=== PATIENT | male | born 1970 | race Caucasian/White ===

== ENCOUNTER 2019-06-19 05:50 | Outpatient (RCR) | payer MEDICARE, MEDICAID, SELFPAY | END 2019-07-02 00:01 | LOC: ONCRAD 05:50 | PROVIDERS: Family Provider Physician Assistant; Visit Provider Radiology Radiation Oncology | DX: Z51.0 Encounter for antineoplastic radiation therapy (principal); C79.89 Secondary malignant neoplasm of other specified sites; C34.11 Malignant neoplasm of upper lobe, right bronchus or lung; L58.0 Acute radiodermatitis; W88.1XXA Exposure to radioactive isotopes, initial encounter; G47.33 Obstructive sleep apnea (adult) (pediatric); Z23 Encounter for immunization; Z45.2 Encounter for adjustment and management of vascular access device; Z79.51 Long term (current) use of inhaled steroids; Z79.891 Long term (current) use of opiate analgesic; Z79.84 Long term (current) use of oral hypoglycemic drugs; Z86.711 Personal history of pulmonary embolism; Z92.21 Personal history of antineoplastic chemotherapy; Z87.440 Personal history of urinary (tract) infections | CPT/HCPCS: 36415; 77336 ×3; 77386 ×13; 80053; 85025; 90686; 96523; 99213; G0008; J1642 ==

== ENCOUNTER 2019-07-31 05:42 | Outpatient (RCR) | payer MEDICARE, MEDICAID, SELFPAY ==
[2019-07-09 09:48] LABS: Basophils # 0.1 10^3/uL (0.0-0.1); Basophils % 0.8 %; Eosinophils # 0.3 10^3/uL (0.0-0.8); Eosinophils % 4.5 %; Hematocrit 43.7 % (42.0-52.0); Hemoglobin 13.7 g/dL (11.7-16.6); Lymphocytes # 2.4 10^3/uL (0.8-4.8); Lymphocytes % 40.2 %; Mean Corpuscular HGB Conc 31.4 g/dL (30.0-36.0); Mean Corpuscular Hemoglobin 30.2 pg (28.0-34.0); Mean Corpuscular Volume 96.3 fL (80-94); Mean Platelet Volume 11.4 fL (7.4-10.4); Monocytes # 0.5 10^3/uL (0.2-0.9); Monocytes % 7.5 %; Neutrophils # 2.8 10^3/uL (1.8-7.7); Neutrophils % 46.7 %; Nucleated Red Blood Cells % 0 %; Platelet Count 129 10^3/cmm (130-400); Red Blood Count 4.54 10^6/uL (4.1-5.3); Red Cell Distribution Width 14.4 % (12.1-15.1)
[2019-07-09 09:59] LABS: Alanine Aminotransferase 24 U/L (0-41); Albumin Level 4.1 g/dL (3.5-5.2); Alkaline Phosphatase 81 IU/L (40-130); Anion Gap 17.1 (5-19); Aspartate Amino Transferase 26 U/L (0-40); Blood Urea Nitrogen 19 mg/dL (6-20); Calcium 9.9 mg/Dl (8.6-10.0); Carbon Dioxide 20 mmol/L (22-29); Chloride 101 mmol/L (98-107); Globulin 3.5 g/dL (1.3-4.6); Glomerular Filtration Rate 90.1 mL/min (90-130); Glucose 104 mg/dL (74-109); Potassium 4.1 mmol/L (3.5-5.1); Sodium 134 mmol/L (136-145); Total Bilirubin 0.4 mg/dL (0.15-1.2); Total Protein 7.6 g/dL (6.6-8.7)
[2019-07-09 10:30] LABS: Slide Review Slide Review Perform
[2019-07-10] MEDS: acetaminophen 325 mg Tablet 650 MG PO (10:00)
[2019-07-10] MEDS: dexamethasone 20 MG in sodium chloride 0.9% 50 ML 188 MG IV (10:12)
[2019-07-10 13:27] LABS: Thyroid Stimulating Hormone 0.95 uIU/mL (0.27-4.20)
[2019-07-10 14:31] LABS: Estmated Average Glucose 103; Hemoglobin A1C 5.2 % (4.0-6.0)
--- NOTE | 2019-07-15 10:49 | ONC FU_ITS ---
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 Mckeon is a 48-year-old gentleman who developed a left neck mass. He was seen by Dr. Ben FOX and underwent needle core biopsy of left neck mass on 10/16/2017. 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 He underwent a CT of chest on 10/23/2017 which revealed a large right paratracheal mass measuring 8.3???7.7 cm. It involves the superior vena cava with near occlusion. It also causes encasement of the right main pulmonary artery with moderate narrowing with moderate stenosis. It also encases the right proximal main stem bronchus and bronchus intermedius. Mr Mckeon subsequently underwent CT PET scan on 10/28/2017 which showed hypermetabolic left neck mass 4.9 x 3.7 cm with SUV of 12.9. Right paratracheal mass with SUV of 15. At the level of pelvis a 6.1 x 4.5 cm soft tissue mass was reported in the right external iliac territory which has SUV of 14.4. There was an FDG positive muscular implant anterior to right femoral neck measuring 1.[address] scan done on 12/07/2017 showed right lower lobe and right middle lobe pulmonary embolism and was started on apixaban and for the study showed right lower extremity clot Mr Mckeon was seen by radiation oncology and started on radiation to his chest on urgent basis because of risk of impending SVC syndrome. He began his first cycle of chemotherapy with Carboplatin/etoposide on 11/06/2017. His last cycle of chemotherapy was on 02/06/2018. Mr. Mckeon did have follow-up PET CT on 02/03/2018. The left-sided cervical mass seen on the exam from 10/28/2017 is now subcentimeter in size and within minimal FDG activity. Similarly, the right hilar/paratracheal mass demonstrates activity minimally greater than that of the mediastinal background and measures 2.3 x 4.1 cm. The right external iliac mass now measures 1.5 cm without significant FDG activity. The muscle implant anterior to the right femoral neck currently has SUV of 6.6 down from 14.1 indicating a positive response to chemotherapy. His cycle 6 chemotherapy, was on 04/02/2018. Patient has seen Dr. Cotton radiation oncology, regarding persistent activity in muscle implant anterior to the right femoral neck, as per patient he was informed that there is a risk of radiation-induced damage to his femoral neck/ right hip and suggested to continue with chemotherapy and repeat CT PET scan as planned. Underwent CT-guided biopsy of right iliopsoas muscle implant anterior to right femoral neck on 06/04/2018 at [facility] radiology department in [place] and final pathology report came back fibrohistiocytic proliferation, no evidence of carcinoma Sleep apnea on CPAP machine Underwent fluoroscopy Port-A-Cath on 08/06/2018 showed patent Port-A-Cath He was supposed to get CT PET scan but insurance refused coverage so CT scan of chest abdomen pelvis and neck was done on 08/17/2018. It reported recurrent mass in the left neck centered at level of hyoid bone. Mass extends over a length of 4 x 2.2 x 3.4 cm. The mass abuts and displaces the fat planes along the sternocleidomastoid muscle. Mass also abuts the left jugular vein. Mass in a similar location on study of 09/18/2017. CT PET scan done on 04/21/2018 was negative. No additional masses noted. CT scan of chest showed continued decrease righ media l upper lobe mass; Unchanged right upper lobe linear and patchy nodular opacity; CT abdomen pelvis showed no definite metastatic disease in abdomen pelvis; Left mid kidney indeterminant wedge-shaped low-attenuation focus Mr Mckeon underwent biopsy of left neck mass at [facility] on 09/12/2018, final pathology report came back high-grade neuroendocrine carcinoma, predominantly small cell feature and positive focally week for TTF-1, it was concluded, given history of SVC syndrome and radiological studies diagnosis was revised to metastatic small cell lung cancer. And rechallenge with carboplatin/etoposide was recommended along with tecentriq (atezolizumab), Which he was started on 09/26/2018. Follow-up CT PET scan done after 4 doses of carboplatin/etoposide/ tecentriq , on 12/29/2018 showed persistent left supraclavicular mass measuring 3.7 x 2.7 with SUV of 8.2 compared to 4 prior to by 3.[address] scan of neck done on 08/17/2018 at [facility]. And also showed persistent but stable muscle implant anterior to right femur, with SUV 14.0 and it was biopsied earlier and showed no evidence of metastatic disease Patient was evaluated by Dr. Gorman in March 2019 and as per his evaluation patient still responding to the treatment and left neck mass is smaller than before and . Last chemotherapy was done on 02/03/2019. The muscle implant was also seen with SUV of 14 biopsy of specimen was consistent with recurrent high-grade tumor and he was offered a clinical trial [facility] neuroendocrine oncology clinic at [facility]. Patient did well and clinical trial but eventually developed progressive thrombocytopenia and at his followup visit on May 07, [address] Gorman, his follow-up scan showed disease progression. At that time he was taken off clinical trial as left neck mass continued to grow. CT scan of neck done at the May 2019 followup visit, showed progressive left neck mass site 6.1 x 7.6 cm compared to 4.4 x 6.4 on 02/21/2019 with central hypoattenuation in mass is intimately associated with the left internal jugular vein and now appears to encase it and right pulmonary nodularity, cavitary lesion, right hilar mass seen. With this impression it was decided a few with palliative therapy which include radiation therapy to the left neck mass and because of persistent thrombocytopenia immunotherapy with ipilimumab and nivolumab was recommended and in case thrombocytopenia resolved topotecan based regimen can be considered Tolerated radiation therapy to left neck reasonably well and will conclude radiation therapy on 06/19/2019. Dr. Plummer has recommended that he pursue ipilimumab and nivolumab. He is here today for follow-up and initiation of his first cycle. He states overall he is doing pretty good. He has had some loss of appetite. He states that things just do not taste right. His weight is down 13 pounds since his visit on June 17, 2019. Mrs. Greer states that he is being encouraged to drink Ensure and nutrition supplements. She is also trying to to do anything that he will eat . He is questioning whether or not he needs to be on the metformin he is on thousand grams twice daily. He states with his weight loss and his appetite his blood sugars at home have been good. His random glucose today was 104. He has no new pain. He states overall he is doing good. His energy is fair. He denies any diarrhea or constipation. He has had no new cough or shortness of breath. He denies any fever or chills or any signs of infection in the last 72 hours. His ECOG is 2. ] Past Medical History: Emphysema Hypertension Type II diabetes Past Surgical History: Flu vaccine in 2018 - right deltoid Hernia repair in 2012 Surgery on lower right leg in 2010 Allergies: Penicillins Medications: Advair Diskus 2 puff(s) (of 250-50 mcg/dose) Aerosol Powder, Breath Activated Inhalation b.i.d. Ativan 0.5 - 1 Tablet (of 1 mg) Oral t.i.d. PRN Cetirizine HCl 1 Tablet (of 10 mg) Tablet Oral b.i.d. Compazine 1 Tablet (of 10 mg) Oral q 4 hours PRN Diclofenac Sodium 1 Tablet (of 75 mg) Tablet, enteric coated Oral b.i.d. Gabapentin 1 Capsule (of 300 mg) Capsule Oral four times a day Hydrocodone-Acetaminophen 1 - 2 Tablet (of 5-325 mg) Oral q 6 hours Lisinopril 1 Tablet (of 20 mg) Oral daily MetFORMIN HCl 1 Tablet (of 1000 mg) Tablet Oral b.i.d. Metoprolol Tartrate 1 Tablet (of 50 mg) Tablet Oral daily Oxybutynin Chloride 1 Tablet (of 5 mg) Tablet Oral b.i.d. Pramipexole Dihydrochloride 1 (0.25 mg) Tablet Oral at bedtime Tradjenta 1 Tablet (of 5 mg) Tablet Oral daily Family History: Mr. Mckeon's mother is alive. Mr. Mckeon's father is : Mesothelioma. His maternal grandfather is : Prostate Cancer. His paternal grandfather is : Lung Cancer. Mr. Mckeon has 1 paternal uncle who is : mesothelioma. Social History: Mr. Mckeon is and he is a disabled. He is a daily smoker who has smoked 1.0 pack/day for 33 years. Review Of Symptoms: Constitutional Denies fevers, chills, night sweats, excessive fatigue or weight loss Allergic/Immunologic No reactions. Eyes Denies significant visual changes. No diplopia. No amaurosis. ENMT Denies changes in hearing, sore throat, mouth sores, difficulty or changes in swallowing ability, and/or sinus drainage. Hematologic/Lymphatic Denies easy bruising or bleeding. The patient denies any tender or palpable lymph nodes. Respiratory Denies dyspnea on exertion, chest pain, cough or hemoptysis. Denies orthopnea. Cardiovascular Denies anginal chest pain, palpitations or orthopnea. Gastrointestinal Denies nausea, vomiting, diarrhea, GI bleeding, or constipation. Denies change in bowel habits and/or stool color, no heartburn or early satiety. Genitourinary (M) Denies hematuria, dysuria, increased frequency, urgency, hesitancy or incontinence Musculoskeletal Denies joint pain, swelling or redness. No decreased range of motion. Integumentary Denies chronic rashes, inflammation, ulcerations or skin changes. Neurologic Denies headache, blurred vision, and no areas of focal weakness or numbness. Normal gait. No sensory problems. Psychiatric Denies insomnia, depression, rula or mood swings. Vital Signs: Performed on Jul 10, 2019 08:54 Height - 72.00 in Weight - 299.4 lbs (LOW) BSA - 2.53 sq.m BMI - 40.61 (HIGH) Temperature - 98.2 F (LOW) Pulse - 96 /min Respiration - 20 /min BP - 151/98 mm(hg) (HIGH) O2 Sat - 96 % Pain - 0,1 - No physically strenuous activity, but ambulatory and able to carry out light or sedentary work (e.g. office work, light house work). (ECOG) Physical Examination: Constitutional Alert, oriented, no acute distress. Skin pink, warm and dry. Head Normocephalic; atraumatic. Eyes Conjunctivae and sclerae are clear and without icterus. Pupils are reactive and equal. Respiratory Lungs are clear to auscultation without rhonchi or wheezing. Cardiovascular Regular rate and rhythm of heart without murmurs,clicks, gallops or rubs. Abdomen Non-tender, non-distended, no masses, ascites or hepatosplenomegaly. No guarding or rebound tenderness. No pulsatile masses. Back/Spine Non-tender to palpation. Extremities No visible deformities, no cyanosis, clubbing or edema. Musculoskeletal No tenderness or swelling, normal range of motion without obvious weakness. Integumentary No rashes or lesions. Neurologic No sensory or motor deficits, normal cerebellar function, normal gait. Psychiatric Alert and oriented times three. Coherent speech. Verbalizes understanding of our discussions today. Laboratory:Test performed on Jul 10, 2019 15:39 TSH 0.95 uU/mL Hemoglobin A1C 5.2 % Test performed on Jul 09, 2019 14:08 Glucose 104 mg/dL BUN 19 mg/dL Creatinine 0.9 mg/dL Cr Clearance (Est) 201.06 mL/min Sodium 134 mmol/L Potassium 4.1 mmol/L Chloride 101 mmol/L CO2 20 mmol/L Calcium 9.9 mg/dL Protein, Total 7.6 g/dL Albumin 4.1 g/dL Globulin 3.5 g/dL Bilirubin, Total 0.4 mg/dL Alkaline Phosphatase 81 IU/L AST (SGOT) 26 IU/L ALT (SGPT) 24 IU/L WBC 6.0 10^9/L RBC 4.54 10^12/L HGB 13.7 g/dL HCT 43.7 % MCV 96.3 fl MCH 30.2 pg MCHC 31.4 g/dL RDW 14.4 % Platelet Count 129 10^9/L MPV 11.4 fL Neutrophils (Gran) 2.8 10^9/L Lymphocytes 2.4 10^9/L Monocytes 0.5 10^9/L Eosinophils 0.3 10^9/L Basophils 0.1 10^9/L Manual Lymphocytes 40.2 % Manual Monocytes 7.5 % Manual Eosinophils 4.5 % Manual Basophils 0.8 % NRBCs 0.0 /100 WBC Impression: Recurrent small cell lung cancer per left neck mass biopsy on 09/12/2018, which showed high-grade neuroendocrine carcinoma, predominantly small cell feature and positive focally for TTF-1, it was concluded, given history of SVC syndrome and radiological studies diagnosis was revised to metastatic small cell lung cancer Metastatic High-grade neuroendocrine carcinoma per needle core biopsy of left neck mass done on 10/16/2017 Pathology also showed sheets and cords of large malignant cells with neuroendocrine features, numerous mitotic figures are seen as well as area of tumor necrosis. immuno histochemistry positive for CAM 5.2, CD 56 , synaptophysin, TTF-[address] scan of chest done on 10/23/2017 showed 7.7 x 2.3 cm right paratracheal mass with a near occlusion of SVC, and encasement of right proximal pulmonary artery with moderate stenosis, and encasement of right proximal main stem bronchus and bronchus intermedius CT PET scan done on 10/28/2017 showed hypermetabolic left neck mass measuring 4.9 x 3.7 cm with SUV of 12.9 and right paratracheal mass measures 6.8 x 7.8 cm with SUV of 15 and at the level of pelvis a 6.1 x 4.5 cm soft tissue mass in the right external iliac territory has SUV of 14.4 and and FDG positive muscular implant anterior to right femoral neck measuring about 1.2 cm in size On radiation therapy to right paratracheal mass and chemotherapy with carboplatin and etoposide was added on 11/06/2017. He received radiation therapy to right pelvic mass Right leg DVT diagnosed on 12/07/2017 on Eliquis. Mr. Mckeon was admitted on 01/20/2018 with an initial concerns for sepsis but was found to have UTI. He was discharged on antibiotics andhis fever, rigors and tachycardia resolved. CT PET scan done on 02/03/2018 showed left sided cervical mass seen on exam from 10/28/2017 is now subcentimeter in size and within normal limit FDG activity early. Right hilar/paratracheal mass demonstrates activity minimally greater than that of mediastinal background and molecular 2.3 x 4.1 cm. Right external iliac mass now measured 1.5 cm without significant FDG activity. The muscle implant anterior to the right femoral neck currently has SUV of 6.6, down from 14.1, indicating a positive response to therapy. Repeat CT PET scan done after 6th dose of chemo on 04/21/2018 showed previously described left sided cervical mass was not identifiable on the current study. Right hilar/paratracheal mass is improved in size to 3 cm with a minimum FDG activity. Right external iliac lymph node was unchanged in size but without significant FDG activity Muscle implant anterior to right femoral neck had an SUV of 12 compared to 6.6 previously, consistent with progression of disease at that location. On 06/04/2018, he underwent CT-guided biopsy of this lesion at [facility] radiology department in [place] and final pathology report came back fibrohistiocytic proliferation, no evidence of carcinoma CT scan of neck chest abdomen pelvis done on 08/17/2018 showed recurrent mass in the left neck centered at level of hyoid bone. Mass extends over a length of 4 x 2.2 x 3.4 cm and abuts and displaces fat planes along the sternocleidomastoid muscle. Mass also abuts left jugular vein. No additional mass seen. Mass in a similar location on the study of 09/18/2017. CT PET scan done on 04/21/[address] scan of chest showed continued decrease right medial upper lobe mass. Unchanged right upper lobe linear and patchy nodular opacity. New right lower lobe superior segment focal irregular opacity nonspecific follow-up CT scan recommended in [address] abdomen showed no definite metastatic disease in abdomen pelvis. Left mid kidney indeterminant wedge-shaped low-attenuation focus nonspecific. Mr Mckeon underwent biopsy of left neck mass at [facility] on 09/12/2018, final pathology report came back high-grade neuroendocrine carcinoma, predominantly small cell feature and positive focally week for TTF-1, it was concluded, given history of SVC syndrome and radiological studies diagnosis was revised to metastatic small cell lung cancer. Re-challenging with carboplatin and etoposide was recommended along with tecentriq (atezolizumab). So planning was to start him on carboplatin/etoposide and tecentriq 1200 mg IV day 1 q3 weeks ???[address] PET scan if complete remission, may consider maintenance therapy with Tecentriq alone.Which was started on 09/26/2018 Follow-up CT PET scan done after 4 doses of carboplatin/etoposide/ tecentriq , on 12/29/2018 showed persistent left supraclavicular mass measuring 3.7 x 2.7 with SUV of 8.2 compared to 4 prior to by 3.[address] scan of neck done on 08/17/2018 at [facility]. It also showed persistent but stable muscle implant anterior to right femur, with SUV 14.0 and it was biopsied earlier and showed no evidence of metastatic disease Patient was evaluated by Dr. Gorman in March 2019 and as per his evaluation, Mr Mckeon was still responding to the treatment and left neck mass is smaller than before. Last chemotherapy was done on 02/03/2019. The muscle implant was also seen with SUV of 14 biopsy of specimen was consistent with recurrent high-grade tumor and he was offered a clinical trial at neuroendocrine oncology clinic at [facility]. Patient did well in the clinical trial but eventually developed progressive thrombocytopenia and follow-up scan showed disease progressio at hiis followup visit on May 07, 2019 At that time he was taken off clinical trial as left neck mass continued to grow. CT scan of neck done showed progressive left neck mass site 6.1 x 7.6 cm compared to 4.4 x 6.4 on 02/21/2019 with central hypoattenuation in mass and it was intimately associated with the left internal jugular vein and now appears to encase it. Right pulmonary nodularity, cavitary lesion, right hilar mass seen. With this impression, it was decided to pursue palliative therapy which include radiation therapy to the left neck mass and because of persistent thrombocytopenia- immunotherapy with ipilimumab and nivolumab was recommended and in case thrombocytopenia resolved- topotecan based regimen can be considered. Tolerated radiation therapy to left neck reasonably well and will conclude radiation therapy on 06/19/2019. Dr. Plummer is recommended that he pursue ipilimumab and nivolumab. He is here today for follow-up and initiation of his first cycle. Plan: 1. We will pursue with ipilimumab nivolumab today as scheduled. Antiemetics at home if needed. He will have premeds as indicated. 3. Labs from July 09, 2019 were reviewed and detail and discussed with and Mrs. Mckeon and a copy was given to them. White count 6.0 hemoglobin 13.7 platelets 129,000 ANC is 2800. Creatinine is 0.9 potassium 4.1 LFTs are normal. I did request a TSH and a hemoglobin A1c be added to his labs. TSH was 0.95 and hemoglobin A1c was 5.2. 4. I did ask them to decrease his metformin to 500 mg twice daily as I am somewhat concerned about diarrhea especially if he has difficulty with diarrhea due to the immunotherapy. His hemoglobin A1c is 5.2. 5. We will plan to see him back in 1 week for day 8 follow-up with CBC CMP. He will have weekly interim counts and return in 3 weeks for consideration of cycle 2 with CBC CMP and TSH. 6. Specific side effects of immunotherapy discussed included but not limited to: ??? pneumonitis: new or worsening cough; chest pain; and shortness of breath. ??? Colitis: diarrhea or more bowel movements than usual; blood in stools or dark, tarry, sticky stools; and severe stomach area (abdomen) pain or tenderness. ??? hepatitis: jaundice; severe nausea or vomiting; pain on the right side of the abdomen; drowsiness; dark urine; bleeding or bruise more easily than normal. ??? nephritis and kidney failure: including decrease in the amount of urine; hematuria; lower extremity edema; and loss of appetite. ??? thyroid and pituitary changes that may include: headaches that will not go away or unusual headaches; extreme tiredness, weight gain or weight loss; changes in mood or behavior, such as decreased sex drive, irritability, or forgetfulness; dizziness or fainting; hair loss; feeling cold; constipation; and voice gets deeper. ???rash; changes in eyesight; severe or persistent muscle or joint pains; and severe muscle weakness. The majority of this visit was time spent face to face in review of plan of care, side effect identification and where to call for questions or concerns. 7. Mr. Mckeon was instructed to contact us in the interim should questions or problems arise. Signed By: Josette Kc-, AOCNP Nupur Plummer MD <<Signature on File>>
[2019-07-16 09:01] LABS: Basophils # 0.1 10^3/uL (0.0-0.1); Basophils % 0.9 %; Eosinophils # 0.5 10^3/uL (0.0-0.8); Hematocrit 43.2 % (42.0-52.0); Hemoglobin 13.4 g/dL (11.7-16.6); Lymphocytes # 2.4 10^3/uL (0.8-4.8); Lymphocytes % 43.2 %; Mean Corpuscular Volume 96.9 fL (80-94); Mean Platelet Volume 9.6 fL (7.4-10.4); Monocytes # 0.4 10^3/uL (0.2-0.9); Monocytes % 7.2 %; Neutrophils # 2.2 10^3/uL (1.8-7.7); Neutrophils % 39.3 %; Nucleated Red Blood Cells % 0 %; Platelet Count 131 10^3/cmm (130-400); Red Blood Count 4.46 10^6/uL (4.1-5.3); Red Cell Distribution Width 14.4 % (12.1-15.1); White Blood Count 5.6 10^3/uL (4.0-10.0)
[2019-07-16 09:24] LABS: Alanine Aminotransferase 24 U/L (0-41); Albumin Level 4.2 g/dL (3.5-5.2); Alkaline Phosphatase 80 IU/L (40-130); Anion Gap 16.2 (5-19); Aspartate Amino Transferase 22 U/L (0-40); Blood Urea Nitrogen 14 mg/dL (6-20); Calcium 9.5 mg/Dl (8.6-10.0); Carbon Dioxide 21 mmol/L (22-29); Chloride 105 mmol/L (98-107); Globulin 2.8 g/dL (1.3-4.6); Glomerular Filtration Rate 103.2 mL/min (90-130); Glucose 100 mg/dL (74-109); Potassium 4.2 mmol/L (3.5-5.1); Sodium 138 mmol/L (136-145); Total Bilirubin 0.3 mg/dL (0.15-1.2)
--- NOTE | 2019-07-22 10:57 | ONC FU_ITS ---
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 Mckeon is a 48-year-old gentleman who developed a left neck mass. He was seen by Dr. Ben FOX and underwent needle core biopsy of left neck mass on 10/16/2017. 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 He underwent a CT of chest on 10/23/2017 which revealed a large right paratracheal mass measuring 8.3???7.7 cm. It involves the superior vena cava with near occlusion. It also causes encasement of the right main pulmonary artery with moderate narrowing with moderate stenosis. It also encases the right proximal main stem bronchus and bronchus intermedius. Mr Mckeon subsequently underwent CT PET scan on 10/28/2017 which showed hypermetabolic left neck mass 4.9 x 3.7 cm with SUV of 12.9. Right paratracheal mass with SUV of 15. At the level of pelvis a 6.1 x 4.5 cm soft tissue mass was reported in the right external iliac territory which has SUV of 14.4. There was an FDG positive muscular implant anterior to right femoral neck measuring 1.[address] scan done on 12/07/2017 showed right lower lobe and right middle lobe pulmonary embolism and was started on apixaban and for the study showed right lower extremity clot Mr Mckeon was seen by radiation oncology and started on radiation to his chest on urgent basis because of risk of impending SVC syndrome. He began his first cycle of chemotherapy with Carboplatin/etoposide on 11/06/2017. His last cycle of chemotherapy was on 02/06/2018. Mr. Mckeon did have follow-up PET CT on 02/03/2018. The left-sided cervical mass seen on the exam from 10/28/2017 is now subcentimeter in size and within minimal FDG activity. Similarly, the right hilar/paratracheal mass demonstrates activity minimally greater than that of the mediastinal background and measures 2.3 x 4.1 cm. The right external iliac mass now measures 1.5 cm without significant FDG activity. The muscle implant anterior to the right femoral neck currently has SUV of 6.6 down from 14.1 indicating a positive response to chemotherapy. His cycle 6 chemotherapy, was on 04/02/2018. Patient has seen Dr. Cotton radiation oncology, regarding persistent activity in muscle implant anterior to the right femoral neck, as per patient he was informed that there is a risk of radiation-induced damage to his femoral neck/ right hip and suggested to continue with chemotherapy and repeat CT PET scan as planned. Underwent CT-guided biopsy of right iliopsoas muscle implant anterior to right femoral neck on 06/04/2018 at [facility] radiology department in [place] and final pathology report came back fibrohistiocytic proliferation, no evidence of carcinoma Sleep apnea on CPAP machine Underwent fluoroscopy Port-A-Cath on 08/06/2018 showed patent Port-A-Cath He was supposed to get CT PET scan but insurance refused coverage so CT scan of chest abdomen pelvis and neck was done on 08/17/2018. It reported recurrent mass in the left neck centered at level of hyoid bone. Mass extends over a length of 4 x 2.2 x 3.4 cm. The mass abuts and displaces the fat planes along the sternocleidomastoid muscle. Mass also abuts the left jugular vein. Mass in a similar location on study of 09/18/2017. CT PET scan done on 04/21/2018 was negative. No additional masses noted. CT scan of chest showed continued decrease righ media l upper lobe mass; Unchanged right upper lobe linear and patchy nodular opacity; CT abdomen pelvis showed no definite metastatic disease in abdomen pelvis; Left mid kidney indeterminant wedge-shaped low-attenuation focus Mr Mckeon underwent biopsy of left neck mass at [facility] on 09/12/2018, final pathology report came back high-grade neuroendocrine carcinoma, predominantly small cell feature and positive focally week for TTF-1, it was concluded, given history of SVC syndrome and radiological studies diagnosis was revised to metastatic small cell lung cancer. And rechallenge with carboplatin/etoposide was recommended along with tecentriq (atezolizumab), Which he was started on 09/26/2018. Follow-up CT PET scan done after 4 doses of carboplatin/etoposide/ tecentriq , on 12/29/2018 showed persistent left supraclavicular mass measuring 3.7 x 2.7 with SUV of 8.2 compared to 4 prior to by 3.[address] scan of neck done on 08/17/2018 at [facility]. And also showed persistent but stable muscle implant anterior to right femur, with SUV 14.0 and it was biopsied earlier and showed no evidence of metastatic disease Patient was evaluated by Dr. Gorman in March 2019 and as per his evaluation patient still responding to the treatment and left neck mass is smaller than before and . Last chemotherapy was done on 02/03/2019. The muscle implant was also seen with SUV of 14 biopsy of specimen was consistent with recurrent high-grade tumor and he was offered a clinical trial [facility] neuroendocrine oncology clinic at [facility]. Patient did well and clinical trial but eventually developed progressive thrombocytopenia and at his followup visit on May 07, [address] Gorman, his follow-up scan showed disease progression. At that time he was taken off clinical trial as left neck mass continued to grow. CT scan of neck done at the May 2019 followup visit, showed progressive left neck mass site 6.1 x 7.6 cm compared to 4.4 x 6.4 on 02/21/2019 with central hypoattenuation in mass is intimately associated with the left internal jugular vein and now appears to encase it and right pulmonary nodularity, cavitary lesion, right hilar mass seen. With this impression it was decided a few with palliative therapy which include radiation therapy to the left neck mass and because of persistent thrombocytopenia immunotherapy with ipilimumab and nivolumab was recommended and in case thrombocytopenia resolved topotecan based regimen can be considered Tolerated radiation therapy to left neck reasonably well and he concluded radiation therapy on 06/19/2019 o a total dose of 4,[address] Plummer has recommended that he pursue ipilimumab and nivolumab. He began his first cycle on 07/10/2019. He states overall he is doing pretty good. He states that he thinks last week went really well. He denies any fever or chills. He has had no nausea or vomiting. His appetite still is down for him. However he is eating. He is trying to do nutritional supplements as tolerated. He denies any diarrhea or constipation. He states his energy is about the same. He has had no mouth sores, sore throat or difficulty swallowing. His ECOG is 1. Past Medical History: Emphysema Hypertension Type II diabetes Past Surgical History: Flu vaccine in 2019 - right deltoid Hernia repair in 2012 Surgery on lower right leg in 2010 Allergies: Penicillins Medications: Advair Diskus 2 puff(s) (of 250-50 mcg/dose) Aerosol Powder, Breath Activated Inhalation b.i.d. Ativan 0.5 - 1 Tablet (of 1 mg) Oral t.i.d. PRN Cetirizine HCl 1 Tablet (of 10 mg) Tablet Oral b.i.d. Compazine 1 Tablet (of 10 mg) Oral q 4 hours PRN Diclofenac Sodium 1 Tablet (of 75 mg) Tablet, enteric coated Oral b.i.d. Gabapentin 1 Capsule (of 300 mg) Capsule Oral four times a day Hydrocodone-Acetaminophen 1 - 2 Tablet (of 5-325 mg) Oral q 6 hours Lisinopril 1 Tablet (of 20 mg) Oral daily MetFORMIN HCl 1 Tablet (of 1000 mg) Tablet Oral b.i.d. Metoprolol Tartrate 1 Tablet (of 50 mg) Tablet Oral daily Oxybutynin Chloride 1 Tablet (of 5 mg) Tablet Oral b.i.d. Pramipexole Dihydrochloride 1 (0.25 mg) Tablet Oral at bedtime Tradjenta 1 Tablet (of 5 mg) Tablet Oral daily Family History: Mr. Mckeon's mother is alive. Mr. Mckeon's father is : Mesothelioma. His maternal grandfather is : Prostate Cancer. His paternal grandfather is : Lung Cancer. Mr. Mckeon has 1 paternal uncle who is : mesothelioma. Social History: Mr. Mckeon is and he is a disabled. He is a daily smoker who has smoked 1.0 pack/day for 33 years. Review Of Symptoms: Constitutional Denies fevers, chills, night sweats, excessive fatigue or weight loss Allergic/Immunologic No reactions. Eyes Denies significant visual changes. No diplopia. No amaurosis. ENMT Denies changes in hearing, sore throat, mouth sores, difficulty or changes in swallowing ability, and/or sinus drainage. Endocrine No diabetes, thyroid disease or hormone replacement. Denies hot flashes or worsening night sweats. Hematologic/Lymphatic Denies easy bruising or bleeding. The patient denies any tender or palpable lymph nodes. Respiratory Denies dyspnea on exertion, chest pain, cough or hemoptysis. Denies orthopnea. Cardiovascular Denies anginal chest pain, palpitations or orthopnea. Gastrointestinal Denies nausea, vomiting, diarrhea, GI bleeding, or constipation. Denies change in bowel habits and/or stool color, no heartburn or early satiety. Genitourinary (M) Denies hematuria, dysuria, increased frequency, urgency, hesitancy or incontinence Musculoskeletal Denies joint pain, swelling or redness. No decreased range of motion. Integumentary Denies chronic rashes, inflammation, ulcerations or skin changes. Neurologic Denies headache, blurred vision, and no areas of focal weakness or numbness. Normal gait. No sensory problems. Psychiatric Denies insomnia, depression, rula or mood swings. Vital Signs: Performed on Jul 17, 2019 14:32 Height - 72.00 in Weight - 301.0 lbs (HIGH) BSA - 2.53 sq.m BMI - 40.82 (HIGH) Temperature - 98.5 F Pulse - 88 /min Respiration - 24 /min BP - 143/91 mm(hg) (HIGH) O2 Sat - 96 % Pain - 0,1 - No physically strenuous activity, but ambulatory and able to carry out light or sedentary work (e.g. office work, light house work). (ECOG) Physical Examination: Constitutional Alert, oriented, no acute distress. Skin pink, warm and dry. Head Normocephalic; atraumatic. Eyes Conjunctivae and sclerae are clear and without icterus. Pupils are reactive and equal. ENMT Sinuses are nontender. No oral exudates, ulcers, masses, thrush or mucositis. Oropharynx clear. Tongue normal. Respiratory Lungs are clear to auscultation without rhonchi or wheezing. Cardiovascular Regular rate and rhythm of heart without murmurs,clicks, gallops or rubs. Abdomen Non-tender, non-distended, no masses, ascites or hepatosplenomegaly. No guarding or rebound tenderness. No pulsatile masses. Back/Spine Non-tender to palpation. Extremities No visible deformities, no cyanosis, clubbing or edema. Musculoskeletal No tenderness or swelling, normal range of motion without obvious weakness. Integumentary No rashes or lesions. Neurologic No sensory or motor deficits, normal cerebellar function, normal gait. Psychiatric Alert and oriented times three. Coherent speech. Verbalizes understanding of our discussions today. Laboratory:Test performed on Jul 16, 2019 08:39 Glucose 100 mg/dL BUN 14 mg/dL Creatinine 0.8 mg/dL Cr Clearance (Est) 226.19 mL/min Sodium 138 mmol/L Potassium 4.2 mmol/L Chloride 105 mmol/L CO2 21 mmol/L Calcium 9.5 mg/dL Protein, Total 7.0 g/dL Albumin 4.2 g/dL Bilirubin, Total 0.3 mg/dL Alkaline Phosphatase 80 IU/L AST (SGOT) 22 IU/L ALT (SGPT) 24 IU/L WBC 5.6 10^9/L RBC 4.46 10^12/L HGB 13.4 g/dL HCT 43.2 % MCV 96.9 fl MCH 30.0 pg MCHC 31.0 g/dL RDW 14.4 % Platelet Count 131 10^9/L MPV 9.6 fL Neutrophils (Gran) 2.2 10^9/L Lymphocytes 2.4 10^9/L Monocytes 0.4 10^9/L Eosinophils 0.5 10^9/L Basophils 0.1 10^9/L Manual Lymphocytes 43.2 % Manual Monocytes 7.2 % Manual Eosinophils 9.0 % Manual Basophils 0.9 % NRBCs 0.0 /100 WBC Test performed on Jul 10, 2019 15:39 TSH 0.95 uU/mL Hemoglobin A1C 5.2 % Impression: Recurrent small cell lung cancer per left neck mass biopsy on 09/12/2018, which showed high-grade neuroendocrine carcinoma, predominantly small cell feature and positive focally for TTF-1, it was concluded, given history of SVC syndrome and radiological studies diagnosis was revised to metastatic small cell lung cancer Metastatic High-grade neuroendocrine carcinoma per needle core biopsy of left neck mass done on 10/16/2017 Pathology also showed sheets and cords of large malignant cells with neuroendocrine features, numerous mitotic figures are seen as well as area of tumor necrosis. immuno histochemistry positive for CAM 5.2, CD 56 , synaptophysin, TTF-[address] scan of chest done on 10/23/2017 showed 7.7 x 2.3 cm right paratracheal mass with a near occlusion of SVC, and encasement of right proximal pulmonary artery with moderate stenosis, and encasement of right proximal main stem bronchus and bronchus intermedius CT PET scan done on 10/28/2017 showed hypermetabolic left neck mass measuring 4.9 x 3.7 cm with SUV of 12.9 and right paratracheal mass measures 6.8 x 7.8 cm with SUV of 15 and at the level of pelvis a 6.1 x 4.5 cm soft tissue mass in the right external iliac territory has SUV of 14.4 and and FDG positive muscular implant anterior to right femoral neck measuring about 1.2 cm in size On radiation therapy to right paratracheal mass and chemotherapy with carboplatin and etoposide was added on 11/06/2017. He received radiation therapy to right pelvic mass Right leg DVT diagnosed on 12/07/2017 on Eliquis. Mr. Mckeon was admitted on 01/20/2018 with an initial concerns for sepsis but was found to have UTI. He was discharged on antibiotics andhis fever, rigors and tachycardia resolved. CT PET scan done on 02/03/2018 showed left sided cervical mass seen on exam from 10/28/2017 is now subcentimeter in size and within normal limit FDG activity early. Right hilar/paratracheal mass demonstrates activity minimally greater than that of mediastinal background and molecular 2.3 x 4.1 cm. Right external iliac mass now measured 1.5 cm without significant FDG activity. The muscle implant anterior to the right femoral neck currently has SUV of 6.6, down from 14.1, indicating a positive response to therapy. Repeat CT PET scan done after 6th dose of chemo on 04/21/2018 showed previously described left sided cervical mass was not identifiable on the current study. Right hilar/paratracheal mass is improved in size to 3 cm with a minimum FDG activity. Right external iliac lymph node was unchanged in size but without significant FDG activity Muscle implant anterior to right femoral neck had an SUV of 12 compared to 6.6 previously, consistent with progression of disease at that location. On 06/04/2018, he underwent CT-guided biopsy of this lesion at [facility] radiology department in [place] and final pathology report came back fibrohistiocytic proliferation, no evidence of carcinoma CT scan of neck chest abdomen pelvis done on 08/17/2018 showed recurrent mass in the left neck centered at level of hyoid bone. Mass extends over a length of 4 x 2.2 x 3.4 cm and abuts and displaces fat planes along the sternocleidomastoid muscle. Mass also abuts left jugular vein. No additional mass seen. Mass in a similar location on the study of 09/18/2017. CT PET scan done on 04/21/[address] scan of chest showed continued decrease right medial upper lobe mass. Unchanged right upper lobe linear and patchy nodular opacity. New right lower lobe superior segment focal irregular opacity nonspecific follow-up CT scan recommended in [address] abdomen showed no definite metastatic disease in abdomen pelvis. Left mid kidney indeterminant wedge-shaped low-attenuation focus nonspecific. Mr Mckeon underwent biopsy of left neck mass at [facility] on 09/12/2018, final pathology report came back high-grade neuroendocrine carcinoma, predominantly small cell feature and positive focally week for TTF-1, it was concluded, given history of SVC syndrome and radiological studies diagnosis was revised to metastatic small cell lung cancer. Re-challenging with carboplatin and etoposide was recommended along with tecentriq (atezolizumab). So planning was to start him on carboplatin/etoposide and tecentriq 1200 mg IV day 1 q3 weeks ???[address] PET scan if complete remission, may consider maintenance therapy with Tecentriq alone.Which was started on 09/26/2018 Follow-up CT PET scan done after 4 doses of carboplatin/etoposide/ tecentriq , on 12/29/2018 showed persistent left supraclavicular mass measuring 3.7 x 2.7 with SUV of 8.2 compared to 4 prior to by 3.[address] scan of neck done on 08/17/2018 at [facility]. It also showed persistent but stable muscle implant anterior to right femur, with SUV 14.0 and it was biopsied earlier and showed no evidence of metastatic disease Patient was evaluated by Dr. Gorman in March 2019 and as per his evaluation, Mr Mckeon was still responding to the treatment and left neck mass is smaller than before. Last chemotherapy was done on 02/03/2019. The muscle implant was also seen with SUV of 14 biopsy of specimen was consistent with recurrent high-grade tumor and he was offered a clinical trial at neuroendocrine oncology clinic at [facility]. Patient did well in the clinical trial but eventually developed progressive thrombocytopenia and follow-up scan showed disease progressio at hiis followup visit on May 07, 2019 At that time he was taken off clinical trial as left neck mass continued to grow. CT scan of neck done showed progressive left neck mass site 6.1 x 7.6 cm compared to 4.4 x 6.4 on 02/21/2019 with central hypoattenuation in mass and it was intimately associated with the left internal jugular vein and now appears to encase it. Right pulmonary nodularity, cavitary lesion, right hilar mass seen. With this impression, it was decided to pursue palliative therapy which include radiation therapy to the left neck mass and because of persistent thrombocytopenia- immunotherapy with ipilimumab and nivolumab was recommended and in case thrombocytopenia resolved- topotecan based regimen can be considered. Tolerated radiation therapy to left neck reasonably well and concluded radiation therapy on 06/19/2019 to a total dose of [address] Plummer recommended that he pursue ipilimumab and nivolumab. He began his first cycle on 07/10/2019. He has tolerated it well thus far. Plan: 1. Continue with current plan of care. This is day 8 of cycle 1 ipilimumab nivolumab. 2. Antiemetics at home if needed. He will have premeds as indicated. 3. Labs from July 16, 2019 were reviewed and detail and discussed with and Mrs. Mckeon and a copy was given to them. White count 5.6 hemoglobin 13.4 platelets 131,000 ANC is 2200. Creatinine is 0.8 potassium 4.2 LFTs are normal. 4. Continue metformin to 500 mg twice, may decrease to daily and attempt to wean off (at his request), but watch blood glucose and if elevates, will need to resume 5. We will plan to see him back in w weeks for day 1 of cycle 2 follow-up with CBC CMP and TSH. He will have weekly interim counts 6. Specific side effects of immunotherapy discussed included but not limited to: ??? pneumonitis: new or worsening cough; chest pain; and shortness of breath. ??? Colitis: diarrhea or more bowel movements than usual; blood in stools or dark, tarry, sticky stools; and severe stomach area (abdomen) pain or tenderness. ??? hepatitis: jaundice; severe nausea or vomiting; pain on the right side of the abdomen; drowsiness; dark urine; bleeding or bruise more easily than normal. ??? nephritis and kidney failure: including decrease in the amount of urine; hematuria; lower extremity edema; and loss of appetite. ??? thyroid and pituitary changes that may include: headaches that will not go away or unusual headaches; extreme tiredness, weight gain or weight loss; changes in mood or behavior, such as decreased sex drive, irritability, or forgetfulness; dizziness or fainting; hair loss; feeling cold; constipation; and voice gets deeper. ???rash; changes in eyesight; severe or persistent muscle or joint pains; and severe muscle weakness. 7. Mr. Mckeon was instructed to contact us in the interim should questions or problems arise. Signed By: Josette Kc-, [facility] Nupur Plummer MD <<Signature on File>>
[2019-07-23 09:37] LABS: Basophils % 0.6 %; Eosinophils # 0.4 10^3/uL (0.0-0.8); Hematocrit 42.6 % (42.0-52.0); Hemoglobin 13.7 g/dL (11.7-16.6); Lymphocytes # 2.7 10^3/uL (0.8-4.8); Lymphocytes % 38.8 %; Mean Corpuscular HGB Conc 32.2 g/dL (30.0-36.0); Mean Corpuscular Hemoglobin 30.3 pg (28.0-34.0); Mean Corpuscular Volume 94.2 fL (80-94); Monocytes # 0.5 10^3/uL (0.2-0.9); Monocytes % 6.6 %; Neutrophils # 3.3 10^3/uL (1.8-7.7); Neutrophils % 47.7 %; Nucleated Red Blood Cells % 0 %; Platelet Count 149 10^3/cmm (130-400); Red Blood Count 4.52 10^6/uL (4.1-5.3); Red Cell Distribution Width 14.6 % (12.1-15.1); White Blood Count 6.9 10^3/uL (4.0-10.0)
[2019-07-23 09:53] LABS: Alanine Aminotransferase 24 U/L (0-41); Albumin Level 3.7 g/dL (3.5-5.2); Alkaline Phosphatase 84 IU/L (40-130); Anion Gap 15.3 (5-19); Aspartate Amino Transferase 23 U/L (0-40); Blood Urea Nitrogen 17 mg/dL (6-20); Calcium 9.6 mg/Dl (8.6-10.0); Carbon Dioxide 21 mmol/L (22-29); Chloride 104 mmol/L (98-107); Globulin 4.1 g/dL (1.3-4.6); Glomerular Filtration Rate 90.1 mL/min (90-130); Glucose 110 mg/dL (74-109); Potassium 4.3 mmol/L (3.5-5.1); Sodium 136 mmol/L (136-145); Total Bilirubin 0.3 mg/dL (0.15-1.2); Total Protein 7.8 g/dL (6.6-8.7)
[2019-07-23 11:46] LABS: Thyroid Stimulating Hormone 0.54 uIU/mL (0.27-4.20)
--- NOTE | 2019-07-23 16:56 | ONC FU_ITS ---
Dr. Plummer follow up note Patient: Eric Mckeon < Unit #: [id number]: 1970 Dicatated By: Nupur Plummer M.D.Date of Visit:Jul 23, 2019 Onc Med Follow-up/Prog Note History of Present Illness: Mr. Mckeon is a 48-year-old gentleman who developed a left neck mass. He was seen by Dr. Ben FOX and underwent needle core biopsy of left neck mass on 10/16/2017. 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 He underwent a CT of chest on 10/23/2017 which revealed a large right paratracheal mass measuring 8.3???7.7 cm. It involves the superior vena cava with near occlusion. It also causes encasement of the right main pulmonary artery with moderate narrowing with moderate stenosis. It also encases the right proximal main stem bronchus and bronchus intermedius. Mr Mckeon subsequently underwent CT PET scan on 10/28/2017 which showed hypermetabolic left neck mass 4.9 x 3.7 cm with SUV of 12.9. Right paratracheal mass with SUV of 15. At the level of pelvis a 6.1 x 4.5 cm soft tissue mass was reported in the right external iliac territory which has SUV of 14.4. There was an FDG positive muscular implant anterior to right femoral neck measuring 1.[address] scan done on 12/07/2017 showed right lower lobe and right middle lobe pulmonary embolism and was started on apixaban and for the study showed right lower extremity clot Mr Mckeon was seen by radiation oncology and started on radiation to his chest on urgent basis because of risk of impending SVC syndrome. He began his first cycle of chemotherapy with Carboplatin/etoposide on 11/06/2017. His last cycle of chemotherapy was on 02/06/2018. Mr. Mckeon did have follow-up PET CT on 02/03/2018. The left-sided cervical mass seen on the exam from 10/28/2017 is now subcentimeter in size and within minimal FDG activity. Similarly, the right hilar/paratracheal mass demonstrates activity minimally greater than that of the mediastinal background and measures 2.3 x 4.1 cm. The right external iliac mass now measures 1.5 cm without significant FDG activity. The muscle implant anterior to the right femoral neck currently has SUV of 6.6 down from 14.1 indicating a positive response to chemotherapy. His cycle 6 chemotherapy, was on 04/02/2018. Patient has seen Dr. Cotton radiation oncology, regarding persistent activity in muscle implant anterior to the right femoral neck, as per patient he was informed that there is a risk of radiation-induced damage to his femoral neck/ right hip and suggested to continue with chemotherapy and repeat CT PET scan as planned. Underwent CT-guided biopsy of right iliopsoas muscle implant anterior to right femoral neck on 06/04/2018 at [facility] radiology department in [place] and final pathology report came back fibrohistiocytic proliferation, no evidence of carcinoma Sleep apnea on CPAP machine Underwent fluoroscopy Port-A-Cath on 08/06/2018 showed patent Port-A-Cath He was supposed to get CT PET scan but insurance refused coverage so CT scan of chest abdomen pelvis and neck was done on 08/17/2018. It reported recurrent mass in the left neck centered at level of hyoid bone. Mass extends over a length of 4 x 2.2 x 3.4 cm. The mass abuts and displaces the fat planes along the sternocleidomastoid muscle. Mass also abuts the left jugular vein. Mass in a similar location on study of 09/18/2017. CT PET scan done on 04/21/2018 was negative. No additional masses noted. CT scan of chest showed continued decrease righ media l upper lobe mass; Unchanged right upper lobe linear and patchy nodular opacity; CT abdomen pelvis showed no definite metastatic disease in abdomen pelvis; Left mid kidney indeterminant wedge-shaped low-attenuation focus Mr Mckeon underwent biopsy of left neck mass at [facility] on 09/12/2018, final pathology report came back high-grade neuroendocrine carcinoma, predominantly small cell feature and positive focally week for TTF-1, it was concluded, given history of SVC syndrome and radiological studies diagnosis was revised to metastatic small cell lung cancer. And rechallenge with carboplatin/etoposide was recommended along with tecentriq (atezolizumab), Which he was started on 09/26/2018. Follow-up CT PET scan done after 4 doses of carboplatin/etoposide/ tecentriq , on 12/29/2018 showed persistent left supraclavicular mass measuring 3.7 x 2.7 with SUV of 8.2 compared to 4 prior to by 3.[address] scan of neck done on 08/17/2018 at [facility]. And also showed persistent but stable muscle implant anterior to right femur, with SUV 14.0 and it was biopsied earlier and showed no evidence of metastatic disease Patient was evaluated by Dr. Gorman in March 2019 and as per his evaluation patient still responding to the treatment and left neck mass is smaller than before and . Last chemotherapy was done on 02/03/2019. The muscle implant was also seen with SUV of 14 biopsy of specimen was consistent with recurrent high-grade tumor and he was offered a clinical trial [facility] neuroendocrine oncology clinic at [facility]. Patient did well and clinical trial but eventually developed progressive thrombocytopenia and at his followup visit on May 07, [address] Gorman, his follow-up scan showed disease progression. At that time he was taken off clinical trial as left neck mass continued to grow. CT scan of neck done at the May 2019 followup visit, showed progressive left neck mass site 6.1 x 7.6 cm compared to 4.4 x 6.4 on 02/21/2019 with central hypoattenuation in mass is intimately associated with the left internal jugular vein and now appears to encase it and right pulmonary nodularity, cavitary lesion, right hilar mass seen. With this impression it was decided a few with palliative therapy which include radiation therapy to the left neck mass and because of persistent thrombocytopenia immunotherapy with ipilimumab and nivolumab was recommended and in case thrombocytopenia resolved topotecan based regimen can be considered Tolerated radiation therapy to left neck reasonably well and he concluded radiation therapy on 06/19/2019 o a total dose of 4,500 cGy. recommended that he pursue ipilimumab and nivolumab. He began his first cycle on 07/10/2019. Came for follow-up, complaining of 'crawling under skin', no skin rash, no shortness of breath, no mouth sores, no diarrhea constipation, no headaches blurred vision or double vision but generalized weakness and fatigue and off and on restless legs and arms for the last one week. Otherwise no fever or chills, no nausea or vomiting. Tolerated first cycle of immunotherapy Medications: Advair Diskus 2 puff(s) (of 250-50 mcg/dose) Aerosol Powder, Breath Activated Inhalation b.i.d., Ativan 0.5 - 1 Tablet (of 1 mg) Oral t.i.d. PRN, Cetirizine HCl 1 Tablet (of 10 mg) Tablet Oral b.i.d., Compazine 1 Tablet (of 10 mg) Oral q 4 hours PRN, Diclofenac Sodium 1 Tablet (of 75 mg) Tablet, enteric coated Oral b.i.d., Gabapentin 1 Capsule (of 300 mg) Capsule Oral four times a day, Hydrocodone-Acetaminophen 1 - 2 Tablet (of 5-325 mg) Oral q 6 hours, Lisinopril 1 Tablet (of 20 mg) Oral daily, MetFORMIN HCl 1 Tablet (of 1000 mg) Tablet Oral b.i.d., Metoprolol Tartrate 1 Tablet (of 50 mg) Tablet Oral daily, Oxybutynin Chloride 1 Tablet (of 5 mg) Tablet Oral b.i.d., Pramipexole Dihydrochloride 1 (0.25 mg) Tablet Oral at bedtime, Tradjenta 1 Tablet (of 5 mg) Tablet Oral daily Allergies: Penicillins Review of Systems: Constitutional - Appetite is fair, energy is poor, weight is stable, ENMT - Positive for sinus congestion/drainage. No mouth sores. No sore throat or difficulty swallowing, Hematologic/Lymphatic - No unusual bruising or bleeding, Respiratory - Occasional cough, Cardiovascular - No anginal chest pain, palpitations. He has no leg swelling, Gastrointestinal - No nausea, vomiting, diarrhea, GI bleeding, or constipation. No change in bowel habits, no heartburn or early satiety, Genitourinary (M) - No hematuria, dysuria, increased frequency, urgency, hesitancy or incontinence, Musculoskeletal - No joint pain, swelling or redness. No decreased range of motion, Neurologic - No headaches, no dizziness. Pt reports an increase in memory and focus problems. Pt also states that he feels as though his skin is crawling when he lays down at night, and that he is unable to sleep, Psychiatric - Patient denies anxiety or depression. Pt has difficulty falling asleep.. Vital Signs: Performed on Jul 23, 2019 11:46 Height - 72.00 in Weight - 298.0 lbs (LOW) BSA - 2.52 sq.m BMI - 40.42 (HIGH) Temperature - 99.1 F (HIGH) Pulse - 89 /min Respiration - 24 /min BP - 126/85 mm(hg) O2 Sat - 98 % Pain - 0 Performance Status: 2 - Ambulatory/capable of all self-care, unable to perform any work activities. Up and about more than 50% of waking hours. (ECOG) Physical Examination: ENMT - No oral exudates, ulcers, masses, thrush or mucositis. Oropharynx clear. Tongue normal, Respiratory - Lungs are clear to auscultation without rhonchi or wheezing, Cardiovascular - Regular rate and rhythm of heart, Abdomen - Non-tender, non-distended, Good bowel sounds. No guarding or rebound tenderness. No pulsatile masses, Extremities - no rash. Lab/Imaging: Test performed on Jul 16, 2019 08:39 Glucose 100 mg/dL BUN 14 mg/dL Creatinine 0.8 mg/dL Cr Clearance (Est) 226.19 mL/min Sodium 138 mmol/L Potassium 4.2 mmol/L Chloride 105 mmol/L CO2 21 mmol/L Calcium 9.5 mg/dL Protein, Total 7.0 g/dL Albumin 4.2 g/dL Bilirubin, Total 0.3 mg/dL Alkaline Phosphatase 80 IU/L AST (SGOT) 22 IU/L ALT (SGPT) 24 IU/L WBC 5.6 10^9/L RBC 4.46 10^12/L HGB 13.4 g/dL HCT 43.2 % MCV 96.9 fl MCH 30.0 pg MCHC 31.0 g/dL RDW 14.4 % Platelet Count 131 10^9/L MPV 9.6 fL Neutrophils (Gran) 2.2 10^9/L Lymphocytes 2.4 10^9/L Monocytes 0.4 10^9/L Eosinophils 0.5 10^9/L Basophils 0.1 10^9/L Manual Lymphocytes 43.2 % Manual Monocytes 7.2 % Manual Eosinophils 9.0 % Manual Basophils 0.9 % NRBCs 0.0 /100 WBC Test performed on Jul 10, 2019 15:39 TSH 0.95 uU/mL Hemoglobin A1C 5.2 % Test performed on Jul 09, 2019 14:08 Globulin 3.5 g/dL Test performed on May 13, 2019 11:36 Anion Gap 18.3 eGFR 90.1 mL/min Neutrophil % 38.7 % Lymphocyte % 48.1 % Monocyte % 8.4 % Eosinophil % 4.1 % Basophils % 0.5 % Impression: Recurrent small cell lung cancer per left neck mass biopsy on 09/12/2018, which showed high-grade neuroendocrine carcinoma, predominantly small cell feature and positive focally for TTF-1, it was concluded, given history of SVC syndrome and radiological studies diagnosis was revised to metastatic small cell lung cancer Metastatic High-grade neuroendocrine carcinoma per needle core biopsy of left neck mass done on 10/16/2017 Pathology also showed sheets and cords of large malignant cells with neuroendocrine features, numerous mitotic figures are seen as well as area of tumor necrosis. immuno histochemistry positive for CAM 5.2, CD 56 , synaptophysin, TTF-[address] scan of chest done on 10/23/2017 showed 7.7 x 2.3 cm right paratracheal mass with a near occlusion of SVC, and encasement of right proximal pulmonary artery with moderate stenosis, and encasement of right proximal main stem bronchus and bronchus intermedius CT PET scan done on 10/28/2017 showed hypermetabolic left neck mass measuring 4.9 x 3.7 cm with SUV of 12.9 and right paratracheal mass measures 6.8 x 7.8 cm with SUV of 15 and at the level of pelvis a 6.1 x 4.5 cm soft tissue mass in the right external iliac territory has SUV of 14.4 and and FDG positive muscular implant anterior to right femoral neck measuring about 1.2 cm in size On radiation therapy to right paratracheal mass and chemotherapy with carboplatin and etoposide was added on 11/06/2017. He received radiation therapy to right pelvic mass Right leg DVT diagnosed on 12/07/2017 on Eliquis. Mr. Mckeon was admitted on 01/20/2018 with an initial concerns for sepsis but was found to have UTI. He was discharged on antibiotics andhis fever, rigors and tachycardia resolved. CT PET scan done on 02/03/2018 showed left sided cervical mass seen on exam from 10/28/2017 is now subcentimeter in size and within normal limit FDG activity early. Right hilar/paratracheal mass demonstrates activity minimally greater than that of mediastinal background and molecular 2.3 x 4.1 cm. Right external iliac mass now measured 1.5 cm without significant FDG activity. The muscle implant anterior to the right femoral neck currently has SUV of 6.6, down from 14.1, indicating a positive response to therapy. Repeat CT PET scan done after 6th dose of chemo on 04/21/2018 showed previously described left sided cervical mass was not identifiable on the current study. Right hilar/paratracheal mass is improved in size to 3 cm with a minimum FDG activity. Right external iliac lymph node was unchanged in size but without significant FDG activity Muscle implant anterior to right femoral neck had an SUV of 12 compared to 6.6 previously, consistent with progression of disease at that location. On 06/04/2018, he underwent CT-guided biopsy of this lesion at [facility] radiology department in [place] and final pathology report came back fibrohistiocytic proliferation, no evidence of carcinoma CT scan of neck chest abdomen pelvis done on 08/17/2018 showed recurrent mass in the left neck centered at level of hyoid bone. Mass extends over a length of 4 x 2.2 x 3.4 cm and abuts and displaces fat planes along the sternocleidomastoid muscle. Mass also abuts left jugular vein. No additional mass seen. Mass in a similar location on the study of 09/18/2017. CT PET scan done on 04/21/[address] scan of chest showed continued decrease right medial upper lobe mass. Unchanged right upper lobe linear and patchy nodular opacity. New right lower lobe superior segment focal irregular opacity nonspecific follow-up CT scan recommended in [address] abdomen showed no definite metastatic disease in abdomen pelvis. Left mid kidney indeterminant wedge-shaped low-attenuation focus nonspecific. Mr Mckeon underwent biopsy of left neck mass at [facility] on 09/12/2018, final pathology report came back high-grade neuroendocrine carcinoma, predominantly small cell feature and positive focally week for TTF-1, it was concluded, given history of SVC syndrome and radiological studies diagnosis was revised to metastatic small cell lung cancer. Re-challenging with carboplatin and etoposide was recommended along with tecentriq (atezolizumab). So planning was to start him on carboplatin/etoposide and tecentriq 1200 mg IV day 1 q3 weeks ???[address] PET scan if complete remission, may consider maintenance therapy with Tecentriq alone.Which was started on 09/26/2018 Follow-up CT PET scan done after 4 doses of carboplatin/etoposide/ tecentriq , on 12/29/2018 showed persistent left supraclavicular mass measuring 3.7 x 2.7 with SUV of 8.2 compared to 4 prior to by 3.[address] scan of neck done on 08/17/2018 at [facility]. It also showed persistent but stable muscle implant anterior to right femur, with SUV 14.0 and it was biopsied earlier and showed no evidence of metastatic disease Patient was evaluated by Dr. Gorman in March 2019 and as per his evaluation, Mr Mckeon was still responding to the treatment and left neck mass is smaller than before. Last chemotherapy was done on 02/03/2019. The muscle implant was also seen with SUV of 14 biopsy of specimen was consistent with recurrent high-grade tumor and he was offered a clinical trial at neuroendocrine oncology clinic at [facility]. Patient did well in the clinical trial but eventually developed progressive thrombocytopenia and follow-up scan showed disease progressio at [facility] followup visit on May 07, 2019 At that time he was taken off clinical trial as left neck mass continued to grow. CT scan of neck done showed progressive left neck mass site 6.1 x 7.6 cm compared to 4.4 x 6.4 on 02/21/2019 with central hypoattenuation in mass and it was intimately associated with the left internal jugular vein and now appears to encase it. Right pulmonary nodularity, cavitary lesion, right hilar mass seen. With this impression, it was decided to pursue palliative therapy which include radiation therapy to the left neck mass and because of persistent thrombocytopenia- immunotherapy with ipilimumab and nivolumab was recommended and in case thrombocytopenia resolved- topotecan based regimen can be considered. Tolerated radiation therapy to left neck reasonably well and concluded radiation therapy on 06/19/2019 to a total dose of [address] Plummer recommended that he pursue ipilimumab and nivolumab. He began his first cycle on 07/10/2019. He has tolerated it well thus far. Plan: Discussed with patient regarding his labs white blood count 6.9 hemoglobin 13.7 crit 42.6 platelets 149,000 CMP within normal limits TSH 0.54 Clinically, patient is doing well, tolerated first cycle of immunotherapy with ipi/nivolumab well but with expected side effects. Progressive weakness and fatigue, now with unusual off and on restlessness movements in extremities and feeling of 'crawling under skin' , etiology unclear could be due to immunotherapy. At this point we will try short course of tapering dose of steroids with prednisone 80 mg by mouth daily ???2 followed by 60 mg by mouth daily ???2 followed by 40 mg and then 20 mg for 2 days then 5 mg by mouth twice a day for 1 week. Patient was advised if there is a worsening of symptoms need to call us otherwise we'll see him back in 1 week with CBC CMP. And also advised to monitor blood sugar closely and follow sliding scale.We'll also check his ACTH level, if there is a adrenal insufficiency, we'll consider supplement Signed By: Nupur Plummer M.D. <<Signature on File>>
[2019-07-30 08:31] LABS: Basophils % 0.5 %; Eosinophils # 0.2 10^3/uL (0.0-0.8); Eosinophils % 2.5 %; Hematocrit 41.4 % (42.0-52.0); Hemoglobin 13.6 g/dL (11.7-16.6); Lymphocytes # 2.5 10^3/uL (0.8-4.8); Lymphocytes % 42.1 %; Mean Corpuscular HGB Conc 32.9 g/dL (30.0-36.0); Mean Corpuscular Hemoglobin 30.5 pg (28.0-34.0); Mean Corpuscular Volume 92.8 fL (80-94); Mean Platelet Volume 9.1 fL (7.4-10.4); Monocytes # 0.4 10^3/uL (0.2-0.9); Monocytes % 6.8 %; Neutrophils # 2.8 10^3/uL (1.8-7.7); Neutrophils % 47.8 %; Nucleated Red Blood Cells % 0 %; Platelet Count 149 10^3/cmm (130-400); Red Blood Count 4.46 10^6/uL (4.1-5.3); White Blood Count 5.9 10^3/uL (4.0-10.0)
[2019-07-30 09:09] LABS: Alanine Aminotransferase 26 U/L (0-41); Alkaline Phosphatase 68 IU/L (40-130); Anion Gap 15.1 (5-19); Aspartate Amino Transferase 22 U/L (0-40); Blood Urea Nitrogen 21 mg/dL (6-20); Calcium 9.8 mg/dL (8.5-10.5); Carbon Dioxide 25 mmol/L (22-29); Chloride 106 mmol/L (98-107); Globulin 3.7 g/dL (1.3-4.6); Glomerular Filtration Rate 79.8 mL/min (90-130); Glucose 97 mg/dL (74-109); Potassium 4.1 mmol/L (3.5-5.1); Sodium 142 mmol/L (136-145); Thyroid Stimulating Hormone 0.65 uIU/mL (0.27-4.20); Total Bilirubin 0.3 mg/dL (0.15-1.2); Total Protein 7.7 g/dL (6.6-8.7)
[2019-07-31] MEDS: acetaminophen 325 mg Tablet 650 MG PO (09:05)
[2019-07-31] MEDS: sodium chloride 0.9% 250 ML 300 ML IV (09:05)
[2019-07-31] MEDS: dexamethasone 20 MG in sodium chloride 0.9% 50 ML 188 MG IV (10:07)
--- NOTE | 2019-07-31 16:30 | ONC FU_ITS ---
Dr. Plummer follow up note Patient: Eric Mckeon Unit #: [id number]: 1970 Dicatated By: Nupur Plummer M.D.Date of Visit:Jul 31, 2019 Onc Med Follow-up/Prog Note History of Present Illness: Mr. Mckeon is a 48-year-old gentleman who developed a left neck mass. He was seen by Dr. Ben FOX and underwent needle core biopsy of left neck mass on 10/16/2017. 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 He underwent a CT of chest on 10/23/2017 which revealed a large right paratracheal mass measuring 8.3???7.7 cm. It involves the superior vena cava with near occlusion. It also causes encasement of the right main pulmonary artery with moderate narrowing with moderate stenosis. It also encases the right proximal main stem bronchus and bronchus intermedius. Mr Mckeon subsequently underwent CT PET scan on 10/28/2017 which showed hypermetabolic left neck mass 4.9 x 3.7 cm with SUV of 12.9. Right paratracheal mass with SUV of 15. At the level of pelvis a 6.1 x 4.5 cm soft tissue mass was reported in the right external iliac territory which has SUV of 14.4. There was an FDG positive muscular implant anterior to right femoral neck measuring 1.[address] scan done on 12/07/2017 showed right lower lobe and right middle lobe pulmonary embolism and was started on apixaban and for the study showed right lower extremity clot Mr Mckeon was seen by radiation oncology and started on radiation to his chest on urgent basis because of risk of impending SVC syndrome. He began his first cycle of chemotherapy with Carboplatin/etoposide on 11/06/2017. His last cycle of chemotherapy was on 02/06/2018. Mr. Mckeon did have follow-up PET CT on 02/03/2018. The left-sided cervical mass seen on the exam from 10/28/2017 is now subcentimeter in size and within minimal FDG activity. Similarly, the right hilar/paratracheal mass demonstrates activity minimally greater than that of the mediastinal background and measures 2.3 x 4.1 cm. The right external iliac mass now measures 1.5 cm without significant FDG activity. The muscle implant anterior to the right femoral neck currently has SUV of 6.6 down from 14.1 indicating a positive response to chemotherapy. His cycle 6 chemotherapy, was on 04/02/2018. Patient has seen Dr. Cotton radiation oncology, regarding persistent activity in muscle implant anterior to the right femoral neck, as per patient he was informed that there is a risk of radiation-induced damage to his femoral neck/ right hip and suggested to continue with chemotherapy and repeat CT PET scan as planned. Underwent CT-guided biopsy of right iliopsoas muscle implant anterior to right femoral neck on 06/04/2018 at [facility] radiology department in [place] and final pathology report came back fibrohistiocytic proliferation, no evidence of carcinoma Sleep apnea on CPAP machine Underwent fluoroscopy Port-A-Cath on 08/06/2018 showed patent Port-A-Cath He was supposed to get CT PET scan but insurance refused coverage so CT scan of chest abdomen pelvis and neck was done on 08/17/2018. It reported recurrent mass in the left neck centered at level of hyoid bone. Mass extends over a length of 4 x 2.2 x 3.4 cm. The mass abuts and displaces the fat planes along the sternocleidomastoid muscle. Mass also abuts the left jugular vein. Mass in a similar location on study of 09/18/2017. CT PET scan done on 04/21/2018 was negative. No additional masses noted. CT scan of chest showed continued decrease righ media l upper lobe mass; Unchanged right upper lobe linear and patchy nodular opacity; CT abdomen pelvis showed no definite metastatic disease in abdomen pelvis; Left mid kidney indeterminant wedge-shaped low-attenuation focus Mr Mckeon underwent biopsy of left neck mass at [facility] on 09/12/2018, final pathology report came back high-grade neuroendocrine carcinoma, predominantly small cell feature and positive focally week for TTF-1, it was concluded, given history of SVC syndrome and radiological studies diagnosis was revised to metastatic small cell lung cancer. And rechallenge with carboplatin/etoposide was recommended along with tecentriq (atezolizumab), Which he was started on 09/26/2018. Follow-up CT PET scan done after 4 doses of carboplatin/etoposide/ tecentriq , on 12/29/2018 showed persistent left supraclavicular mass measuring 3.7 x 2.7 with SUV of 8.2 compared to 4 prior to by 3.[address] scan of neck done on 08/17/2018 at [facility]. And also showed persistent but stable muscle implant anterior to right femur, with SUV 14.0 and it was biopsied earlier and showed no evidence of metastatic disease Patient was evaluated by Dr. Gorman in March 2019 and as per his evaluation patient still responding to the treatment and left neck mass is smaller than before and . Last chemotherapy was done on 02/03/2019. The muscle implant was also seen with SUV of 14 biopsy of specimen was consistent with recurrent high-grade tumor and he was offered a clinical trial [facility] neuroendocrine oncology clinic at [facility]. Patient did well and clinical trial but eventually developed progressive thrombocytopenia and at his followup visit on May 07, [address] Gorman, his follow-up scan showed disease progression. At that time he was taken off clinical trial as left neck mass continued to grow. CT scan of neck done at the May 2019 followup visit, showed progressive left neck mass site 6.1 x 7.6 cm compared to 4.4 x 6.4 on 02/21/2019 with central hypoattenuation in mass is intimately associated with the left internal jugular vein and now appears to encase it and right pulmonary nodularity, cavitary lesion, right hilar mass seen. With this impression it was decided a few with palliative therapy which include radiation therapy to the left neck mass and because of persistent thrombocytopenia immunotherapy with ipilimumab and nivolumab was recommended and in case thrombocytopenia resolved topotecan based regimen can be considered Tolerated radiation therapy to left neck reasonably well and he concluded radiation therapy on 06/19/2019 o a total dose of 4,500 cGy. recommended that he pursue ipilimumab and nivolumab. He began his first cycle on 07/10/2019. Came for follow-up, denies any specific complaint today, feeling of 'crawling under skin'resolved with steroids. No skin rash no shortness of breath no wheezing no diarrhea or constipation no peripheral numbness. No visual problems. Tolerated first cycle of treatment with immunotherapy nivolumab/yervoy well Medications: Advair Diskus 2 puff(s) (of 250-50 mcg/dose) Aerosol Powder, Breath Activated Inhalation b.i.d., Ativan 0.5 - 1 Tablet (of 1 mg) Oral t.i.d. PRN, Cetirizine HCl 1 Tablet (of 10 mg) Tablet Oral b.i.d., Compazine 1 Tablet (of 10 mg) Oral q 4 hours PRN, Diclofenac Sodium 1 Tablet (of 75 mg) Tablet, enteric coated Oral b.i.d., Gabapentin 1 Capsule (of 300 mg) Capsule Oral four times a day, Hydrocodone-Acetaminophen 1 - 2 Tablet (of 5-325 mg) Oral q 6 hours, Lisinopril 1 Tablet (of 20 mg) Oral daily, MetFORMIN HCl 1 Tablet (of 1000 mg) Tablet Oral b.i.d., Metoprolol Tartrate 1 Tablet (of 50 mg) Tablet Oral daily, Oxybutynin Chloride 1 Tablet (of 5 mg) Tablet Oral b.i.d., Pramipexole Dihydrochloride 1 (0.25 mg) Tablet Oral at bedtime, predniSONE 0.5 Tablet (of 10 mg) Oral daily, Tradjenta 1 Tablet (of 5 mg) Tablet Oral daily Allergies: Penicillins Review of Systems: Constitutional - Appetite is fair, energy is poor, weight is stable, ENMT - Positive for sinus congestion/drainage. No mouth sores. No sore throat or difficulty swallowing, Hematologic/Lymphatic - No unusual bruising or bleeding, Respiratory - Occasional cough, Cardiovascular - No anginal chest pain, palpitations. He has no leg swelling, Gastrointestinal - No nausea, vomiting, diarrhea, GI bleeding, or constipation. No change in bowel habits, no heartburn or early satiety, Genitourinary (M) - No hematuria, dysuria, increased frequency, urgency, hesitancy or incontinence, Musculoskeletal - No joint pain, swelling or redness. No decreased range of motion, Neurologic - No headaches, no dizziness. Pt reports an increase in memory and focus problems, Psychiatric - Patient denies anxiety or depression. Pt has difficulty falling asleep.. Vital Signs: Performed on Jul 31, 2019 11:50 Height - 72.00 in Pulse - 71 /min Respiration - 18 /min BP - 150/97 mm(hg) (HIGH) O2 Sat - 98 % Pain - 0 Fatigue - 0 Performed on Jul 31, 2019 08:19 Height - 72.00 in Weight - 301.0 lbs (HIGH) BSA - 2.53 sq.m BMI - 40.82 (HIGH) Temperature - 99.6 F (HIGH) Pulse - 89 /min Respiration - 24 /min BP - 152/93 mm(hg) (HIGH) O2 Sat - 96 % Pain - 0 Performance Status: 1 - No physically strenuous activity, but ambulatory and able to carry out light or sedentary work (e.g. office work, light house work). (ECOG) Physical Examination: ENMT - . No oral exudates, ulcers, masses, thrush or mucositis. Oropharynx clear. Tongue normal, Respiratory - Lungs are clear to auscultation without rhonchi or wheezing, Cardiovascular - Regular rate and rhythm of heart, Abdomen - Non-tender, non-distended, Good bowel sounds. No guarding or rebound tenderness. No pulsatile masses, Extremities - 1+ edema bilaterally. Lab/Imaging: Test performed on Jul 23, 2019 09:13 TSH 0.54 uIU/mL Test performed on Jul 16, 2019 08:39 Glucose 100 mg/dL BUN 14 mg/dL Creatinine 0.8 mg/dL Cr Clearance (Est) 226.19 mL/min Sodium 138 mmol/L Potassium 4.2 mmol/L Chloride 105 mmol/L CO2 21 mmol/L Calcium 9.5 mg/dL Protein, Total 7.0 g/dL Albumin 4.2 g/dL Bilirubin, Total 0.3 mg/dL Alkaline Phosphatase 80 IU/L AST (SGOT) 22 IU/L ALT (SGPT) 24 IU/L WBC 5.6 10^9/L RBC 4.46 10^12/L HGB 13.4 g/dL HCT 43.2 % MCV 96.9 fl MCH 30.0 pg MCHC 31.0 g/dL RDW 14.4 % Platelet Count 131 10^9/L MPV 9.6 fL Neutrophils (Gran) 2.2 10^9/L Lymphocytes 2.4 10^9/L Monocytes 0.4 10^9/L Eosinophils 0.5 10^9/L Basophils 0.1 10^9/L Manual Lymphocytes 43.2 % Manual Monocytes 7.2 % Manual Eosinophils 9.0 % Manual Basophils 0.9 % NRBCs 0.0 /100 WBC Test performed on Jul 10, 2019 15:39 Hemoglobin A1C 5.2 % Test performed on Jul 09, 2019 14:08 Globulin 3.5 g/dL Test performed on May 13, 2019 11:36 Anion Gap 18.3 eGFR 90.1 mL/min Neutrophil % 38.7 % Lymphocyte % 48.1 % Monocyte % 8.4 % Eosinophil % 4.1 % Basophils % 0.5 % Impression: Recurrent small cell lung cancer per left neck mass biopsy on 09/12/2018, which showed high-grade neuroendocrine carcinoma, predominantly small cell feature and positive focally for TTF-1, it was concluded, given history of SVC syndrome and radiological studies diagnosis was revised to metastatic small cell lung cancer Metastatic High-grade neuroendocrine carcinoma per needle core biopsy of left neck mass done on 10/16/2017 Pathology also showed sheets and cords of large malignant cells with neuroendocrine features, numerous mitotic figures are seen as well as area of tumor necrosis. immuno histochemistry positive for CAM 5.2, CD 56 , synaptophysin, TTF-[address] scan of chest done on 10/23/2017 showed 7.7 x 2.3 cm right paratracheal mass with a near occlusion of SVC, and encasement of right proximal pulmonary artery with moderate stenosis, and encasement of right proximal main stem bronchus and bronchus intermedius CT PET scan done on 10/28/2017 showed hypermetabolic left neck mass measuring 4.9 x 3.7 cm with SUV of 12.9 and right paratracheal mass measures 6.8 x 7.8 cm with SUV of 15 and at the level of pelvis a 6.1 x 4.5 cm soft tissue mass in the right external iliac territory has SUV of 14.4 and and FDG positive muscular implant anterior to right femoral neck measuring about 1.2 cm in size On radiation therapy to right paratracheal mass and chemotherapy with carboplatin and etoposide was added on 11/06/2017. He received radiation therapy to right pelvic mass Right leg DVT diagnosed on 12/07/2017 on Eliquis. Mr. Mckeon was admitted on 01/20/2018 with an initial concerns for sepsis but was found to have UTI. He was discharged on antibiotics andhis fever, rigors and tachycardia resolved. CT PET scan done on 02/03/2018 showed left sided cervical mass seen on exam from 10/28/2017 is now subcentimeter in size and within normal limit FDG activity early. Right hilar/paratracheal mass demonstrates activity minimally greater than that of mediastinal background and molecular 2.3 x 4.1 cm. Right external iliac mass now measured 1.5 cm without significant FDG activity. The muscle implant anterior to the right femoral neck currently has SUV of 6.6, down from 14.1, indicating a positive response to therapy. Repeat CT PET scan done after 6th dose of chemo on 04/21/2018 showed previously described left sided cervical mass was not identifiable on the current study. Right hilar/paratracheal mass is improved in size to 3 cm with a minimum FDG activity. Right external iliac lymph node was unchanged in size but without significant FDG activity Muscle implant anterior to right femoral neck had an SUV of 12 compared to 6.6 previously, consistent with progression of disease at that location. On 06/04/2018, he underwent CT-guided biopsy of this lesion at [facility] radiology department in [place] and final pathology report came back fibrohistiocytic proliferation, no evidence of carcinoma CT scan of neck chest abdomen pelvis done on 08/17/2018 showed recurrent mass in the left neck centered at level of hyoid bone. Mass extends over a length of 4 x 2.2 x 3.4 cm and abuts and displaces fat planes along the sternocleidomastoid muscle. Mass also abuts left jugular vein. No additional mass seen. Mass in a similar location on the study of 09/18/2017. CT PET scan done on 04/21/[address] scan of chest showed continued decrease right medial upper lobe mass. Unchanged right upper lobe linear and patchy nodular opacity. New right lower lobe superior segment focal irregular opacity nonspecific follow-up CT scan recommended in [address] abdomen showed no definite metastatic disease in abdomen pelvis. Left mid kidney indeterminant wedge-shaped low-attenuation focus nonspecific. Mr Mckeon underwent biopsy of left neck mass at [facility] on 09/12/2018, final pathology report came back high-grade neuroendocrine carcinoma, predominantly small cell feature and positive focally week for TTF-1, it was concluded, given history of SVC syndrome and radiological studies diagnosis was revised to metastatic small cell lung cancer. Re-challenging with carboplatin and etoposide was recommended along with tecentriq (atezolizumab). So planning was to start him on carboplatin/etoposide and tecentriq 1200 mg IV day 1 q3 weeks ???[address] PET scan if complete remission, may consider maintenance therapy with Tecentriq alone.Which was started on 09/26/2018 Follow-up CT PET scan done after 4 doses of carboplatin/etoposide/ tecentriq , on 12/29/2018 showed persistent left supraclavicular mass measuring 3.7 x 2.7 with SUV of 8.2 compared to 4 prior to by 3.[address] scan of neck done on 08/17/2018 at [facility]. It also showed persistent but stable muscle implant anterior to right femur, with SUV 14.0 and it was biopsied earlier and showed no evidence of metastatic disease Patient was evaluated by Dr. Gorman in March 2019 and as per his evaluation, Mr Mckeon was still responding to the treatment and left neck mass is smaller than before. Last chemotherapy was done on 02/03/2019. The muscle implant was also seen with SUV of 14 biopsy of specimen was consistent with recurrent high-grade tumor and he was offered a clinical trial at neuroendocrine oncology clinic at [facility]. Patient did well in the clinical trial but eventually developed progressive thrombocytopenia and follow-up scan showed disease progressio at [facility] followup visit on May 07, 2019 At that time he was taken off clinical trial as left neck mass continued to grow. CT scan of neck done showed progressive left neck mass site 6.1 x 7.6 cm compared to 4.4 x 6.4 on 02/21/2019 with central hypoattenuation in mass and it was intimately associated with the left internal jugular vein and now appears to encase it. Right pulmonary nodularity, cavitary lesion, right hilar mass seen. With this impression, it was decided to pursue palliative therapy which include radiation therapy to the left neck mass and because of persistent thrombocytopenia- immunotherapy with ipilimumab and nivolumab was recommended and in case thrombocytopenia resolved- topotecan based regimen can be considered. Tolerated radiation therapy to left neck reasonably well and concluded radiation therapy on 06/19/2019 to a total dose of [address] Plummer recommended that he pursue ipilimumab and nivolumab. He began his first cycle on 07/10/2019. He has tolerated it well thus far. Plan: Discussed with patient regarding his labs white blood count 5.9 hemoglobin 13.6 crit 41.4 platelets 149,000, CMP within normal limits , TSH 0.65, ACTH 46, in normal range Clinically, patient is doing well, tolerating palliative immunotherapy well but with expected side effects e.g. feeling of crawling under skin but no skin rash, responded well to steroids. We'll proceed with next cycle of immunotherapy with nivolumab/yervoy today and then he will return to clinic in 3 weeks with CBC CMP, patient was advised to call if there is any skin rash or any new symptoms. Signed By: Nupur Plummer M.D. <<Signature on File>>
[2019-08-06 05:32] LABS: Adrenocorticotropic Hormone 45 pg/mL (6-50)
== END 2019-08-02 23:59 | disposition home or self-care (01) ==
LOC: ONCMED 05:42
PROVIDERS: Nurse Practitioner; Family Provider Physician Assistant; Visit Provider Internal Medicine Hematology & Oncology
DX: Z51.12 Encounter for antineoplastic immunotherapy (principal); C34.11 Malignant neoplasm of upper lobe, right bronchus or lung; C79.89 Secondary malignant neoplasm of other specified sites; E11.9 Type 2 diabetes mellitus without complications; J43.9 Emphysema, unspecified; F17.210 Nicotine dependence, cigarettes, uncomplicated; Z79.01 Long term (current) use of anticoagulants; Z79.84 Long term (current) use of oral hypoglycemic drugs; Z79.51 Long term (current) use of inhaled steroids; Z79.891 Long term (current) use of opiate analgesic; Z86.718 Personal history of other venous thrombosis and embolism; Z92.3 Personal history of irradiation; Z92.21 Personal history of antineoplastic chemotherapy; Z87.440 Personal history of urinary (tract) infections
CPT/HCPCS: 36415; 80053; 82024; 83036; 84443; 85025; 96367; 96413; 96415; 96417; 99214; A4222; J1100; J1200; J3490; J7050; J9228; J9299

== ENCOUNTER 2019-08-21 05:43 | Outpatient (RCR) | payer MEDICARE, MEDICAID, SELFPAY ==
[2019-08-20 09:37] LABS: Basophils % 0.5 %; Eosinophils # 0.5 10^3/uL (0.0-0.8); Hematocrit 44.3 % (42.0-52.0); Hemoglobin 14.3 g/dL (11.7-16.6); Lymphocytes # 2.3 10^3/uL (0.8-4.8); Lymphocytes % 36.1 %; Mean Corpuscular HGB Conc 32.3 g/dL (30.0-36.0); Mean Corpuscular Hemoglobin 29.9 pg (28.0-34.0); Mean Corpuscular Volume 92.5 fL (80-94); Monocytes # 0.3 10^3/uL (0.2-0.9); Monocytes % 4.5 %; Neutrophils # 3.3 10^3/uL (1.8-7.7); Neutrophils % 51.6 %; Nucleated Red Blood Cells % 0 %; Platelet Count 145 10^3/cmm (130-400); Red Blood Count 4.79 10^6/uL (4.1-5.3); Red Cell Distribution Width 15.4 % (12.1-15.1); White Blood Count 6.4 10^3/uL (4.0-10.0)
[2019-08-20 09:56] LABS: Alanine Aminotransferase 25 U/L (0-41); Alkaline Phosphatase 102 IU/L (40-130); Aspartate Amino Transferase 25 U/L (0-40); Blood Urea Nitrogen 14 mg/dL (6-20); Calcium 9.8 mg/dL (8.5-10.5); Carbon Dioxide 24 mmol/L (22-29); Chloride 99 mmol/L (98-107); Glomerular Filtration Rate 90.1 mL/min (90-130); Glucose 151 mg/dL (65-115); Sodium 134 mmol/L (136-145); Total Bilirubin 0.6 mg/dL (0.15-1.2)
[2019-08-21] MEDS: acetaminophen 325 mg Tablet 650 MG PO (08:50)
[2019-08-21] MEDS: sodium chloride 0.9% 250 ML 75 ML IV (08:50)
--- NOTE | 2019-08-21 08:57 | ONC FU_ITS ---
Dr. Plummer follow up note Patient: Eric Mckeon Unit #: [id number]: 1970 Dicatated By: Nupur Plummer M.D.Date of Visit:Aug 21, 2019 Onc Med Follow-up/Prog Note History of Present Illness: Mr. Mckeon is a 48-year-old gentleman who developed a left neck mass. He was seen by Dr. Ben FOX and underwent needle core biopsy of left neck mass on 10/16/2017. 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 He underwent a CT of chest on 10/23/2017 which revealed a large right paratracheal mass measuring 8.3???7.7 cm. It involves the superior vena cava with near occlusion. It also causes encasement of the right main pulmonary artery with moderate narrowing with moderate stenosis. It also encases the right proximal main stem bronchus and bronchus intermedius. Mr Mckeon subsequently underwent CT PET scan on 10/28/2017 which showed hypermetabolic left neck mass 4.9 x 3.7 cm with SUV of 12.9. Right paratracheal mass with SUV of 15. At the level of pelvis a 6.1 x 4.5 cm soft tissue mass was reported in the right external iliac territory which has SUV of 14.4. There was an FDG positive muscular implant anterior to right femoral neck measuring 1.[address] scan done on 12/07/2017 showed right lower lobe and right middle lobe pulmonary embolism and was started on apixaban and for the study showed right lower extremity clot Mr Mckeon was seen by radiation oncology and started on radiation to his chest on urgent basis because of risk of impending SVC syndrome. He began his first cycle of chemotherapy with Carboplatin/etoposide on 11/06/2017. His last cycle of chemotherapy was on 02/06/2018. Mr. Mckeon did have follow-up PET CT on 02/03/2018. The left-sided cervical mass seen on the exam from 10/28/2017 is now subcentimeter in size and within minimal FDG activity. Similarly, the right hilar/paratracheal mass demonstrates activity minimally greater than that of the mediastinal background and measures 2.3 x 4.1 cm. The right external iliac mass now measures 1.5 cm without significant FDG activity. The muscle implant anterior to the right femoral neck currently has SUV of 6.6 down from 14.1 indicating a positive response to chemotherapy. His cycle 6 chemotherapy, was on 04/02/2018. Patient has seen Dr. Cotton radiation oncology, regarding persistent activity in muscle implant anterior to the right femoral neck, as per patient he was informed that there is a risk of radiation-induced damage to his femoral neck/ right hip and suggested to continue with chemotherapy and repeat CT PET scan as planned. Underwent CT-guided biopsy of right iliopsoas muscle implant anterior to right femoral neck on 06/04/2018 at [facility] radiology department in [place] and final pathology report came back fibrohistiocytic proliferation, no evidence of carcinoma Sleep apnea on CPAP machine Underwent fluoroscopy Port-A-Cath on 08/06/2018 showed patent Port-A-Cath He was supposed to get CT PET scan but insurance refused coverage so CT scan of chest abdomen pelvis and neck was done on 08/17/2018. It reported recurrent mass in the left neck centered at level of hyoid bone. Mass extends over a length of 4 x 2.2 x 3.4 cm. The mass abuts and displaces the fat planes along the sternocleidomastoid muscle. Mass also abuts the left jugular vein. Mass in a similar location on study of 09/18/2017. CT PET scan done on 04/21/2018 was negative. No additional masses noted. CT scan of chest showed continued decrease righ media l upper lobe mass; Unchanged right upper lobe linear and patchy nodular opacity; CT abdomen pelvis showed no definite metastatic disease in abdomen pelvis; Left mid kidney indeterminant wedge-shaped low-attenuation focus Mr Mckeon underwent biopsy of left neck mass at [facility] on 09/12/2018, final pathology report came back high-grade neuroendocrine carcinoma, predominantly small cell feature and positive focally week for TTF-1, it was concluded, given history of SVC syndrome and radiological studies diagnosis was revised to metastatic small cell lung cancer. And rechallenge with carboplatin/etoposide was recommended along with tecentriq (atezolizumab), Which he was started on 09/26/2018. Follow-up CT PET scan done after 4 doses of carboplatin/etoposide/ tecentriq , on 12/29/2018 showed persistent left supraclavicular mass measuring 3.7 x 2.7 with SUV of 8.2 compared to 4 prior to by 3.[address] scan of neck done on 08/17/2018 at [facility]. And also showed persistent but stable muscle implant anterior to right femur, with SUV 14.0 and it was biopsied earlier and showed no evidence of metastatic disease Patient was evaluated by Dr. Gorman in March 2019 and as per his evaluation patient still responding to the treatment and left neck mass is smaller than before and . Last chemotherapy was done on 02/03/2019. The muscle implant was also seen with SUV of 14 biopsy of specimen was consistent with recurrent high-grade tumor and he was offered a clinical trial [facility] neuroendocrine oncology clinic at [facility]. Patient did well and clinical trial but eventually developed progressive thrombocytopenia and at his followup visit on May 07, [address] Gorman, his follow-up scan showed disease progression. At that time he was taken off clinical trial as left neck mass continued to grow. CT scan of neck done at the May 2019 followup visit, showed progressive left neck mass site 6.1 x 7.6 cm compared to 4.4 x 6.4 on 02/21/2019 with central hypoattenuation in mass is intimately associated with the left internal jugular vein and now appears to encase it and right pulmonary nodularity, cavitary lesion, right hilar mass seen. With this impression it was decided a few with palliative therapy which include radiation therapy to the left neck mass and because of persistent thrombocytopenia immunotherapy with ipilimumab and nivolumab was recommended and in case thrombocytopenia resolved topotecan based regimen can be considered Tolerated radiation therapy to left neck reasonably well and he concluded radiation therapy on 06/19/2019 o a total dose of 4,500 cGy. recommended that he pursue ipilimumab and nivolumab. He began his first cycle on 07/10/2019. Came for follow-up, denies any specific complaints, no skin rash, no diarrhea or constipation, no shortness of breath, no palpitation, left neck mass is shrinking. Tolerating immunotherapy with ipi/nivolumab well. Medications: Advair Diskus 2 puff(s) (of 250-50 mcg/dose) Aerosol Powder, Breath Activated Inhalation b.i.d., Ativan 0.5 - 1 Tablet (of 1 mg) Oral t.i.d. PRN, Cetirizine HCl 1 Tablet (of 10 mg) Tablet Oral b.i.d., Compazine 1 Tablet (of 10 mg) Oral q 4 hours PRN, Diclofenac Sodium 1 Tablet (of 75 mg) Tablet, enteric coated Oral b.i.d., Gabapentin 1 Capsule (of 300 mg) Capsule Oral four times a day, Hydrocodone-Acetaminophen 1 - 2 Tablet (of 5-325 mg) Oral q 6 hours, Lisinopril 1 Tablet (of 20 mg) Oral daily, MetFORMIN HCl 1 Tablet (of 1000 mg) Tablet Oral b.i.d., Metoprolol Tartrate 1 Tablet (of 50 mg) Tablet Oral daily, Oxybutynin Chloride 1 Tablet (of 5 mg) Tablet Oral b.i.d., Pramipexole Dihydrochloride 1 (0.25 mg) Tablet Oral at bedtime, Tradjenta 1 Tablet (of 5 mg) Tablet Oral daily Allergies: Penicillins Review of Systems: Constitutional - Appetite is fair, energy is poor, weight is stable, ENMT - Positive for sinus congestion/drainage. No mouth sores. No sore throat or difficulty swallowing, Hematologic/Lymphatic - No unusual bruising or bleeding, Respiratory - Occasional cough, Cardiovascular - No anginal chest pain, palpitations. He has no leg swelling, Gastrointestinal - No nausea, vomiting, diarrhea, GI bleeding, or constipation. No change in bowel habits, no heartburn or early satiety, Genitourinary (M) - No hematuria, dysuria, increased frequency, urgency, hesitancy or incontinence, Musculoskeletal - No joint pain, swelling or redness. No decreased range of motion, Integumentary - No skin ulcers or open wounds, Neurologic - No headaches, no dizziness, Psychiatric - Patient denies anxiety or depression. Pt has difficulty falling asleep.. Vital Signs: Performed on Aug 21, 2019 08:13 Height - 72.00 in Weight - 300.0 lbs (LOW) BSA - 2.53 sq.m BMI - 40.69 (HIGH) Temperature - 98.2 F (LOW) Pulse - 110 /min (HIGH) Respiration - 24 /min BP - 138/86 mm(hg) O2 Sat - 95 % (LOW) Pain - 2 Performance Status: 0 - Fully active, able to carry on all predisease activities without restrictions. (ECOG) Physical Examination: ENMT - . No oral exudates, ulcers, masses, thrush or mucositis. Oropharynx clear. Tongue normal, Neck - left neck mass significant smaller with overlying radiation-induced skin changes, nontender, Respiratory - poor air entry otherwise clear, Cardiovascular - Regular rate and rhythm of heart, Abdomen - Non-tender, non-distended, Good bowel sounds. No guarding or rebound tenderness. No pulsatile masses, Extremities - trace edema. Lab/Imaging: Test performed on Aug 20, 2019 09:20 Sodium 134 mmol/L Potassium 4.0 mmol/L Chloride 99 mmol/L CO2 24 mmol/L Anion Gap 15.0 BUN 14 mg/dL Creatinine 0.9 mg/dL Cr Clearance (Est) 201.0600 mL/min eGFR 90.1 mL/min Glucose 151 mg/dL Calcium 9.8 mg/dL Protein, Total 8.0 g/dL Albumin 4.0 g/dL Globulin 4.0 g/dL Bilirubin, Total 0.6 mg/dL ALT (SGPT) 25 U/L AST (SGOT) 25 U/L Alkaline Phosphatase 102 IU/L WBC 6.4 10 3/uL RBC 4.79 10 6/uL HGB 14.3 g/dL HCT 44.3 % MCV 92.5 fL MCH 29.9 pg MCHC 32.3 g/dL RDW 15.4 % Platelet Count 145 10 3/cmm MPV 10.0 fL Neutrophils 3.3 10 3/uL Lymphocytes 2.3 10 3/uL Monocytes 0.3 10 3/uL Eosinophils 0.5 10 3/uL Basophils 0.0 10 3/uL Neutrophil % 51.6 % Lymphocyte % 36.1 % Monocyte % 4.5 % Eosinophil % 7.0 % Basophils % 0.5 % Test performed on Jul 23, 2019 09:13 TSH 0.54 uIU/mL Test performed on Jul 16, 2019 08:39 Manual Lymphocytes 43.2 % Manual Monocytes 7.2 % Manual Eosinophils 9.0 % Manual Basophils 0.9 % NRBCs 0.0 /100 WBC Test performed on Jul 10, 2019 15:39 Hemoglobin A1C 5.2 % Impression: Recurrent small cell lung cancer per left neck mass biopsy on 09/12/2018, which showed high-grade neuroendocrine carcinoma, predominantly small cell feature and positive focally for TTF-1, it was concluded, given history of SVC syndrome and radiological studies diagnosis was revised to metastatic small cell lung cancer Metastatic High-grade neuroendocrine carcinoma per needle core biopsy of left neck mass done on 10/16/2017 Pathology also showed sheets and cords of large malignant cells with neuroendocrine features, numerous mitotic figures are seen as well as area of tumor necrosis. immuno histochemistry positive for CAM 5.2, CD 56 , synaptophysin, TTF-[address] scan of chest done on 10/23/2017 showed 7.7 x 2.3 cm right paratracheal mass with a near occlusion of SVC, and encasement of right proximal pulmonary artery with moderate stenosis, and encasement of right proximal main stem bronchus and bronchus intermedius CT PET scan done on 10/28/2017 showed hypermetabolic left neck mass measuring 4.9 x 3.7 cm with SUV of 12.9 and right paratracheal mass measures 6.8 x 7.8 cm with SUV of 15 and at the level of pelvis a 6.1 x 4.5 cm soft tissue mass in the right external iliac territory has SUV of 14.4 and and FDG positive muscular implant anterior to right femoral neck measuring about 1.2 cm in size On radiation therapy to right paratracheal mass and chemotherapy with carboplatin and etoposide was added on 11/06/2017. He received radiation therapy to right pelvic mass Right leg DVT diagnosed on 12/07/2017 on Eliquis. Mr. Mckeon was admitted on 01/20/2018 with an initial concerns for sepsis but was found to have UTI. He was discharged on antibiotics andhis fever, rigors and tachycardia resolved. CT PET scan done on 02/03/2018 showed left sided cervical mass seen on exam from 10/28/2017 is now subcentimeter in size and within normal limit FDG activity early. Right hilar/paratracheal mass demonstrates activity minimally greater than that of mediastinal background and molecular 2.3 x 4.1 cm. Right external iliac mass now measured 1.5 cm without significant FDG activity. The muscle implant anterior to the right femoral neck currently has SUV of 6.6, down from 14.1, indicating a positive response to therapy. Repeat CT PET scan done after 6th dose of chemo on 04/21/2018 showed previously described left sided cervical mass was not identifiable on the current study. Right hilar/paratracheal mass is improved in size to 3 cm with a minimum FDG activity. Right external iliac lymph node was unchanged in size but without significant FDG activity Muscle implant anterior to right femoral neck had an SUV of 12 compared to 6.6 previously, consistent with progression of disease at that location. On 06/04/2018, he underwent CT-guided biopsy of this lesion at [facility] radiology department in [place] and final pathology report came back fibrohistiocytic proliferation, no evidence of carcinoma CT scan of neck chest abdomen pelvis done on 08/17/2018 showed recurrent mass in the left neck centered at level of hyoid bone. Mass extends over a length of 4 x 2.2 x 3.4 cm and abuts and displaces fat planes along the sternocleidomastoid muscle. Mass also abuts left jugular vein. No additional mass seen. Mass in a similar location on the study of 09/18/2017. CT PET scan done on 04/21/[address] scan of chest showed continued decrease right medial upper lobe mass. Unchanged right upper lobe linear and patchy nodular opacity. New right lower lobe superior segment focal irregular opacity nonspecific follow-up CT scan recommended in [address] abdomen showed no definite metastatic disease in abdomen pelvis. Left mid kidney indeterminant wedge-shaped low-attenuation focus nonspecific. Mr Mckeon underwent biopsy of left neck mass at [facility] on 09/12/2018, final pathology report came back high-grade neuroendocrine carcinoma, predominantly small cell feature and positive focally week for TTF-1, it was concluded, given history of SVC syndrome and radiological studies diagnosis was revised to metastatic small cell lung cancer. Re-challenging with carboplatin and etoposide was recommended along with tecentriq (atezolizumab). So planning was to start him on carboplatin/etoposide and tecentriq 1200 mg IV day 1 q3 weeks ???[address] PET scan if complete remission, may consider maintenance therapy with Tecentriq alone.Which was started on 09/26/2018 Follow-up CT PET scan done after 4 doses of carboplatin/etoposide/ tecentriq , on 12/29/2018 showed persistent left supraclavicular mass measuring 3.7 x 2.7 with SUV of 8.2 compared to 4 prior to by 3.[address] scan of neck done on 08/17/2018 at [facility]. It also showed persistent but stable muscle implant anterior to right femur, with SUV 14.0 and it was biopsied earlier and showed no evidence of metastatic disease Patient was evaluated by Dr. Gorman in March 2019 and as per his evaluation, Mr Mckeon was still responding to the treatment and left neck mass is smaller than before. Last chemotherapy was done on 02/03/2019. The muscle implant was also seen with SUV of 14 biopsy of specimen was consistent with recurrent high-grade tumor and he was offered a clinical trial at neuroendocrine oncology clinic at [facility]. Patient did well in the clinical trial but eventually developed progressive thrombocytopenia and follow-up scan showed disease progressio at ohis followup visit on May 07, 2019 At that time he was taken off clinical trial as left neck mass continued to grow. CT scan of neck done showed progressive left neck mass site 6.1 x 7.6 cm compared to 4.4 x 6.4 on 02/21/2019 with central hypoattenuation in mass and it was intimately associated with the left internal jugular vein and now appears to encase it. Right pulmonary nodularity, cavitary lesion, right hilar mass seen. With this impression, it was decided to pursue palliative therapy which include radiation therapy to the left neck mass and because of persistent thrombocytopenia- immunotherapy with ipilimumab and nivolumab was recommended and in case thrombocytopenia resolved- topotecan based regimen can be considered. Tolerated radiation therapy to left neck reasonably well and concluded radiation therapy on 06/19/2019 to a total dose of [address] Plummer recommended that he pursue ipilimumab and nivolumab. He began his first cycle on 07/10/2019. He has tolerated it well thus far. Plan: Discussed with patient regarding his labs white blood count 6.4 hemoglobin 14.3 crit 44.3 platelets 145,000 ANC 3300 CMP within normal limit except glucose 151 Clinically, patient is doing well, tolerating palliative immunotherapy with ipi/nivolumab well but with expected side effects e.g. episode of skin rash now resolved. We'll proceed with cycle #3 with yervoy/nivolumab and patient return to clinic in 3 weeks with CBC CMP and if within desirable range for next cycle followed by follow-up CT PET scan to assess disease status. Signed By: Nupur Plummer M.D. <<Signature on File>>
[2019-08-21] MEDS: dexamethasone 20 MG in sodium chloride 0.9% 50 ML 188 MG IV (09:05)
== END 2019-08-31 23:59 | disposition home or self-care (01) ==
LOC: ONCMED 05:43
PROVIDERS: Family Provider Physician Assistant; PCP Physician Assistant; Visit Provider Internal Medicine Hematology & Oncology
DX: Z51.12 Encounter for antineoplastic immunotherapy (principal); C7A.1 Malignant poorly differentiated neuroendocrine tumors; Z79.891 Long term (current) use of opiate analgesic; Z79.899 Other long term (current) drug therapy; Z86.711 Personal history of pulmonary embolism; Z92.3 Personal history of irradiation; Z92.21 Personal history of antineoplastic chemotherapy; Z86.718 Personal history of other venous thrombosis and embolism; Z87.440 Personal history of urinary (tract) infections
CPT/HCPCS: 80053; 85025; 96367; 96413; 96417; 99214; J1100; J1200; J3490; J7050; J9228; J9299

== ENCOUNTER 2019-08-27 11:43 | Emergency (ER) | payer MEDICARE, MEDICAID, SELFPAY ==
[2019-08-27 12:25] VITALS: BP 111/87; PULSE 116; RESP 16; TEMP 37.1; O2SAT 95; BMI 37.5
--- NOTE | 2019-08-27 13:21 | ED_ITS ---
Entered by Sonal Steel, acting as scribe for HPI - Nausea/Vomiting/Diarrhea General: Chief complaint: Nausea/Vomiting/Diarrhea Stated complaint: Diarrhea Time Seen by Provider: 08/27/19 13:16 Source: patient and family Mode of arrival: ambulatory Limitations: no limitations History of Present Illness: HPI Narrative: 48 yo male presents with diarrhea. pt states this started 3 days ago. pt states he has had abdomen cramping. pt has a hx of cancer. pt denies any other symptoms at this time. pt states nothing makes this better or worse. MD elicited complaint: diarrhea and abdominal pain Onset (ago): day(s) (3 days) Associated nausea: No Associated abdominal pain: Yes (cramping) Location of pain: Diffuse Pain consistency: constant Severity: mild Quality: cramping Exacerbating factors: none Relieving factors: none Associated symtoms: Reports loss of apetite; Denies nausea Treatment prior to arrival: none Review of Systems Const: Reports: change in appetite Resp: Reports: productive cough GI: Reports: abdominal pain (cramping); Denies: nausea PFSH ED PFSH: Social History Smoking and tobacco status: current every day smoker Physical Exam Const: COMMON NORMALS: no apparent distress, average body habitus, oriented x3, no limitations, healthy appearing, alert and well nourished HENMT: COMMON NORMALS: normocephalic, head/scalp atraumatic, hearing grossly normal bilaterally, external ears normal, EAC's normal, TM's normal bilaterally, external nose normal, nasal mucous membranes and turbinates normal, moist oral mucous membranes, oropharynx normal, dentition normal and gingiva normal HEAD & SCALP: normocephalic and atraumatic NOSE: external nose normal and nasal mucous membranes and turbinates normal EXTERNAL EAR: Yes external ears normal EXTERNAL AUDITORY CANAL: EAC's normal TYMPANIC MEMBRANE: TM's normal bilaterally Eye: COMMON NORMALS: PERRL, EOMs intact bilaterally, conjunctivae normal, no scleral icterus, no papilledema, normal visual espinoza by confrontation and fundi normal bilaterally CONJUNCTIVA: Yes conjunctivae normal PUPIL: Yes PERRL DIRECT OPHTHALMOSCOPY: Yes no papilledema and Yes fundi normal bilaterally Neck/C-Spine: COMMON NORMALS: full ROM, no lymphadenopathy, supple, no meningeal signs, no JVD, thyroid normal and no carotid bruits THYROID: thyroid normal Chest: COMMONS NORMALS: inspection of chest normal and palpation of chest normal Resp: COMMON NORMALS: normal respiratory effort, no retractions, no use of accessory muscles, clear to auscultation bilaterally and percussion normal AUSCULTATION: clear to auscultation bilaterally PERCUSSION: percussion normal Cardio: COMMON NORMALS: no JVD, regular rate, regular rhythm, S1 normal heart sound, S2 normal heart sound, no gallops, no clicks, no murmurs, no rub and pe ripheral pulses 2+ throughout RATE: regular rate RHYTHM: regular rhythm HEART SOUNDS: S1 normal and S2 normal PERIPHERAL PULSES: pulses 2+ throughout GI: COMMON NORMALS: normal to inspection, nondistended, normoactive bowel sounds, soft to palpation, non-tender, no hepatosplenomegaly, no masses and no bruits PALPATION: Yes soft and Yes no hepatosplenomegaly : COMMON NORMALS: Yes no CVA tenderness BLADDER/KIDNEY EXAM: Yes no CVA tenderness Back/Pelvis: COMMON NORMALS: no CVA tenderness, thoracic and lumbar spine normal to inspection, no thoracic nor lumbar tenderness, thoraco-lumbar ROM normal and straight leg raise negative bilaterally Extremity: COMMON NORMALS: normal to inspection, full ROM, normal capillary refill, no joint enlargement, no clubbing, cyanosis or edema, no calf tenderness and no pedal edema Neuro: COMMON NORMALS: oriented x3 SENSORIUM/ORIENTATION: Yes alert MENINGEAL SIGNS: Yes no meningeal signs Skin: COMMON NORMALS: no rashes or lesions noted, no wounds, skin turgor normal, no jaundice, no petechiae and no mottling GENERAL SKIN EXAM: no rashes or lesions noted and turgor normal Course Vital Signs: Vital signs: Vital Signs Temperature 98.8 F 08/27/19 12:25 Pulse Rate 109 H 08/27/19 14:05 Respiratory Rate 16 08/27/19 12:25 Blood Pressure 103/72 08/27/19 14:05 Pulse Oximetry 93 08/27/19 14:05 MDM - Nausea/Vomiting/Diarrhea Lab Data: Labs: Lab Results 08/27/19 08/27/19 08/27/19 Range/Units 13:50 13:50 13:50 WBC 10.1 H (4.0-10.0) 10^3/ uL RBC 5.00 (4.1-5.3) 10^6/u L Hgb 14.6 (11.7-16.6) g/dL Hct 46.3 (42.0-52.0) % MCV 92.6 (80-94) fL MCH 29.2 (28.0-34.0) pg MCHC 31.5 (30.0-36.0) g/dL RDW 15.9 H (12.1-15.1) % Plt Count 191 (130-400) 10^3/c mm MPV 9.6 (7.4-10.4) fL Neut % (Auto) 45.7 % Lymph % (Auto) 38.9 % Karnes % (Auto) 9.7 % Eos % (Auto) 4.5 % Baso % (Auto) 0.5 % Neut # (Auto) 4.6 (1.8-7.7) 10^3/u L Lymph # (Auto) 3.9 (0.8-4.8) 10^3/u L Karnes # (Auto) 1.0 H (0.2-0.9) 10^3/u L Eos # (Auto) 0.5 (0.0-0.8) 10^3/u L Baso # (Auto) 0.1 (0.0-0.1) 10^3/u L Nucleated RBC % (a uto) 0 % Nucleated RBCs # 0.0 /100WBC Sodium 134 L (136-145) mmol/L Potassium 4.4 (3.5-5.1) mmol/L Chloride 101 (98-107) mmol/L Carbon Dioxide 20 L (22-29) mmol/L Anion Gap 17.4 (5-19) BUN 24 H (6-20) mg/dL Creatinine 1.5 H (0.7-1.2) mg/dL GFR Calculation 49.9 L (90-130) mL/min Glucose 106 (65-115) mg/dL Lactate 1.0 (0.5-2.2) mmol/L Calcium 9.5 (8.5-10.5) mg/dL Total Bilirubin 0.7 (0.15-1.2) mg/dL AST 14 (0-40) U/L ALT 17 (0-41) U/L Alkaline Phosphata se 91 (40-130) IU/L Total Protein 7.8 (6.6-8.7) g/dL Albumin 3.3 L (3.5-5.2) g/dL Globulin 4.5 (1.3-4.6) g/dL Lipase 16 (13-60) U/L Discharge Plan Discharge Patient Disposition: Home, Self-Care Clinical Impression: Diarrhea Qualifiers: Diarrhea type: unspecified type Qualified Code(s): R19.7 - Diarrhea, unspe cified Condition: Stable Prescriptions: New dicyclomine 20 mg tablet 20 mg PO QID Qty: 20 RF: 0 Discharge Orders: Discharge Order (Routine); Ordered 08/27/19 Ordered By: Kane Cruz Referrals: Pamela Lorenzana PA [Primary Care Provider] - Coding Level of Care Code ED Blowing [place] for Chg Fwd Exam Comprehensive The documentation recorded by the Damián bermeo Bridget Annette, accurately reflects the service I personally performed and the decisions made by Nancy hood Donald P, Aug 27, 2019 11:43
[2019-08-27] MEDS: sodium chloride 0.9% 1,000 ML 999 ML IV (13:44)
[2019-08-27 14:03] LABS: Basophils # 0.1 10^3/uL (0.0-0.1); Basophils % 0.5 %; Eosinophils # 0.5 10^3/uL (0.0-0.8); Eosinophils % 4.5 %; Hematocrit 46.3 % (42.0-52.0); Hemoglobin 14.6 g/dL (11.7-16.6); Lymphocytes # 3.9 10^3/uL (0.8-4.8); Lymphocytes % 38.9 %; Mean Corpuscular HGB Conc 31.5 g/dL (30.0-36.0); Mean Corpuscular Hemoglobin 29.2 pg (28.0-34.0); Mean Corpuscular Volume 92.6 fL (80-94); Mean Platelet Volume 9.6 fL (7.4-10.4); Monocytes % 9.7 %; Neutrophils # 4.6 10^3/uL (1.8-7.7); Neutrophils % 45.7 %; Nucleated Red Blood Cells % 0 %; Platelet Count 191 10^3/cmm (130-400); Red Cell Distribution Width 15.9 % (12.1-15.1); White Blood Count 10.1 10^3/uL (4.0-10.0)
[2019-08-27 14:05] VITALS: BP 103/72; PULSE 109; O2SAT 93
[2019-08-27 14:18] LABS: Alanine Aminotransferase 17 U/L (0-41); Albumin Level 3.3 g/dL (3.5-5.2); Alkaline Phosphatase 91 IU/L (40-130); Anion Gap 17.4 (5-19); Aspartate Amino Transferase 14 U/L (0-40); Blood Urea Nitrogen 24 mg/dL (6-20); Calcium 9.5 mg/dL (8.5-10.5); Carbon Dioxide 20 mmol/L (22-29); Chloride 101 mmol/L (98-107); Creatinine Clr Calc Pharmacy 89.5562; Globulin 4.5 g/dL (1.3-4.6); Glomerular Filtration Rate 49.9 mL/min (90-130); Glucose 106 mg/dL (65-115); Lipase 16 U/L (13-60); Potassium 4.4 mmol/L (3.5-5.1); Sodium 134 mmol/L (136-145); Total Bilirubin 0.7 mg/dL (0.15-1.2); Total Protein 7.8 g/dL (6.6-8.7)
[2019-08-27 14:55] VITALS: BP 145/85; PULSE 75; RESP 15; O2SAT 97
== END 2019-08-27 14:57 | disposition home or self-care (01) ==
PROVIDERS: Emergency Provider Family Medicine; Family Provider Physician Assistant; PCP Physician Assistant
DX: R19.7 Diarrhea, unspecified (principal); F17.200 Nicotine dependence, unspecified, uncomplicated
CPT/HCPCS: 36415; 80053; 83605; 83690; 85025; 96360; 99282; 99283; J7030

== ENCOUNTER 2019-08-28 23:01 | Observation (INO) | payer MEDICARE, MEDICAID, SELFPAY ==
[2019-08-28 23:07] VITALS: BP 112/82; PULSE 124; RESP 18; TEMP 37.5; O2SAT 93; BMI 37.5
[2019-08-29] VITALS (10 sets, daily range): BP systolic 107–121; BP diastolic 51–76; PULSE 97–128; RESP 18–26; TEMP 36.7–37.4; O2SAT 91–95
--- NOTE | 2019-08-29 00:58 | XR_ITS ---
WS: [id number] Portable AP upright chest, 08/29/2019 Clinical Data: cough Comparison: Chest, 10/30/2018. Findings: The right hilar mass has not changed. Left lung remains clear. The Port-A-Cath remains in s michael position ending before it enters the superior vena cava. There is left basilar atelectasis. The r ight lower lung is normal. The heart is unremarkable. No nodules or effusions are seen. The pulmonary vascularity is not increased. The heart is normal. The pulmonary vascularity is not increased. No pn eumonia or pneumothorax is seen. XR/XR chest 1V portable [id number] Impression: 1. Right hilar mass unchanged. 2. Normal heart and left lung.
[2019-08-29 01:49] LABS: Basophils # 0.1 10^3/uL (0.0-0.1); Basophils % 0.4 %; Eosinophils # 0.3 10^3/uL (0.0-0.8); Eosinophils % 2.6 %; Hematocrit 41.5 % (42.0-52.0); Hemoglobin 13.5 g/dL (11.7-16.6); Lymphocytes # 3.5 10^3/uL (0.8-4.8); Lymphocytes % 29.9 %; Mean Corpuscular HGB Conc 32.5 g/dL (30.0-36.0); Mean Corpuscular Hemoglobin 29.6 pg (28.0-34.0); Mean Platelet Volume 9.6 fL (7.4-10.4); Monocytes # 1.2 10^3/uL (0.2-0.9); Monocytes % 10.2 %; Neutrophils # 6.6 10^3/uL (1.8-7.7); Neutrophils % 55.8 %; Nucleated Red Blood Cells % 0 %; Platelet Count 179 10^3/cmm (130-400); Red Blood Count 4.56 10^6/uL (4.1-5.3); Red Cell Distribution Width 15.7 % (12.1-15.1); White Blood Count 11.8 10^3/uL (4.0-10.0)
[2019-08-29 02:37] LABS: Alanine Aminotransferase 12 U/L (0-41); Albumin Level 3.2 g/dL (3.5-5.2); Alkaline Phosphatase 80 IU/L (40-130); Anion Gap 18.4 (5-19); Aspartate Amino Transferase 12 U/L (0-40); Blood Urea Nitrogen 38 mg/dL (6-20); Calcium 9.1 mg/dL (8.5-10.5); Carbon Dioxide 19 mmol/L (22-29); Chloride 103 mmol/L (98-107); Globulin 4.4 g/dL (1.3-4.6); Glomerular Filtration Rate 33.9 mL/min (90-130); Glucose 112 mg/dL (65-115); Lipase 10 U/L (13-60); Potassium 4.4 mmol/L (3.5-5.1); Sodium 136 mmol/L (136-145); Total Bilirubin 0.9 mg/dL (0.15-1.2); Total Protein 7.6 g/dL (6.6-8.7)
--- NOTE | 2019-08-29 03:07 | ED_ITS ---
Entered by Milagro Dial, acting as scribe for Miley Prince Aug 28, 2019 23:01 HPI - Fever General: Chief Complaint: Fever Stated Complaint: fever/cancer pt Time Seen by Provider: 08/29/19 03:07 Source: patient and family Mode of arrival: ambulatory History of Present Illness: HPI Narrative: 48 y/o male presents to the ED with complaint of fever. Pt was seen here yesterday for diarrhea, and has since improved. Today he has had 103+ temp. He currently has small cell lung cancer. He has been exposed to family who tested positive for Flu. MD elicited complaint: fever Onset (ago): day(s) Context: sick contacts Associated symptoms: Deny abdominal pain, chest pain, confusion, diarrhea, dysuria, extremity pain, headache(s), nausea or vomiting Review of Systems General: Reports: other (negative unless marked) Eyes: Denies: change in vision or blurry vision ENMT: Denies: throat pain, painful swallowing, hoarseness, ear pain, ear discharge, Change in hearing or nasal discharge Card: Denies: chest pain, palpitations, irregular heart rhythm, syncope, pre- syncope, shortness of breath on exertion or shortness of breath when lying down Resp: Denies: shortness of breath, productive cough, non-productive cough, wheezing, coughing up blood or chest congestion GI: Denies: abdominal pain, nausea, vomiting, vomiting blood, coffee grounds in vomit, diarrhea, constipation, cramping, blood in stool or black tarry stool : Denies: difficulty urinating, painful urination, urinary frequency, urinary urgency, decreased urine ouput, urinary incontinence or blood in urine Musc: Denies: neck pain, extremity pain, extremity swelling, joint pain, joint swelling, joint warmth or joint stiffness Skin/Breast: Denies: rash, skin tenderness or yellow skin Neuro: Denies: headache, numbness in extremities, weakness in extremities, changes in sensation, lack of coordination, difficulty walking, dizziness, vertigo or confusion Endo: Denies: excessive thirst, tired all the time, cold intolerance, excessive sweating, flushing or hot flashes Romeo/Lymph: Denies: easy bruising, easy bleeding, petechiae or enlarged lymph nodes All/Imm: Denies: hives, throat swelling, tongue swelling, facial swelling or acute wheezing PFSH ED PFSH: Social History Smoking and tobacco status: current every day smoker Physical Exam Const: COMMON NORMALS: no apparent distress, oriented x3 and well nourished EXAM LIMITATIONS: no altered mental status GENERAL APPEARANCE: cooperative, well kempt and well developed ORIENTATION/CONSCIOUSNESS: Yes awake HENMT: COMMON NORMALS: normocephalic, head/scalp atraumatic, hearing grossly normal bilaterally, external ears normal, EAC's normal, external nose normal and moist oral mucous membranes HEAD & SCALP: normal to inspection, normocephalic and atraumatic FACE & SINUS: normal facial exam and face symmetric NOSE: external nose normal and nares normal EXTERNAL EAR: Yes external ears normal EXTERNAL AUDITORY CANAL: EAC's normal MOUTH: oral and palatal mucosa normal and tongue normal Eye: COMMON NORMALS: PERRL, EOMs intact bilaterally, conjunctivae normal and no scleral icterus GENERAL EYE: normal appearance of both eyes and normal light reflex CONJUNCTIVA: Yes conjunctivae normal SCLERA: sclerae normal CORNEA: Yes corneas normal PUPIL: Yes PERRL DIRECT OPHTHALMOSCOPY: Yes normal light reflex Neck/C-Spine: COMMON NORMALS: full ROM, no lymphadenopathy, supple, no meningeal signs and no JVD GENERAL: Yes normal visual inspection and Yes trachea midline CERVICAL SPINE: Yes cervical ROM normal Chest: COMMONS NORMALS: inspection of chest normal and palpation of chest normal Resp: COMMON NORMALS: normal respiratory effort, no retractions, no use of accessory muscles and clear to auscultation bilaterally EFFORT & INSPECTION: Yes able to speak in complete sentences AUSCULTATION: clear to auscultation bilaterally Cardio: COMMON NORMALS: no JVD, regular rate, regular rhythm, S1 normal heart sound, S2 normal heart sound, no gallops, no clicks, no murmurs and no rub JUGULAR VENOUS DISTENTION: no JVD RATE: regular rate RHYTHM: regular rhythm HEART SOUNDS: S1 normal and S2 normal GI: COMMON NORMALS: soft to palpation, non-tender, no hepatosplenomegaly and no masses INSPECTION: Yes normal to inspection PALPATION: Yes soft and Yes no hepatosplenomegaly Back/Pelvis: COMMON NORMALS: thoracic and lumbar spine normal to inspection Extremity: COMMON NORMALS: normal to inspection, full ROM, normal capillary refill, no joint enlargement, no clubbing, cyanosis or edema and no calf tenderness Neuro: COMMON NORMALS: oriented x3, CN's II-XII intact bilaterally, moves all extremities, no focal motor deficits and no sensory deficits noted MENINGEAL SIGNS: Yes no meningeal signs Psych: COMMON NORMALS: thought process normal, cooperative, affect normal and speech normal APPEARANCE: Yes well kempt SPEECH: Yes normal speech THOUGHT PROCESS: normal thought process Skin: COMMON NORMALS: no rashes or lesions noted, skin turgor normal, no jaundice, no petechiae and no mottling GENERAL SKIN EXAM: no rashes or lesions noted and turgor normal Course Vital Signs: Vital signs: Vital Signs Temperature 99.5 F 08/28/19 23:07 Pulse Rate 102 H 08/29/19 05:28 Respiratory Rate 18 08/28/19 23:07 Blood Pressure 107/51 08/29/19 05:28 Pulse Oximetry 91 08/29/19 05:28 MDM - Fever MDM Narrative: Medical decision making narrative: The case was reviewed with Dr. Odonnell. She agrees to admission to the floor with telemetry. The patient has a known flu exposure and is a febrile illness with mild hypoxia. He is already on Eliquis. He has been covered with Primaxin for a knee possible bacterial infection. He is on immune therapy currently. Further care be dictated by the hospitalist service. Lab Data: Labs: Lab Results 08/29/19 08/29/19 08/29/19 Range/Units 01:35 01:35 01:35 WBC 11.8 H (4.0-10.0) 10^3/ uL RBC 4.56 (4.1-5.3) 10^6/u L Hgb 13.5 (11.7-16.6) g/dL Hct 41.5 L (42.0-52.0) % MCV 91.0 (80-94) fL MCH 29.6 (28.0-34.0) pg MCHC 32.5 (30.0-36.0) g/dL RDW 15.7 H (12.1-15.1) % Plt Count 179 (130-400) 10^3/c mm MPV 9.6 (7.4-10.4) fL Neut % (Auto) 55.8 % Lymph % (Auto) 29.9 % [place] % (Auto) 10.2 % Eos % (Auto) 2.6 % Baso % (Auto) 0.4 % Neut # (Auto) 6.6 (1.8-7.7) 10^3/u L Lymph # (Auto) 3.5 (0.8-4.8) 10^3/u L [place] # (Auto) 1.2 H (0.2-0.9) 10^3/u L Eos # (Auto) 0.3 (0.0-0.8) 10^3/u L Baso # (Auto) 0.1 (0.0-0.1) 10^3/u L Nucleated RBC % (a uto) 0 % Nucleated RBCs # 0.0 /100WBC Sodium 136 (136-145) mmol/L Potassium 4.4 (3.5-5.1) mmol/L Chloride 103 (98-107) mmol/L Carbon Dioxide 19 L (22-29) mmol/L Anion Gap 18.4 (5-19) BUN 38 H (6-20) mg/dL Creatinine 2.1 H (0.7-1.2) mg/dL GFR Calculation 33.9 L (90-130) mL/min Glucose 112 (65-115) mg/dL Lactic Acid 1.0 (0.5-2.2) mmol/L Calcium 9.1 (8.5-10.5) mg/dL Total Bilirubin 0.9 (0.15-1.2) mg/dL AST 12 (0-40) U/L ALT 12 (0-41) U/L Alkaline Phosphata se 80 (40-130) IU/L Troponin T Baselin e (0-15) ng/mL Troponin T 120 Min [place] (0-15) ng/mL Delta Troponin T (0-10) ABS# Total Protein 7.6 (6.6-8.7) g/dL Albumin 3.2 L (3.5-5.2) g/dL Globulin 4.4 (1.3-4.6) g/dL Lipase 10 L (13-60) U/L Urine Color (Yellow) Urine Appearance (CLEAR) Urine pH (5-7) Ur Specific Gravit y (1.005-1.030) Urine Protein (Negative) Urine Glucose (UA) (Normal) Urine Ketones (Negative) Urine Blood (Negative) Urine Nitrate (Negative) Urine Bilirubin (NEGATIVE) Urine Urobilinogen (Negative) mg/dL Ur Leukocyte Hilaria ase (Negative) Urine RBC (0-2) /hpf Urine WBC (0-5) /hpf Ur Squamous Epith Cells (0-5) Urine Bacteria (NONE) Hyaline Casts Influenza Type A A g (Negative) POC Influenza B Ag (Negative) 08/29/19 08/29/19 08/29/19 Range/Units 03:34 03:44 03:55 WBC (4.0-10.0) 10^3/ uL RBC (4.1-5.3) 10^6/u L Hgb (11.7-16.6) g/dL Hct (42.0-52.0) % MCV (80-94) fL MCH (28.0-34.0) pg MCHC (30.0-36.0) g/dL RDW (12.1-15.1) % Plt Count (130-400) 10^3/c mm MPV (7.4-10.4) fL Neut % (Auto) % Lymph % (Auto) % [place] % (Auto) % Eos % (Auto) % Baso % (Auto) % Neut # (Auto) (1.8-7.7) 10^3/u L Lymph # (Auto) (0.8-4.8) 10^3/u L [place] # (Auto) (0.2-0.9) 10^3/u L Eos # (Auto) (0.0-0.8) 10^3/u L Baso # (Auto) (0.0-0.1) 10^3/u L Nucleated RBC % (a uto) % Nucleated RBCs # /100WBC Sodium (136-145) mmol/L Potassium (3.5-5.1) mmol/L Chloride (98-107) mmol/L Carbon Dioxide (22-29) mmol/L Anion Gap (5-19) BUN (6-20) mg/dL Creatinine (0.7-1.2) mg/dL GFR Calculation (90-130) mL/min Glucose (65-115) mg/dL Lactic Acid (0.5-2.2) mmol/L Calcium (8.5-10.5) mg/dL Total Bilirubin (0.15-1.2) mg/dL AST (0-40) U/L ALT (0-41) U/L Alkaline Phosphata se (40-130) IU/L Troponin T Baselin e 28 H (0-15) ng/mL Troponin T 120 Min [place] (0-15) ng/mL Delta Troponin T (0-10) ABS# Total Protein (6.6-8.7) g/dL Albumin (3.5-5.2) g/dL Globulin (1.3-4.6) g/dL Lipase (13-60) U/L Urine Color Yellow (Yellow) Urine Appearance Clear (CLEAR) Urine pH 5 (5-7) Ur Specific Gravit y 1.025 (1.005-1.030) Urine Protein 1+ H (Negative) Urine Glucose (UA) Norm (Normal) Urine Ketones Negative (Negative) Urine Blood Neg (Negative) Urine Nitrate Negative (Negative) Urine Bilirubin 1+ H (NEGATIVE) Urine Urobilinogen 1 H (Negative) mg/dL Ur Leukocyte Hilaria ase Negative (Negative) Urine RBC 0-4 H (0-2) /hpf Urine WBC None (0-5) /hpf Ur Squamous Epith Cells 5-10 H (0-5) Urine Bacteria 1+ H (NONE) Hyaline Casts 0-4 H Influenza Type A A g Negative (Negative) POC Influenza B Ag Negative (Negative) 08/29/19 Range/Units 05:30 WBC (4.0-10.0) 10^3/ uL RBC (4.1-5.3) 10^6/u L Hgb (11.7-16.6) g/dL Hct (42.0-52.0) % MCV (80-94) fL MCH (28.0-34.0) pg MCHC (30.0-36.0) g/dL RDW (12.1-15.1) % Plt Count (130-400) 10^3/c mm MPV (7.4-10.4) fL Neut % (Auto) % Lymph % (Auto) % [place] % (Auto) % Eos % (Auto) % Baso % (Auto) % Neut # (Auto) (1.8-7.7) 10^3/u L Lymph # (Auto) (0.8-4.8) 10^3/u L [place] # (Auto) (0.2-0.9) 10^3/u L Eos # (Auto) (0.0-0.8) 10^3/u L Baso # (Auto) (0.0-0.1) 10^3/u L Nucleated RBC % (a uto) % Nucleated RBCs # /100WBC Sodium (136-145) mmol/L Potassium (3.5-5.1) mmol/L Chloride (98-107) mmol/L Carbon Dioxide (22-29) mmol/L Anion Gap (5-19) BUN (6-20) mg/dL Creatinine (0.7-1.2) mg/dL GFR Calculation (90-130) mL/min Glucose (65-115) mg/dL Lactic Acid (0.5-2.2) mmol/L Calcium (8.5-10.5) mg/dL Total Bilirubin (0.15-1.2) mg/dL AST (0-40) U/L ALT (0-41) U/L Alkaline Phosphata se (40-130) IU/L Troponin T Baselin e (0-15) ng/mL Troponin T 120 Min [place] 27.18 H (0-15) ng/mL Delta Troponin T -0.82 L (0-10) ABS# Total Protein (6.6-8.7) g/dL Albumin (3.5-5.2) g/dL Globulin (1.3-4.6) g/dL Lipase (13-60) U/L Urine Color (Yellow) Urine Appearance (CLEAR) Urine pH (5-7) Ur Specific Gravit y (1.005-1.030) Urine Protein (Negative) Urine Glucose (UA) (Normal) Urine Ketones (Negative) Urine Blood (Negative) Urine Nitrate (Negative) Urine Bilirubin (NEGATIVE) Urine Urobilinogen (Negative) mg/dL Ur Leukocyte Hilaria ase (Negative) Urine RBC (0-2) /hpf Urine WBC (0-5) /hpf Ur Squamous Epith Cells (0-5) Urine Bacteria (NONE) Hyaline Casts Influenza Type A A g (Negative) POC Influenza B Ag (Negative) Discharge Plan Discharge Patient Disposition: Placed in Observation Admit Provider: Nancy Molina Clinical Impression: Sepsis, Influenza, Acute renal failure Condition: Stable Referrals: Lorenzana,Pamela L, PA [Primary Care Provider] - Coding Level of Care Code ED Car Head Liner Installer for Chg Fwd Exam Comprehensive The documentation recorded by the lorrieibJayro cota Ashley, accurately reflects the service I personally performed and the decisions made by , Miley Prince Aug 28, 2019 23:01
--- NOTE | 2019-08-29 03:23 | ECG_ITS ---
Measurements Intervals [place] Rate: 0 P: [place]: 0 QRS: 0 QRSD: 0 T: 0 QT: 0 QTc: 0 SINUS RHYTHM NON SPECIFIC T WAVE ABNORMALITY WARNING: DATA QUALITY MAY AFFECT INTERPRETATION Compared to ECG 10/31/2018 03:43:57 Sinus rhythm no longer present Electronically Signed On 08-29-2019 21:22:34 PRINTING EQUIPMENT MECHANIC by Inna Hobbs M.D. [id number]
[2019-08-29 04:16] LABS: Influenza A by IFA Negative (Negative)
[2019-08-29 04:17] LABS: Influenza B by IFA Negative (Negative)
[2019-08-29 04:26] LABS: Specific Gravity, Urine 1.025 (1.005-1.030); Urine Appearance Clear (CLEAR); Urine Color Yellow (Yellow); pH Urine 5 (5-7)
[2019-08-29 04:27] LABS: Bilirubin Urine 1+ (NEGATIVE); Blood Urine Neg (Negative); Glucose Urine UA Norm (Normal); Ketones Urine Negative (Negative); Leukocyte Esterase Urine Negative (Negative); Nitrate Urine Negative (Negative); Protein Urine 1+ (Negative); Urobilinogen Urine 1 mg/dL (Negative)
[2019-08-29 04:29] LABS: Add Urine Culture? No; Bacteria Urine 1+; Hyaline Casts Urine 0-4; RBC Urine 0-4 /hpf (0-2)
[2019-08-29 04:38] LABS: Troponin(5th) Baseline 28 ng/mL (0-15)
[2019-08-29 05:53] LABS: Troponin 5 2HR 27.18 ng/mL (0-15)
[2019-08-29 05:54] LABS: Troponin 5 2HR Delta -0.82 ABS# (0-10)
--- NOTE | 2019-08-29 08:40 | P.HP_ITS ---
Providers/Chief Complaint Admitting Physician: Nancy Molina MD Primary Care Provider: Pamela Lorenzana Chief Complaint: SEPSIS, ACUTE RENAL FAILURE, INFLUENZA EXPOSURE History of Present Illness Eric Mckeon is a 48 year old male that presented to the emergency department last night with history of 3 days of illness. He had fever up to 102 ?F. He was having loose stool. He had had no vomiting. He had had decreased p.o. intake and solids and liquids. He had had no blood in his stool. He reported no cough, or runny nose. He had been directly exposed to influenza by his son. Review of Systems General: Reports: 10 or more systems reviewed and unremarkable except in HPI and below Const: Reports: fever and chills Eyes: Denies: blurry vision ENMT: Denies: throat pain or nasal congestion Card: Denies: chest pain Resp: Denies: shortness of breath GI: Reports: diarrhea; Denies: abdominal pain, nausea or vomiting : Denies: difficulty urinating Musc: Reports: back pain Skin/Breast: Denies: rash Neuro: Denies: headache Psych: Denies: anxiety Endo: Denies: excessive thirst Romeo/Lymph: Denies: easy bruising All/Imm: Denies: hives Medications/Allergies Allergies Allergy/AdvReac Type Severity Reaction Status Date / Time Penicillins Allergy ALGY-Hives Verified 08/27/19 12:31 PFSH Acute PFSH: Medical History (Updated 08/29/19 @ 08:48 by Roscoe Alexander MD) COPD (chronic obstructive pulmonary disease) (Acute) History of pulmonary embolism (Acute) Hypertension (Acute) Obesity (Acute) Sleep apnea (Acute) Small cell lung cancer (Acute) Tobacco dependency (Acute) Type 2 diabetes mellitus (Acute) Surgical History (Updated 08/29/19 @ 08:45 by Roscoe Alexander MD) History of lung biopsy (Acute) Family History (Updated 08/29/19 @ 08:46 by Roscoe Alexander MD) Other Cancer Social History (Updated 08/29/19 @ 08:46 by Roscoe Alexander MD) Smoking and tobacco status: current every day smoker Alcohol intake: never Substance/Drug Use: never Vitals/I&O/Wt Last Vital Signs Temp 98.3 F 08/29/19 08:00 Pulse 99 08/29/19 08:00 Resp 18 08/29/19 08:00 BP 116/76 08/29/19 08:00 Pulse Ox 95 08/29/19 08:00 08/28/19 08/29/19 08/29/19 22:59 06:59 14:59 Intake Total 100 / 100 Balance 100 / 100 Weight last 48 hrs Weight 136.078 kg Physical Exam Narrative: EXAM NARRATIVE: General exam is a white male, in no apparent distress HEENT: Pupils equally round. Oropharynx clear. Neck is supple no lymphadenopathy or thyromegaly Cardiovascular regular rate and rhythm without murmur. Port is noted Lungs are clear no wheezing or crackles Abdomen is soft with positive bowel sounds, obese. No obvious organomegaly was deferred Extremities show no cyanosis clubbing or edema. Right lower extremity below the knee demonstrates extensive scarring. Distal cap refill intact. Skin no rash Neuro no obvious focal deficits Data : 08/29/19 01:35 08/29/19 01:35 Micro: Microbiology 08/29/19 01:35 Blood Culture - Preliminary Blood SPECIMEN COLLECTED 08/29/19 01:19 Blood Culture - Preliminary Blood SPECIMEN COLLECTED Other data: EKG demonstrates sinus rhythm, borderline tachycardia, normal axis, no acute changes Chest x-ray demonstrates right upper/mid lung mass with port. No obvious infiltrate. Troponin is 28 with no significant delta Urinalysis shows no obvious infection Lactate is normal Influenza is negative A&P Assessment and plan (1) Fever: This may be secondary to influenza. There is certainly a chance of false negative testing. Cannot rule out bacterial infection as he is currently receiving some immunotherapy with last treatment last week. He will continue on cefepime currently secondary to penicillin allergy. Will not broaden to vancomycin as I think gram-positive organisms are unlikely and this may worsen renal function Status: Acute Code(s): R50.9 - Fever, unspecified (2) Exposure to influenza: Continue Tamiflu 75 mg twice daily Status: Acute Code(s): Z20.828 - Contact with and (suspected) exposure to other viral communicable diseases (3) Diarrhea: Fluid replacement Status: Acute Qualifiers: Diarrhea type: unspecified type Qualified Code(s): R19.7 - Diarrhea, unspecified Code(s): R19.7 - Diarrhea, unspecified (4) Acute renal failure: Fluid replacement Close follow-up of renal function Bladder scan If does not improve consider renal ultrasound Status: Acute Qualifiers: Acute renal failure type: unspecified Qualified Code(s): N17.9 - Acute kidney failure, unspecified Code(s): N17.9 - Acute kidney failure, unspecified (5) Leukocytosis: Secondary to acute illness Status: Acute Code(s): D72.829 - Elevated white blood cell count, unspecified Additional A&P Information Small cell lung cancer. Currently undergoing immunotherapy. Last treatment last week Type 2 diabetes COPD, no evidence of exacerbation Tobacco dependency History of obstructive sleep apnea Obesity Hypertension DVT prophylaxis with heparin Full code currently Observation Attestations Medical Necessity Statement*: Will need less than 2 midnight stay for evaluation and treatment of fever, acute kidney injury. Greater than 35 minutes spent in evaluation. Coding Level of Care Code Acute Primary Care Provider for [facility] Fwd Diagnoses Fever R50.9 Exposure to influenza Z20.828 Diarrhea R19.7 Diarrhea type: unspecified type Acute renal failure N17.9 Acute renal failure type: unspecified Leukocytosis D72.829
--- NOTE | 2019-08-29 09:23 | ECG_ITS ---
Measurements Intervals [place] Rate: 104 P: 40 [place]: 173 QRS: -5 QRSD: 106 T: 13 QT: 323 QTc: 425 SINUS TACHYCARDIA ABNORMAL RHYTHM ECG Compared to ECG 10/31/2018 03:43:57 Sinus rhythm no longer present Electronically Signed On 08-29-2019 21:24:59 NETWORK OPERATIONS CENTER ENGINEER by Inna Hobbs M.D. [id number]
[2019-08-29] MEDS: oseltamivir phosphate 75 mg Capsule PO ×2 (09:50→17:27)
[2019-08-29] MEDS: heparin 5,000 unit/mL INJ 1 mL 5000 UNIT SUBCUT (09:50)
[2019-08-29] MEDS: nicotine 21 mg Patch 1 PATCH TRANSDERMA (10:28)
[2019-08-29] MEDS: cefepime 2,000 MG in sodium chloride 0.9% (plus) 50 ML 100 MG IV (12:40)
[2019-08-29] MEDS: sodium chloride 0.9% 1,000 ML 125 ML IV ×2 (15:36→17:27)
[2019-08-29] MEDS: HYDROcodone-acetaminophen 5-325 mg Tablet PO (17:26)
[2019-08-29] MEDS: apixaban 5 mg Tablet PO (17:26)
[2019-08-29] MEDS: gabapentin 300 mg Capsule PO ×2 (17:26→21:02)
[2019-08-29] MEDS: allopurinol 100 mg Tablet PO (17:27)
[2019-08-30] MEDS: sodium chloride 0.9% 1,000 ML 125 ML IV ×2 (00:41→10:05)
[2019-08-30] MEDS: cefepime 2,000 MG in sodium chloride 0.9% (plus) 50 ML 100 MG IV (00:42)
[2019-08-30] MEDS: HYDROcodone-acetaminophen 5-325 mg Tablet PO ×2 (02:16→08:14)
[2019-08-30 04:00] VITALS: BP 127/86; PULSE 95; RESP 18; TEMP 36.9; O2SAT 92
[2019-08-30 05:38] LABS: Basophils % 0.5 %; Eosinophils # 0.2 10^3/uL (0.0-0.8); Eosinophils % 3.7 %; Hematocrit 37.6 % (42.0-52.0); Lymphocytes # 2.7 10^3/uL (0.8-4.8); Lymphocytes % 41.4 %; Mean Corpuscular HGB Conc 31.9 g/dL (30.0-36.0); Mean Corpuscular Hemoglobin 29.5 pg (28.0-34.0); Mean Corpuscular Volume 92.4 fL (80-94); Mean Platelet Volume 9.8 fL (7.4-10.4); Monocytes # 0.7 10^3/uL (0.2-0.9); Monocytes % 11.1 %; Neutrophils # 2.8 10^3/uL (1.8-7.7); Neutrophils % 42.1 %; Nucleated Red Blood Cells % 0 %; Platelet Count 150 10^3/cmm (130-400); Red Blood Count 4.07 10^6/uL (4.1-5.3); Red Cell Distribution Width 15.4 % (12.1-15.1); White Blood Count 6.6 10^3/uL (4.0-10.0)
[2019-08-30] MEDS: nicotine 21 mg Patch 1 PATCH TRANSDERMA (05:51)
[2019-08-30 07:04] VITALS: BP 115/79; PULSE 98; RESP 16; TEMP 37.2; O2SAT 93
[2019-08-30 07:30] VITALS: PULSE 97; RESP 16; O2SAT 94
[2019-08-30] MEDS: oseltamivir phosphate 75 mg Capsule PO (08:14)
[2019-08-30] MEDS: metoprolol succinate ER (24 HR) 50 mg Tablet PO (08:14)
[2019-08-30] MEDS: allopurinol 100 mg Tablet PO (08:14)
[2019-08-30] MEDS: apixaban 5 mg Tablet PO (08:14)
[2019-08-30] MEDS: gabapentin 300 mg Capsule PO (08:14)
[2019-08-30 09:00] LABS: Blood Urea Nitrogen 17 mg/dL (6-20); Calcium 8.8 mg/dL (8.5-10.5); Carbon Dioxide 20 mmol/L (22-29); Chloride 105 mmol/L (98-107); Glomerular Filtration Rate 79.8 mL/min (90-130); Glucose 111 mg/dL (65-115); Osmolality Calculated 277 mOsm/kg (285-295); Sodium 135 mmol/L (136-145)
--- NOTE | 2019-08-30 10:55 | PM.DCS ---
Discharge Providers Date of Admission: 08/29/19 05:51 Date of Discharge: August 30, 2019 Attending Provider at Admission: Nancy Molina MD Attending Provider at Discharge: Roscoe Alexander MD Primary Care Provider: Pamela Lorenzana Diagnoses at Discharge Discharge Diagnosis (1) Fever: Status: Acute Problem details: Resolved (2) Exposure to influenza: Status: Acute Problem details: Continue Tamiflu for 4 more days (3) Diarrhea: Status: Acute Problem details: Improved Qualifiers: Diarrhea type: unspecified type Qualified Code(s): R19.7 - Diarrhea, unspecified (4) Acute renal failure: Status: Acute Problem details: Resolved. Hold lisinopril, and anti-inflammatory on discharge Qualifiers: Acute renal failure type: unspecified Qualified Code(s): N17.9 - Acute kidney failure, unspecified (5) Leukocytosis: Status: Acute Problem details: Resolved Reason for Visit Reason for Visit: Reason For Visit: SEPSIS, ACUTE RENAL FAILURE, INFLUENZA EXPOSURE Hospital Course Hospital Course: Eric is a 48-year-old white male who presents to the hospital with diarrhea, direct exposure to the flu. Fever was present. He was placed on cefepime secondary to his underlying malignancy receiving immunotherapy, as well as Tamiflu. Renal failure was present on admission as well. With hydration renal failure went away. SEDA inhibitor and anti-inflammatories were held. On discharge he was afebrile, creatinine 1.0. Diarrhea had improved dramatically. He will be discharged for follow-up with his primary care provider, BMP on follow-up, avoid all anti-inflammatories, and finish a short course of cefepime and 4 more days of Tamiflu. Physical Exam Narrative: EXAM NARRATIVE: General exam no apparent distress Cardiovascular regular in rhythm without murmur Lungs clear but diminished breath sounds bilaterally Abdomen is soft with positive bowel sounds Extremities no cyanosis clubbing or edema Discharge Data Data Completed and Pending: Completed Studies During Hospitalization Category Date Time Status XR chest 1V anat ble [id number] Stat Exams 08/29/19 00:58 Completed Pending at discharge Category Date Time Status Blood Culture Sta t Lab 08/29/19 01:35 Results Labs from last 24 hours 08/30/19 08/30/19 08:25 05:24 WBC 6.6 RBC 4.07 L Hgb 12.0 Hct 37.6 L MCV 92.4 MCH 29.5 MCHC 31.9 RDW 15.4 H Plt Count 150 MPV 9.8 Neut % (Auto) 42.1 Lymph % (Auto) 41.4 [place] % (Auto) 11.1 Eos % (Auto) 3.7 Baso % (Auto) 0.5 Neut # (Auto) 2.8 Lymph # (Auto) 2.7 [place] # (Auto) 0.7 Eos # (Auto) 0.2 Baso # (Auto) 0.0 Nucleated RBC % (a uto) 0 Nucleated RBCs # 0.0 Sodium 135 L Potassium 4.0 Chloride 105 Carbon Dioxide 20 L Anion Gap 14.0 BUN 17 Creatinine 1.0 GFR Calculation 79.8 L Glucose 111 Calculated Osmolal ity 277 L Calcium 8.8 Vitals: Last Vital Signs Temp 98.9 F 08/30/19 07:04 Pulse 97 08/30/19 07:30 Resp 16 08/30/19 07:30 BP 115/79 08/30/19 07:04 Pulse Ox 94 08/30/19 07:30 Discharge Plan Discharge Patient Disposition: Home, Self-Care Condition: Stable Prescriptions: New oseltamivir 75 mg Capsule 75 mg PO BID Qty: 8 RF: 0 cefdinir 300 mg capsule 300 mg PO BID Qty: 10 RF: 0 Continued Advair Diskus 250-50 mcg/dose Blister With Device 1 inh INHALATION BID RF: 0 metoprolol succinate 50 mg Tablet Extended Release 24 Hr 50 mg PO DAILY RF: 0 hydrocodone-acetaminophen 5-325 mg Tablet 1 - 2 tab PO Q6H PRN (Reason: Pain, Moderate) RF: 0 allopurinol 100 mg Tablet 100 mg PO BID RF: 0 dicyclomine 20 mg Tablet 20 mg PO QID RF: 0 metformin 1,000 mg Tablet 1,000 mg PO BID RF: 0 pramipexole 0.25 mg Tablet 0.25 mg PO DAILY RF: 0 gabapentin 300 mg Capsule 300 mg PO QID RF: 0 oxybutynin chloride 5 mg Tablet 5 mg PO BID RF: 0 Tradjenta 5 mg Tablet 5 mg PO DAILY RF: 0 Eliquis 5 mg Tablet 5 mg PO BID RF: 0 Discontinued lisinopril 20 mg Tablet 20 mg PO DAILY RF: 0 diclofenac sodium 75 mg Tablet,Delayed Release (Dr/Ec) 75 mg PO BID RF: 0 Discharge Orders: Discharge Order (Routine); Ordered 08/30/19 Ordered By: Roscoe Alexander Referrals: Pamela Lorenzana PA [Primary Care Provider] - 4-7 days (BMP on follow-up) Discharge Diet: Advance as tolerated Discharge Activity: Resume usual activity Activity Restrictions/Additional Instructions: Take all medicine as prescribed Follow-up with your primary care provider and oncologist. Discharge Attestations Time Spent in Discharge Care*: greater than 30 min Quality Metrics Clinical Quality Measures During this hospital stay, did patient experience: None Coding Level of Care Code Acute Family Practice Medical Doctor for Chg Fwd Diagnoses Fever R50.9 Exposure to influenza Z20.828 Diarrhea R19.7 Diarrhea type: unspecified type Acute renal failure N17.9 Acute renal failure type: unspecified Leukocytosis D72.829
--- NOTE | 2019-08-30 11:11 | DCPLANNER ---
PT BEING D/C'D TODAY.
[2019-08-30 11:24] VITALS: BP 115/79; BP 118/85; PULSE 100; PULSE 97; RESP 16; RESP 18; TEMP 36.9; TEMP 37.2; O2SAT 94; O2SAT 95
[2019-08-30 11:47] VITALS: BP 115/79; PULSE 97; RESP 16; TEMP 37.2; O2SAT 94
== END 2019-08-30 11:51 | disposition home or self-care (01) ==
LOC: ER 08-29 05:56 → MEDSURG 08-29 06:24
PROVIDERS: Admitting Provider Hospitalist; Emergency Provider Emergency Medicine; Family Provider Physician Assistant; PCP Physician Assistant; Visit Provider Internal Medicine
DX: R50.9 Fever, unspecified (principal); Z20.828 Contact with and (suspected) exposure to other viral communicable diseases; R19.7 Diarrhea, unspecified; N17.9 Acute kidney failure, unspecified; D72.829 Elevated white blood cell count, unspecified; E66.9 Obesity, unspecified; Z68.37 Body mass index [BMI] 37.0-37.9, adult; G47.33 Obstructive sleep apnea (adult) (pediatric); F17.210 Nicotine dependence, cigarettes, uncomplicated; C34.90 Malignant neoplasm of unspecified part of unspecified bronchus or lung
CPT/HCPCS: 12345; 36415; 51798; 71045; 73221; 80048; 80053; 81001; 83605; 83690; 84484; 85025; 87040; 87493; 87804; 93005; 94640; 96361; 96365; 96366; 96372; 96375; 99283; 99285; A9270; C1751; G0378; J0692; J0743; J1642; J1644; J7030; J7050

== ENCOUNTER 2019-09-01 18:28 | Inpatient (IN) | payer MEDICARE, MEDICAID, SELFPAY ==
[2019-09-01 18:37] VITALS: BP 124/89; PULSE 117; RESP 18; TEMP 37.3; O2SAT 94; BMI 37.5
--- NOTE | 2019-09-01 19:09 | ED_ITS ---
Entered by Jazmyn Fajardo, acting as scribe for Bobby Moody MD, [facility] Sep 01, 2019 18:28 HPI - General Adult General: Chief complaint: General Medical Stated complaint: BLOOD IN STOOL Time Seen by Provider: 09/01/19 19:03 Source: patient, family and RN notes reviewed Mode of arrival: ambulatory Limitations: no limitations History of Present Illness: HPI narrative: 48 yo male presents to ED with complaints of blood in his stool. The patient was placed in [facility] on 08.29.2019 and released on 08.30.2019; he was placed in the hospital for sepsis, influenza and acute renal failure. The patient was recently diagnosed with lung cancer. The spouse states the patient's fever went to 101 at home, he went to the bathroom and discovered he had bright red blood in his stool. The patient did have abdominal pain upon arrival in the ED tonight but now the abdominal pain is resolved. The spouse reports the patient has had no appetite and has not been wanting to drink. complaint: blood in stool Onset (ago): hour(s) (today) Location: abdomen Radiation: non-radiation Severity: moderate Quality: aching Pain Consistency: intermittent and now resolved Relieving factors: rest and other (bowel movement) Exacerbating factors: movement Associated symptoms: Reports chest pain, decreased appetite, fevers/chills and other (diarrhea); Deny dyspnea, headache(s), nausea, rash, palpitations or vomiting Treatments prior to arrival: none Review of Systems General: Reports: 10 or more systems reviewed and unremarkable except in HPI and below Const: Denies: chills or body aches Eyes: Denies: change in vision or blurry vision ENMT: Denies: throat pain, enlarged tonsils, painful swallowing, hoarseness, mouth pain or swelling of lips/tongue Card: Reports: chest pain; Denies: palpitations, irregular heart rhythm, edema or swelling of feet/ankles Resp: Denies: shortness of breath, productive cough or non-productive cough GI: Denies: nausea or vomiting : Denies: flank pain, painful urination, urinary frequency, urinary urgency or urinary hesitancy Musc: Denies: neck pain, back pain or extremity swelling Skin/Breast: Denies: rash, itching or redness Neuro: Denies: headache, numbness in extremities or weakness in extremities Endo: Denies: excessive urination, excessive thirst or tired all the time PFSH ED PFSH: Medical History (Updated 09/02/19 @ 00:34 by Bobby Moody MD, [facility]) COPD (chronic obstructive pulmonary disease) History of pulmonary embolism Hypertension Obesity Sleep apnea Small cell lung cancer Tobacco dependency Type 2 diabetes mellitus Surgical History (Updated 08/29/19 @ 08:45 by Roscoe Alexander MD) History of lung biopsy Family History (Updated 08/29/19 @ 08:46 by Roscoe Alexander MD) Other Cancer Social History (Updated 08/29/19 @ 08:46 by Roscoe Alexander MD) Smoking and tobacco status: current every day smoker Alcohol intake: never Physical Exam Const: COMMON NORMALS: no apparent distress, average body habitus, oriented x3, no limitations, healthy appearing, alert and well nourished HENMT: COMMON NORMALS: normocephalic, head/scalp atraumatic and moist oral mucous membranes HEAD & SCALP: normocephalic and atraumatic Eye: COMMON NORMALS: PERRL, EOMs intact bilaterally, conjunctivae normal and no scleral icterus CONJUNCTIVA: Yes conjunctivae normal PUPIL: Yes PERRL Neck/C-Spine: COMMON NORMALS: full ROM, supple, no meningeal signs, no JVD and no carotid bruits Chest: COMMONS NORMALS: inspection of chest normal and palpation of chest normal Resp: COMMON NORMALS: normal respiratory effort, no retractions, no use of accessory muscles, clear to auscultation bilaterally and percussion normal AUSCULTATION: clear to auscultation bilaterally PERCUSSION: percussion normal Cardio: COMMON NORMALS: no JVD, regular rate, regular rhythm, S1 normal heart sound, S2 normal heart sound, no gallops, no clicks, no murmurs, no rub and peripheral pulses 2+ throughout RATE: regular rate RHYTHM: regular rhythm HEART SOUNDS: S1 normal and S2 normal PERIPHERAL PULSES: pulses 2+ through out GI: COMMON NORMALS: normal to inspection, nondistended, normoactive bowel sounds, soft to palpation, non-tender, no hepatosplenomegaly, no masses and no bruits PALPATION: Yes soft and Yes no hepatosplenomegaly : COMMON NORMALS: Yes no CVA tenderness BLADDER/KIDNEY EXAM: Yes no CVA tenderness Back/Pelvis: COMMON NORMALS: no CVA tenderness Extremity: COMMON NORMALS: normal to inspection, full ROM, normal capillary refill, no calf tenderness and no pedal edema Neuro: COMMON NORMALS: oriented x3 SENSORIUM/ORIENTATION: Yes alert MENINGEAL SIGNS: Yes no meningeal signs Skin: COMMON NORMALS: no rashes or lesions noted, no wounds, skin turgor normal, no jaundice, no petechiae and no mottling GENERAL SKIN EXAM: no rashes or lesions noted and turgor normal Course Reevaluation(s): Reevaluation #1: Discussed his lab and imaging findings with him. My concerns are he is had a fever, bloody diarrhea, recent sepsis. Has lung cancer with chemo and immunotherapy. CT shows colitis and also worsening of his malignancy. Discussed inpatient admission versus discharge as the patient does not want to be admitted. The patient's and the patient also decided on hospital admission. He will therefore be admitted for further evaluation and management. Time: 00:15 Consultations: Consultation #1: Dr. Vásquez, hospitalist. He kindly accepted the patient to his service. Time: 00:30 Vital Signs: Vital signs: Vital Signs Temperature 99.2 F 09/01/19 18:37 Pulse Rate 113 H 09/01/19 21:29 Respiratory Rate 18 09/01/19 18:37 Blood Pressure 116/83 09/01/19 21:29 Pulse Oximetry 95 09/01/19 21:29 MDM - General Adult MDM Narrative: Medical decision making narrative: 48-year-old male with lung cancer and is on immune therapy who presents with bloody stools and colitis on CT scan. White cell count is normal, hemoglobin is normal. He is going to be admitted for further evaluation and management Medical Records: Attestation: I reviewed the patient's medical records. Lab Data: Attestation: I reviewed the patient's lab results. Labs: Lab Results 09/01/19 09/01/19 09/01/19 Range/Units 21:20 21:20 21:20 WBC 9.0 (4.0-10.0) 10^3/ uL RBC 4.10 (4.1-5.3) 10^6/u L Hgb 12.8 (11.7-16.6) g/dL Hct 38.5 L (42.0-52.0) % MCV 93.9 (80-94) fL MCH 31.2 (28.0-34.0) pg MCHC 33.2 (30.0-36.0) g/dL RDW 15.3 H (12.1-15.1) % Plt Count 193 (130-400) 10^3/c mm MPV 9.7 (7.4-10.4) fL Neut % (Auto) 55.1 % Lymph % (Auto) 30.8 % Erath % (Auto) 10.0 % Eos % (Auto) 2.3 % Baso % (Auto) 0.6 % Neut # (Auto) 5.0 (1.8-7.7) 10^3/u L Lymph # (Auto) 2.8 (0.8-4.8) 10^3/u L Erath # (Auto) 0.9 (0.2-0.9) 10^3/u L Eos # (Auto) 0.2 (0.0-0.8) 10^3/u L Baso # (Auto) 0.1 (0.0-0.1) 10^3/u L Nucleated RBC % (a uto) 0 % Nucleated RBCs # 0.0 /100WBC Sodium 135 L (136-145) mmol/L Potassium 4.0 (3.5-5.1) mmol/L Chloride 99 (98-107) mmol/L Carbon Dioxide 22 (22-29) mmol/L Anion Gap 18.0 (5-19) BUN 10 (6-20) mg/dL Creatinine 1.0 (0.7-1.2) mg/dL GFR Calculation 79.8 L (90-130) mL/min Glucose 104 (65-115) mg/dL Lactate 0.9 (0.5-2.2) mmol/L Calcium 9.3 (8.5-10.5) mg/dL Total Bilirubin 0.6 (0.15-1.2) mg/dL AST 15 (0-40) U/L ALT 12 (0-41) U/L Alkaline Phosphata se 83 (40-130) IU/L C-Reactive Protein 116.1 H (0.0-4.9) mg/L Total Protein 7.2 (6.6-8.7) g/dL Albumin 3.3 L (3.5-5.2) g/dL Globulin 3.9 (1.3-4.6) g/dL Urine Color (Yellow) Urine Appearance (CLEAR) Urine pH (5-7) Ur Specific Gravit y (1.005-1.030) Urine Protein (Negative) Urine Glucose (UA) (Normal) Urine Ketones (Negative) Urine Blood (Negative) Urine Nitrate (Negative) Urine Bilirubin (NEGATIVE) Urine Urobilinogen (Negative) mg/dL Ur Leukocyte Hilaria ase (Negative) Urine RBC (0-2) /hpf Urine WBC (0-5) /hpf Ur Squamous Epith Cells (0-5) Urine Bacteria (NONE) 09/01/19 Range/Units 22:56 WBC (4.0-10.0) 10^3/ uL RBC (4.1-5.3) 10^6/u L Hgb (11.7-16.6) g/dL Hct (42.0-52.0) % MCV (80-94) fL MCH (28.0-34.0) pg MCHC (30.0-36.0) g/dL RDW (12.1-15.1) % Plt Count (130-400) 10^3/c mm MPV (7.4-10.4) fL Neut % (Auto) % Lymph % (Auto) % Erath % (Auto) % Eos % (Auto) % Baso % (Auto) % Neut # (Auto) (1.8-7.7) 10^3/u L Lymph # (Auto) (0.8-4.8) 10^3/u L Erath # (Auto) (0.2-0.9) 10^3/u L Eos # (Auto) (0.0-0.8) 10^3/u L Baso # (Auto) (0.0-0.1) 10^3/u L Nucleated RBC % (a uto) % Nucleated RBCs # /100WBC Sodium (136-145) mmol/L Potassium (3.5-5.1) mmol/L Chloride (98-107) mmol/L Carbon Dioxide (22-29) mmol/L Anion Gap (5-19) BUN (6-20) mg/dL Creatinine (0.7-1.2) mg/dL GFR Calculation (90-130) mL/min Glucose (65-115) mg/dL Lactate (0.5-2.2) mmol/L Calcium (8.5-10.5) mg/dL Total Bilirubin (0.15-1.2) mg/dL AST (0-40) U/L ALT (0-41) U/L Alkaline Phosphata se (40-130) IU/L C-Reactive Protein (0.0-4.9) mg/L Total Protein (6.6-8.7) g/dL Albumin (3.5-5.2) g/dL Globulin (1.3-4.6) g/dL Urine Color Yellow (Yellow) Urine Appearance Clear (CLEAR) Urine pH 5 (5-7) Ur Specific Gravit y 1.020 (1.005-1.030) Urine Protein Trace (Negative) Urine Glucose (UA) Norm (Normal) Urine Ketones 1+ H (Negative) Urine Blood Neg (Negative) Urine Nitrate Negative (Negative) Urine Bilirubin 1+ H (NEGATIVE) Urine Urobilinogen Norm (Negative) mg/dL Ur Leukocyte Hilaria ase Negative (Negative) Urine RBC 0-4 H (0-2) /hpf Urine WBC 0-4 H (0-5) /hpf Ur Squamous Epith Cells 0-4 H (0-5) Urine Bacteria 1+ H (NONE) Discharge Plan Discharge Patient Disposition: Admitted As Inpatient Clinical Impression: Hematochezia, Colitis, Lung cancer, Adrenal mass Condition: Stable Prescriptions: No Action Advair Diskus 250-50 mcg/dose Blister With Device 1 inh INHALATION BID RF: 0 metoprolol succinate 50 mg Tablet Extended Release 24 Hr 50 mg PO DAILY RF: 0 hydrocodone-acetaminophen 5-325 mg Tablet 1 - 2 tab PO Q6H PRN (Reason: Pain, Moderate) RF: 0 allopurinol 100 mg Tablet 100 mg PO BID RF: 0 dicyclomine 20 mg Tablet 20 mg PO QID RF: 0 metformin 1,000 mg Tablet 1,000 mg PO BID RF: 0 pramipexole 0.25 mg Tablet 0.25 mg PO DAILY RF: 0 gabapentin 300 mg Capsule 300 mg PO QID RF: 0 oxybutynin chloride 5 mg Tablet 5 mg PO BID RF: 0 Tradjenta 5 mg Tablet 5 mg PO DAILY RF: 0 Eliquis 5 mg Tablet 5 mg PO BID RF: 0 oseltamivir 75 mg Capsule 75 mg PO BID Qty: 8 RF: 0 cefdinir 300 mg capsule 300 mg PO BID Qty: 10 RF: 0 Referrals: Pamela Lorenzana PA [Primary Care Provider] - Coding Level of Care Code ED Sorting Grapple Operator for Chg Fwd Exam Comprehensive The documentation recorded by the Tana bermeo Valerie R, accurately reflects the service I personally performed and the decisions made by Fransisco hood Adegoke I, MD, [facility] Sep 01, 2019 18:28
--- NOTE | 2019-09-01 21:06 | CTR_ITS ---
PROCEDURE INFORMATION: Exam: CT Chest With Contrast Exam date and time: 09/01/2019 9:27 PM Age: 48 years old Clinical indication: Prior surgery; Surgery date: 6+ months; Surgery type: Hernia, port; Patient HX: Fever, bloody stool, diarrhea - HX small cell lung and neuroendocrine CA; Additional info: Fever, chemotherapy, lung cancer TECHNIQUE: Imaging protocol: Computed tomography of the chest with intravenous contrast. Total DLP: 2954.31 mGy-cm Radiation optimization: All CT scans at this facility use at least one of these dose optimization techniques: automated exposure control; mA and/or kV adjustment per patient size (includes targeted exams where dose is matched to clinical indication); or iterative reconstruction. Contrast material: OMNI 300; Contrast volume: 95 ml; Contrast route: 20G; COMPARISON: CT Chest/Abdomen/Pelvis w IV* 08/14/2018 2:23 PM FINDINGS: Tubes, catheters and devices: Left Infusaport catheter. Thyroid: Densely calcified 8 mm left thyroid nodule.No follow-up is recommended. Lungs: Evidence of progression of disease lung cancer right upper lobe since last evaluation 08/14/2018. Increasing tumoral infiltrate involving primarily the anterior apical segment of the right upper lobe with parenchymal traction. Associated air bronchograms with the tumoral infiltrate. Interval development of a thin-walled cavitary lesion right lung apex measuring 18 mm in diameter. Interval development of a superior segment right lower lobe mixed ground-glass and partial solid nodule with suspicion for satellite metastatic disease measuring 14 mm x 7 mm. Interval increase in size of a right upper lobe apical subpleural nodular density measuring 14 mm x 10 mm subpleural metastatic involvement. Evidence of mild right upper lobe lymphangitic metastasis. Right hilar involvement appears relatively stable. Superior segment right lower lobe peripheral acinar emphysema. Minimal discoid atelectasis left lower lobe. Pleural space: No visible malignant pleural effusion. Heart: Unremarkable. No cardiomegaly. No pericardial effusion. Aorta: Unremarkable. No aortic aneurysm. Lymph nodes: Unremarkable. No enlarged lymph nodes. Spleen: Splenomegaly at 16.4 cm. Punctate splenic calcifications of antecedent granulomatous disease. Adrenals: Bilateral adrenal nodules measuring 16 mm on the left and 12 mm on the right that appears to have increased slightly in size since last examination. Bones/joints: Early no visible osteolytic or osteoblastic destructive process of the skeletal structures within the field of view. Soft tissues: Unremarkable. IMPRESSION: 1. Evidence of progression of disease lung carcinoma. 2. Bilateral adrenal nodules that have increased in size since last examination raising concern for metastasis. 3. Densely calcified 8 mm left thyroid nodule. No follow-up is recommended. 4. Fleischner follow up recommendations for incidental nodules are not indicated. Follow up per patient's medical condition. PROCEDURE INFORMATION: Exam: CT Abdomen And Pelvis With Contrast Exam date and time: 09/01/2019 9:27 PM Age: 48 years old Clinical indication: Prior surgery; Surgery date: 6+ months; Surgery type: Hernia, port; Patient HX: Fever, bloody stool, diarrhea - HX small cell lung and neuroendocrine CA; Additional info: Fever, chemotherapy, lung cancer TECHNIQUE: Imaging protocol: Computed tomography of the abdomen and pelvis with intravenous contrast. Total DLP: 2954.31 mGy-cm Radiation optimization: All CT scans at this facility use at least one of these dose optimization techniques: automated exposure control; mA and/or kV adjustment per patient size (includes targeted exams where dose is matched to clinical indication); or iterative reconstruction. Contrast material: OMNI 300; Contrast volume: 95 ml; Contrast route: 20G; COMPARISON: CT Chest/Abdomen/Pelvis w IV* 08/14/2018 2:23 PM FINDINGS: Mediastinum: Small hiatal hernia. Liver: Hepatosplenomegaly. Hepatic length 22 cm and splenic length 16.4 cm. No visible hepatic metastasis. Gallbladder and bile ducts: Gallbladder free of cholelithiasis. No intra or extrahepatic biliary ectasia. Pancreas: Pancreas unremarkable. Spleen: Punctate splenic calcifications of antecedent granulomatous disease. Adrenals: Bilateral adrenal nodules measuring 16 mm on the left and 12 mm on the right that appear to have increased slightly in size since last examination. Kidneys and ureters: Punctate nonobstructing calyceal nephrolithiasis focus inferior pole left kidney under 2 mm. Stomach and bowel: Focal proximal ascending colitis. No evidence for diverticulitis coli. Appendix: Appendix not inflamed. Intraperitoneal space: Unremarkable. No free air. No significant fluid collection. Vasculature: Unremarkable. No abdominal aortic aneurysm. Lymph nodes: Unremarkable. No enlarged lymph nodes. Bladder: Unremarkable as visualized. Reproductive: Unremarkable as visualized. Bones/joints: No visible osteolytic or osteoblastic destructive process within the field of view. Degenerative disc disease with vacuum disc phenomenon T11/T12. Soft tissues: Unremarkable. CT/CT chest abd pel w con* IMPRESSION: 1. Focal proximal ascending colitis. 2. Bilateral adrenal nodules demonstrating increase in size since last examination with concern for metastasis. 3. Hepatosplenomegaly. 4. Tiny focus of nonobstructing calyceal nephrolithiasis inter pole left kidney. Radiation Dose CTDIVOL = (mGy): DLP = 2954.31~2954.31 (mGy-cm)
[2019-09-01 21:29] VITALS: BP 116/83; PULSE 113; O2SAT 95
[2019-09-01 21:37] LABS: Basophils # 0.1 10^3/uL (0.0-0.1); Basophils % 0.6 %; Eosinophils # 0.2 10^3/uL (0.0-0.8); Eosinophils % 2.3 %; Hematocrit 38.5 % (42.0-52.0); Hemoglobin 12.8 g/dL (11.7-16.6); Lymphocytes # 2.8 10^3/uL (0.8-4.8); Lymphocytes % 30.8 %; Mean Corpuscular HGB Conc 33.2 g/dL (30.0-36.0); Mean Corpuscular Hemoglobin 31.2 pg (28.0-34.0); Mean Corpuscular Volume 93.9 fL (80-94); Mean Platelet Volume 9.7 fL (7.4-10.4); Monocytes # 0.9 10^3/uL (0.2-0.9); Neutrophils % 55.1 %; Nucleated Red Blood Cells % 0 %; Platelet Count 193 10^3/cmm (130-400); Red Cell Distribution Width 15.3 % (12.1-15.1)
[2019-09-01 21:48] LABS: Alanine Aminotransferase 12 U/L (0-41); Albumin Level 3.3 g/dL (3.5-5.2); Alkaline Phosphatase 83 IU/L (40-130); Aspartate Amino Transferase 15 U/L (0-40); Blood Urea Nitrogen 10 mg/dL (6-20); C Reactive Protein 116.1 mg/L (0.0-4.9); Calcium 9.3 mg/dL (8.5-10.5); Carbon Dioxide 22 mmol/L (22-29); Chloride 99 mmol/L (98-107); Globulin 3.9 g/dL (1.3-4.6); Glomerular Filtration Rate 79.8 mL/min (90-130); Glucose 104 mg/dL (65-115); Lactate (Lactic Acid level) 0.9 mmol/L (0.5-2.2); Sodium 135 mmol/L (136-145); Total Bilirubin 0.6 mg/dL (0.15-1.2); Total Protein 7.2 g/dL (6.6-8.7)
[2019-09-01] MEDS: iohexol 300 mg/mL 100 mL Btl IV (21:56)
[2019-09-01 23:38] LABS: Urine Appearance Clear (CLEAR); Urine Color Yellow (Yellow); pH Urine 5 (5-7)
[2019-09-01 23:39] LABS: Add Urine Microscopic? YES; Bacteria Urine 1+; Bilirubin Urine 1+ (NEGATIVE); Blood Urine Neg (Negative); Glucose Urine UA Norm (Normal); Ketones Urine 1+ (Negative); Leukocyte Esterase Urine Negative (Negative); Nitrate Urine Negative (Negative); Protein Urine Trace (Negative); RBC Urine 0-4 /hpf (0-2); Squamous Epithelial Cell Urine 0-4 (0-5); Urobilinogen Urine Norm (Negative); WBC Urine 0-4 /hpf (0-5)
[2019-09-02] VITALS (9 sets, daily range): BP systolic 99–156; BP diastolic 66–94; PULSE 90–112; RESP 16–20; TEMP 36.6–37.4; O2SAT 92–97
--- NOTE | 2019-09-02 00:29 | P.HP_ITS ---
Providers/Chief Complaint Primary Care Provider: Pamela Lorenzana Chief Complaint: BLOOD IN STOOL History of Present Illness Eric Mckeon is a 48 year old male who has metastatic small cell pulmonary cancer currently doing palliative immunotherapy with IPI/nivolumab recently received third cycle of yervoy/nivolumab presented with chief complaint of fever, blood in stool. Of note he was recently discharged on cefepime and Tamiflu after resolution of diarrhea from previous admission. Patient is stating that since his discharge he has been compliant with his medications, his usual bowel movements are mostly liquidy stool but today he noticed that his toilet bowl was full of blood. He noticed fresh bleed per rectum and decided to come to ER for further evaluation. He also noticed fever at home which was 101 associated with chills. He has not noticed any chest pain, skin ulcers, mouth ulcers, dysuria, runny nose, runny eyes, productive cough. Diagnostics in ER showed normal hemodynamics with tachycardia, he was afebrile, he was given 1 L normal saline, I requested ER physician to hold antibiotics until we rule out enteric toxin bacterial cause of bloody diarrhea, hold anticoagulation and send a C. difficile panel Review of Systems Const: Reports: fever, chills, body aches, fatigue and malaise Eyes: Denies: change in vision ENMT: Denies: throat pain Card: Denies: chest pain, palpitations or edema Resp: Denies: shortness of breath or non-productive cough GI: Reports: blood in stool; Denies: abdominal pain, nausea or vomiting : Denies: flank pain Musc: Denies: neck pain Skin/Breast: Reports: rash, itching and redness Neuro: Denies: headache Psych: Reports: anxiety Endo: Denies: excessive urination Romeo/Lymph: Denies: easy bruising All/Imm: Denies: hives Medications/Allergies Allergies Allergy/AdvReac Type Severity Reaction Status Date / Time Penicillins Allergy ALGY-Hives Verified 09/01/19 18:46 PFSH Acute PFSH: Medical History (Updated 09/02/19 @ 00:39 by Noah Vásquez MD) COPD (chronic obstructive pulmonary disease) History of pulmonary embolism Hypertension Metastatic cancer Obesity Sleep apnea Small cell lung cancer Tobacco dependency Type 2 diabetes mellitus Surgical History (Updated 09/02/19 @ 01:32 by Noah Vásquez MD) History of lung biopsy Status post chemotherapy Family History (Updated 08/29/19 @ 08:46 by Roscoe Alexander MD) Other Cancer Social History (Updated 08/29/19 @ 08:46 by Roscoe Alexander MD) Smoking and tobacco status: current every day smoker Alcohol intake: never Vitals/I&O/Wt Last Vital Signs Temp 99.2 F 09/01/19 18:37 Pulse 113 H 09/01/19 21:29 Resp 18 09/01/19 18:37 BP 116/83 09/01/19 21:29 Pulse Ox 95 09/01/19 21:29 Weight last 48 hrs Weight 136.078 kg Physical Exam Narrative: EXAM NARRATIVE: Morbidly obese male sitting upright in bed saturating well on room air EOMI, PERRLA No mouth ulcers Left-sided Mediport without any sensitivity or purulent material S1, S2, no signs of heart failure however lower extremity 1+ trace edema Bilateral breath sounds with rhonchi no active wheezing no respiratory distress Abdomen soft, distended, bloating, with obesity, bowel sounds present, nontender Neurologically nonfocal exam Post surgical scar joyce of right lower leg nonsensitive no signs of cellulitis Patient is a bit agitated and irritable after listening to the treatment plan just to hold antibiotics until we rule out enterotoxins Neurologically nonfocal exam Neck exam does not show any signs of swelling or prominent veins Data : 09/01/19 21:20 09/01/19 21:20 Micro: Microbiology 09/01/19 21:48 Blood Culture - Preliminary Blood SPECIMEN COLLECTED 09/01/19 21:20 Blood Culture - Preliminary Blood SPECIMEN COLLECTED A&P Assessment and plan (1) Hematochezia: Status: Acute Code(s): K92.1 - Melena (2) Colitis: Status: Acute Code(s): K52.9 - Noninfective gastroenteritis and colitis, unspecified (3) Lung cancer: Status: Acute Qualifiers: Laterality: unspecified laterality Lung location: unspecified part of lung Qualified Code(s): C34.90 - Malignant neoplasm of unspecified part of unspecified bronchus or lung Code(s): C34.90 - Malignant neoplasm of unspecified part of unspecified bronchus or lung (4) Adrenal mass: Status: Acute Code(s): E27.8 - Other specified disorders of adrenal gland (5) Diarrhea: Status: Acute Qualifiers: Diarrhea type: unspecified type Qualified Code(s): R19.7 - Diarrhea, unspecified Code(s): R19.7 - Diarrhea, unspecified Additional A&P Information Fever and hematochezia Hold antibiotics Rule out enterotoxin causes of hematochezia Rule out C. difficile I have ordered CMV serum panel Hold anticoagulants Regular diet status post normal saline fluid resuscitation in ER Normal hemodynamics, CT is showing ascending colitis Cause of fever could be noninfectious considering progression of underlying lung cancer however considering right lung apical cavitary lesion my suspicion for MRSA pneumonia will stay high especially after recent viral infection Monitor hemoglobin currently hemoglobin at baseline Blood cultures Kindly reevaluate in a.m. if he would benefit from EGD or colonoscopy Nonobstructing nephrolithiasis no active signs of pyonephritis or UTI Bilateral adrenal nodules increasing in size with metastases currently blood pressure is stable blood glucose normal no signs of addisonian crisis Small cell cancer with metastases currently undergoing immunotherapy Diet: Regular His last hemoglobin A1c was 5, he is not diabetic DVT prophylaxis: SCDs hold anticoagulation He was taking Eliquis for right leg DVT Patient is full code He wants a trial of CPR and intubation He is a patient of Dr. Plummer Attestations Medical Necessity Statement*: Anticipating his stay to cross more than 2 midnights needs work-up for hematochezia, fever Time Spent in Patient Care: 50 Coding Level of Care Code Acute Java Sybase Developer for [facility] Fwd Diagnoses Hematochezia K92.1 Colitis K52.9 Lung cancer C34.90 Laterality: unspecified laterality Lung location: unspecified part of lung Adrenal mass E27.8 Diarrhea R19.7 Diarrhea type: unspecified type
--- NOTE | 2019-09-02 01:22 | PC.NURSE ---
Agree with assessment as written.
[2019-09-02] MEDS: sodium chloride 0.9% 1,000 ML 999 ML IV (02:21)
[2019-09-02] MEDS: sodium chloride 0.9% 1,000 ML 125 ML IV ×4 (02:26→19:49)
[2019-09-02] MEDS: HYDROcodone-acetaminophen 5-325 mg Tablet PO ×2 (02:33→17:54)
[2019-09-02] MEDS: nicotine 21 mg Patch 1 PATCH TRANSDERMA ×2 (04:29→09:44)
[2019-09-02 05:57] LABS: Basophils % 0.4 %; Eosinophils # 0.2 10^3/uL (0.0-0.8); Eosinophils % 3.3 %; Hematocrit 35.2 % (42.0-52.0); Hemoglobin 11.3 g/dL (11.7-16.6); Lymphocytes # 2.3 10^3/uL (0.8-4.8); Lymphocytes % 33.1 %; Mean Corpuscular HGB Conc 32.1 g/dL (30.0-36.0); Mean Corpuscular Hemoglobin 30.5 pg (28.0-34.0); Mean Corpuscular Volume 94.9 fL (80-94); Mean Platelet Volume 9.6 fL (7.4-10.4); Monocytes # 0.8 10^3/uL (0.2-0.9); Monocytes % 11.7 %; Neutrophils # 3.5 10^3/uL (1.8-7.7); Neutrophils % 50.1 %; Nucleated Red Blood Cells % 0 %; Platelet Count 181 10^3/cmm (130-400); Red Blood Count 3.71 10^6/uL (4.1-5.3); Red Cell Distribution Width 15.3 % (12.1-15.1); White Blood Count 6.9 10^3/uL (4.0-10.0)
[2019-09-02 06:34] LABS: Anion Gap 14.8 (5-19); Blood Urea Nitrogen 9 mg/dL (6-20); Calcium 8.5 mg/dL (8.5-10.5); Carbon Dioxide 21 mmol/L (22-29); Chloride 105 mmol/L (98-107); Glomerular Filtration Rate 103.2 mL/min (90-130); Glucose 103 mg/dL (65-115); Osmolality Calculated 280 mOsm/kg (285-295); Potassium 3.8 mmol/L (3.5-5.1); Sodium 137 mmol/L (136-145)
--- NOTE | 2019-09-02 06:36 | PC.NURSE ---
Patient refused his blood sugar to be checked this morning. He asked me to speak with his nurse. Nurse been notified.
[2019-09-02] MEDS: allopurinol 100 mg Tablet PO ×2 (09:38→17:49)
[2019-09-02] MEDS: gabapentin 300 mg Capsule PO ×4 (09:38→21:41)
[2019-09-02] MEDS: oseltamivir phosphate 75 mg Capsule PO ×2 (09:38→17:49)
[2019-09-02] MEDS: metoprolol succinate ER (24 HR) 50 mg Tablet PO (09:38)
[2019-09-02] MEDS: oxybutynin 5 mg Tablet PO ×2 (09:39→17:49)
--- NOTE | 2019-09-02 17:11 | P.PN_ITS ---
Subjective Subjective: Interval history: Patient is sitting up into a chair this morning, is at bedside, patient states that he has been having loose stools, bloody stools for the last 24 hours, no history of bloody stools in the past, no history of colon cancer, no recent sick contacts, do drink well water, no history of food poisoning, no abdominal pain, no history of hemorrhoids, he has been on Opdivo through cancer care, no shortness of breath, has a chronic cough, no hemoptysis, currently is concerned about having bloody stools Vitals/I&O/Wt Last Vital Signs Temp 98.3 F 09/02/19 15:27 Pulse 105 H 09/02/19 15:27 Resp 16 09/02/19 15:27 BP 130/84 09/02/19 15:27 Pulse Ox 93 09/02/19 15:27 09/02/19 09/02/19 09/02/19 06:59 14:59 22:59 Intake Total 120 / 120 1997.75 / 1997.75 Output Total 100 / 100 225 / 225 Balance 1773.75 / 1773.75 Weight last 48 hrs Weight 136.078 kg Physical Exam Const: COMMON NORMALS: no apparent distress and oriented x3 HENMT: COMMON NORMALS: normocephalic HEAD & SCALP: normocephalic Neck/C-Spine: COMMON NORMALS: no JVD Resp: COMMON NORMALS: normal respiratory effort, no retractions, no use of accessory muscles and clear to auscultation bilaterally AUSCULTATION: clear to auscultation bilaterally Cardio: COMMON NORMALS: no JVD, regular rate, regular rhythm, S1 normal heart sound and S2 normal heart sound RATE: regular rate RHYTHM: regular rhythm HEART SOUNDS: S1 normal and S2 normal GI: COMMON NORMALS: normal to inspection, nondistended, normoactive bowel sounds, soft to palpation, non-tender, no hepatosplenomegaly, no masses and no bruits PALPATION: Yes soft and Yes no hepatosplenomegaly Extremity: COMMON NORMALS: normal capillary refill, no clubbing, cyanosis or edema, no calf tenderness and no pedal edema Neuro: COMMON NORMALS: oriented x3 Psych: COMMON NORMALS: mental status grossly normal Data : 09/02/19 05:40 09/02/19 05:40 Micro: Microbiology 09/02/19 00:30 Enteric Pathogens (PCR) - Final Stool C.difficile Toxin B Gene (PCR) - Final Occult Blood (FIT) - Final 09/01/19 21:48 Blood Culture - Preliminary Blood SPECIMEN COLLECTED 09/01/19 21:20 Blood Culture - Preliminary Blood SPECIMEN COLLECTED A&P Assessment and plan (1) Hematochezia: Status: Acute Code(s): K92.1 - Melena (2) Colitis: Status: Acute Code(s): K52.9 - Noninfective gastroenteritis and colitis, unspecified (3) Lung cancer: Status: Acute Qualifiers: Laterality: unspecified laterality Lung location: unspecified part of lung Qualified Code(s): C34.90 - Malignant neoplasm of unspecified part of unspecified bronchus or lung Code(s): C34.90 - Malignant neoplasm of unspecified part of unspecified bronchus or lung (4) Adrenal mass: Status: Acute Code(s): E27.8 - Other specified disorders of adrenal gland (5) Diarrhea: Status: Acute Qualifiers: Diarrhea type: unspecified type Qualified Code(s): R19.7 - Diarrhea, unspecified Code(s): R19.7 - Diarrhea, unspecified Additional A&P Information Fever and hematochezia likely secondary to Opdivo, Opdivo is well known to cause colitis, and in some cases ulcerative colitis or Crohn's disease Hold antibiotics Rule out enterotoxin causes of hematochezia Rule out C. difficile I have ordered CMV serum panel Hold anticoagulants Regular diet status post normal saline fluid resuscitation in ER Normal hemodynamics, CT is showing ascending colitis Fever likely secondary to colitis, Patient's CT scan does show a cavitary lesion in the right upper lobe, patient is currently asymptomatic, no shortness of breath, has a chronic cough, no hemoptysis, will obtain a sputum sample Monitor hemoglobin currently hemoglobin at baseline Blood cultures I spoke to Dr. 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
[2019-09-02] MEDS: pramipexole 0.25 mg Tablet PO (21:41)
--- NOTE | 2019-09-02 22:31 | PC.NURSE ---
Patient refused to have his blood sugar tested. Nurse notified.
[2019-09-03] VITALS (8 sets, daily range): BP systolic 117–151; BP diastolic 75–101; PULSE 89–98; RESP 18–22; TEMP 36.4–36.9; O2SAT 93–96
[2019-09-03] MEDS: sodium chloride 0.9% 1,000 ML 125 ML IV ×3 (03:39→21:43)
[2019-09-03] MEDS: HYDROcodone-acetaminophen 5-325 mg Tablet PO ×3 (03:43→17:58)
[2019-09-03 05:22] LABS: Basophils % 0.3 %; Eosinophils % 0.2 %; Hematocrit 33.7 % (42.0-52.0); Lymphocytes # 1.5 10^3/uL (0.8-4.8); Lymphocytes % 22.5 %; Mean Corpuscular HGB Conc 32.6 g/dL (30.0-36.0); Mean Corpuscular Hemoglobin 30.8 pg (28.0-34.0); Mean Corpuscular Volume 94.4 fL (80-94); Mean Platelet Volume 10.1 fL (7.4-10.4); Monocytes # 0.5 10^3/uL (0.2-0.9); Neutrophils # 4.6 10^3/uL (1.8-7.7); Neutrophils % 69.1 %; Nucleated Red Blood Cells % 0 %; Platelet Count 194 10^3/cmm (130-400); Red Blood Count 3.57 10^6/uL (4.1-5.3); White Blood Count 6.6 10^3/uL (4.0-10.0)
[2019-09-03 06:17] LABS: Alanine Aminotransferase 11 U/L (0-41); Albumin Level 2.9 g/dL (3.5-5.2); Alkaline Phosphatase 70 IU/L (40-130); Anion Gap 15.3 (5-19); Aspartate Amino Transferase 15 U/L (0-40); Blood Urea Nitrogen 5 mg/dL (6-20); Calcium 8.7 mg/dL (8.5-10.5); Carbon Dioxide 21 mmol/L (22-29); Chloride 104 mmol/L (98-107); Globulin 3.7 g/dL (1.3-4.6); Glomerular Filtration Rate 120.4 mL/min (90-130); Glucose 130 mg/dL (65-115); Magnesium 1.5 mg/dL (1.7-2.3); Phosphorus 3.3 mg/dL (2.5-4.5); Potassium 4.3 mmol/L (3.5-5.1); Sodium 136 mmol/L (136-145); Total Bilirubin 0.4 mg/dL (0.15-1.2); Total Protein 6.6 g/dL (6.6-8.7)
--- NOTE | 2019-09-03 06:32 | PC.NURSE ---
Patient refused his blood sugar to be checked this morning. Nurse knows it.
[2019-09-03] MEDS: oseltamivir phosphate 75 mg Capsule PO ×2 (09:31→17:58)
[2019-09-03] MEDS: allopurinol 100 mg Tablet PO ×2 (09:31→17:58)
[2019-09-03] MEDS: gabapentin 300 mg Capsule PO ×4 (09:31→20:42)
[2019-09-03] MEDS: oxybutynin 5 mg Tablet PO ×2 (09:31→17:58)
[2019-09-03] MEDS: metoprolol succinate ER (24 HR) 50 mg Tablet PO (09:31)
[2019-09-03] MEDS: nicotine 21 mg Patch 1 PATCH TRANSDERMA (09:32)
[2019-09-03 12:42] LABS: Cytomegalovirus Antibody (IGG) >10.00 U/mL; Cytomegalovirus Antibody (IGM) <30.00 AU/mL
--- NOTE | 2019-09-03 15:31 | PM.PN ---
Subjective Subjective: Interval history: This morning patient states that he is doing better, no abdominal pain, but continues to have bloody stools, no fevers, no chills, no nausea, no vomiting, no lightheadedness, no dizziness, is sitting up in chair, ambulating appropriately, is worried about going home too soon and he will become dehydrated Vitals/I&O/Wt Last Vital Signs Temp 97.6 F 09/03/19 15:15 Pulse 91 09/03/19 15:15 Resp 18 09/03/19 15:15 BP 123/83 09/03/19 15:15 Pulse Ox 94 09/03/19 15:15 09/03/19 09/03/19 09/03/19 06:59 14:59 22:59 Intake Total 1219.167 / 5230.000 1825.833 / 1825.833 Output Total 1080 / 1755 250 / 250 Balance 139.167 / 3475.000 1825.833 / 1825.833 -250 / 1575.833 Weight last 48 hrs Weight 136.078 kg Physical Exam Const: COMMON NORMALS: no apparent distress and oriented x3 HENMT: COMMON NORMALS: normocephalic HEAD & SCALP: normocephalic Neck/C-Spine: COMMON NORMALS: no JVD Resp: COMMON NORMALS: normal respiratory effort, no retractions, no use of accessory muscles and clear to auscultation bilaterally AUSCULTATION: clear to auscultation bilaterally Cardio: COMMON NORMALS: no JVD, regular rate, regular rhythm, S1 normal heart sound and S2 normal heart sound RATE: regular rate RHYTHM: regular rhythm HEART SOUNDS: S1 normal and S2 normal GI: COMMON NORMALS: normal to inspection, nondistended, normoactive bowel sounds, soft to palpation, non-tender, no hepatosplenomegaly, no masses and no bruits PALPATION: Yes soft and Yes no hepatosplenomegaly Extremity: COMMON NORMALS: normal capillary refill, no clubbing, cyanosis or edema, no calf tenderness and no pedal edema Neuro: COMMON NORMALS: oriented x3 Psych: COMMON NORMALS: mental status grossly normal Data : 09/03/19 05:02 09/03/19 05:02 Micro: Microbiology 09/01/19 21:48 Blood Culture - Preliminary Blood NEGATIVE TO DATE 09/01/19 21:20 Blood Culture - Preliminary Blood NEGATIVE TO DATE 09/02/19 00:30 Enteric Pathogens (PCR) - Final Stool C.difficile Toxin B Gene (PCR) - Final Occult Blood (FIT) - Final A&P Assessment and plan (1) Hematochezia: Status: Acute Code(s): K92.1 - Melena (2) Colitis: Status: Acute Code(s): K52.9 - Noninfective gastroenteritis and colitis, unspecified (3) Lung cancer: Status: Acute Qualifiers: Laterality: unspecified laterality Lung location: unspecified part of lung Qualified Code(s): C34.90 - Malignant neoplasm of unspecified part of unspecified bronchus or lung Code(s): C34.90 - Malignant neoplasm of unspecified part of unspecified bronchus or lung (4) Adrenal mass: Status: Acute Code(s): E27.8 - Other specified disorders of adrenal gland (5) Diarrhea: Status: Acute Qualifiers: Diarrhea type: unspecified type Qualified Code(s): R19.7 - Diarrhea, unspecified Code(s): R19.7 - Diarrhea, unspecified Additional A&P Information Fever and hematochezia likely secondary to Opdivo, Opdivo is well known to cause colitis, and in some cases ulcerative colitis or Crohn's disease Hold antibiotics Rule out enterotoxin causes of hematochezia Rule out C. difficile I have ordered CMV serum panel Hold anticoagulants Regular diet status post normal saline fluid resuscitation in ER Normal hemodynamics, CT is showing ascending colitis Fever likely secondary to colitis, Patient's CT scan does show a cavitary lesion in the right upper lobe, patient is currently asymptomatic, no shortness of breath, has a chronic cough, no hemoptysis, will obtain a sputum sample Monitor hemoglobin currently hemoglobin at baseline Blood cultures I spoke to Dr. 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
--- NOTE | 2019-09-03 15:32 | PC.CHAP ---
Pastoral Care Encounter/Spiritual Assessment Type of Contact [x] Declined move coordinator visit [] Patient/Family/Request visit [] Outpatient visit [] Follow-up visit [] Physician referral [] Code/Alert [] Routine visit [] Staff referral [] Actively dying [] Patient sleeping [] Family support [] [] Out of room [] Palliative care [] [] Receiving care in room [] Pre-surgical visit [] Trauma [] Long length of stay [] ICU visit [] Other: Relational/Emotional Strength [] Patient feels connected with others/family/visitors/staff [] Distress [] Loneliness/isolation [] Abandonment Spirituality of Patient [] Person of Meghana [] Attends Orthodox of their Meghana [] Believes in Prayer [] Reads Bible or Congregational materials [] There are Spiritual issues to be addressed Ground 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 Interventions [] Prayer [] Active listening [] Non-anxious presence [] Spiritual/emotional support [] Crisis/trauma care [] Spiritual counseling [] Bereavement support [] Provided bereavement packet [] Provided Bible/devotional materials [] Provided toy/stuffed animal, coloring book to patient or family member [] Provided Communion [] Anointing/[place] [] Salvation [] Completed spiritual assessment [] Other: Impact on Illness or Injury [] Angry [] Fearful [] Anxious [] Often cries [] Exhaustion [] Unable to work [] Unable to attend jainism [] Unable to walk/stand [] Unable to read [] Unable to drive [] Unable to eat/drink [] Unable to sleep [] Unable to be with family [] Patient intubated [] Other: Summary Pt. is not interested in spiritual matters and does not want move coordinator visit. Time spent with patient 2 min
[2019-09-03] MEDS: pramipexole 0.25 mg Tablet PO (20:42)
[2019-09-04] VITALS (11 sets, daily range): BP systolic 132–157; BP diastolic 88–103; PULSE 69–94; RESP 17–24; TEMP 36.4–36.6; O2SAT 94–98
[2019-09-04 03:57] LABS: Basophils % 0.2 %; Hematocrit 31.2 % (42.0-52.0); Hemoglobin 10.1 g/dL (11.7-16.6); Lymphocytes # 1.2 10^3/uL (0.8-4.8); Lymphocytes % 29.3 %; Mean Corpuscular HGB Conc 32.4 g/dL (30.0-36.0); Mean Corpuscular Hemoglobin 29.8 pg (28.0-34.0); Mean Platelet Volume 10.4 fL (7.4-10.4); Monocytes # 0.4 10^3/uL (0.2-0.9); Monocytes % 8.5 %; Neutrophils # 2.5 10^3/uL (1.8-7.7); Neutrophils % 60.8 %; Nucleated Red Blood Cells % 0 %; Platelet Count 160 10^3/cmm (130-400); Red Blood Count 3.39 10^6/uL (4.1-5.3); Red Cell Distribution Width 14.6 % (12.1-15.1); White Blood Count 4.1 10^3/uL (4.0-10.0)
[2019-09-04 04:05] LABS: Alanine Aminotransferase 11 U/L (0-41); Albumin Level 2.7 g/dL (3.5-5.2); Alkaline Phosphatase 69 IU/L (40-130); Anion Gap 12.6 (5-19); Aspartate Amino Transferase 13 U/L (0-40); Blood Urea Nitrogen 8 mg/dL (6-20); Calcium 8.9 mg/dL (8.5-10.5); Carbon Dioxide 24 mmol/L (22-29); Chloride 106 mmol/L (98-107); Globulin 3.6 g/dL (1.3-4.6); Glomerular Filtration Rate 103.2 mL/min (90-130); Glucose 159 mg/dL (65-115); Magnesium 1.6 mg/dL (1.7-2.3); Phosphorus 3.6 mg/dL (2.5-4.5); Potassium 4.6 mmol/L (3.5-5.1); Sodium 138 mmol/L (136-145); Total Bilirubin 0.2 mg/dL (0.15-1.2); Total Protein 6.3 g/dL (6.6-8.7)
[2019-09-04] MEDS: HYDROcodone-acetaminophen 5-325 mg Tablet PO ×2 (05:47→20:09)
[2019-09-04] MEDS: sodium chloride 0.9% 1,000 ML 125 ML IV (05:47)
[2019-09-04] MEDS: nicotine 21 mg Patch 1 PATCH TRANSDERMA (10:27)
[2019-09-04] MEDS: oxybutynin 5 mg Tablet PO ×2 (10:28→19:37)
[2019-09-04] MEDS: allopurinol 100 mg Tablet PO ×2 (10:28→19:37)
[2019-09-04] MEDS: oseltamivir phosphate 75 mg Capsule PO ×2 (10:28→19:37)
[2019-09-04] MEDS: gabapentin 300 mg Capsule PO ×4 (10:29→23:48)
[2019-09-04] MEDS: metoprolol succinate ER (24 HR) 50 mg Tablet PO (10:29)
--- NOTE | 2019-09-04 13:07 | P.PN_ITS ---
Subjective Subjective: Interval history: Patient continues to have bloody stools, is quite concerned, but is not too keen about having a colonoscopy as he is not turned 50 yet, no fevers, no chills, no lightheadedness, no dizziness I spoke to Dr. Plummer about the case, he stated that to increase the dose of steroids, and to speak to general surgery about doing an inpatient colonoscopy before he goes to evaluate for possible ulcerative colitis versus Crohn's disease versus diverticulosis Vitals/I&O/Wt Last Vital Signs Temp 97.6 F 09/04/19 11:18 Pulse 74 09/04/19 11:18 Resp 18 09/04/19 11:18 BP 134/89 09/04/19 11:18 Pulse Ox 95 09/04/19 11:18 09/03/19 09/04/19 09/04/19 22:59 06:59 14:59 Intake Total 1480 / 3305.833 1350 / 4655.833 952 / 952 Output Total 1125 / 1125 950 / 2075 350 / 350 Balance 355 / 2180.833 400 / 2580.833 602 / 602 Physical Exam Const: COMMON NORMALS: no apparent distress and oriented x3 HENMT: COMMON NORMALS: normocephalic HEAD & SCALP: normocephalic Neck/C-Spine: COMMON NORMALS: no JVD Resp: COMMON NORMALS: normal respiratory effort, no retractions, no use of accessory muscles and clear to auscultation bilaterally AUSCULTATION: clear to auscultation bilaterally Cardio: COMMON NORMALS: no JVD, regular rate, regular rhythm, S1 normal heart sound and S2 normal heart sound RATE: regular rate RHYTHM: regular rhythm HEART SOUNDS: S1 normal and S2 normal GI: COMMON NORMALS: normal to inspection, nondistended, normoactive bowel sounds, soft to palpation, non-tender, no hepatosplenomegaly, no masses and no bruits PALPATION: Yes soft and Yes no hepatosplenomegaly Extremity: COMMON NORMALS: normal capillary refill, no clubbing, cyanosis or edema, no calf tenderness and no pedal edema Neuro: COMMON NORMALS: oriented x3 Psych: COMMON NORMALS: mental status grossly normal Data : 09/04/19 03:20 09/04/19 03:20 A&P Assessment and plan (1) Hematochezia: Status: Acute Code(s): K92.1 - Melena (2) Colitis: Status: Acute Code(s): K52.9 - Noninfective gastroenteritis and colitis, unspecified (3) Lung cancer: Status: Acute Qualifiers: Laterality: unspecified laterality Lung location: unspecified part of lung Qualified Code(s): C34.90 - Malignant neoplasm of unspecified part of unspecified bronchus or lung Code(s): C34.90 - Malignant neoplasm of unspecified part of unspecified bronchus or lung (4) Adrenal mass: Status: Acute Code(s): E27.8 - Other specified disorders of adrenal gland (5) Diarrhea: Status: Inactive Qualifiers: Diarrhea type: unspecified type Qualified Code(s): R19.7 - Diarrhea, unspecified Code(s): R19.7 - Diarrhea, unspecified Additional A&P Information Fever and hematochezia likely secondary to Opdivo, Opdivo is well known to cause colitis, and in some cases ulcerative colitis or Crohn's disease Hold antibiotics All stool studies have been unremarkable I have ordered CMV serum panel IgG positive, IgM negative Hold anticoagulants Regular diet status post normal saline fluid resuscitation in ER Normal hemodynamics, CT is showing ascending colitis Afebrile for last [address] scan does show a cavitary lesion in the right upper lobe, patient is currently asymptomatic I spoke to Dr. Plummer this morning, advised to increase the dose of steroids to 1 mg/kg, to consult surgery for inpatient colonoscopy Will give 125 mg of Solu-Medrol, followed by taper tomorrow I have already called Dr. 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 Plummer Attestations Medical Necessity Statement*: She requires hospitalization due to hematochezia, acute colitis Coding Level of Care Code Acute Production Expert for [facility] Diagnoses Hematochezia K92.1 Colitis K52.9 Lung cancer C34.90 Laterality: unspecified laterality Lung location: unspecified part of lung Adrenal mass E27.8 Diarrhea R19.7 Diarrhea type: unspecified type
[2019-09-04] MEDS: magnesium citrate Btl 296 mL PO ×2 (14:46→20:05)
[2019-09-04] MEDS: bisacodyl 5 mg Tablet 40 MG PO (14:47)
[2019-09-04] MEDS: pramipexole 0.25 mg Tablet PO (23:48)
[2019-09-05] VITALS (13 sets, daily range): BP systolic 125–164; BP diastolic 69–114; PULSE 68–101; RESP 16–20; TEMP 36.1–37; O2SAT 93–99
[2019-09-05] MEDS: sodium chloride 0.9% 1,000 ML 100 ML IV ×3 (01:41→16:20)
[2019-09-05] MEDS: HYDROcodone-acetaminophen 5-325 mg Tablet PO ×3 (04:29→20:48)
[2019-09-05 05:47] LABS: Basophils % 0.2 %; Hematocrit 36.5 % (42.0-52.0); Hemoglobin 11.4 g/dL (11.7-16.6); Lymphocytes # 1.8 10^3/uL (0.8-4.8); Lymphocytes % 29.9 %; Mean Corpuscular HGB Conc 31.2 g/dL (30.0-36.0); Mean Corpuscular Hemoglobin 29.8 pg (28.0-34.0); Mean Corpuscular Volume 95.5 fL (80-94); Mean Platelet Volume 9.7 fL (7.4-10.4); Monocytes # 0.6 10^3/uL (0.2-0.9); Monocytes % 9.9 %; Neutrophils # 3.6 10^3/uL (1.8-7.7); Neutrophils % 58.8 %; Nucleated Red Blood Cells % 0 %; Platelet Count 226 10^3/cmm (130-400); Red Blood Count 3.82 10^6/uL (4.1-5.3); Red Cell Distribution Width 14.9 % (12.1-15.1); White Blood Count 6.1 10^3/uL (4.0-10.0)
[2019-09-05 06:11] LABS: Alanine Aminotransferase 16 U/L (0-41); Alkaline Phosphatase 73 IU/L (40-130); Anion Gap 15.1 (5-19); Blood Urea Nitrogen 7 mg/dL (6-20); Carbon Dioxide 22 mmol/L (22-29); Chloride 103 mmol/L (98-107); Globulin 3.5 g/dL (1.3-4.6); Glomerular Filtration Rate 120.4 mL/min (90-130); Glucose 103 mg/dL (65-115); Magnesium 2.3 mg/dL (1.7-2.3); Phosphorus 3.4 mg/dL (2.5-4.5); Potassium 4.1 mmol/L (3.5-5.1); Sodium 136 mmol/L (136-145); Total Bilirubin 0.3 mg/dL (0.15-1.2); Total Protein 6.5 g/dL (6.6-8.7)
[2019-09-05 06:23] LABS: Aspartate Amino Transferase 18 U/L (0-40)
[2019-09-05] MEDS: sodium chloride 0.9% 1,000 ML 30 ML (06:50)
--- NOTE | 2019-09-05 06:56 | P.ANESASSM_ITS ---
Pre-Anesthetic Assessment Pre-Anesthetic Assessment: Height/Weight: Height 1.91 m Weight 136.078 kg Temp Pulse Resp BP Pulse Ox 97.8 F 101 H 19 H 143/95 93 09/05/19 04:00 09/05/19 04:00 09/05/19 04:00 09/05/19 04:00 09/05/19 04:00 Preop Diagnosis: rectal bleeding Proposed Procedure: Operation Date: 09/05/19 07:30 Proposed Procedures p Colonoscopy(Not Applicable) - Kurt Calvo MD Familial anesthetic complications: NOne Was Beta Michele taken within 24 hours: Yes Last intake: Intake Last Liquid Date 09/04/19 Last Liquid Time 23:55 Last Solid Date 09/04/19 Last Solid Time 08:00 Social: Social History: Tobacco and No alcohol Packs per day: 1.5 ppd Exam: Pre-Anes Outpt Exam: alert, oriented x 3, clear to auscultation bilaterally and regular rate & rhythm Airway: Cervical ROM: WNL MP: 4 Additional comments: Missing Pulmonary: Pulmonary: COPD and Sleep apnea (CPP) Comments: Small cell lung cancer, does not wear oxygen CV/HEM: CV/HEM: DVT and HTN Comments: Cannot remember when he had the blood clots (said he had one in his hips and his lungs) : : None reported Hepatic: Hepatic: None reported GI: GI: GERD Metabolic: Metabolic: DM and Morbid obesity Comments: taken off metformin a month ago Anesthetic Plan: ASA status: 3 Anesthesia: MAC Risk of > 500 ml blood loss (7ml/kg in children): No Meds/Allergies Current Medications: Current Medications Generic Name Dose Route Start Last Admin Trade Name Freq PRN Reason Stop Dose Admin Hydrocodone Bitart /Acetaminophen 1 - 2 tab 09/02/19 01:42 09/05/19 04:29 Dragoon 5-325 Mg PO 2 tab Q6H PRN Administration Pain, Moderate Allopurinol 100 mg 09/02/19 09:00 09/04/19 19:37 Zyloprim PO 100 mg BID JACOBY Administration Gabapentin 300 mg 09/02/19 09:00 09/04/19 23:48 Neurontin PO 300 mg QID JACOBY Administration Sodium Chloride 1,000 mls @ 100 m ls/hr 09/02/19 00:30 09/05/19 01:41 Sodium Chloride 0.9% IV 100 mls/hr .Q10H JACOBY Administration Metoprolol Succina te 50 mg 09/02/19 09:00 09/04/19 10:29 Toprol Xl PO 50 mg DAILY JACOBY Administration Nicotine 1 patch 09/02/19 04:30 09/04/19 10:27 Nicoderm 21 Mg P atch TRANSDERMA 1 patch DAILY JACOBY Administration Oseltamivir Phosph ate 75 mg 09/02/19 09:00 09/04/19 19:37 Tamiflu PO 75 mg BID JACOBY Administration Oxybutynin Chlorid e 5 mg 09/02/19 09:00 09/04/19 19:37 Ditropan PO 5 mg BID JACOBY Administration Pramipexole Dihydr ochloride 0.25 mg 09/02/19 21:00 09/04/19 23:48 Mirapex PO 0.25 mg BEDTIME JACOBY Administration Fluticasone/Salmet jazmín 1 puff 09/04/19 09:20 09/04/19 21:25 Advair Diskus 25 0-50 INHALATION 1 puff BID.RESPIRATORY S CH Administration PFSH Anesthesia PFSH: Medical History (Updated 09/04/19 @ 00:00 by ) COPD (chronic obstructive pulmonary disease) History of pulmonary embolism Hypertension Metastatic cancer Obesity Port-A-Cath in place Sleep apnea Small cell lung cancer Tobacco dependency Type 2 diabetes mellitus Surgical History (Updated 09/02/19 @ 01:32 by Noah Vásquez MD) History of lung biopsy Status post chemotherapy Family History (Updated 08/29/19 @ 08:46 by Roscoe Alexander MD) Other Cancer Social History (Updated 08/29/19 @ 08:46 by Roscoe Alexander MD) Smoking and tobacco status: current every day smoker Alcohol intake: never Data Anesthesia CBC & Chem 7: 09/05/19 05:20 09/05/19 05:20 Other Labs: Laboratory Results - last 48 hr 09/02/19 09/04/19 09/04/19 05:40 03:20 03:20 WBC 4.1 RBC 3.39 L Hgb 10.1 L Hct 31.2 L MCV 92.0 MCH 29.8 MCHC 32.4 RDW 14.6 Plt Count 160 MPV 10.4 Neut % (Auto) 60.8 Lymph % (Auto) 29.3 [place] % (Auto) 8.5 Eos % (Auto) 0.0 Baso % (Auto) 0.2 Neut # (Auto) 2.5 Lymph # (Auto) 1.2 [place] # (Auto) 0.4 Eos # (Auto) 0.0 Baso # (Auto) 0.0 Nucleated RBC % (auto) 0 Nucleated RBCs # 0.0 Sodium 138 Potassium 4.6 Chloride 106 Carbon Dioxide 24 Anion Gap 12.6 BUN 8 Creatinine 0.8 GFR Calculation 103.2 Glucose 159 H Calcium 8.9 Phosphorus 3.6 Magnesium 1.6 L Total Bilirubin 0.2 AST 13 ALT 11 Alkaline Phosphatase 69 Total Protein 6.3 L Albumin 2.7 L Globulin 3.6 CMV IgG Ab >10.00 H CMV IgM Ab <30.00 09/05/19 09/05/19 05:20 05:20 WBC 6.1 RBC 3.82 L Hgb 11.4 L Hct 36.5 L MCV 95.5 H MCH 29.8 MCHC 31.2 RDW 14.9 Plt Count 226 MPV 9.7 Neut % (Auto) 58.8 Lymph % (Auto) 29.9 [place] % (Auto) 9.9 Eos % (Auto) 0.0 Baso % (Auto) 0.2 Neut # (Auto) 3.6 Lymph # (Auto) 1.8 [place] # (Auto) 0.6 Eos # (Auto) 0.0 Baso # (Auto) 0.0 Nucleated RBC % (auto) 0 Nucleated RBCs # 0.0 Sodium 136 Potassium 4.1 Chloride 103 Carbon Dioxide 22 Anion Gap 15.1 BUN 7 Creatinine 0.7 GFR Calculation 120.4 Glucose 103 Calcium 9.0 Phosphorus 3.4 Magnesium 2.3 Total Bilirubin 0.3 AST 18 ALT 16 Alkaline Phosphatase 73 Total Protein 6.5 L Albumin 3.0 L Globulin 3.5 CMV IgG Ab CMV IgM Ab Cardiac Studies: No Data to Display
--- NOTE | 2019-09-05 07:36 | ANE.PACU2 ---
 Inpatient post-anesthesia follow up: Airway intact: Yes Vital signs: Temperature 98 F Pulse Rate [Monito r] 113 Pulse Rate 90 Respiratory Rate 18 Blood Pressure [Ri ght Arm] 116/83 Blood Pressure 152/114 Pulse Oximetry 99 Oxygen Delivery Me thod Room Air Oxygen Flow Rate Fraction of Inspir ed Oxygen Hydration adequate: Yes Nausea and vomiting: No Pain level: 1 Mental status: Baseline
--- NOTE | 2019-09-05 07:59 | PM.CONSULT ---
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 Patient's current medication is known side effect of his colitis and he has not responded to medical therapy so far and therefore the plan is to obtain a colonoscopy to rule out any other pathology. Patient denies any significant abdominal pain nausea or vomiting. Review of Systems General: Reports: 10 or more systems reviewed and unremarkable except in HPI and below Meds/Allergies Home Medications and Allergies Home Medications Medication Instructions Recorded Confirmed Type Eliquis 5 mg PO BID 08/29/19 09/02/19 History Tradjenta 5 mg PO DAILY 08/29/19 09/02/19 History allopurinol 100 mg PO BID 08/29/19 09/02/19 History dicyclomine 20 mg PO QID 08/29/19 09/02/19 History fluticasone propion-salmeterol 1 inh INHALATION BID 08/29/19 09/02/19 History [Advair Diskus] gabapentin 300 mg PO QID 08/29/19 09/02/19 History hydrocodone-acetaminophen 1 - 2 tab PO Q6H PRN 08/29/19 09/02/19 History metformin 1,000 mg PO BID 08/29/19 09/02/19 History metoprolol succinate 50 mg PO DAILY 08/29/19 09/02/19 History oxybutynin chloride 5 mg PO BID 08/29/19 09/02/19 History pramipexole 0.25 mg PO DAILY 08/29/19 09/02/19 History Allergies Allergy/AdvReac Type Severity Reaction Status Date / Time Penicillins Allergy ALGY-Hives Verified 09/01/19 18:46 Current Medications Current Medications Generic Name Dose Route Start Last Admin Trade Name Freq PRN Reason Stop Dose Admin Hydrocodone Bitart/Acetaminophen 1 - 2 tab 09/02/19 01:42 09/05/19 04:29 Mclaughlin 5-325 Mg PO 2 tab Q6H PRN Administration Pain, Moderate Allopurinol 100 mg 09/02/19 09:00 09/04/19 19:37 Zyloprim PO 100 mg BID JACOBY Administration Gabapentin 300 mg 09/02/19 09:00 09/04/19 23:48 Neurontin PO 300 mg QID JACOBY Administration Sodium Chloride 1,000 mls @ 100 mls/hr 09/02/19 00:30 09/05/19 01:41 Sodium Chloride 0.9% IV 100 mls/hr .Q10H JACOBY Administration Metoprolol Succinate 50 mg 09/02/19 09:00 09/04/19 10:29 Toprol Xl PO 50 mg DAILY JACOBY Administration Nicotine 1 patch 09/02/19 04:30 09/04/19 10:27 Nicoderm 21 Mg Patch TRANSDERMA 1 patch DAILY JACOBY Administration Oseltamivir Phosphate 75 mg 09/02/19 09:00 09/04/19 19:37 Tamiflu PO 75 mg BID JACOBY Administration Oxybutynin Chloride 5 mg 09/02/19 09:00 09/04/19 19:37 Ditropan PO 5 mg BID JACOBY Administration Pramipexole Dihydrochloride 0.25 mg 09/02/19 21:00 09/04/19 23:48 Mirapex PO 0.25 mg BEDTIME JACOBY Administration Fluticasone/Salmeterol 1 puff 09/04/19 09:20 09/04/19 21:25 Advair Diskus 250-50 INHALATION 1 puff BID.RESPIRATORY JACOBY Administration PFSH Acute PFSH: Medical History COPD (chronic obstructive pulmonary disease) History of pulmonary embolism Hypertension Metastatic cancer Obesity Port-A-Cath in place Sleep apnea Small cell lung cancer Tobacco dependency Type 2 diabetes mellitus Surgical History History of lung biopsy Status post chemotherapy Family History Other Cancer Social History Smoking and tobacco status: current every day smoker Alcohol intake: never Vitals/I&O/Wt Last Vital Signs Temp 97.0 F L 09/05/19 07:38 Pulse 78 09/05/19 07:38 Resp 16 09/05/19 07:38 BP 125/69 09/05/19 07:38 Pulse Ox 96 09/05/19 07:38 09/04/19 09/05/19 09/05/19 22:59 06:59 14:59 Intake Total 240 / 3042 900 / 3042 400 / 400 Output Total 300 / 853 3 / 853 Balance -60 / 2189 897 / 2189 400 / 400 Physical Exam Narrative: EXAM NARRATIVE: HEENT: Normocephalic Eye: Sclera /conjunctiva normal Respiratory and chest: Bilateral clear breath sounds on auscultation Cardiovascular: Normal S1 and S2 heart sounds Abdomen: Soft to palpation Neurological: Oriented to place person and time Skin: Intact, no lesions appreciated on gross exam A&P Assessment and plan (1) Hematochezia: 48-year-old female on palliative immunotherapy with IPI/nivolumab who presents with hematochezia. Colitis is a known side effect of the his current therapy. Plan for colonoscopy under MAC since patient continues to bleed procedure, risks, benefits and alternatives have been discussed with the patient who wishes to proceed with surgery. 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
[2019-09-05] MEDS: oxybutynin 5 mg Tablet PO ×2 (09:34→18:05)
[2019-09-05] MEDS: gabapentin 300 mg Capsule PO ×4 (09:34→20:40)
[2019-09-05] MEDS: allopurinol 100 mg Tablet PO ×2 (09:35→18:05)
[2019-09-05] MEDS: oseltamivir phosphate 75 mg Capsule PO ×2 (09:35→18:05)
[2019-09-05] MEDS: metoprolol succinate ER (24 HR) 50 mg Tablet PO (09:35)
[2019-09-05] MEDS: nicotine 21 mg Patch 1 PATCH TRANSDERMA (09:36)
[2019-09-05 10:48] LABS: Glucose Point of Care 109 mg/dL (70-110)
[2019-09-05] MEDS: predniSONE 20 mg Tablet 40 MG PO (11:36)
[2019-09-05] MEDS: loperamide 2 mg Capsule PO (12:32)
--- NOTE | 2019-09-05 12:32 | PC.SOCIAL ---
Pg 2 IMM Explained to pt Pg 2 IMM & provided pt a copy. No questions voiced. Signed, dated, timed, & placed in pt's chart.
--- NOTE | 2019-09-05 17:08 | PM.PN ---
Subjective Subjective: Interval history: Patient was seen after colonoscopy, states that he still having some bloody stool, is worried about being dehydrated, wants to see some improvement in his diarrhea before he goes home, will like to try loperamide Vitals/I&O/Wt Last Vital Signs Temp 97.7 F 09/05/19 16:00 Pulse 80 09/05/19 16:00 Resp 18 09/05/19 16:00 BP 134/85 09/05/19 16:00 Pulse Ox 96 09/05/19 16:00 09/05/19 09/05/19 09/05/19 06:59 14:59 22:59 Intake Total 900 / 3042 2388.333 / 2388.333 676.667 / 3065.000 Output Total 3 853 Balance 897 / 2189 2388.333 / 2388.333 676.667 / 3065.000 Physical Exam Const: COMMON NORMALS: no apparent distress and oriented x3 HENMT: COMMON NORMALS: normocephalic HEAD & SCALP: normocephalic Neck/C-Spine: COMMON NORMALS: no JVD Resp: COMMON NORMALS: normal respiratory effort, no retractions, no use of accessory muscles and clear to auscultation bilaterally AUSCULTATION: clear to auscultation bilaterally Cardio: COMMON NORMALS: no JVD, regular rate, regular rhythm, S1 normal heart sound and S2 normal heart sound RATE: regular rate RHYTHM: regular rhythm HEART SOUNDS: S1 normal and S2 normal GI: COMMON NORMALS: normal to inspection, nondistended, normoactive bowel sounds, soft to palpation, non-tender, no hepatosplenomegaly, no masses and no bruits PALPATION: Yes soft and Yes no hepatosplenomegaly Extremity: COMMON NORMALS: normal capillary refill, no clubbing, cyanosis or edema, no calf tenderness and no pedal edema Neuro: COMMON NORMALS: oriented x3 Psych: COMMON NORMALS: mental status grossly normal Data : 09/05/19 05:20 09/05/19 05:20 A&P Assessment and plan (1) Hematochezia: Status: Acute Code(s): K92.1 - Melena (2) Colitis: Status: Acute Code(s): K52.9 - Noninfective gastroenteritis and colitis, unspecified (3) Lung cancer: Status: Acute Qualifiers: Laterality: unspecified laterality Lung location: unspecified part of lung Qualified Code(s): C34.90 - Malignant neoplasm of unspecified part of unspecified bronchus or lung Code(s): C34.90 - Malignant neoplasm of unspecified part of unspecified bronchus or lung (4) Adrenal mass: Status: Acute Code(s): E27.8 - Other specified disorders of adrenal gland (5) Diarrhea: Status: Inactive Qualifiers: Diarrhea type: unspecified type Qualified Code(s): R19.7 - Diarrhea, unspecified Code(s): R19.7 - Diarrhea, unspecified Additional A&P Information Fever and hematochezia likely secondary to Opdivo, Opdivo is well known to cause colitis, and in some cases ulcerative colitis or Crohn's disease Hold antibiotics All stool studies have been unremarkable Acute CMV panel unremarkable Hold anticoagulants Normal hemodynamics, CT is showing ascending colitis Afebrile for last 72 hours Colonoscopy shows colitis of the entire colon likely related to chemotherapy Currently on prednisone 40 mg once daily Continue IV hydration, loperamide antidiarrheal, likely discharge in the next 24 hours Nonobstructing nephrolithiasis no active signs of pyonephritis or UTI Bilateral adrenal nodules increasing in size with metastases currently blood pressure is stable blood glucose normal no signs of addisonian crisis Small cell cancer with metastases currently undergoing immunotherapy Diet: Regular His last hemoglobin A1c was 5, he is not diabetic DVT prophylaxis: SCDs hold anticoagulation He was taking Eliquis for right leg DVT Patient is full code He wants a trial of CPR and intubation He is a patient of Dr. 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
[2019-09-05 17:38] LABS: Glucose Point of Care 227 mg/dL (70-110)
[2019-09-05] MEDS: pramipexole 0.25 mg Tablet PO (20:40)
[2019-09-05 21:24] LABS: Glucose Point of Care 200 mg/dL (70-110)
[2019-09-06] MEDS: sodium chloride 0.9% 1,000 ML 30 ML IV (02:07)
[2019-09-06 03:50] VITALS: BP 153/90; PULSE 80; RESP 17; TEMP 36.7; O2SAT 95
[2019-09-06 06:42] LABS: Glucose Point of Care 82 mg/dL (70-110)
[2019-09-06 08:00] VITALS: BP 150/93; PULSE 88; RESP 18; TEMP 36.6; O2SAT 96
[2019-09-06] MEDS: allopurinol 100 mg Tablet PO (08:03)
[2019-09-06] MEDS: oxybutynin 5 mg Tablet PO (08:03)
[2019-09-06] MEDS: oseltamivir phosphate 75 mg Capsule PO (08:03)
[2019-09-06] MEDS: HYDROcodone-acetaminophen 5-325 mg Tablet PO (08:03)
[2019-09-06] MEDS: predniSONE 20 mg Tablet 40 MG PO (08:03)
[2019-09-06] MEDS: metoprolol succinate ER (24 HR) 50 mg Tablet PO (08:04)
[2019-09-06] MEDS: gabapentin 300 mg Capsule PO (08:04)
[2019-09-06 09:27] VITALS: PULSE 100; RESP 16; O2SAT 97
--- NOTE | 2019-09-06 09:50 | ANE.PACU2 ---
 Inpatient post-anesthesia follow up: Airway intact: Yes Vital signs: Temperature 97.9 F Pulse Rate [Monito r] 113 Pulse Rate 100 Respiratory Rate 16 Blood Pressure [Ri ght Arm] 116/83 Blood Pressure 150/93 Pulse Oximetry 97 Oxygen Delivery Me thod Room Air Oxygen Flow Rate 2 Fraction of Inspir ed Oxygen Hydration adequate: Yes Nausea and vomiting: No Pain level: 1 Mental status: Baseline
[2019-09-06] MEDS: nicotine 21 mg Patch 1 PATCH TRANSDERMA (10:46)
[2019-09-06 11:20] LABS: Glucose Point of Care 111 mg/dL (70-110)
[2019-09-06 12:00] VITALS: BP 132/89; PULSE 84; RESP 18; TEMP 36.9; O2SAT 95
[2019-09-06 14:06] VITALS: BP 132/89; PULSE 84; RESP 18; TEMP 36.9; O2SAT 95
[2019-09-06 15:14] VITALS: BP 132/89; PULSE 84; RESP 18; TEMP 36.9; O2SAT 95
--- NOTE | 2019-09-06 18:59 | PM.DCS ---
Discharge Providers Date of Admission: 09/02/19 00:29 Date of Discharge: September 06, 2019 Attending Provider at Admission: Noah Vásquez MD Attending Provider at Discharge: Jose Cutler MD Primary Care Provider: Pamela Lorenzana Diagnoses at Discharge Discharge Diagnosis (1) Hematochezia: Status: Acute (2) Colitis: Status: Acute (3) Lung cancer: Status: Acute Qualifiers: Laterality: unspecified laterality Lung location: unspecified part of lung Qualified Code(s): C34.90 - Malignant neoplasm of unspecified part of unspecified bronchus or lung (4) Adrenal mass: Status: Acute (5) Diarrhea: Status: Inactive Problem details: Improved Qualifiers: Diarrhea type: unspecified type Qualified Code(s): R19.7 - Diarrhea, unspecified Reason for Visit Reason for Visit: Reason For Visit: BLOOD IN STOOL Hospital Course Discharge Summary: This is a 40-year-old male with a past medical history of nonobstructive nephrolithiasis, small cell lung cancer with metastasis currently undergoing immunotherapy, bilateral adrenal nodules who presented to the emergency room due to fever and hematochezia. Patient was admitted for hematochezia, acute colitis likely secondary to Opdivo. Patient stool studies were unremarkable, received IV hydration, CMV was unremarkable for acute infection. Patient continued to have episodes of hematochezia, general surgery performed a colonoscopy which showed acute colitis in the entire colon, likely secondary to Opdivo. Patient received steroid therapy as inpatient, he clinically improved, he reported no more episodes of bloody stools. Patient was discharged on instructions to drink plenty of electrolyte balance fluids, steroid taper, and loperamide, with a close follow-up oncology as outpatient. Physical Exam Const: COMMON NORMALS: no apparent distress and oriented x3 HENMT: COMMON NORMALS: normocephalic HEAD & SCALP: normocephalic Neck/C-Spine: COMMON NORMALS: no JVD Resp: COMMON NORMALS: normal respiratory effort, no retractions, no use of accessory muscles and clear to auscultation bilaterally AUSCULTATION: clear to auscultation bilaterally Cardio: COMMON NORMALS: no JVD, regular rate, regular rhythm, S1 normal heart sound and S2 normal heart sound RATE: regular rate RHYTHM: regular rhythm HEART SOUNDS: S1 normal and S2 normal GI: COMMON NORMALS: normal to inspection, nondistended, normoactive bowel sounds, soft to palpation, non-tender, no hepatosplenomegaly, no masses and no bruits PALPATION: Yes soft and Yes no hepatosplenomegaly Extremity: COMMON NORMALS: normal capillary refill, no clubbing, cyanosis or edema, no calf tenderness and no pedal edema Neuro: COMMON NORMALS: oriented x3 Psych: COMMON NORMALS: mental status grossly normal Discharge Data Data Completed and Pending: Completed Studies During Hospitalization Category Date Time Status CT chest abd pel w con* Urgent Cat Scan 09/01/19 21:06 Completed OVA and Parasites , Conc and PE Rout ine Lab 09/01/19 18:28 Completed Pending at discharge Category Date Time Status Blood Culture Sta t Lab 09/01/19 21:48 Results Pathology: Surgic al [PTH] Routine Pth 09/05/19 07:35 Received Labs from last 24 hours 09/06/19 09/06/19 09/05/19 11:13 06:23 21:09 POC Glucose 111 82 200 Vitals: Last Vital Signs Temp 98.5 F 09/06/19 15:14 Pulse 84 09/06/19 15:14 Resp 18 09/06/19 15:14 BP 132/89 09/06/19 15:14 Pulse Ox 95 09/06/19 15:14 Discharge Plan Discharge Patient Disposition: Home, Self-Care Condition: Stable Prescriptions: New loperamide 2 mg Capsule 2 mg PO QID PRN (Reason: Diarrhea) 30 Days Qty: 90 RF: 0 prednisone 10 mg tablet 10 mg PO DAILY 25 Days Qty: 53 RF: 0 Continued fluticasone propion-salmeterol [Advair Diskus] 250-50 mcg/dose Blister With Device 1 inh INHALATION BID RF: 0 metoprolol succinate 50 mg Tablet Extended Release 24 Hr 50 mg PO DAILY RF: 0 hydrocodone-acetaminophen 5-325 mg Tablet 1 - 2 tab PO Q6H PRN (Reason: Pain, Moderate) RF: 0 allopurinol 100 mg Tablet 100 mg PO BID RF: 0 dicyclomine 20 mg Tablet 20 mg PO QID RF: 0 metformin 1,000 mg Tablet 1,000 mg PO BID RF: 0 pramipexole 0.25 mg Tablet 0.25 mg PO DAILY RF: 0 gabapentin 300 mg Capsule 300 mg PO QID RF: 0 oxybutynin chloride 5 mg Tablet 5 mg PO BID RF: 0 Tradjenta 5 mg Tablet 5 mg PO DAILY RF: 0 Eliquis 5 mg Tablet 5 mg PO BID RF: 0 Discontinued oseltamivir 75 mg Capsule 75 mg PO BID Qty: 8 RF: 0 cefdinir 300 mg capsule 300 mg PO BID Qty: 10 RF: 0 Discharge Orders: Discharge Order (Routine); Ordered 09/06/19 Ordered By: Jose Cutler Referrals: Pamela Lorenzana PA [Primary Care Provider] - 09/09/19 10:30 am Nupur Plummer MD [Staff Physician] - 1 week (Please call Monday to set up a follow up appointment with Dr. Plummer) Discharge Diet: Regular Discharge Activity: Resume usual activity Patient Instructions: Loperamide (By mouth), Prednisone (By mouth), Rectal Bleeding (GEN), Dehydration (DC), Lung Cancer (DC), Microscopic Colitis (DC) Activity Restrictions/Additional Instructions: -Take steroids as prescribed -Drink plenty of electrolyte balance fluids -If you feel lightheaded or dizzy or have worsening diarrhea please come to the emergency room for IV fluid bolus -Please follow-up with Dr. 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
== END 2019-09-06 15:15 | disposition home or self-care (01) | DRG 392 ==
LOC: ER 09-02 00:34 → MEDSURG 09-02 00:41
PROVIDERS: Surgery; Admitting Provider Internal Medicine; Emergency Provider Family Medicine; Family Provider Physician Assistant; PCP Physician Assistant; Visit Provider Family Medicine
PROC: 0DJD8ZZ Inspection of Lower Intestinal Tract, Via Natural or Artificial Opening Endoscopic (ICD-10-PCS; CPT 45378; principal; 2019-09-05 07:30)
DX: K52.9 Noninfective gastroenteritis and colitis, unspecified (principal); C34.90 Malignant neoplasm of unspecified part of unspecified bronchus or lung; E27.8 Other specified disorders of adrenal gland; Z88.0 Allergy status to penicillin; J44.9 Chronic obstructive pulmonary disease, unspecified; G47.30 Sleep apnea, unspecified; E66.9 Obesity, unspecified; I10 Essential (primary) hypertension; E11.9 Type 2 diabetes mellitus without complications; Z68.37 Body mass index [BMI] 37.0-37.9, adult; Z86.711 Personal history of pulmonary embolism
CPT/HCPCS: 12345; 36415; 36416; 45380; 71260; 74177; 80048; 80053; 81001; 82274; 82962; 83605; 83735; 84100; 85025; 86140; 87040; 87177; 87209; 87493; 87505; 87506; 88305; 94640; 96375; 99283; J2704; J2920; J2930; J7030; J7512; Q9967

== ENCOUNTER 2019-09-08 11:18 | Inpatient (IN) | payer MEDICARE, MEDICAID, SELFPAY ==
[2019-09-08] VITALS (22 sets, daily range): BP systolic 67–160; BP diastolic 38–110; PULSE 68–124; RESP 9–20; TEMP 36.4–36.8; O2SAT 91–96; BMI 36.0
--- NOTE | 2019-09-08 11:19 | ED_ITS ---
Entered by Miquel Wallace, acting as scribe for Sita Orlando DO Documented by User: Sita Orlando DO 09/08/19 12:08 HPI - General Adult General: Chief complaint: Weakness Stated complaint: WEAKNESS Time Seen by Provider: 09/08/19 11:19 History of Present Illness: HPI narrative: 48 yo male presents with weakness. Per EMS pt has had low blood pressure. Pts states that he was released from the hospital on Monday, hasn't done too well since. Pt was complaining of tailbone pain. pt had a GI bleed last week. Pt has back and shoulder pain. Pt hasn't taken his medications today. MD complaint: weakness Associated symptoms: Deny chest pain, dyspnea, headache(s), nausea, rash or vomiting Review of Systems Const: Denies: fever, chills or fatigue ENMT: Denies: throat pain Card: Denies: chest pain or swelling of feet/ankles Resp: Denies: shortness of breath or productive cough GI: Denies: abdominal pain, nausea, vomiting, diarrhea, constipation or blood in stool Musc: Reports: back pain and other (bilateral shoulder pain); Denies: extremity swelling Skin/Breast: Denies: rash Neuro: Denies: headache, numbness in extremities or weakness in extremities PFSH ED PFSH: Medical History COPD (chronic obstructive pulmonary disease) History of pulmonary embolism Hypertension Metastatic cancer Obesity Port-A-Cath in place Sleep apnea Small cell lung cancer Tobacco dependency Type 2 diabetes mellitus Surgical History History of lung biopsy Status post chemotherapy Family History Father Cancer Social History Smoking and tobacco status: current every day smoker cigarettes Packs smoked per day: 1 Alcohol intake: never Substance/Drug Use: never Household members: spouse Marital status: Current occupational status: disabled Physical Exam Const: COMMON NORMALS: no apparent distress and oriented x3 GENERAL APPEARANCE: cooperative; not in distress HENMT: COMMON NORMALS: oral mucous membranes not moist (dry mucous membranes) MOUTH: oral and palatal mucosa normal and lip normal THROAT: posterior oropharynx normal and tonsils normal Neck/C-Spine: COMMON NORMALS: full ROM, no lymphadenopathy, supple and no meningeal signs GENERAL: Yes normal visual inspection and Yes trachea midline Chest: COMMONS NORMALS: inspection of chest normal Resp: COMMON NORMALS: normal respiratory effort and clear to auscultation bilaterally EFFORT & INSPECTION: Yes able to speak in complete sentences and No respiratory distress AUSCULTATION: clear to auscultation bilaterally, no rales, no rhonchi and no wheezes Cardio: COMMON NORMALS: regular rhythm, S1 normal heart sound, S2 normal heart sound and no murmurs RATE: tachycardic RHYTHM: regular rhythm HEART SOUNDS: S1 normal and S2 normal PERIPHERAL PULSES: radial pulses present and dorsalis pedis pulses present OTHER: port on left side of chest GI: COMMON NORMALS: normal to inspection, nondistended, normoactive bowel sounds, soft to palpation and non-tender INSPECTION: Yes normal to inspection AUSCULTATION: Yes normoactive bowel sounds PALPATION: Yes soft, No tender, No guarding and No rigid RECTAL EXAM: Yes deferred : COMMON NORMALS: Yes no CVA tenderness BLADDER/KIDNEY EXAM: Yes no CVA tenderness Back/Pelvis: COMMON NORMALS: no CVA tenderness Extremity: COMMON NORMALS: normal to inspection, full ROM, normal capillary refill, no calf tenderness and no pedal edema Neuro: COMMON NORMALS: oriented x3, CN's II-XII intact bilaterally, moves all extremities and no focal motor deficits MENINGEAL SIGNS: Yes no meningeal signs Skin: COMMON NORMALS: no rashes or lesions noted GENERAL SKIN EXAM: no rashes or lesions noted Course Vital Signs: Vital signs: Vital Signs Temperature 98.4 F 09/09/19 15:34 Pulse Rate 86 09/09/19 15:34 Respiratory Rate 20 H 09/09/19 15:34 Blood Pressure 146/78 09/09/19 15:34 Pulse Oximetry 94 09/09/19 15:34 [facility] - General Adult Lab Data: Labs: Lab Results 09/08/19 09/08/19 09/08/19 Range/Units 09:44 11:50 12:18 WBC 16.2 H (4.0-10.0) 10^3/ uL RBC 4.57 (4.1-5.3) 10^6/u L Hgb 13.7 (11.7-16.6) g/dL Hct 42.4 (42.0-52.0) % MCV 92.8 (80-94) fL MCH 30.0 (28.0-34.0) pg MCHC 32.3 (30.0-36.0) g/dL RDW 16.1 H (12.1-15.1) % Plt Count 291 (130-400) 10^3/c mm MPV 11.0 H (7.4-10.4) fL Neut % (Auto) 73.9 % Lymph % (Auto) 13.2 % Treasure % (Auto) 10.0 % Eos % (Auto) 0.1 % Baso % (Auto) 0.3 % Neut # (Auto) 12.0 H (1.8-7.7) 10^3/u L Lymph # (Auto) 2.1 (0.8-4.8) 10^3/u L Treasure # (Auto) 1.6 H (0.2-0.9) 10^3/u L Eos # (Auto) 0.0 (0.0-0.8) 10^3/u L Baso # (Auto) 0.1 (0.0-0.1) 10^3/u L Nucleated RBC % (a uto) 0.4 % Nucleated RBCs # 0.1 /100WBC Sodium 135 L (136-145) mmol/L Potassium 3.6 (3.5-5.1) mmol/L Chloride 98 (98-107) mmol/L Carbon Dioxide 26 (22-29) mmol/L Anion Gap 14.6 (5-19) BUN 12 (6-20) mg/dL Creatinine 1.9 H (0.7-1.2) mg/dL GFR Calculation 38.0 L (90-130) mL/min Glucose 99 (65-115) mg/dL Calculated Osmolal ity 276 L (285-295) mOsm/k g Lactate 2.4 H (0.5-2.2) mmol/L Calcium 8.3 L (8.5-10.5) mg/dL Magnesium (1.7-2.3) mg/dL TSH (0.27-4.20) uIU/ mL Urine Color (Yellow) Urine Appearance (CLEAR) Urine pH (5-7) Ur Specific Gravit y (1.005-1.030) Urine Protein (Negative) Urine Glucose (UA) (Normal) Urine Ketones (Negative) Urine Blood (Negative) Urine Nitrate (Negative) Urine Bilirubin (NEGATIVE) Urine Urobilinogen (Negative) mg/dL Ur Leukocyte Hilaria ase (Negative) Urine RBC (0-2) /hpf Urine WBC (0-5) /hpf Ur Squamous Epith Cells (0-5) Urine Bacteria (NONE) Hyaline Casts Urine Mucus 09/08/19 09/08/19 Range/Units 12:18 13:02 WBC (4.0-10.0) 10^3/ uL RBC (4.1-5.3) 10^6/u L Hgb (11.7-16.6) g/dL Hct (42.0-52.0) % MCV (80-94) fL MCH (28.0-34.0) pg MCHC (30.0-36.0) g/dL RDW (12.1-15.1) % Plt Count (130-400) 10^3/c mm MPV (7.4-10.4) fL Neut % (Auto) % Lymph % (Auto) % Treasure % (Auto) % Eos % (Auto) % Baso % (Auto) % Neut # (Auto) (1.8-7.7) 10^3/u L Lymph # (Auto) (0.8-4.8) 10^3/u L Treasure # (Auto) (0.2-0.9) 10^3/u L Eos # (Auto) (0.0-0.8) 10^3/u L Baso # (Auto) (0.0-0.1) 10^3/u L Nucleated RBC % (a uto) % Nucleated RBCs # /100WBC Sodium (136-145) mmol/L Potassium (3.5-5.1) mmol/L Chloride (98-107) mmol/L Carbon Dioxide (22-29) mmol/L Anion Gap (5-19) BUN (6-20) mg/dL Creatinine (0.7-1.2) mg/dL GFR Calculation (90-130) mL/min Glucose (65-115) mg/dL Calculated Osmolal ity (285-295) mOsm/k g Lactate (0.5-2.2) mmol/L Calcium (8.5-10.5) mg/dL Magnesium 1.7 (1.7-2.3) mg/dL TSH 0.65 (0.27-4.20) uIU/ mL Urine Color Yellow (Yellow) Urine Appearance Hazy A (CLEAR) Urine pH 5 (5-7) Ur Specific Gravit y 1.020 (1.005-1.030) Urine Protein Neg (Negative) Urine Glucose (UA) Norm (Normal) Urine Ketones Negative (Negative) Urine Blood Neg (Negative) Urine Nitrate Negative (Negative) Urine Bilirubin Neg (NEGATIVE) Urine Urobilinogen Norm (Negative) mg/dL Ur Leukocyte Hilaria ase Negative (Negative) Urine RBC 0-4 H (0-2) /hpf Urine WBC None (0-5) /hpf Ur Squamous Epith Cells 10-15 H (0-5) Urine Bacteria Trace (NONE) Hyaline Casts 0-4 H Urine Mucus 2+ Imaging Data^: CXR: Radiologist's impression: Signed Patient: Kenzie Mckeon #: [id number] : 1970Acct#:[id number] Age/Sex: 48 / MADM Date: 09/08/19 Loc: [facility] [place]/Bed: Attending Dr: Ordering Provider/Ordering MD: Sita Orlando DO Date of Service: 09/08/19 Procedure(s): XR chest 1V portable [id number] Accession Number(s): [id number] Report Number: [id number] WS: [id number] XR chest 1V portable [id number] REASON FOR EXAM: pneumonia FINDINGS: There is fullness in the right upper lung off the mediastinum comparison to previous exam of 08/29/2019. The mass is not changed since the earlier exam. A Mediport is seen on the left side. The remaining lung espinoza are clear. XR/XR chest 1V portable [id number] IMPRESSION: Right hilar mass unchanged. Dictated By:Warren Lucero DO Signed By:Warren Lucero DOSigned Date/Time:09/08/19 1157 Discharge Plan Discharge Patient Disposition: Placed in Observation Admit Provider: Lewis Salomon Clinical Impression: Sepsis, Lung cancer, Acute kidney injury Condition: Stable Discharge Diet: Advance as tolerated Discharge Activity: Resume usual activity Interventions: ED Discharge Assessment Last Done: 09/08/19 16:37 Discharge Date/Time: 09/08/19 17:19 Sign Out Sign Out Data: Patient Sign Out occurred on 09/08/19 at 12:42. Patient's care was discussed, and care was transferred from Sita Moore DO to Michael Zavala DO. Sign Out Comment: pt is hypotensive and immunosuppressed, he may be septic vs dehydrated from diarrhea. He will neeed admitting Last updated by Sita Orlando DO at 09/08/19 11:58 Coding Level of Care Code ED Assigner for Chg Fwd Exam Comprehensive Documented by User: Michael Zavala DO 09/09/19 15:56 HPI - General Adult General: Chief complaint: Weakness Stated complaint: WEAKNESS Time Seen by Provider: 09/08/19 11:19 History of Present Illness: HPI narrative: Care assumed from Dr. Orlando at change of shift chart reviewed Associated symptoms: Reports nausea; Deny chest pain, dyspnea, malaise, rash or vomiting Review of Systems Const: Reports: chills; Denies: fever, body aches, change in appetite, fatigue or malaise ENMT: Reports: nasal discharge and nasal congestion; Denies: throat pain or ear pain Card: Reports: shortness of breath on exertion; Denies: chest pain, edema or shortness of breath when lying down Resp: Reports: non-productive cough; Denies: shortness of breath or productive cough GI: Reports: nausea; Denies: abdominal pain, vomiting, vomiting blood, coffee grounds in vomit, diarrhea, constipation, bloating, blood in stool or black tarry stool : Denies: flank pain, painful urination, urinary frequency or urinary urgency Skin/Breast: Denies: rash or itching PFSH ED PFSH: Medical History COPD (chronic obstructive pulmonary disease) History of pulmonary embolism Hypertension Metastatic cancer Obesity Port-A-Cath in place Sleep apnea Small cell lung cancer Tobacco dependency Type 2 diabetes mellitus Surgical History History of lung biopsy Status post chemotherapy Family History Father Cancer Social History Smoking and tobacco status: current every day smoker cigarettes Packs smoked per day: 1 Alcohol intake: never Substance/Drug Use: never Household members: spouse Marital status: Current occupational status: disabled Physical Exam Const: COMMON NORMALS: no apparent distress GENERAL APPEARANCE: cooperative and comfortable ORIENTATION/CONSCIOUSNESS: Yes awake, Yes oriented to person, Yes oriented to place and Yes oriented to time HENMT: COMMON NORMALS: normocephalic, head/scalp atraumatic, hearing grossly normal bilaterally, external ears normal, EAC's normal, TM's normal bilaterally, nasal mucous membranes and turbinates normal, moist oral mucous membranes and oropharynx normal HEAD & SCALP: normocephalic and atraumatic NOSE: nasal mucous membranes and turbinates normal EXTERNAL EAR: Yes external ears normal EXTERNAL AUDITORY CANAL: EAC's normal TYMPANIC MEMBRANE: TM's normal bilaterally Eye: COMMON NORMALS: PERRL, EOMs intact bilaterally, conjunctivae normal and no scleral icterus CONJUNCTIVA: Yes conjunctivae normal PUPIL: Yes PERRL Neck/C-Spine: COMMON NORMALS: full ROM, no lymphadenopathy, supple and no JVD Lymph: LYMPHATIC: no lymphadenopathy noted and no lymphedema noted Resp: COMMON NORMALS: normal respiratory effort, no retractions, no use of accessory muscles and clear to auscultation bilaterally AUSCULTATION: clear to auscultation bilaterally Cardio: COMMON NORMALS: no JVD, regular rate, regular rhythm and no murmurs RATE: regular rate RHYTHM: regular rhythm GI: COMMON NORMALS: soft to palpation and no hepatosplenomegaly AUSCULTATION: Yes normoactive bowel sounds PALPATION: Yes soft, No tender, No guarding and Yes no hepatosplenomegaly Extremity: COMMON NORMALS: normal to inspection, normal capillary refill, no clubbing, cyanosis or edema, no calf tenderness and no pedal edema Neuro: SENSORIUM/ORIENTATION: Yes oriented to person, Yes oriented to place and Yes oriented to time Skin: COMMON NORMALS: no rashes or lesions noted GENERAL SKIN EXAM: no rashes or lesions noted Course ED course: Patient blood pressure continues run low and did require Sudafed. As well as IV fluid bolus is been started on antibiotic will admit to ICU for sepsis. Vital Signs: Vital signs: Vital Signs Temperature 98.4 F 09/09/19 15:34 Pulse Rate 86 09/09/19 15:34 Respiratory Rate 20 H 09/09/19 15:34 Blood Pressure 146/78 09/09/19 15:34 Pulse Oximetry 94 09/09/19 15:34 MDM - General Adult Lab Data: Labs: Lab Results 09/08/19 09/08/19 09/08/19 Range/Units 09:44 11:50 12:18 WBC 16.2 H (4.0-10.0) 10^3/ uL RBC 4.57 (4.1-5.3) 10^6/u L Hgb 13.7 (11.7-16.6) g/dL Hct 42.4 (42.0-52.0) % MCV 92.8 (80-94) fL MCH 30.0 (28.0-34.0) pg MCHC 32.3 (30.0-36.0) g/dL RDW 16.1 H (12.1-15.1) % Plt Count 291 (130-400) 10^3/c mm MPV 11.0 H (7.4-10.4) fL Neut % (Auto) 73.9 % Lymph % (Auto) 13.2 % Treasure % (Auto) 10.0 % Eos % (Auto) 0.1 % Baso % (Auto) 0.3 % Neut # (Auto) 12.0 H (1.8-7.7) 10^3/u L Lymph # (Auto) 2.1 (0.8-4.8) 10^3/u L Treasure # (Auto) 1.6 H (0.2-0.9) 10^3/u L Eos # (Auto) 0.0 (0.0-0.8) 10^3/u L Baso # (Auto) 0.1 (0.0-0.1) 10^3/u L Nucleated RBC % (a uto) 0.4 % Nucleated RBCs # 0.1 /100WBC Sodium 135 L (136-145) mmol/L Potassium 3.6 (3.5-5.1) mmol/L Chloride 98 (98-107) mmol/L Carbon Dioxide 26 (22-29) mmol/L Anion Gap 14.6 (5-19) BUN 12 (6-20) mg/dL Creatinine 1.9 H (0.7-1.2) mg/dL GFR Calculation 38.0 L (90-130) mL/min Glucose 99 (65-115) mg/dL Calculated Osmolal ity 276 L (285-295) mOsm/k g Lactate 2.4 H (0.5-2.2) mmol/L Calcium 8.3 L (8.5-10.5) mg/dL Magnesium (1.7-2.3) mg/dL TSH (0.27-4.20) uIU/ mL Urine Color (Yellow) Urine Appearance (CLEAR) Urine pH (5-7) Ur Specific Gravit y (1.005-1.030) Urine Protein (Negative) Urine Glucose (UA) (Normal) Urine Ketones (Negative) Urine Blood (Negative) Urine Nitrate (Negative) Urine Bilirubin (NEGATIVE) Urine Urobilinogen (Negative) mg/dL Ur Leukocyte Hilaria ase (Negative) Urine RBC (0-2) /hpf Urine WBC (0-5) /hpf Ur Squamous Epith Cells (0-5) Urine Bacteria (NONE) Hyaline Casts Urine Mucus 09/08/19 09/08/19 Range/Units 12:18 13:02 WBC (4.0-10.0) 10^3/ uL RBC (4.1-5.3) 10^6/u L Hgb (11.7-16.6) g/dL Hct (42.0-52.0) % MCV (80-94) fL MCH (28.0-34.0) pg MCHC (30.0-36.0) g/dL RDW (12.1-15.1) % Plt Count (130-400) 10^3/c mm MPV (7.4-10.4) fL Neut % (Auto) % Lymph % (Auto) % Treasure % (Auto) % Eos % (Auto) % Baso % (Auto) % Neut # (Auto) (1.8-7.7) 10^3/u L Lymph # (Auto) (0.8-4.8) 10^3/u L Treasure # (Auto) (0.2-0.9) 10^3/u L Eos # (Auto) (0.0-0.8) 10^3/u L Baso # (Auto) (0.0-0.1) 10^3/u L Nucleated RBC % (a uto) % Nucleated RBCs # /100WBC Sodium (136-145) mmol/L Potassium (3.5-5.1) mmol/L Chloride (98-107) mmol/L Carbon Dioxide (22-29) mmol/L Anion Gap (5-19) BUN (6-20) mg/dL Creatinine (0.7-1.2) mg/dL GFR Calculation (90-130) mL/min Glucose (65-115) mg/dL Calculated Osmolal ity (285-295) mOsm/k g Lactate (0.5-2.2) mmol/L Calcium (8.5-10.5) mg/dL Magnesium 1.7 (1.7-2.3) mg/dL TSH 0.65 (0.27-4.20) uIU/ mL Urine Color Yellow (Yellow) Urine Appearance Hazy A (CLEAR) Urine pH 5 (5-7) Ur Specific Gravit y 1.020 (1.005-1.030) Urine Protein Neg (Negative) Urine Glucose (UA) Norm (Normal) Urine Ketones Negative (Negative) Urine Blood Neg (Negative) Urine Nitrate Negative (Negative) Urine Bilirubin Neg (NEGATIVE) Urine Urobilinogen Norm (Negative) mg/dL Ur Leukocyte Hilaria ase Negative (Negative) Urine RBC 0-4 H (0-2) /hpf Urine WBC None (0-5) /hpf Ur Squamous Epith Cells 10-15 H (0-5) Urine Bacteria Trace (NONE) Hyaline Casts 0-4 H Urine Mucus 2+ Discharge Plan Discharge Patient Disposition: Placed in Observation Admit Provider: Lewis Salomon Clinical Impression: Sepsis, Lung cancer, Acute kidney injury Condition: Stable Discharge Diet: Advance as tolerated Discharge Activity: Resume usual activity Interventions: ED Discharge Assessment Last Done: 09/08/19 16:37 Discharge Date/Time: 09/08/19 17:19 Sign Out Sign Out Data: Patient Sign Out occurred on 09/08/19 at 12:42. Patient's care was discussed, and care was transferred from Sita Moore DO to Michael Zavala DO. Sign Out Comment: pt is hypotensive and immunosuppressed, he may be septic vs dehydrated from diarrhea. He will neeed admitting Last updated by Sita Orlando DO at 09/08/19 11:58 Coding Level of Care Code ED Assigner for Chg Fwd Exam Comprehensive The documentation recorded by the Rodrigo bermeo Kialy, accurately reflects the service I personally performed and the decisions made by , Sita Orlando DO Sep 08, 2019 11:18
--- NOTE | 2019-09-08 11:30 | ECG_ITS ---
Measurements Intervals [place] Rate: 110 P: 17 VT: 132 QRS: 15 QRSD: 88 T: 35 QT: 304 QTc: 412 SINUS TACHYCARDIA ABNORMAL RHYTHM ECG Compared to ECG 08/29/2019 08:48:59 No significant changes Electronically Signed On 09-08-2019 19:50:51 CDT by Noah Garcia M.D. [email or web address]
--- NOTE | 2019-09-08 11:31 | XR_ITS ---
WS: [id number] XR chest 1V portable [id number] REASON FOR EXAM: pneumonia FINDINGS: There is fullness in the right upper lung off the mediastinum comparison to previous exam o f 08/29/2019. The mass is not changed since the earlier exam. A Mediport is seen on the left side. The remaining lung espinoza are clear. XR/XR chest 1V portable [id number] IMPRESSION: Right hilar mass unchanged.
--- NOTE | 2019-09-08 11:38 | CTR_ITS ---
PROCEDURE INFORMATION: Exam: CT Head Without Contrast Exam date and time: 09/08/2019 12:32 PM Age: 48 years old Clinical indication: Dizziness; Additional info: Dizziness weakness TECHNIQUE: Imaging protocol: Computed tomography of the head without contrast. Total DLP: 892.76 mGy-cm Radiation optimization: All CT scans at this facility use at least one of these dose optimization techniques: automated exposure control; mA and/or kV adjustment per patient size (includes targeted exams where dose is matched to clinical indication); or iterative reconstruction. COMPARISON: No relevant prior studies available. FINDINGS: Brain: Normal. No hemorrhage. Unremarkable white matter. No mass effect. Ventricles: Normal. No ventriculomegaly. Bones/joints: Unremarkable. No acute fracture. Sinuses: Mild left maxillary sinus disease. Mastoid air cells: Visualized mastoid air cells are well aerated. Soft tissues: Unremarkable. CT/CT head wo con* [id number] IMPRESSION: 1. Mild left maxillary sinus disease. 2. No acute intracranial findings. Radiation Dose CTDIVOL = (mGy): DLP = 892.76 (mGy-cm)
[2019-09-08] MEDS: sodium chloride 0.9% 1,000 ML 999 ML IV ×2 (11:40→12:05)
[2019-09-08] MEDS: ondansetron 2 mg/ML SDV 2 mL 4 MG IVP (11:40)
[2019-09-08] MEDS: morphine 4 mg/mL SDV 1 mL 2 MG IVP (11:40)
[2019-09-08 12:00] LABS: Basophils # 0.1 10^3/uL (0.0-0.1); Basophils % 0.3 %; Eosinophils % 0.1 %; Hematocrit 42.4 % (42.0-52.0); Hemoglobin 13.7 g/dL (11.7-16.6); Lymphocytes # 2.1 10^3/uL (0.8-4.8); Lymphocytes % 13.2 %; Mean Corpuscular HGB Conc 32.3 g/dL (30.0-36.0); Mean Corpuscular Volume 92.8 fL (80-94); Monocytes # 1.6 10^3/uL (0.2-0.9); Neutrophils % 73.9 %; Nucleated Red Blood Cells # 0.1 /100WBC; Nucleated Red Blood Cells % 0.4 %; Platelet Count 291 10^3/cmm (130-400); Red Blood Count 4.57 10^6/uL (4.1-5.3); Red Cell Distribution Width 16.1 % (12.1-15.1); White Blood Count 16.2 10^3/uL (4.0-10.0)
[2019-09-08] MEDS: levofloxacin-dextrose 5 % 750 MG/150 ML PREMIX 150 MG IV (12:06)
[2019-09-08 12:21] LABS: Lactate (Lactic Acid level) 2.4 mmol/L (0.5-2.2)
[2019-09-08 12:33] LABS: Slide Review Slide Review Perform
[2019-09-08 12:39] LABS: Anion Gap 14.6 (5-19); Blood Urea Nitrogen 12 mg/dL (6-20); Calcium 8.3 mg/dL (8.5-10.5); Carbon Dioxide 26 mmol/L (22-29); Chloride 98 mmol/L (98-107); Glucose 99 mg/dL (65-115); Osmolality Calculated 276 mOsm/kg (285-295); Potassium 3.6 mmol/L (3.5-5.1); Sodium 135 mmol/L (136-145)
[2019-09-08 13:24] LABS: Add Urine Microscopic? YES; Bilirubin Urine Neg (NEGATIVE); Blood Urine Neg (Negative); Glucose Urine UA Norm (Normal); Ketones Urine Negative (Negative); Leukocyte Esterase Urine Negative (Negative); Nitrate Urine Negative (Negative); Protein Urine Neg (Negative); Urine Appearance Hazy (CLEAR); Urine Color Yellow (Yellow); Urobilinogen Urine Norm (Negative); pH Urine 5 (5-7)
[2019-09-08 13:31] LABS: RBC Urine 0-4 /hpf (0-2)
[2019-09-08 13:32] LABS: Add Urine Culture? No; Bacteria Urine TRACE; Hyaline Casts Urine 0-4; Mucus Urine 2+
[2019-09-08] MEDS: SODIUM CHLORIDE 0.9% 3919.1 ML IV (13:59)
--- NOTE | 2019-09-08 15:15 | PM.HP ---
Providers/Chief Complaint Admitting Physician: Lewis Salomon Primary Care Provider: Pamela Lorenzana Chief Complaint: WEAKNESS History of Present Illness Eric Mckeon is a 48 year old male returns to the hospital after recent admission due to recurrence of diarrhea suspected to be secondary to nivolumab, with colonoscopy during prior admission with diffuse colitis but otherwise negative infectious work-up, with recurrence of 3-4 episodes of nonbloody diarrhea this morning, with fever of 102 Fahrenheit prior to presentation. He denies vomiting. Denies abdominal pain. During last admission he was treated with prednisone 40 mg, and was prescribed a taper for 25 days. He says that he did take his medication yesterday. Nothing yet today. In ER he is found with leukocytosis 16.2, sinus tachycardia 110, raising concern for sepsis, lactic acid 2.4. Cultures were requested and he received a dose of Levaquin. Chest x-ray without suggestion of pneumonia. Urine without suggestion of UTI. He denies any pulmonary urinary, other GI, integumentary or other symptoms. In ER he is hypotensive, initially systolic blood pressure 85, with improvement up to 104 systolic with IV fluid bolus, but subsequently down to as low as 69 systolic again, requiring additional boluses, and started on levophed infusion. He is feeling slightly better. Review of Systems Const: Denies: fever, chills, body aches or malaise Eyes: Denies: change in vision or eye redness ENMT: Denies: throat pain, oral sores/lesions or ear pain Card: Denies: chest pain, edema, pre-syncope or shortness of breath on exertion Resp: Denies: shortness of breath, productive cough, change in phlegm color or coughing up blood GI: Reports: diarrhea; Denies: abdominal pain, nausea, vomiting, constipation, blood in stool or black tarry stool : Denies: flank pain, difficulty urinating, urinary frequency or blood in urine Musc: Denies: back pain, joint swelling or redness Skin/Breast: Denies: rash, sores or new lesion Neuro: Denies: headache, numbness in extremities, weakness in extremities, dizziness, confusion or seizure-like activity Endo: Denies: excessive urination or excessive thirst Romeo/Lymph: Denies: easy bleeding or purpura All/Imm: Denies: hives, throat swelling or tongue swelling Medications/Allergies Home Medications Medication Instructions Recorded Confirmed Last Taken Type morphine 30 mg PO Q12H 09/08/19 09/08/19 09/07/19 History Allergies Allergy/AdvReac Type Severity Reaction Status Date / Time Penicillins Allergy ALGY-Hives Verified 09/01/19 18:46 PFSH Acute PFSH: Medical History COPD (chronic obstructive pulmonary disease) History of pulmonary embolism Hypertension Metastatic cancer Obesity Port-A-Cath in place Sleep apnea Small cell lung cancer Tobacco dependency Type 2 diabetes mellitus Surgical History History of lung biopsy Status post chemotherapy Family History Father Cancer Social History Smoking and tobacco status: current every day smoker cigarettes Packs smoked per day: 1 Alcohol intake: never Substance/Drug Use: never Household members: spouse Marital status: Current occupational status: disabled Vitals/I&O/Wt Last Vital Signs Temp 98.3 F 09/08/19 11:19 Pulse 110 H 09/08/19 12:08 Resp 18 09/08/19 11:40 BP 104/51 09/08/19 12:08 Pulse Ox 96 09/08/19 12:08 09/08/19 09/08/19 09/08/19 06:59 14:59 22:59 Intake Total Balance Weight last 48 hrs Weight 130.635 kg Physical Exam Const: COMMON NORMALS: no apparent distress and oriented x3 GENERAL APPEARANCE: disheveled NUTRITIONAL APPEARANCE: obese OTHER: He is awake and alert, lucid, answering questions, following commands. is at bedside. HENMT: COMMON NORMALS: oropharynx normal Neck/C-Spine: OTHER: Difficult to assess for JVD due to thick neck Resp: COMMON NORMALS: normal respiratory effort and clear to auscultation bilaterally AUSCULTATION: clear to auscultation bilaterally Cardio: COMMON NORMALS: no JVD, regular rhythm, S1 normal heart sound, S2 normal heart sound and no murmurs RHYTHM: regular rhythm HEART SOUNDS: S1 normal and S2 normal GI: COMMON NORMALS: normal to inspection, nondistended, normoactive bowel sounds, soft to palpation and non-tender PALPATION: Yes soft OTHER: Abdomen is large with large pannus Extremity: COMMON NORMALS: no joint enlargement and no pedal edema Neuro: COMMON NORMALS: oriented x3 and moves all extremities Skin: OTHER: Chronic venous stasis dermatitis bilateral lower extremities. Dry scaly. Data : 09/08/19 09:44 09/08/19 12:18 Micro: Microbiology 09/08/19 11:50 Blood Culture - Preliminary Blood SPECIMEN COLLECTED 09/08/19 11:45 Blood Culture - Preliminary Blood SPECIMEN COLLECTED A&P Assessment and plan (1) Colitis: Suspected colitis due to checkpoint inhibitor. We will restart him on high-dose IV steroid. Empirically treated with antibiotics for possible infectious colitis. Will request a repeat C. difficile study. Discussed with his oncologist. For now monitor for response to high-dose steroid, if not improving at that point may consider repeating other infectious studies. Hold loperamide for now. Consider rectal tube if persistent diarrhea is bothersome. Check magnesium, TSH. Will need a very slow taper from high-dose steroids over likely several months. Would not be candidate for further therapy with nivolumab. Status: Acute Code(s): K52.9 - Noninfective gastroenteritis and colitis, unspecified (2) Lung cancer: Recurrent small cell lung cancer. Continue follow-up with oncology after recovers. Status: Acute Qualifiers: Laterality: unspecified laterality Lung location: unspecified part of lung Qualified Code(s): C34.90 - Malignant neoplasm of unspecified part of unspecified bronchus or lung Code(s): C34.90 - Malignant neoplasm of unspecified part of unspecified bronchus or lung (3) Adrenal mass: Bilateral adrenal nodules Status: Acute Code(s): E27.8 - Other specified disorders of adrenal gland (4) Acute kidney injury: Creatinine 1.9. Suspect secondary to blood pressure fluctuations with hypotension on presentation. Hold allopurinol for now. Maintain mean arterial pressures above 65 mmHg. Status: Acute Code(s): N17.9 - Acute kidney failure, unspecified Additional A&P Information Shock: Suspect hypovolemic shock due to recurrence of diarrhea, although cannot rule out septic shock, empirically on antibiotics. Rehydrate. At this time started on low rate Levophed. Wean as tolerating. Suspect also may have degree of adrenal crisis with mild hyponatremia, normal potassium. Continue IV steroids as above. For now hold his pramipexole, metoprolol History of PE, on chronic anticoagulation ZANDRA: His is bringing his CPAP Current smoker: Discussed cessation with him for 3-1/2 minutes. He says has been cutting down. Currently down to 1 pack/day. Continue to encourage cessation. Provide nicotine patch, gum as needed. Intertrigo: Add nystatin cream Nonobstructive nephrolithiasis HTN DM 2 Obesity Attestations Medical Necessity Statement*: Admission of over 2 midnights is going to be needed for assessment management of severe colitis secondary to cancer medication, shock, acute kidney injury. In addition to noncritical issues, 50 minutes critical care time spent on assessment management of hemodynamic status, evaluation of shock, consideration of septic shock, consideration of source, antibiotics, hemodynamic support, evaluation of volume status, rehydration, steroid therapy for severe colitis. Coding Level of Care Code Acute Ship Fastener for [facility] Diagnoses Colitis K52.9 Lung cancer C34.90 Laterality: unspecified laterality Lung location: unspecified part of lung Adrenal mass E27.8 Acute kidney injury N17.9
[2019-09-08] MEDS: pantoprazole DR 40 mg Tablet PO (15:57)
[2019-09-08] MEDS: metroNIDAZOLE IV 500 MG/100 ML PREMIX 100 MG IV (16:00)
[2019-09-08 16:29] LABS: Magnesium 1.7 mg/dL (1.7-2.3); Thyroid Stimulating Hormone 0.65 uIU/mL (0.27-4.20)
[2019-09-08 18:19] LABS: Glucose Point of Care 167 mg/dL (70-110)
[2019-09-08 18:31] LABS: Influenza A by IFA Negative (Negative); Influenza B by IFA Negative (Negative)
[2019-09-08] MEDS: apixaban 5 mg Tablet PO (18:52)
[2019-09-08] MEDS: nicotine 21 mg Patch 1 PATCH TRANSDERMA (18:53)
[2019-09-08] MEDS: D5-NS 0.45% + KCL 20 mEq 20 MEQ/1,000 ML BAG 75 MEQ IV (18:54)
[2019-09-08 21:00] LABS: Glucose Point of Care 232 mg/dL (70-110)
[2019-09-08] MEDS: gabapentin 100 mg Capsule PO (21:16)
[2019-09-09] VITALS (13 sets, daily range): BP systolic 116–178; BP diastolic 74–109; PULSE 71–97; RESP 12–20; TEMP 36.9; O2SAT 91–98
[2019-09-09] MEDS: metroNIDAZOLE IV 500 MG/100 ML PREMIX 100 MG IV ×3 (00:10→15:59)
[2019-09-09 05:17] LABS: Hemoglobin 10.6 g/dL (11.7-16.6); Lymphocytes # 0.8 10^3/uL (0.8-4.8); Lymphocytes % 20.1 %; Mean Corpuscular HGB Conc 32.1 g/dL (30.0-36.0); Mean Corpuscular Hemoglobin 29.7 pg (28.0-34.0); Mean Corpuscular Volume 92.4 fL (80-94); Mean Platelet Volume 9.4 fL (7.4-10.4); Monocytes # 0.1 10^3/uL (0.2-0.9); Monocytes % 2.7 %; Neutrophils # 3.1 10^3/uL (1.8-7.7); Neutrophils % 75.7 %; Nucleated Red Blood Cells % 0 %; Platelet Count 204 10^3/cmm (130-400); Red Blood Count 3.57 10^6/uL (4.1-5.3); Red Cell Distribution Width 15.6 % (12.1-15.1); White Blood Count 4.1 10^3/uL (4.0-10.0)
[2019-09-09 05:49] LABS: Anion Gap 14.2 (5-19); Blood Urea Nitrogen 18 mg/dL (6-20); Calcium 8.3 mg/dL (8.5-10.5); Carbon Dioxide 25 mmol/L (22-29); Chloride 103 mmol/L (98-107); Glomerular Filtration Rate 71.4 mL/min (90-130); Glucose 264 mg/dL (65-115); Osmolality Calculated 292 mOsm/kg (285-295); Potassium 4.2 mmol/L (3.5-5.1); Sodium 138 mmol/L (136-145)
[2019-09-09] MEDS: pantoprazole DR 40 mg Tablet PO (08:21)
[2019-09-09] MEDS: D5-NS 0.45% + KCL 20 mEq 20 MEQ/1,000 ML BAG 75 MEQ IV (08:21)
[2019-09-09] MEDS: apixaban 5 mg Tablet PO ×2 (08:22→17:58)
[2019-09-09] MEDS: gabapentin 300 mg Capsule PO ×4 (08:23→22:09)
--- NOTE | 2019-09-09 09:32 | PC.CHAP ---
Pastoral Care Encounter/Spiritual Assessment Type of Contact [] Declined subway operator visit [] Patient/Family/Request visit [] Outpatient visit [] Follow-up visit [] Physician referral [] Code/Alert [] Routine visit [] Staff referral [] Actively dying [] Patient sleeping [] Family support [] [] Out of room [] Palliative care [] [] Receiving care in room [] Pre-surgical visit [] Trauma [] Long length of stay [x] ICU visit [x] Other: Patient in isolation Relational/Emotional Strength [] Patient feels connected with others/family/visitors/staff [] Distress [] Loneliness/isolation [] Abandonment Spirituality of Patient [] Person of Meghana [] Attends Scientology of their Meghana [] Believes in Prayer [] Reads Bible or Restoration materials [] There are Spiritual issues to be addressed Store Stock Help Interventions [] Prayer [] Active listening [] Non-anxious presence [] Spiritual/emotional support [] Crisis/trauma care [] Spiritual counseling [] Bereavement support [] Provided bereavement packet [] Provided Bible/devotional materials [] Provided toy/stuffed animal, coloring book to patient or family member [] Provided Communion [] Anointing/[place] [] Salvation [] Completed spiritual assessment [] Other: Impact on Illness or Injury [] Angry [] Fearful [] Anxious [] Often cries [] Exhaustion [] Unable to work [] Unable to attend christian [] Unable to walk/stand [] Unable to read [] Unable to drive [] Unable to eat/drink [] Unable to sleep [] Unable to be with family [] Patient intubated [] Other: Summary Patient was under precautions at the time of subway operator visit. Visit attempted by Store Stock Help Mateo Sheldon Time spent with patient 3 minutes
[2019-09-09] MEDS: morphine ER (12 HR) 30 mg tablet PO (09:59)
[2019-09-09] MEDS: HYDROcodone-acetaminophen 5-325 mg Tablet 1 TAB PO (10:00)
--- NOTE | 2019-09-09 10:05 | PM.PN ---
Subjective Subjective: Interval history: Today he is feeling about the same. No abdominal pain. No vomiting. Has had a few more liquid stools. Recorded a small. Discussed with him regarding C. difficile results. He says if flesh eating bacteria did not get me, C. difficile will not either. Vitals/I&O/Wt Last Vital Signs Temp 97.6 F 09/08/19 20:00 Pulse 88 09/09/19 09:30 Resp 19 H 09/09/19 09:59 BP 141/88 09/09/19 06:00 Pulse Ox 94 09/09/19 09:59 09/08/19 09/09/19 09/09/19 22:59 06:59 14:59 Intake Total 107 / 107 100 / 207 1720 / 1720 Output Total 800 / 800 1000 / 1800 600 / 600 Balance -693 / -693 -900 / -1593 1120 / 1120 Weight last 48 hrs Weight 130.635 kg Physical Exam Const: COMMON NORMALS: no apparent distress and oriented x3 GENERAL APPEARANCE: disheveled NUTRITIONAL APPEARANCE: obese OTHER: He is awake and alert, lucid, answering questions, following commands. is at bedside. HENMT: COMMON NORMALS: oropharynx normal Neck/C-Spine: COMMON NORMALS: no JVD OTHER: Difficult to assess for JVD due to thick neck Resp: COMMON NORMALS: normal respiratory effort and clear to auscultation bilaterally AUSCULTATION: clear to auscultation bilaterally Cardio: COMMON NORMALS: no JVD, regular rhythm, S1 normal heart sound, S2 normal heart sound and no murmurs RHYTHM: regular rhythm HEART SOUNDS: S1 normal and S2 normal GI: COMMON NORMALS: normal to inspection, nondistended, normoactive bowel sounds, soft to palpation and non-tender PALPATION: Yes soft OTHER: Abdomen is large with large pannus Extremity: COMMON NORMALS: no joint enlargement and no pedal edema Neuro: COMMON NORMALS: oriented x3 and moves all extremities Skin: OTHER: Chronic venous stasis dermatitis bilateral lower extremities. Dry scaly. 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 difficile colitis. Tested positive on current stool sample. Started on IV steroids last night with improvement in blood pressure after rehydration. Started on vancomycin by mouth. Empirically treated with antibiotics for possible infectious colitis. Discussed with his oncologist. May transfer out of ICU. Hold loperamide for now. Consider rectal tube if persistent diarrhea is bothersome. Replace hypomagnesemia. TSH low normal. Will need a very slow taper from high-dose steroids over likely several months. Would not be candidate for further therapy with nivolumab. Status: Acute Code(s): K52.9 - Noninfective gastroenteritis and colitis, unspecified (2) Lung cancer: Recurrent small cell lung cancer. Continue follow-up with oncology after recovers. Status: Acute Qualifiers: Laterality: unspecified laterality Lung location: unspecified part of lung Qualified Code(s): C34.90 - Malignant neoplasm of unspecified part of unspecified bronchus or lung Code(s): C34.90 - Malignant neoplasm of unspecified part of unspecified bronchus or lung (3) Adrenal mass: Bilateral adrenal nodules Status: Acute Code(s): E27.8 - Other specified disorders of adrenal gland (4) Acute kidney injury: Creatinine improved. Suspect secondary to blood pressure fluctuations with hypotension on presentation. Hold allopurinol for now. Maintain mean arterial pressures above 65 mmHg. Status: Acute Code(s): N17.9 - Acute kidney failure, unspecified Additional A&P Information Shock: Resolved. Suspect hypovolemic shock due to recurrence of diarrhea, although cannot rule out septic shock, empirically on antibiotics. Rehydrate. At this time started on low rate Levophed. Wean as tolerating. Suspect also may have degree of adrenal crisis with mild hyponatremia, normal potassium. Continue IV steroids as above. For now hold his pramipexole, metoprolol History of PE, on chronic anticoagulation ZANDRA: CPAP Current smoker: Discussed cessation with him for 3-1/2 minutes. He says has been cutting down. Currently down to 1 pack/day. Continue to encourage cessation. Provide nicotine patch, gum as needed. Intertrigo: Add nystatin cream Nonobstructive nephrolithiasis HTN DM 2 Obesity Attestations Medical Necessity Statement*: Continue admission for assessment management of colitis. Coding Level of Care Code Acute Substation Inspector for [facility] Fwd Diagnoses Colitis K52.9 Lung cancer C34.90 Laterality: unspecified laterality Lung location: unspecified part of lung Adrenal mass E27.8 Acute kidney injury N17.9
[2019-09-09] MEDS: magnesium sulfate premix 2 GM/50 ML PIGGYBACK IV (11:34)
[2019-09-09 11:46] LABS: Glucose Point of Care 270 mg/dL (70-110)
--- NOTE | 2019-09-09 12:56 | PC.NURSE ---
REPORT CALLED TO DEAN THURMAN. PT & BELONGINGS TO ROOM 261-1 IVF CONTINUE TO INFUSE WITHOUT DIFFICULTY THROUGH PORTACATH. WISHED WELL.
[2019-09-09] MEDS: ciprofloxacin 400 MG/200 ML PREMIX 200 MG IV (13:35)
[2019-09-09 16:57] LABS: Glucose Point of Care 200 mg/dL (70-110)
[2019-09-09] MEDS: nicotine 21 mg Patch 1 PATCH TRANSDERMA (19:45)
[2019-09-09 23:07] LABS: Glucose Point of Care 250 mg/dL (70-110)
[2019-09-10] VITALS (9 sets, daily range): BP systolic 150–161; BP diastolic 90–98; PULSE 60–80; RESP 16–20; TEMP 36.6–36.8; O2SAT 93–98
[2019-09-10] MEDS: D5-NS 0.45% + KCL 20 mEq 20 MEQ/1,000 ML BAG 75 MEQ IV ×3 (01:36→22:17)
[2019-09-10] MEDS: metroNIDAZOLE IV 500 MG/100 ML PREMIX 100 MG IV ×3 (01:43→16:39)
[2019-09-10] MEDS: ciprofloxacin 400 MG/200 ML PREMIX 200 MG IV (02:59)
[2019-09-10 05:53] LABS: Hematocrit 32.2 % (42.0-52.0); Hemoglobin 10.2 g/dL (11.7-16.6); Lymphocytes # 0.9 10^3/uL (0.8-4.8); Lymphocytes % 18.5 %; Mean Corpuscular HGB Conc 31.7 g/dL (30.0-36.0); Mean Corpuscular Hemoglobin 29.2 pg (28.0-34.0); Mean Corpuscular Volume 92.3 fL (80-94); Mean Platelet Volume 9.5 fL (7.4-10.4); Monocytes # 0.3 10^3/uL (0.2-0.9); Monocytes % 5.3 %; Neutrophils # 3.6 10^3/uL (1.8-7.7); Neutrophils % 75.1 %; Nucleated Red Blood Cells % 0 %; Platelet Count 199 10^3/cmm (130-400); Red Blood Count 3.49 10^6/uL (4.1-5.3); Red Cell Distribution Width 15.3 % (12.1-15.1); White Blood Count 4.8 10^3/uL (4.0-10.0)
[2019-09-10 06:22] LABS: Anion Gap 13.3 (5-19); Blood Urea Nitrogen 17 mg/dL (6-20); Calcium 8.7 mg/dL (8.5-10.5); Carbon Dioxide 23 mmol/L (22-29); Chloride 104 mmol/L (98-107); Glomerular Filtration Rate 90.1 mL/min (90-130); Glucose 215 mg/dL (65-115); Osmolality Calculated 285 mOsm/kg (285-295); Potassium 4.3 mmol/L (3.5-5.1); Sodium 136 mmol/L (136-145)
[2019-09-10] MEDS: HYDROcodone-acetaminophen 5-325 mg Tablet 1 TAB PO ×2 (06:40→22:20)
[2019-09-10 06:59] LABS: Glucose Point of Care 151 mg/dL (70-110)
[2019-09-10 07:38] LABS: Glucose Point of Care 192 mg/dL (70-110)
[2019-09-10] MEDS: pantoprazole DR 40 mg Tablet PO (08:06)
[2019-09-10] MEDS: apixaban 5 mg Tablet PO ×2 (08:06→22:09)
[2019-09-10] MEDS: gabapentin 300 mg Capsule PO ×4 (08:06→22:08)
[2019-09-10 11:26] LABS: Glucose Point of Care 196 mg/dL (70-110)
[2019-09-10 16:53] LABS: Glucose Point of Care 303 mg/dL (70-110)
[2019-09-10] MEDS: morphine ER (12 HR) 30 mg tablet PO (17:15)
--- NOTE | 2019-09-10 19:05 | PC.NURSE ---
Introduction of staff and report received, aidet.
--- NOTE | 2019-09-10 21:17 | PM.PN ---
Subjective Subjective: Interval history: Reports his diarrhea has been forming up. No abdominal pain. No trouble breathing. Vitals/I&O/Wt Last Vital Signs Temp 98.3 F 09/10/19 15:16 Pulse 60 09/10/19 20:06 Resp 16 09/10/19 20:06 BP 161/97 09/10/19 15:16 Pulse Ox 96 09/10/19 20:06 09/10/19 09/10/19 09/10/19 06:59 14:59 22:59 Intake Total 940 / 5260 1820 / 1820 480 / 2300 Output Total 650 / 2650 350 / 350 Balance 290 / 2610 1820 / 1820 130 / 1950 Physical Exam Const: COMMON NORMALS: no apparent distress and oriented x3 GENERAL APPEARANCE: disheveled NUTRITIONAL APPEARANCE: obese OTHER: He is awake and alert, lucid, answering questions, following commands. HENMT: COMMON NORMALS: oropharynx normal Neck/C-Spine: COMMON NORMALS: no JVD OTHER: Difficult to assess for JVD due to thick neck Resp: COMMON NORMALS: normal respiratory effort and clear to auscultation bilaterally AUSCULTATION: clear to auscultation bilaterally Cardio: COMMON NORMALS: no JVD, regular rhythm, S1 normal heart sound, S2 normal heart sound and no murmurs RHYTHM: regular rhythm HEART SOUNDS: S1 normal and S2 normal GI: COMMON NORMALS: normal to inspection, nondistended, normoactive bowel sounds, soft to palpation and non-tender PALPATION: Yes soft OTHER: Abdomen is large with large pannus Extremity: COMMON NORMALS: no joint enlargement and no pedal edema Neuro: COMMON NORMALS: oriented x3 and moves all extremities Skin: OTHER: Chronic venous stasis dermatitis bilateral lower extremities. Dry scaly. Data : 09/10/19 05:45 09/10/19 05:45 A&P Assessment and plan (1) Colitis: Improving. Fever resolved. Diarrhea forming up. He appears to have responded to steroid and C. difficile treatment. 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 difficile colitis. We will switch him to oral oral therapy. Monitor overnight. If doing well likely should be able to discharge safely tomorrow. Discussed plan with him. He is agreeable. Hold loperamide for now. Replace hypomagnesemia. TSH low normal. Will need a very slow taper from high-dose steroids over likely several months. Would not be candidate for further therapy with nivolumab. Status: Acute Code(s): K52.9 - Noninfective gastroenteritis and colitis, unspecified (2) Lung cancer: Recurrent small cell lung cancer. Continue follow-up with oncology after recovers. Status: Acute Code(s): C34.90 - Malignant neoplasm of unspecified part of unspecified bronchus or lung (3) Adrenal mass: Bilateral adrenal nodules Status: Acute Code(s): E27.8 - Other specified disorders of adrenal gland (4) Acute kidney injury: Creatinine improved. Suspect secondary to blood pressure fluctuations with hypotension on presentation. Hold allopurinol for now. Maintain mean arterial pressures above 65 mmHg. Status: Acute Code(s): N17.9 - Acute kidney failure, unspecified Additional A&P Information Shock: Resolved. Suspect hypovolemic shock due to recurrence of diarrhea, although cannot rule out septic shock, empirically on antibiotics. Rehydrate. At this time started on low rate Levophed. Wean as tolerating. Suspect also may have degree of adrenal crisis with mild hyponatremia, normal potassium. Continue IV steroids as above. For now hold his pramipexole, metoprolol History of PE, on chronic anticoagulation ZANDRA: CPAP Current smoker: Continue to encourage cessation. Provide nicotine patch, gum as needed. Intertrigo: nystatin cream Nonobstructive nephrolithiasis HTN DM 2 Obesity Attestations Medical Necessity Statement*: Continue mission for assessment management of multifactorial colitis, discharge arrangements. Coding Level of Care Code Acute Miller Head Assistant Wet Process for [facility] Fwd Diagnoses Colitis K52.9 Lung cancer C34.90 Adrenal mass E27.8 Acute kidney injury N17.9
[2019-09-10] MEDS: predniSONE 20 mg Tablet 60 MG PO (22:15)
[2019-09-10] MEDS: ciprofloxacin 500 mg Tablet PO (22:15)
[2019-09-10] MEDS: metroNIDAZOLE 500 MG Tablet PO (22:16)
[2019-09-10] MEDS: predniSONE 10 mg Tablet PO (22:16)
[2019-09-11 00:07] LABS: Glucose Point of Care 135 mg/dL (70-110)
[2019-09-11 04:00] VITALS: BP 170/70; PULSE 76; RESP 20; TEMP 36.6; O2SAT 93
[2019-09-11] MEDS: HYDROcodone-acetaminophen 5-325 mg Tablet 1 TAB PO (04:38)
[2019-09-11] MEDS: D5-NS 0.45% + KCL 20 mEq 20 MEQ/1,000 ML BAG 75 MEQ IV (04:58)
[2019-09-11 06:56] LABS: Hematocrit 34.2 % (42.0-52.0); Lymphocytes # 0.7 10^3/uL (0.8-4.8); Lymphocytes % 12.7 %; Mean Corpuscular HGB Conc 32.2 g/dL (30.0-36.0); Mean Corpuscular Hemoglobin 29.5 pg (28.0-34.0); Mean Corpuscular Volume 91.7 fL (80-94); Mean Platelet Volume 9.6 fL (7.4-10.4); Monocytes # 0.3 10^3/uL (0.2-0.9); Monocytes % 5.9 %; Neutrophils % 77.5 %; Nucleated Red Blood Cells % 0 %; Platelet Count 202 10^3/cmm (130-400); Red Blood Count 3.73 10^6/uL (4.1-5.3); White Blood Count 5.1 10^3/uL (4.0-10.0)
[2019-09-11 07:31] VITALS: BP 170/95; PULSE 63; RESP 20; TEMP 36.8; O2SAT 97
[2019-09-11 07:32] LABS: Glucose Point of Care 233 mg/dL (70-110)
[2019-09-11 07:48] LABS: Anion Gap 15.5 (5-19); Blood Urea Nitrogen 17 mg/dL (6-20); Calcium 8.4 mg/dL (8.5-10.5); Carbon Dioxide 22 mmol/L (22-29); Chloride 104 mmol/L (98-107); Glomerular Filtration Rate 103.2 mL/min (90-130); Glucose 193 mg/dL (65-115); Osmolality Calculated 286 mOsm/kg (285-295); Potassium 4.5 mmol/L (3.5-5.1); Sodium 137 mmol/L (136-145)
[2019-09-11] MEDS: apixaban 5 mg Tablet PO (10:03)
[2019-09-11] MEDS: gabapentin 300 mg Capsule PO ×2 (10:03→13:27)
[2019-09-11] MEDS: ciprofloxacin 500 mg Tablet PO (10:03)
[2019-09-11] MEDS: predniSONE 10 mg Tablet PO (10:04)
[2019-09-11] MEDS: metroNIDAZOLE 500 MG Tablet PO ×2 (10:04→14:14)
[2019-09-11] MEDS: pantoprazole DR 40 mg Tablet PO (10:04)
[2019-09-11] MEDS: predniSONE 20 mg Tablet 60 MG PO (10:06)
[2019-09-11 10:14] VITALS: RESP 18
[2019-09-11] MEDS: morphine ER (12 HR) 30 mg tablet PO (10:14)
[2019-09-11] MEDS: nicotine 21 mg Patch 1 PATCH TRANSDERMA (10:15)
[2019-09-11 10:24] VITALS: BP 158/85; PULSE 68; RESP 18; TEMP 36.9; O2SAT 96
[2019-09-11 11:19] LABS: Glucose Point of Care 227 mg/dL (70-110)
--- NOTE | 2019-09-11 12:00 | PC.SOCIAL ---
IMM Updated IMM Updated and given to patient. Initialed, dated, and timed and placed back in chart.
--- NOTE | 2019-09-11 12:21 | PM.DCS ---
Discharge Providers Date of Admission: 09/08/19 13:54 Date of Discharge: September 11, 2019 Attending Provider at Admission: Lewis Salomon Attending Provider at Discharge: Lewis Salomon Primary Care Provider: Pamela Lorenzana Diagnoses at Discharge Discharge Diagnosis (1) Colitis: Status: Acute (2) Lung cancer: Status: Acute (3) Adrenal mass: Status: Acute (4) Acute kidney injury: Status: Acute Reason for Visit Reason for Visit: Reason For Visit: WEAKNESS Hospital Course Hospital Course: Pleasant 48-year-old gentleman with history of recurrent small cell lung cancer, currently on checkpoint inhibitor therapy with his oncologist Dr. Plummer return to the hospital after recent admission for treatment of suspected colitis related to checkpoint inhibitor medications, with diffuse colitis noted on endoscopy, last admission was treated with prednisone, discharged on prednisone taper, however, several days after discharge with recurrence of fever, diarrhea, dehydration, and on presentation also hypotensive, and hypovolemic and possible septic shock, received IV fluid boluses, hydration, started on antibiotic treatment, and started on IV steroid due to concern for severe colitis due to checkpoint inhibitors. Infectious studies collected from stool during the last admission were all unremarkable. C. difficile was repeated during this admission and was positive, with likely concomitant C. difficile colitis. He was started on oral vancomycin and will complete a 10-day course. With IV steroids, oral vancomycin, also empirically on ciprofloxacin and Flagyl per discussion with his oncologist, he has significantly improved, with hypotension resolved, with resolution of his fevers. He reports he is feeling much better, and feels ready to return home. He will complete a slow steroid taper over the next 28 days. Follow-up with his oncologist regarding other possibilities for treatment after he recovers. Please continue to encourage smoking cessation. Follow-up renal function after acute kidney injury. Physical Exam Const: COMMON NORMALS: no apparent distress and oriented x3 GENERAL APPEARANCE: disheveled NUTRITIONAL APPEARANCE: obese OTHER: He is awake and alert, lucid, answering questions, following commands. HENMT: COMMON NORMALS: oropharynx normal Neck/C-Spine: COMMON NORMALS: no JVD OTHER: Difficult to assess for JVD due to thick neck Resp: COMMON NORMALS: normal respiratory effort and clear to auscultation bilaterally AUSCULTATION: clear to auscultation bilaterally Cardio: COMMON NORMALS: no JVD, regular rhythm, S1 normal heart sound, S2 normal heart sound and no murmurs RHYTHM: regular rhythm HEART SOUNDS: S1 normal and S2 normal GI: COMMON NORMALS: normal to inspection, nondistended, normoactive bowel sounds, soft to palpation and non-tender PALPATION: Yes soft OTHER: Abdomen is large with large pannus Extremity: COMMON NORMALS: no joint enlargement and no pedal edema Neuro: COMMON NORMALS: oriented x3 and moves all extremities Skin: OTHER: Chronic venous stasis dermatitis bilateral lower extremities. Dry scaly. Discharge Data Data Completed and Pending: Completed Studies During Hospitalization Category Date Time Status CT head wo con* 7 0450 Urgent Cat Scan 09/08/19 11:38 Completed XR chest 1V anat ble 62085 Stat Exams 09/08/19 11:31 Completed Pending at discharge Category Date Time Status BMP [Basic [employer] lic Panel] AM LABS Lab 09/12/19 04:00 Ordered Blood Culture Sta t Lab 09/08/19 11:50 Results Complete Blood Co unt w/Auto AM LABS Lab 09/12/19 04:00 Ordered Labs from last 24 hours 09/11/19 09/11/19 09/11/19 10:28 07:15 06:21 WBC RBC Hgb Hct MCV MCH MCHC RDW Plt Count MPV Neut % (Auto) Lymph % (Auto) [place] % (Auto) Eos % (Auto) Baso % (Auto) Neut # (Auto) Lymph # (Auto) [place] # (Auto) Eos # (Auto) Baso # (Auto) Nucleated RBC % (a uto) Nucleated RBCs # Sodium 137 Potassium 4.5 Chloride 104 Carbon Dioxide 22 Anion Gap 15.5 BUN 17 Creatinine 0.8 GFR Calculation 103.2 Glucose 193 H POC Glucose 227 233 Calculated Osmolal ity 286 Calcium 8.4 L 09/11/19 09/10/19 09/10/19 06:21 22:11 16:49 WBC 5.1 RBC 3.73 L Hgb 11.0 L Hct 34.2 L MCV 91.7 MCH 29.5 MCHC 32.2 RDW 15.0 Plt Count 202 MPV 9.6 Neut % (Auto) 77.5 Lymph % (Auto) 12.7 [place] % (Auto) 5.9 Eos % (Auto) 0.0 Baso % (Auto) 0.0 Neut # (Auto) 4.0 Lymph # (Auto) 0.7 L [place] # (Auto) 0.3 Eos # (Auto) 0.0 Baso # (Auto) 0.0 Nucleated RBC % (a uto) 0 Nucleated RBCs # 0.0 Sodium Potassium Chloride Carbon Dioxide Anion Gap BUN Creatinine GFR Calculation Glucose POC Glucose 135 303 Calculated Osmolal ity Calcium Vitals: Last Vital Signs Temp 98.4 F 09/11/19 10:24 Pulse 68 09/11/19 10:24 Resp 18 09/11/19 10:24 BP 158/85 09/11/19 10:24 Pulse Ox 96 09/11/19 10:24 Discharge Plan Discharge Patient Disposition: Home, Self-Care Condition: Stable Prescriptions: New vancomycin 1,000 mg Recon Soln 125 mg PO QID Qty: 36 RF: 0 metronidazole 500 mg Tablet 500 mg PO TID Qty: 15 RF: 0 ciprofloxacin HCl 500 mg Tablet 500 mg PO BID Qty: 10 RF: 0 prednisone 20 mg tablet See Rx Instructions .ROUTE .COMPLEX 28 Days Qty: 46 RF: 0 Continued fluticasone propion-salmeterol [Advair Diskus] 250-50 mcg/dose Blister With Device 1 inh INHALATION BID RF: 0 metoprolol succinate 50 mg Tablet Extended Release 24 Hr 50 mg PO DAILY RF: 0 hydrocodone-acetaminophen 5-325 mg Tablet 1 - 2 tab PO Q6H PRN (Reason: Pain, Moderate) RF: 0 allopurinol 100 mg Tablet 100 mg PO BID RF: 0 pramipexole 0.25 mg Tablet 0.25 mg PO DAILY RF: 0 gabapentin 300 mg Capsule 300 mg PO QID RF: 0 oxybutynin chloride 5 mg Tablet 5 mg PO BID RF: 0 Tradjenta 5 mg Tablet 5 mg PO DAILY RF: 0 Eliquis 5 mg Tablet 5 mg PO BID RF: 0 loperamide 2 mg Capsule 2 mg PO QID PRN (Reason: Diarrhea) 30 Days Qty: 90 RF: 0 morphine 30 mg Tablet,Oral Only,Extnd Release 30 mg PO Q12H RF: 0 Discontinued prednisone 10 mg tablet 10 mg PO DAILY 25 Days Qty: 53 RF: 0 Discharge Orders: Discharge Order (Routine); Ordered 09/11/19 Ordered By: Lewis Salomon Referrals: Pamela Lorenzana PA [Primary Care Provider] - 4-7 days Nupur Plummer MD [Staff Physician] - 1 week Discharge Diet: Advance as tolerated and Diabetic Discharge Activity: Resume usual activity Activity Restrictions/Additional Instructions: Bleaching surfaces that may come in contact with diarrhea. If you develop recurrent fever, recurrence of severe diarrhea, bleeding, severe abdominal pain, or other abnormal symptoms, please seek medical attention without delay. Monitor your blood sugars closely while you are on steroid. Discharge Attestations Time Spent in Discharge Care*: greater than 30 min Quality Metrics Clinical Quality Measures During this hospital stay, did patient experience: None Coding Level of Care Code Acute [employer] for [employer] Diagnoses Colitis K52.9 Lung cancer C34.90 Adrenal mass E27.8 Acute kidney injury N17.9
[2019-09-11 12:49] VITALS: BP 158/85; PULSE 68; RESP 18; TEMP 36.9; O2SAT 96
[2019-09-11 14:29] VITALS: BP 158/85; PULSE 68; RESP 18; TEMP 36.9; O2SAT 96
--- NOTE | 2019-09-11 15:34 | PC.RESP ---
Patient given Pulmonary Rehab/Smoking Cessation information.
== END 2019-09-11 14:30 | disposition home or self-care (01) | DRG 371 ==
LOC: ER 12:54 → ICU 14:13 → MEDSURG 09-09 12:50
PROVIDERS: Emergency Medicine; Admitting Provider Internal Medicine; Emergency Provider Family Medicine; Family Provider Physician Assistant; PCP Physician Assistant; Visit Provider Internal Medicine
DX: A04.72 Enterocolitis due to Clostridium difficile, not specified as recurrent (principal); R57.1 Hypovolemic shock; C34.90 Malignant neoplasm of unspecified part of unspecified bronchus or lung; N17.9 Acute kidney failure, unspecified; E27.8 Other specified disorders of adrenal gland; E11.9 Type 2 diabetes mellitus without complications; G47.33 Obstructive sleep apnea (adult) (pediatric); I10 Essential (primary) hypertension; E66.9 Obesity, unspecified; N20.0 Calculus of kidney; L30.4 Erythema intertrigo; I95.9 Hypotension, unspecified; Z68.37 Body mass index [BMI] 37.0-37.9, adult; Z87.891 Personal history of nicotine dependence; Z79.2 Long term (current) use of antibiotics; Z79.82 Long term (current) use of aspirin
CPT/HCPCS: 12345; 36415; 36416; 45380; 51798; 70450; 71045; 71260; 73221; 74177; 80048; 80053; 81001; 82274; 82962; 83605; 83690; 83735; 84100; 84443; 84484; 85025; 86140; 87040; 87177; 87209; 87493; 87506; 87804; 88305; 93005; 94640; 96361; 96365; 96366; 96372; 96375; 99283; 99285; A9270; C1751; G0378; J0692; J0743; J0744; J1642; J1644; J1815; J1956; J2270; J2405; J2704; J2920; J2930; J3370; J3475; J7030; J7512; Q9967; S0030

== ENCOUNTER 2019-09-19 05:42 | Outpatient (RCR) | payer MEDICARE, MEDICAID, SELFPAY ==
[2019-09-18 12:51] LABS: Basophils % 0.1 %; Eosinophils % 0.2 %; Hematocrit 42.7 % (42.0-52.0); Hemoglobin 13.4 g/dL (11.7-16.6); Lymphocytes # 1.7 10^3/uL (0.8-4.8); Lymphocytes % 13.1 %; Mean Corpuscular HGB Conc 31.4 g/dL (30.0-36.0); Mean Corpuscular Hemoglobin 31.2 pg (28.0-34.0); Mean Corpuscular Volume 99.3 fL (80-94); Mean Platelet Volume 10.1 fL (7.4-10.4); Monocytes # 0.5 10^3/uL (0.2-0.9); Monocytes % 4.1 %; Neutrophils # 10.3 10^3/uL (1.8-7.7); Neutrophils % 81.5 %; Nucleated Red Blood Cells % 0 %; Platelet Count 174 10^3/cmm (130-400); Red Cell Distribution Width 17.2 % (12.1-15.1); White Blood Count 12.6 10^3/uL (4.0-10.0)
[2019-09-18 13:09] LABS: Alanine Aminotransferase 23 U/L (0-41); Albumin Level 2.8 g/dL (3.5-5.2); Alkaline Phosphatase 70 IU/L (40-130); Anion Gap 13.1 (5-19); Aspartate Amino Transferase 20 U/L (0-40); Blood Urea Nitrogen 14 mg/dL (6-20); Calcium 9.1 mg/dL (8.5-10.5); Carbon Dioxide 28 mmol/L (22-29); Chloride 99 mmol/L (98-107); Glomerular Filtration Rate 90.1 mL/min (90-130); Glucose 174 mg/dL (65-115); Osmolality Calculated 282 mOsm/kg (285-295); Potassium 4.1 mmol/L (3.5-5.1); Sodium 136 mmol/L (136-145); Total Bilirubin 0.3 mg/dL (0.15-1.2); Total Protein 6.8 g/dL (6.6-8.7)
--- NOTE | 2019-09-19 11:01 | ONC FU_ITS ---
Dr. Plummer follow up note Patient: Eric Mckeon Unit #: [id number]: 1970 Dicatated By: Nupur Plummer M.D.Date of Visit:Sep 19, 2019 Onc Med Follow-up/Prog Note History of Present Illness: Mr. Mckeon is a 48-year-old gentleman who developed a left neck mass. He was seen by Dr. Ben FOX and underwent needle core biopsy of left neck mass on 10/16/2017. 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 He underwent a CT of chest on 10/23/2017 which revealed a large right paratracheal mass measuring 8.3???7.7 cm. It involves the superior vena cava with near occlusion. It also causes encasement of the right main pulmonary artery with moderate narrowing with moderate stenosis. It also encases the right proximal main stem bronchus and bronchus intermedius. Mr Mckeon subsequently underwent CT PET scan on 10/28/2017 which showed hypermetabolic left neck mass 4.9 x 3.7 cm with SUV of 12.9. Right paratracheal mass with SUV of 15. At the level of pelvis a 6.1 x 4.5 cm soft tissue mass was reported in the right external iliac territory which has SUV of 14.4. There was an FDG positive muscular implant anterior to right femoral neck measuring 1.[address] scan done on 12/07/2017 showed right lower lobe and right middle lobe pulmonary embolism and was started on apixaban and for the study showed right lower extremity clot Mr Mckeon was seen by radiation oncology and started on radiation to his chest on urgent basis because of risk of impending SVC syndrome. He began his first cycle of chemotherapy with Carboplatin/etoposide on 11/06/2017. His last cycle of chemotherapy was on 02/06/2018. Mr. Mckeon did have follow-up PET CT on 02/03/2018. The left-sided cervical mass seen on the exam from 10/28/2017 is now subcentimeter in size and within minimal FDG activity. Similarly, the right hilar/paratracheal mass demonstrates activity minimally greater than that of the mediastinal background and measures 2.3 x 4.1 cm. The right external iliac mass now measures 1.5 cm without significant FDG activity. The muscle implant anterior to the right femoral neck currently has SUV of 6.6 down from 14.1 indicating a positive response to chemotherapy. His cycle 6 chemotherapy, was on 04/02/2018. Patient has seen Dr. Cotton radiation oncology, regarding persistent activity in muscle implant anterior to the right femoral neck, as per patient he was informed that there is a risk of radiation-induced damage to his femoral neck/ right hip and suggested to continue with chemotherapy and repeat CT PET scan as planned. Underwent CT-guided biopsy of right iliopsoas muscle implant anterior to right femoral neck on 06/04/2018 at [facility] radiology department in [place] and final pathology report came back fibrohistiocytic proliferation, no evidence of carcinoma Sleep apnea on CPAP machine Underwent fluoroscopy Port-A-Cath on 08/06/2018 showed patent Port-A-Cath He was supposed to get CT PET scan but insurance refused coverage so CT scan of chest abdomen pelvis and neck was done on 08/17/2018. It reported recurrent mass in the left neck centered at level of hyoid bone. Mass extends over a length of 4 x 2.2 x 3.4 cm. The mass abuts and displaces the fat planes along the sternocleidomastoid muscle. Mass also abuts the left jugular vein. Mass in a similar location on study of 09/18/2017. CT PET scan done on 04/21/2018 was negative. No additional masses noted. CT scan of chest showed continued decrease righ media l upper lobe mass; Unchanged right upper lobe linear and patchy nodular opacity; CT abdomen pelvis showed no definite metastatic disease in abdomen pelvis; Left mid kidney indeterminant wedge-shaped low-attenuation focus Mr Mckeon underwent biopsy of left neck mass at [facility] on 09/12/2018, final pathology report came back high-grade neuroendocrine carcinoma, predominantly small cell feature and positive focally week for TTF-1, it was concluded, given history of SVC syndrome and radiological studies diagnosis was revised to metastatic small cell lung cancer. And rechallenge with carboplatin/etoposide was recommended along with tecentriq (atezolizumab), Which he was started on 09/26/2018. Follow-up CT PET scan done after 4 doses of carboplatin/etoposide/ tecentriq , on 12/29/2018 showed persistent left supraclavicular mass measuring 3.7 x 2.7 with SUV of 8.2 compared to 4 prior to by 3.[address] scan of neck done on 08/17/[address] [facility]. And also showed persistent but stable muscle implant anterior to right femur, with SUV 14.0 and it was biopsied earlier and showed no evidence of metastatic disease Patient was evaluated by Dr. Gorman in March 2019 and as per his evaluation patient still responding to the treatment and left neck mass is smaller than before and . Last chemotherapy was done on 02/03/2019. The muscle implant was also seen with SUV of 14 biopsy of specimen was consistent with recurrent high-grade tumor and he was offered a clinical trial [facility] neuroend[facility] oncology clinic at [facility]. Patient did well and clinical trial but eventually developed progressive thrombocytopenia and at his followup visit on May 07, [address] Gorman, his follow-up scan showed disease progression. At that time he was taken off clinical trial as left neck mass continued to grow. CT scan of neck done at the May 2019 followup visit, showed progressive left neck mass site 6.1 x 7.6 cm compared to 4.4 x 6.4 on 02/21/2019 with central hypoattenuation in mass is intimately associated with the left internal jugular vein and now appears to encase it and right pulmonary nodularity, cavitary lesion, right hilar mass seen. With this impression it was decided a few with palliative therapy which include radiation therapy to the left neck mass and because of persistent thrombocytopenia immunotherapy with ipilimumab and nivolumab was recommended and in case thrombocytopenia resolved topotecan based regimen can be considered Tolerated radiation therapy to left neck reasonably well and he concluded radiation therapy on 06/19/2019 o a total dose of 4,500 cGy. recommended that he pursue ipilimumab and nivolumab. 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 difficile which came back positive and he was started on antibiotics overall condition improved was discharge home in a stable condition with a tapering dose of steroids, patient return to [facility] with hypotension and severe diarrhea and again responded very well to high-dose steroids underwent colonoscopy evaluation On 09/05/2019 and it showed extensive colitis involving the entire colon with more inflammation on the left colon dendrite but no evidence of active bleeding and biopsies were obtained. Also had CT scan of chest abdomen pelvis done on 09/01/2019 which showed evidence of progression of disease in the right upper lobe since 08/14/2018 bilateral adrenal nodules have increased in size. Hepatosplenomegaly, focal proximal ascending colitis. Came for follow-up, denies any specific complaints, denies any fever chills denies any nausea vomiting diarrhea diarrhea and he is on prednisone 20 mg by mouth daily, tolerating well except with mild hyperglycemia no abdominal pain, no oral thrush. Medications: Advair Diskus 2 puff(s) (of 250-50 mcg/dose) Aerosol Powder, Breath Activated Inhalation b.i.d., Ativan 0.5 - 1 Tablet (of 1 mg) Oral t.i.d. PRN, Cetirizine HCl 1 Tablet (of 10 mg) Tablet Oral b.i.d., Compazine 1 Tablet (of 10 mg) Oral q 4 hours PRN, Diclofenac Sodium 1 Tablet (of 75 mg) Tablet, enteric coated Oral b.i.d., Gabapentin 1 Capsule (of 300 mg) Capsule Oral four times a day, Hydrocodone-Acetaminophen 1 - 2 Tablet (of 5-325 mg) Oral q 6 hours, Lisinopril 1 Tablet (of 20 mg) Oral daily, MetFORMIN HCl 1 Tablet (of 1000 mg) Tablet Oral b.i.d., Metoprolol Tartrate 1 Tablet (of 50 mg) Tablet Oral daily, Oxybutynin Chloride 1 Tablet (of 5 mg) Tablet Oral b.i.d., Pramipexole Dihydrochloride 1 (0.25 mg) Tablet Oral at bedtime, Tradjenta 1 Tablet (of 5 mg) Tablet Oral daily Allergies: Penicillins Review of Systems: Constitutional - Appetite is fair, energy is poor, weight is has decreased, ENMT - Positive for sinus congestion/drainage. No mouth sores. No sore throat or difficulty swallowing, Hematologic/Lymphatic - No unusual bruising or bleeding, Respiratory - Occasional cough, Cardiovascular - No anginal chest pain, palpitations. He has no leg swelling, Gastrointestinal - No nausea, vomiting, diarrhea, GI bleeding, or constipation. No change in bowel habits, no heartburn or early satiety, Genitourinary (M) - No hematuria, dysuria, increased frequency, urgency, hesitancy or incontinence, Musculoskeletal - No joint pain, swelling or redness. No decreased range of motion, Integumentary - No skin ulcers or open wounds, Neurologic - No headaches, no dizziness, Psychiatric - Patient denies anxiety or depression. Pt has difficulty falling asleep. Vital Signs: Performed on Sep 19, 2019 08:36 Height - 72.00 in Weight - 289.0 lbs (LOW) BSA - 2.49 sq.m BMI - 39.20 (HIGH) Temperature - 98.3 F (LOW) Pulse - 103 /min (HIGH) Respiration - 24 /min BP - 143/91 mm(hg) (HIGH) O2 Sat - 100 % Pain - 0 Performance Status: 0 - Fully active, able to carry on all predisease activities without restrictions. (ECOG) Physical Examination: ENMT - . No oral exudates, ulcers, masses, thrush or mucositis. Oropharynx clear. Tongue normal, Respiratory - Lungs are clear to auscultation without rhonchi or wheezing, Cardiovascular - Regular rate and rhythm of heart, Abdomen - Non-tender, non-distended, Good bowel sounds. No guarding or rebound tenderness. No pulsatile masses, Extremities - trace edema bilaterally. Lab/Imaging: Test performed on Aug 20, 2019 09:20 Sodium 134 mmol/L Potassium 4.0 mmol/L Chloride 99 mmol/L CO2 24 mmol/L Anion Gap 15.0 BUN 14 mg/dL Creatinine 0.9 mg/dL Cr Clearance (Est) 201.0600 mL/min eGFR 90.1 mL/min Glucose 151 mg/dL Calcium 9.8 mg/dL Protein, Total 8.0 g/dL Albumin 4.0 g/dL Globulin 4.0 g/dL Bilirubin, Total 0.6 mg/dL ALT (SGPT) 25 U/L AST (SGOT) 25 U/L Alkaline Phosphatase 102 IU/L WBC 6.4 10 3/uL RBC 4.79 10 6/uL HGB 14.3 g/dL HCT 44.3 % MCV 92.5 fL MCH 29.9 pg MCHC 32.3 g/dL RDW 15.4 % Platelet Count 145 10 3/cmm MPV 10.0 fL Neutrophils 3.3 10 3/uL Lymphocytes 2.3 10 3/uL Monocytes 0.3 10 3/uL Eosinophils 0.5 10 3/uL Basophils 0.0 10 3/uL Neutrophil % 51.6 % Lymphocyte % 36.1 % Monocyte % 4.5 % Eosinophil % 7.0 % Basophils % 0.5 % Test performed on Jul 23, 2019 09:13 TSH 0.54 uIU/mL Test performed on Jul 16, 2019 08:39 Manual Lymphocytes 43.2 % Manual Monocytes 7.2 % Manual Eosinophils 9.0 % Manual Basophils 0.9 % NRBCs 0.0 /100 WBC Test performed on Jul 10, 2019 15:39 Hemoglobin A1C 5.2 % Impression: Recurrent small cell lung cancer per left neck mass biopsy on 09/12/2018, which showed high-grade neuroendocrine carcinoma, predominantly small cell feature and positive focally for TTF-1, it was concluded, given history of SVC syndrome and radiological studies diagnosis was revised to metastatic small cell lung cancer Metastatic High-grade neuroendocrine carcinoma per needle core biopsy of left neck mass done on 10/16/2017 Pathology also showed sheets and cords of large malignant cells with neuroendocrine features, numerous mitotic figures are seen as well as area of tumor necrosis. immuno histochemistry positive for CAM 5.2, CD 56 , synaptophysin, TTF-[address] scan of chest done on 10/23/2017 showed 7.7 x 2.3 cm right paratracheal mass with a near occlusion of SVC, and encasement of right proximal pulmonary artery with moderate stenosis, and encasement of right proximal main stem bronchus and bronchus intermedius CT PET scan done on 10/28/2017 showed hypermetabolic left neck mass measuring 4.9 x 3.7 cm with SUV of 12.9 and right paratracheal mass measures 6.8 x 7.8 cm with SUV of 15 and at the level of pelvis a 6.1 x 4.5 cm soft tissue mass in the right external iliac territory has SUV of 14.4 and and FDG positive muscular implant anterior to right femoral neck measuring about 1.2 cm in size On radiation therapy to right paratracheal mass and chemotherapy with carboplatin and etoposide was added on 11/06/2017. He received radiation therapy to right pelvic mass Right leg DVT diagnosed on 12/07/2017 on Eliquis. Mr. Mckeon was admitted on 01/20/2018 with an initial concerns for sepsis but was found to have UTI. He was discharged on antibiotics andhis fever, rigors and tachycardia resolved. CT PET scan done on 02/03/2018 showed left sided cervical mass seen on exam from 10/28/2017 is now subcentimeter in size and within normal limit FDG activity early. Right hilar/paratracheal mass demonstrates activity minimally greater than that of mediastinal background and molecular 2.3 x 4.1 cm. Right external iliac mass now measured 1.5 cm without significant FDG activity. The muscle implant anterior to the right femoral neck currently has SUV of 6.6, down from 14.1, indicating a positive response to therapy. Repeat CT PET scan done after 6th dose of chemo on 04/21/2018 showed previously described left sided cervical mass was not identifiable on the current study. Right hilar/paratracheal mass is improved in size to 3 cm with a minimum FDG activity. Right external iliac lymph node was unchanged in size but without significant FDG activity Muscle implant anterior to right femoral neck had an SUV of 12 compared to 6.6 previously, consistent with progression of disease at that location. On 06/04/2018, he underwent CT-guided biopsy of this lesion at [facility] radiology department in [place] and final pathology report came back fibrohistiocytic proliferation, no evidence of carcinoma CT scan of neck chest abdomen pelvis done on 08/17/2018 showed recurrent mass in the left neck centered at level of hyoid bone. Mass extends over a length of 4 x 2.2 x 3.4 cm and abuts and displaces fat planes along the sternocleidomastoid muscle. Mass also abuts left jugular vein. No additional mass seen. Mass in a similar location on the study of 09/18/2017. CT PET scan done on 04/21/[address] scan of chest showed continued decrease right medial upper lobe mass. Unchanged right upper lobe linear and patchy nodular opacity. New right lower lobe superior segment focal irregular opacity nonspecific follow-up CT scan recommended in [address] abdomen showed no definite metastatic disease in abdomen pelvis. Left mid kidney indeterminant wedge-shaped low-attenuation focus nonspecific. Mr Mckeon underwent biopsy of left neck mass at [facility] on 09/12/2018, final pathology report came back high-grade neuroendocrine carcinoma, predominantly small cell feature and positive focally week for TTF-1, it was concluded, given history of SVC syndrome and radiological studies diagnosis was revised to metastatic small cell lung cancer. Re-challenging with carboplatin and etoposide was recommended along with tecentriq (atezolizumab). So planning was to start him on carboplatin/etoposide and tecentriq 1200 mg IV day 1 q3 weeks ???[address] PET scan if complete remission, may consider maintenance therapy with Tecentriq alone.Which was started on 09/26/2018 Follow-up CT PET scan done after 4 doses of carboplatin/etoposide/ tecentriq , on 12/29/2018 showed persistent left supraclavicular mass measuring 3.7 x 2.7 with SUV of 8.2 compared to 4 prior to by 3.[address] scan of neck done on 08/17/[address] [facility]. It also showed persistent but stable muscle implant anterior to right femur, with SUV 14.0 and it was biopsied earlier and showed no evidence of metastatic disease Patient was evaluated by Dr. Gorman in March 2019 and as per his evaluation, Mr Mckeon was still responding to the treatment and left neck mass is smaller than before. Last chemotherapy was done on 02/03/2019. The muscle implant was also seen with SUV of 14 biopsy of specimen was consistent with recurrent high-grade tumor and he was offered a clinical trial at neuroendocrine oncology clinic at [facility]. Patient did well in the clinical trial but eventually developed progressive thrombocytopenia and follow-up scan showed disease progressio at [facility] followup visit on May 07, 2019 At that time he was taken off clinical trial as left neck mass continued to grow. CT scan of neck done showed progressive left neck mass site 6.1 x 7.6 cm compared to 4.4 x 6.4 on 02/21/2019 with central hypoattenuation in mass and it was intimately associated with the left internal jugular vein and now appears to encase it. Right pulmonary nodularity, cavitary lesion, right hilar mass seen. With this impression, it was decided to pursue palliative therapy which include radiation therapy to the left neck mass and because of persistent thrombocytopenia- immunotherapy with ipilimumab and nivolumab was recommended and in case thrombocytopenia resolved- topotecan based regimen can be considered. Tolerated radiation therapy to left neck reasonably well and concluded radiation therapy on 06/19/2019 to a total dose of [address] Plummer recommended that he pursue ipilimumab and nivolumab. He began his first cycle on 07/10/2019. He has tolerated it well thus far. 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 Patient was also advised to watch his diet and monitor his blood sugar any use insulin as per sliding scale.next Patient return to clinic after CT PET scan for further discussion Signed By: Nupur Plummer M.D. <<Signature on File>>
== END 2019-10-01 23:59 | disposition home or self-care (01) ==
LOC: ONCMED 05:42
PROVIDERS: Family Provider Physician Assistant; PCP Physician Assistant; Visit Provider Internal Medicine Hematology & Oncology
DX: C34.11 Malignant neoplasm of upper lobe, right bronchus or lung (principal); C79.89 Secondary malignant neoplasm of other specified sites; G47.33 Obstructive sleep apnea (adult) (pediatric); R16.2 Hepatomegaly with splenomegaly, not elsewhere classified; Z79.01 Long term (current) use of anticoagulants; Z79.899 Other long term (current) drug therapy; Z86.711 Personal history of pulmonary embolism; Z92.3 Personal history of irradiation; Z92.21 Personal history of antineoplastic chemotherapy; Z86.718 Personal history of other venous thrombosis and embolism
CPT/HCPCS: 36415; 80053; 85025; 99214

== ENCOUNTER 2019-10-16 06:41 | Outpatient (RCR) | payer MEDICARE, MEDICAID, SELFPAY ==
[2019-10-07 09:18] LABS: Basophils % 0.3 %; Eosinophils % 0.3 %; Hematocrit 42.4 % (42.0-52.0); Hemoglobin 13.5 g/dL (11.7-16.6); Lymphocytes # 1.4 10^3/uL (0.8-4.8); Lymphocytes % 19.5 %; Mean Corpuscular HGB Conc 31.8 g/dL (30.0-36.0); Mean Corpuscular Volume 97.2 fL (80-94); Monocytes # 0.3 10^3/uL (0.2-0.9); Monocytes % 4.2 %; Neutrophils # 5.5 10^3/uL (1.8-7.7); Neutrophils % 74.2 %; Nucleated Red Blood Cells % 0 %; Platelet Count 193 10^3/cmm (130-400); Red Blood Count 4.36 10^6/uL (4.1-5.3); Red Cell Distribution Width 17.1 % (12.1-15.1); White Blood Count 7.4 10^3/uL (4.0-10.0)
[2019-10-07 09:33] LABS: Alanine Aminotransferase 22 U/L (0-41); Albumin Level 3.5 g/dL (3.5-5.2); Alkaline Phosphatase 69 IU/L (40-130); Aspartate Amino Transferase 16 U/L (0-40); Blood Urea Nitrogen 16 mg/dL (6-20); Calcium 9.3 mg/dL (8.5-10.5); Carbon Dioxide 24 mmol/L (22-29); Chloride 101 mmol/L (98-107); Globulin 3.9 g/dL (1.3-4.6); Glomerular Filtration Rate 71.4 mL/min (90-130); Glucose 167 mg/dL (65-115); Osmolality Calculated 284 mOsm/kg (285-295); Sodium 137 mmol/L (136-145); Total Bilirubin 0.3 mg/dL (0.15-1.2); Total Protein 7.4 g/dL (6.6-8.7)
--- NOTE | 2019-10-07 10:52 | ONC FU_ITS ---
Dr. Plummer follow up note Patient: Eric Mckeon Unit #: [id number]: 1970 Dicatated By: Nupur Plummer M.D.Date of Visit:Oct 07, 2019 Onc Med Follow-up/Prog Note History of Present Illness: Mr. Mckeon is a 48-year-old gentleman who developed a left neck mass. He was seen by Dr. Ben FOX and underwent needle core biopsy of left neck mass on 10/16/2017. 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 He underwent a CT of chest on 10/23/2017 which revealed a large right paratracheal mass measuring 8.3???7.7 cm. It involves the superior vena cava with near occlusion. It also causes encasement of the right main pulmonary artery with moderate narrowing with moderate stenosis. It also encases the right proximal main stem bronchus and bronchus intermedius. Mr Mckeon subsequently underwent CT PET scan on 10/28/2017 which showed hypermetabolic left neck mass 4.9 x 3.7 cm with SUV of 12.9. Right paratracheal mass with SUV of 15. At the level of pelvis a 6.1 x 4.5 cm soft tissue mass was reported in the right external iliac territory which has SUV of 14.4. There was an FDG positive muscular implant anterior to right femoral neck measuring 1.[address] scan done on 12/07/2017 showed right lower lobe and right middle lobe pulmonary embolism and was started on apixaban and for the study showed right lower extremity clot Mr Mckeon was seen by radiation oncology and started on radiation to his chest on urgent basis because of risk of impending SVC syndrome. He began his first cycle of chemotherapy with Carboplatin/etoposide on 11/06/2017. His last cycle of chemotherapy was on 02/06/2018. Mr. Mckeon did have follow-up PET CT on 02/03/2018. The left-sided cervical mass seen on the exam from 10/28/2017 is now subcentimeter in size and within minimal FDG activity. Similarly, the right hilar/paratracheal mass demonstrates activity minimally greater than that of the mediastinal background and measures 2.3 x 4.1 cm. The right external iliac mass now measures 1.5 cm without significant FDG activity. The muscle implant anterior to the right femoral neck currently has SUV of 6.6 down from 14.1 indicating a positive response to chemotherapy. His cycle 6 chemotherapy, was on 04/02/2018. Patient has seen Dr. Cotton radiation oncology, regarding persistent activity in muscle implant anterior to the right femoral neck, as per patient he was informed that there is a risk of radiation-induced damage to his femoral neck/ right hip and suggested to continue with chemotherapy and repeat CT PET scan as planned. Underwent CT-guided biopsy of right iliopsoas muscle implant anterior to right femoral neck on 06/04/2018 at [facility] radiology department in [place] and final pathology report came back fibrohistiocytic proliferation, no evidence of carcinoma Sleep apnea on CPAP machine Underwent fluoroscopy Port-A-Cath on 08/06/2018 showed patent Port-A-Cath He was supposed to get CT PET scan but insurance refused coverage so CT scan of chest abdomen pelvis and neck was done on 08/17/2018. It reported recurrent mass in the left neck centered at level of hyoid bone. Mass extends over a length of 4 x 2.2 x 3.4 cm. The mass abuts and displaces the fat planes along the sternocleidomastoid muscle. Mass also abuts the left jugular vein. Mass in a similar location on study of 09/18/2017. CT PET scan done on 04/21/2018 was negative. No additional masses noted. CT scan of chest showed continued decrease righ media l upper lobe mass; Unchanged right upper lobe linear and patchy nodular opacity; CT abdomen pelvis showed no definite metastatic disease in abdomen pelvis; Left mid kidney indeterminant wedge-shaped low-attenuation focus Mr Mckeon underwent biopsy of left neck mass at [facility] on 09/12/2018, final pathology report came back high-grade neuroendocrine carcinoma, predominantly small cell feature and positive focally week for TTF-1, it was concluded, given history of SVC syndrome and radiological studies diagnosis was revised to metastatic small cell lung cancer. And rechallenge with carboplatin/etoposide was recommended along with tecentriq (atezolizumab), Which he was started on 09/26/2018. Follow-up CT PET scan done after 4 doses of carboplatin/etoposide/ tecentriq , on 12/29/2018 showed persistent left supraclavicular mass measuring 3.7 x 2.7 with SUV of 8.2 compared to 4 prior to by 3.[address] scan of neck done on 08/17/2018 at [facility]. And also showed persistent but stable muscle implant anterior to right femur, with SUV 14.0 and it was biopsied earlier and showed no evidence of metastatic disease Patient was evaluated by Dr. Gorman in March 2019 and as per his evaluation patient still responding to the treatment and left neck mass is smaller than before and . Last chemotherapy was done on 02/03/2019. The muscle implant was also seen with SUV of 14 biopsy of specimen was consistent with recurrent high-grade tumor and he was offered a clinical trial [facility] neuroendocrine oncology clinic at [facility]. Patient did well and clinical trial but eventually developed progressive thrombocytopenia and at his followup visit on May 07, [address] Gorman, his follow-up scan showed disease progression. At that time he was taken off clinical trial as left neck mass continued to grow. CT scan of neck done at the May 2019 followup visit, showed progressive left neck mass site 6.1 x 7.6 cm compared to 4.4 x 6.4 on 02/21/2019 with central hypoattenuation in mass is intimately associated with the left internal jugular vein and now appears to encase it and right pulmonary nodularity, cavitary lesion, right hilar mass seen. With this impression it was decided a few with palliative therapy which include radiation therapy to the left neck mass and because of persistent thrombocytopenia immunotherapy with ipilimumab and nivolumab was recommended and in case thrombocytopenia resolved topotecan based regimen can be considered Tolerated radiation therapy to left neck reasonably well and he concluded radiation therapy on 06/19/2019 o a total dose of 4,500 cGy. recommended that he pursue ipilimumab and nivolumab. 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 difficile which came back positive and he was started on antibiotics overall condition improved was discharge home in a stable condition with a tapering dose of steroids, patient return to [facility] with hypotension and severe diarrhea and again responded very well to high-dose steroids underwent colonoscopy evaluation.which showed extensive inflammation. Came for follow-up, denies any specific complaints, no more diarrhea, no abdominal cramps, no fever or chills, no nausea or vomiting, no mouth sores, overall feeling well and he will finish his tapering dose of steroids tomorrow. . Medications: Advair Diskus 2 puff(s) (of 250-50 mcg/dose) Aerosol Powder, Breath Activated Inhalation b.i.d., Ativan 0.5 - 1 Tablet (of 1 mg) Oral t.i.d. PRN, Cetirizine HCl 1 Tablet (of 10 mg) Tablet Oral b.i.d., Compazine 1 Tablet (of 10 mg) Oral q 4 hours PRN, Diclofenac Sodium 1 Tablet (of 75 mg) Tablet, enteric coated Oral b.i.d., Gabapentin 1 Capsule (of 300 mg) Capsule Oral four times a day, Hydrocodone-Acetaminophen 1 - 2 Tablet (of 5-325 mg) Oral q 6 hours, Lisinopril 1 Tablet (of 20 mg) Oral daily, MetFORMIN HCl 1 Tablet (of 1000 mg) Tablet Oral b.i.d., Metoprolol Tartrate 1 Tablet (of 50 mg) Tablet Oral daily, Oxybutynin Chloride 1 Tablet (of 5 mg) Tablet Oral b.i.d., Pramipexole Dihydrochloride 1 (0.25 mg) Tablet Oral at bedtime, Tradjenta 1 Tablet (of 5 mg) Tablet Oral daily Allergies: Penicillins Review of Systems: Constitutional - Appetite is fair, energy is poor, weight is stable at present, ENMT - Positive for sinus congestion/drainage. No mouth sores. No sore throat or difficulty swallowing, Hematologic/Lymphatic - No unusual bruising or bleeding, Respiratory - Occasional cough, Cardiovascular - No anginal chest pain, palpitations. He has no leg swelling, Gastrointestinal - No nausea, vomiting, diarrhea, GI bleeding. Positive for constipation. No change in bowel habits, no heartburn or early satiety, Genitourinary (M) - No hematuria, dysuria, increased frequency, urgency, hesitancy or incontinence, Musculoskeletal - No joint pain, swelling or redness. No decreased range of motion, Integumentary - No skin ulcers or open wounds, Neurologic - No headaches, no dizziness, Psychiatric - Patient denies anxiety or depression. Pt has difficulty falling asleep. Vital Signs: Performed on Oct 07, 2019 10:13 Height - 72.00 in Weight - 289.0 lbs BSA - 2.49 sq.m BMI - 39.20 (HIGH) Temperature - 99.4 F (HIGH) Pulse - 90 /min Respiration - 26 /min BP - 138/91 mm(hg) O2 Sat - 97 % Pain - 0 Performance Status: 0 - Fully active, able to carry on all predisease activities without restrictions. (ECOG) Physical Examination: ENMT - . No oral exudates, ulcers, masses, thrush or mucositis. Oropharynx clear. Tongue normal, Respiratory - Lungs denies wheezing, Cardiovascular -denies palpitation Abdomen -denies abdominal pain or fullness Extremities - no edema. Lab/Imaging: Test performed on Sep 18, 2019 12:17 Sodium 136 mmol/L Potassium 4.1 mmol/L Chloride 99 mmol/L CO2 28 mmol/L Anion Gap 13.1 BUN 14 mg/dL Creatinine 0.9 mg/dL Cr Clearance (Est) 201.0600 mL/min eGFR 90.1 mL/min Glucose 174 mg/dL Calcium 9.1 mg/dL Protein, Total 6.8 g/dL Albumin 2.8 g/dL Globulin 4.0 g/dL Bilirubin, Total 0.3 mg/dL ALT (SGPT) 23 U/L AST (SGOT) 20 U/L Alkaline Phosphatase 70 IU/L WBC 12.6 10 3/uL RBC 4.30 10 6/uL HGB 13.4 g/dL HCT 42.7 % MCV 99.3 fL MCH 31.2 pg MCHC 31.4 g/dL RDW 17.2 % Platelet Count 174 10 3/cmm MPV 10.1 fL Neutrophils 10.3 10 3/uL Lymphocytes 1.7 10 3/uL Monocytes 0.5 10 3/uL Eosinophils 0.0 10 3/uL Basophils 0.0 10 3/uL Neutrophil % 81.5 % Lymphocyte % 13.1 % Monocyte % 4.1 % Eosinophil % 0.2 % Basophils % 0.1 % Test performed on Jul 23, 2019 09:13 TSH 0.54 uIU/mL Test performed on Jul 16, 2019 08:39 Manual Lymphocytes 43.2 % Manual Monocytes 7.2 % Manual Eosinophils 9.0 % Manual Basophils 0.9 % NRBCs 0.0 /100 WBC Test performed on Jul 10, 2019 15:39 Hemoglobin A1C 5.2 % Impression: Recurrent small cell lung cancer per left neck mass biopsy on 09/12/2018, which showed high-grade neuroendocrine carcinoma, predominantly small cell feature and positive focally for TTF-1, it was concluded, given history of SVC syndrome and radiological studies diagnosis was revised to metastatic small cell lung cancer Metastatic High-grade neuroendocrine carcinoma per needle core biopsy of left neck mass done on 10/16/2017 Pathology also showed sheets and cords of large malignant cells with neuroendocrine features, numerous mitotic figures are seen as well as area of tumor necrosis. immuno histochemistry positive for CAM 5.2, CD 56 , synaptophysin, TTF-[address] scan of chest done on 10/23/2017 showed 7.7 x 2.3 cm right paratracheal mass with a near occlusion of SVC, and encasement of right proximal pulmonary artery with moderate stenosis, and encasement of right proximal main stem bronchus and bronchus intermedius CT PET scan done on 10/28/2017 showed hypermetabolic left neck mass measuring 4.9 x 3.7 cm with SUV of 12.9 and right paratracheal mass measures 6.8 x 7.8 cm with SUV of 15 and at the level of pelvis a 6.1 x 4.5 cm soft tissue mass in the right external iliac territory has SUV of 14.4 and and FDG positive muscular implant anterior to right femoral neck measuring about 1.2 cm in size On radiation therapy to right paratracheal mass and chemotherapy with carboplatin and etoposide was added on 11/06/2017. He received radiation therapy to right pelvic mass Right leg DVT diagnosed on 12/07/2017 on Eliquis. Mr. Mckeon was admitted on 01/20/2018 with an initial concerns for sepsis but was found to have UTI. He was discharged on antibiotics andhis fever, rigors and tachycardia resolved. CT PET scan done on 02/03/2018 showed left sided cervical mass seen on exam from 10/28/2017 is now subcentimeter in size and within normal limit FDG activity early. Right hilar/paratracheal mass demonstrates activity minimally greater than that of mediastinal background and molecular 2.3 x 4.1 cm. Right external iliac mass now measured 1.5 cm without significant FDG activity. The muscle implant anterior to the right femoral neck currently has SUV of 6.6, down from 14.1, indicating a positive response to therapy. Repeat CT PET scan done after 6th dose of chemo on 04/21/2018 showed previously described left sided cervical mass was not identifiable on the current study. Right hilar/paratracheal mass is improved in size to 3 cm with a minimum FDG activity. Right external iliac lymph node was unchanged in size but without significant FDG activity Muscle implant anterior to right femoral neck had an SUV of 12 compared to 6.6 previously, consistent with progression of disease at that location. On 06/04/2018, he underwent CT-guided biopsy of this lesion at [facility] radiology department in [place] and final pathology report came back fibrohistiocytic proliferation, no evidence of carcinoma CT scan of neck chest abdomen pelvis done on 08/17/2018 showed recurrent mass in the left neck centered at level of hyoid bone. Mass extends over a length of 4 x 2.2 x 3.4 cm and abuts and displaces fat planes along the sternocleidomastoid muscle. Mass also abuts left jugular vein. No additional mass seen. Mass in a similar location on the study of 09/18/2017. CT PET scan done on 04/21/[address] scan of chest showed continued decrease right medial upper lobe mass. Unchanged right upper lobe linear and patchy nodular opacity. New right lower lobe superior segment focal irregular opacity nonspecific follow-up CT scan recommended in [address] abdomen showed no definite metastatic disease in abdomen pelvis. Left mid kidney indeterminant wedge-shaped low-attenuation focus nonspecific. Mr Mckeon underwent biopsy of left neck mass at [facility] on 09/12/2018, final pathology report came back high-grade neuroendocrine carcinoma, predominantly small cell feature and positive focally week for TTF-1, it was concluded, given history of SVC syndrome and radiological studies diagnosis was revised to metastatic small cell lung cancer. Re-challenging with carboplatin and etoposide was recommended along with tecentriq (atezolizumab). So planning was to start him on carboplatin/etoposide and tecentriq 1200 mg IV day 1 q3 weeks ???[address] PET scan if complete remission, may consider maintenance therapy with Tecentriq alone.Which was started on 09/26/2018 Follow-up CT PET scan done after 4 doses of carboplatin/etoposide/ tecentriq , on 12/29/2018 showed persistent left supraclavicular mass measuring 3.7 x 2.7 with SUV of 8.2 compared to 4 prior to by 3.[address] scan of neck done on 08/17/2018 at [facility]. It also showed persistent but stable muscle implant anterior to right femur, with SUV 14.0 and it was biopsied earlier and showed no evidence of metastatic disease Patient was evaluated by Dr. Gorman in March 2019 and as per his evaluation, Mr Mckeon was still responding to the treatment and left neck mass is smaller than before. Last chemotherapy was done on 02/03/2019. The muscle implant was also seen with SUV of 14 biopsy of specimen was consistent with recurrent high-grade tumor and he was offered a clinical trial at neuroendocrine oncology clinic at [facility]. Patient did well in the clinical trial but eventually developed progressive thrombocytopenia and follow-up scan showed disease progressio at [facility] followup visit on May 07, 2019 At that time he was taken off clinical trial as left neck mass continued to grow. CT scan of neck done showed progressive left neck mass site 6.1 x 7.6 cm compared to 4.4 x 6.4 on 02/21/2019 with central hypoattenuation in mass and it was intimately associated with the left internal jugular vein and now appears to encase it. Right pulmonary nodularity, cavitary lesion, right hilar mass seen. With this impression, it was decided to pursue palliative therapy which include radiation therapy to the left neck mass and because of persistent thrombocytopenia- immunotherapy with ipilimumab and nivolumab was recommended and in case thrombocytopenia resolved- topotecan based regimen can be considered. Tolerated radiation therapy to left neck reasonably well and concluded radiation therapy on 06/19/2019 to a total dose of 4500 cGy. recommended that he pursue ipilimumab and nivolumab. He began his first cycle on 07/10/2019. He has tolerated it well thus far. 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 Otherwise no other issues or complaints. He is scheduled for follow-up CT PET scan on 09/11/2019. And if CT PET scan shows complete remission or a minimum disease then will consider to Temodar 100 mg/m??? daily for 5 days every 28 days as maintenance therapy if it shows extensive disease, then will consider systemic therapy with FOLFOX. Patient return to clinic in [address] PET scan and for further discussion. Signed By: Nupur Plummer M.D. <<Signature on File>>
[2019-10-16 09:40] LABS: Basophils % 0.4 %; Eosinophils # 0.1 10^3/uL (0.0-0.8); Hematocrit 41.5 % (42.0-52.0); Lymphocytes # 1.9 10^3/uL (0.8-4.8); Lymphocytes % 26.9 %; Mean Corpuscular HGB Conc 31.3 g/dL (30.0-36.0); Mean Platelet Volume 9.7 fL (7.4-10.4); Monocytes # 0.6 10^3/uL (0.2-0.9); Neutrophils # 4.4 10^3/uL (1.8-7.7); Neutrophils % 62.1 %; Nucleated Red Blood Cells % 0 %; Platelet Count 186 10^3/cmm (130-400); Red Blood Count 4.19 10^6/uL (4.1-5.3); Red Cell Distribution Width 16.7 % (12.1-15.1)
[2019-10-16 10:10] LABS: Alanine Aminotransferase 17 U/L (0-41); Albumin Level 3.4 g/dL (3.5-5.2); Alkaline Phosphatase 76 IU/L (40-130); Anion Gap 14.9 (5-19); Aspartate Amino Transferase 18 U/L (0-40); Blood Urea Nitrogen 14 mg/dL (6-20); Calcium 9.2 mg/dL (8.5-10.5); Carbon Dioxide 25 mmol/L (22-29); Chloride 102 mmol/L (98-107); Globulin 3.4 g/dL (1.3-4.6); Glomerular Filtration Rate 103.2 mL/min (90-130); Glucose 135 mg/dL (65-115); Osmolality Calculated 284 mOsm/kg (285-295); Potassium 3.9 mmol/L (3.5-5.1); Sodium 138 mmol/L (136-145); Total Bilirubin 0.4 mg/dL (0.15-1.2); Total Protein 6.8 g/dL (6.6-8.7)
--- NOTE | 2019-10-16 10:51 | ONC FU_ITS ---
Dr. Plummer follow up note Patient: Eric Mckeon Unit #: [id number]: 1970 Dicatated By: Nupur Plummer M.D.Date of Visit:Oct 16, 2019 Onc Med Follow-up/Prog Note History of Present Illness: Mr. Mckeon is a 48-year-old gentleman who developed a left neck mass. He was seen by Dr. Ben FOX and underwent needle core biopsy of left neck mass on 10/16/2017. 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 He underwent a CT of chest on 10/23/2017 which revealed a large right paratracheal mass measuring 8.3???7.7 cm. It involves the superior vena cava with near occlusion. It also causes encasement of the right main pulmonary artery with moderate narrowing with moderate stenosis. It also encases the right proximal main stem bronchus and bronchus intermedius. Mr Mckeon subsequently underwent CT PET scan on 10/28/2017 which showed hypermetabolic left neck mass 4.9 x 3.7 cm with SUV of 12.9. Right paratracheal mass with SUV of 15. At the level of pelvis a 6.1 x 4.5 cm soft tissue mass was reported in the right external iliac territory which has SUV of 14.4. There was an FDG positive muscular implant anterior to right femoral neck measuring 1.[address] scan done on 12/07/2017 showed right lower lobe and right middle lobe pulmonary embolism and was started on apixaban and for the study showed right lower extremity clot Mr Mckeon was seen by radiation oncology and started on radiation to his chest on urgent basis because of risk of impending SVC syndrome. He began his first cycle of chemotherapy with Carboplatin/etoposide on 11/06/2017. His last cycle of chemotherapy was on 02/06/2018. Mr. Mckeon did have follow-up PET CT on 02/03/2018. The left-sided cervical mass seen on the exam from 10/28/2017 is now subcentimeter in size and within minimal FDG activity. Similarly, the right hilar/paratracheal mass demonstrates activity minimally greater than that of the mediastinal background and measures 2.3 x 4.1 cm. The right external iliac mass now measures 1.5 cm without significant FDG activity. The muscle implant anterior to the right femoral neck currently has SUV of 6.6 down from 14.1 indicating a positive response to chemotherapy. His cycle 6 chemotherapy, was on 04/02/2018. Patient has seen Dr. Cotton radiation oncology, regarding persistent activity in muscle implant anterior to the right femoral neck, as per patient he was informed that there is a risk of radiation-induced damage to his femoral neck/ right hip and suggested to continue with chemotherapy and repeat CT PET scan as planned. Underwent CT-guided biopsy of right iliopsoas muscle implant anterior to right femoral neck on 06/04/2018 at [facility] radiology department in [place] and final pathology report came back fibrohistiocytic proliferation, no evidence of carcinoma Sleep apnea on CPAP machine Underwent fluoroscopy Port-A-Cath on 08/06/2018 showed patent Port-A-Cath He was supposed to get CT PET scan but insurance refused coverage so CT scan of chest abdomen pelvis and neck was done on 08/17/2018. It reported recurrent mass in the left neck centered at level of hyoid bone. Mass extends over a length of 4 x 2.2 x 3.4 cm. The mass abuts and displaces the fat planes along the sternocleidomastoid muscle. Mass also abuts the left jugular vein. Mass in a similar location on study of 09/18/2017. CT PET scan done on 04/21/2018 was negative. No additional masses noted. CT scan of chest showed continued decrease righ media l upper lobe mass; Unchanged right upper lobe linear and patchy nodular opacity; CT abdomen pelvis showed no definite metastatic disease in abdomen pelvis; Left mid kidney indeterminant wedge-shaped low-attenuation focus Mr Mckeon underwent biopsy of left neck mass at [facility] on 09/12/2018, final pathology report came back high-grade neuroendocrine carcinoma, predominantly small cell feature and positive focally week for TTF-1, it was concluded, given history of SVC syndrome and radiological studies diagnosis was revised to metastatic small cell lung cancer. And rechallenge with carboplatin/etoposide was recommended along with tecentriq (atezolizumab), Which he was started on 09/26/2018. Follow-up CT PET scan done after 4 doses of carboplatin/etoposide/ tecentriq , on 12/29/2018 showed persistent left supraclavicular mass measuring 3.7 x 2.7 with SUV of 8.2 compared to 4 prior to by 3.[address] scan of neck done on 08/17/[address] [facility]. And also showed persistent but stable muscle implant anterior to right femur, with SUV 14.0 and it was biopsied earlier and showed no evidence of metastatic disease Patient was evaluated by Dr. Gorman in March 2019 and as per his evaluation patient still responding to the treatment and left neck mass is smaller than before and . Last chemotherapy was done on 02/03/2019. The muscle implant was also seen with SUV of 14 biopsy of specimen was consistent with recurrent high-grade tumor and he was offered a clinical trial [facility] neuroendocrine oncology clinic at [facility]. Patient did well and clinical trial but eventually developed progressive thrombocytopenia and at his followup visit on May 07, [address] Gorman, his follow-up scan showed disease progression. At that time he was taken off clinical trial as left neck mass continued to grow. CT scan of neck done at the May 2019 followup visit, showed progressive left neck mass site 6.1 x 7.6 cm compared to 4.4 x 6.4 on 02/21/2019 with central hypoattenuation in mass is intimately associated with the left internal jugular vein and now appears to encase it and right pulmonary nodularity, cavitary lesion, right hilar mass seen. With this impression it was decided a few with palliative therapy which include radiation therapy to the left neck mass and because of persistent thrombocytopenia immunotherapy with ipilimumab and nivolumab was recommended and in case thrombocytopenia resolved topotecan based regimen can be considered Tolerated radiation therapy to left neck reasonably well and he concluded radiation therapy on 06/19/2019 o a total dose of 4,500 cGy. recommended that he pursue ipilimumab and nivolumab. 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 difficile which came back positive and he was started on antibiotics overall condition improved was discharge home in a stable condition with a tapering dose of steroids, patient return to [facility] with hypotension and severe diarrhea and again responded very well to high-dose steroids underwent colonoscopy evaluation.which showed extensive inflammation. Follow-up CT PET scan done on 10/12/2019 showed the left cervical mass now measured 3.0 x 1.8 cm with SUV of 4.2, significant improvement from prior study. The implant anterior to right femur has improved, now with SUV of 6 down from [address] PET scan done on 12/29/2018. Started on maintenance therapy with Temodar 100 mg/m??? daily for 5 days every 28 days prescription was given on 10/16/2019 Came for follow-up, denies any specific complaints, no nausea vomiting no fever no chills, no diarrhea constipation, no abdominal pain, appetite is good . Medications: Advair Diskus 2 puff(s) (of 250-50 mcg/dose) Aerosol Powder, Breath Activated Inhalation b.i.d., Ativan 0.5 - 1 Tablet (of 1 mg) Oral t.i.d. PRN, Cetirizine HCl 1 Tablet (of 10 mg) Tablet Oral b.i.d., Compazine 1 Tablet (of 10 mg) Oral q 4 hours PRN, Diclofenac Sodium 1 Tablet (of 75 mg) Tablet, enteric coated Oral b.i.d., Gabapentin 1 Capsule (of 300 mg) Capsule Oral four times a day, Hydrocodone-Acetaminophen 1 - 2 Tablet (of 5-325 mg) Oral q 6 hours, Lisinopril 1 Tablet (of 20 mg) Oral daily, MetFORMIN HCl 1 Tablet (of 1000 mg) Tablet Oral b.i.d., Metoprolol Tartrate 1 Tablet (of 50 mg) Tablet Oral daily, Oxybutynin Chloride 1 Tablet (of 5 mg) Tablet Oral b.i.d., Pramipexole Dihydrochloride 1 (0.25 mg) Tablet Oral at bedtime, Tradjenta 1 Tablet (of 5 mg) Tablet Oral daily Allergies: Penicillins Review of Systems: Review of Systems is not available for this patient. Vital Signs: Vitals are not available for this patient. Performance Status: 0 - Fully active, able to carry on all predisease activities without restrictions. (ECOG) Physical Examination: ENMT - S. No oral exudates, ulcers, masses, thrush or mucositis. Oropharynx clear. Tongue normal, Respiratory - Lungs are clear ,no wheezing, Cardiovascular - Regular rate and rhythm of heart, Abdomen - Non-tender, Good bowel sound, Extremities - No visible edema. Lab/Imaging: Test performed on Oct 07, 2019 08:55 Sodium 137 mmol/L Potassium 4.0 mmol/L Chloride 101 mmol/L CO2 24 mmol/L Anion Gap 16.0 BUN 16 mg/dL Creatinine 1.1 mg/dL Cr Clearance (Est) 164.5000 mL/min eGFR 71.4 mL/min Glucose 167 mg/dL Calcium 9.3 mg/dL Protein, Total 7.4 g/dL Albumin 3.5 g/dL Globulin 3.9 g/dL Bilirubin, Total 0.3 mg/dL ALT (SGPT) 22 U/L AST (SGOT) 16 U/L Alkaline Phosphatase 69 IU/L WBC 7.4 10 3/uL RBC 4.36 10 6/uL HGB 13.5 g/dL HCT 42.4 % MCV 97.2 fL MCH 31.0 pg MCHC 31.8 g/dL RDW 17.1 % Platelet Count 193 10 3/cmm MPV 9.0 fL Neutrophils 5.5 10 3/uL Lymphocytes 1.4 10 3/uL Monocytes 0.3 10 3/uL Eosinophils 0.0 10 3/uL Basophils 0.0 10 3/uL Neutrophil % 74.2 % Lymphocyte % 19.5 % Monocyte % 4.2 % Eosinophil % 0.3 % Basophils % 0.3 % Test performed on Jul 23, 2019 09:13 TSH 0.54 uIU/mL Test performed on Jul 16, 2019 08:39 Manual Lymphocytes 43.2 % Manual Monocytes 7.2 % Manual Eosinophils 9.0 % Manual Basophils 0.9 % NRBCs 0.0 /100 WBC Test performed on Jul 10, 2019 15:39 Hemoglobin A1C 5.2 % Impression: Recurrent small cell lung cancer per left neck mass biopsy on 09/12/2018, which showed high-grade neuroendocrine carcinoma, predominantly small cell feature and positive focally for TTF-1, it was concluded, given history of SVC syndrome and radiological studies diagnosis was revised to metastatic small cell lung cancer Metastatic High-grade neuroendocrine carcinoma per needle core biopsy of left neck mass done on 10/16/2017 Pathology also showed sheets and cords of large malignant cells with neuroendocrine features, numerous mitotic figures are seen as well as area of tumor necrosis. immuno histochemistry positive for CAM 5.2, CD 56 , synaptophysin, TTF-[address] scan of chest done on 10/23/2017 showed 7.7 x 2.3 cm right paratracheal mass with a near occlusion of SVC, and encasement of right proximal pulmonary artery with moderate stenosis, and encasement of right proximal main stem bronchus and bronchus intermedius CT PET scan done on 10/28/2017 showed hypermetabolic left neck mass measuring 4.9 x 3.7 cm with SUV of 12.9 and right paratracheal mass measures 6.8 x 7.8 cm with SUV of 15 and at the level of pelvis a 6.1 x 4.5 cm soft tissue mass in the right external iliac territory has SUV of 14.4 and and FDG positive muscular implant anterior to right femoral neck measuring about 1.2 cm in size On radiation therapy to right paratracheal mass and chemotherapy with carboplatin and etoposide was added on 11/06/2017. He received radiation therapy to right pelvic mass Right leg DVT diagnosed on 12/07/2017 on Eliquis. Mr. Mckeon was admitted on 01/20/2018 with an initial concerns for sepsis but was found to have UTI. He was discharged on antibiotics andhis fever, rigors and tachycardia resolved. CT PET scan done on 02/03/2018 showed left sided cervical mass seen on exam from 10/28/2017 is now subcentimeter in size and within normal limit FDG activity early. Right hilar/paratracheal mass demonstrates activity minimally greater than that of mediastinal background and molecular 2.3 x 4.1 cm. Right external iliac mass now measured 1.5 cm without significant FDG activity. The muscle implant anterior to the right femoral neck currently has SUV of 6.6, down from 14.1, indicating a positive response to therapy. Repeat CT PET scan done after 6th dose of chemo on 04/21/2018 showed previously described left sided cervical mass was not identifiable on the current study. Right hilar/paratracheal mass is improved in size to 3 cm with a minimum FDG activity. Right external iliac lymph node was unchanged in size but without significant FDG activity Muscle implant anterior to right femoral neck had an SUV of 12 compared to 6.6 previously, consistent with progression of disease at that location. On 06/04/2018, he underwent CT-guided biopsy of this lesion at [facility] radiology department in [place] and final pathology report came back fibrohistiocytic proliferation, no evidence of carcinoma CT scan of neck chest abdomen pelvis done on 08/17/2018 showed recurrent mass in the left neck centered at level of hyoid bone. Mass extends over a length of 4 x 2.2 x 3.4 cm and abuts and displaces fat planes along the sternocleidomastoid muscle. Mass also abuts left jugular vein. No additional mass seen. Mass in a similar location on the study of 09/18/2017. CT PET scan done on 04/21/[address] scan of chest showed continued decrease right medial upper lobe mass. Unchanged right upper lobe linear and patchy nodular opacity. New right lower lobe superior segment focal irregular opacity nonspecific follow-up CT scan recommended in [address] abdomen showed no definite metastatic disease in abdomen pelvis. Left mid kidney indeterminant wedge-shaped low-attenuation focus nonspecific. Mr Mckeon underwent biopsy of left neck mass at [facility] on 09/12/2018, final pathology report came back high-grade neuroendocrine carcinoma, predominantly small cell feature and positive focally week for TTF-1, it was concluded, given history of SVC syndrome and radiological studies diagnosis was revised to metastatic small cell lung cancer. Re-challenging with carboplatin and etoposide was recommended along with tecentriq (atezolizumab). So planning was to start him on carboplatin/etoposide and tecentriq 1200 mg IV day 1 q3 weeks ???[address] PET scan if complete remission, may consider maintenance therapy with Tecentriq alone.Which was started on 09/26/2018 Follow-up CT PET scan done after 4 doses of carboplatin/etoposide/ tecentriq , on 12/29/2018 showed persistent left supraclavicular mass measuring 3.7 x 2.7 with SUV of 8.2 compared to 4 prior to by 3.[address] scan of neck done on 08/17/[address] [facility]. It also showed persistent but stable muscle implant anterior to right femur, with SUV 14.0 and it was biopsied earlier and showed no evidence of metastatic disease Patient was evaluated by Dr. Gorman in March 2019 and as per his evaluation, Mr Mckeon was still responding to the treatment and left neck mass is smaller than before. Last chemotherapy was done on 02/03/2019. The muscle implant was also seen with SUV of 14 biopsy of specimen was consistent with recurrent high-grade tumor and he was offered a clinical trial at neuroendocrine oncology clinic at [facility]. Patient did well in the clinical trial but eventually developed progressive thrombocytopenia and follow-up scan showed disease progressio at [facility] followup visit on May 07, 2019 At that time he was taken off clinical trial as left neck mass continued to grow. CT scan of neck done showed progressive left neck mass site 6.1 x 7.6 cm compared to 4.4 x 6.4 on 02/21/2019 with central hypoattenuation in mass and it was intimately associated with the left internal jugular vein and now appears to encase it. Right pulmonary nodularity, cavitary lesion, right hilar mass seen. With this impression, it was decided to pursue palliative therapy which include radiation therapy to the left neck mass and because of persistent thrombocytopenia- immunotherapy with ipilimumab and nivolumab was recommended and in case thrombocytopenia resolved- topotecan based regimen can be considered. Tolerated radiation therapy to left neck reasonably well and concluded radiation therapy on 06/19/2019 to a total dose of [address] Plummer recommended that he pursue ipilimumab and nivolumab. He began his first cycle on 07/10/2019. He has tolerated it well thus far. Plan: Discussed with patient regarding his labs white blood count 7 hemoglobin 13 crit 41.[address] PET scan done on 10/12/2019 showed no new lesion and significant improvement in the left cervical mass as well as implant anterior to right femoral. Clinically, patient is doing well, no new signs symptoms suggestive of disease progression and his follow-up CT PET scan done recently showed significant improvement in left cervical mass and in implant anterior to right femoral and no new lesions. Treatment options including observation versus maintenance therapy with single agent Temodar was discussed, patient opted for maintenance therapy. All the side effects possible benefits associated with Temodar including but not limited to bone marrow suppression, nausea vomiting, generalized weakness and fatigue were mentioned further teaching will be done by chemotherapy nurse. We'll obtain approval from his insurance prior to treatment, he was given prescription for Temodar 100 mg/m??? daily for 5 days and repeat every 28 days. And plan to repeat his follow-up CT PET scan after 3 cycles unless patient has new symptoms suggestive of disease progression. Next Patient return to clinic 2 weeks after initiation of therapy with Temodar, with CBC CMP Signed By: Nupur Plummer M.D. <<Signature on File>>
== END 2019-10-31 23:59 | disposition home or self-care (01) ==
LOC: ONCMED 06:41
PROVIDERS: Family Provider Physician Assistant; PCP Physician Assistant; Visit Provider Internal Medicine Hematology & Oncology
DX: C34.11 Malignant neoplasm of upper lobe, right bronchus or lung (principal); C79.89 Secondary malignant neoplasm of other specified sites; K52.1 Toxic gastroenteritis and colitis; T45.1X5A Adverse effect of antineoplastic and immunosuppressive drugs, initial encounter; Z92.3 Personal history of irradiation; Z86.718 Personal history of other venous thrombosis and embolism; Z79.01 Long term (current) use of anticoagulants; Z79.899 Other long term (current) drug therapy
CPT/HCPCS: 36415; 80053; 85025; 96523; 99214

== ENCOUNTER 2019-10-31 15:45 | Inpatient (IN) | payer MEDICARE, MEDICAID, SELFPAY ==
[2019-10-31] VITALS (10 sets, daily range): BP systolic 87–149; BP diastolic 55–87; PULSE 100–117; RESP 16–20; TEMP 36.6–37; O2SAT 93–100; BMI 36.1
--- NOTE | 2019-10-31 16:38 | CTR_ITS ---
PROCEDURE INFORMATION: Exam: CT Abdomen And Pelvis With Contrast Exam date and time: 10/31/2019 4:49 PM Age: 48 years old Clinical indication: Other: Bloody stool; Abdominal pain; Localized; Lower; Prior surgery; Surgery type: Hernia; Additional info: Abd pain TECHNIQUE: Imaging protocol: Computed tomography of the abdomen and pelvis with intravenous contrast. Radiation optimization: All CT scans at this facility use at least one of these dose optimization techniques: automated exposure control; mA and/or kV adjustment per patient size (includes targeted exams where dose is matched to clinical indication); or iterative reconstruction. Contrast material: OMNI 300; Contrast volume: 95 ml; Contrast route: IV; COMPARISON: CT chest abd pel w con* 09/01/2019 10:10 PM RADIATION DOSE METRICS: Total DLP: 1974.99 mGy-cm FINDINGS: Liver: Liver unremarkable. Gallbladder and bile ducts: Gallbladder free of cholelithiasis. No intra or extrahepatic biliary ectasia. Pancreas: Pancreas unremarkable. No pancreatic ductal ectasia. Spleen: Calcified splenic granulomas. Adrenals: Again note of bilateral small adrenal nodules that measure 9 mm on the left and 7 mm on the right both believed to represent adenomas due to CT attenuation values. No significant will change. Kidneys and ureters: Again note of an old cortical scar equator left kidney. Tiny focus of nonobstructing calyceal nephrolithiasis inferior pole left kidney under 2 mm. No hydronephrosis or perinephric fluid. Stable tiny cortical cyst equator right kidney and inferior pole left kidney. Stomach and bowel: Similar findings as from the last of evaluation of 09/01/2019. Evidence of mild low-grade infectious or inflammatory cecitis and ascending colitis to the level of the patent flexure. Remainder of the colon unremarkable. Nonobstructive bowel pattern. No visible adynamic or reactive ileus. Appendix: Appendix noninflamed. Intraperitoneal space: Unremarkable. No free air. No significant fluid collection. Vasculature: The abdominal aorta is nonaneurysmal. Lymph nodes: No visible panniculitis/mesenteritis or evidence of mesenteric lymphadenitis/lymphadenopathy. Bladder: Urinary bladder unremarkable. Reproductive: Prostate hypertrophy. Bones/joints: No visible active osseous pathology. No visible osteolytic or osteoblastic destructive process within the field of view. Soft tissues: Small periumbilical ventral hernia measuring 5.4 cm x 2.5 cm by 4.2 cm unchanged. No incarcerated bowel. Other findings: Obesity. CT/CT abdomen pelvis w con* [id number] IMPRESSION: 1. Mild low-grade infectious or inflammatory cecitis and ascending colitis to level of hepatic flexure. 2. Stable bilateral small adrenal adenomas. 3. Other nonurgent, nonemergent, chronic, and age related findings as discussed in detail in text above. Radiation Dose CTDIVOL = (mGy): DLP = 1974.99 (mGy-cm)
--- NOTE | 2019-10-31 16:40 | W.ED.GIBLEED ---
Documented by User: Erin Jackson MD 10/31/19 16:48 HPI - GI Bleed General: Chief complaint: GI Bleed Stated complaint: blood in stool Time Seen by Provider: 10/31/19 16:24 Source: patient Limitations: no limitations History of Present Illness: HPI Narrative: 48-year-old male who has a history of lung cancer he started new chemotherapy pill yesterday. Patient states that he has had lower abdominal pain since then along with bright red blood in stool. Patient states that it is a moderate amount of blood but not a large amount. He has had some generalized weakness. He states his pain is sharp in nature and rates it a 7 out of 10. Denies any worsening or improving factors. He is on Eliquis. Associated symptoms: Reports abdominal pain; Denies chills, easy bruising, fever(s), headache(s), nausea, rash or vomiting Review of Systems Const: Denies: fever, chills, body aches or change in appetite Eyes: Denies: blurry vision or eye discomfort ENMT: Denies: throat pain or dental pain Card: Denies: chest pain Resp: Denies: shortness of breath GI: Reports: abdominal pain and blood in stool; Denies: nausea, vomiting or diarrhea : Denies: painful urination Musc: Denies: neck pain or back pain Skin/Breast: Denies: rash Neuro: Denies: headache Psych: Denies: depression Romeo/Lymph: Denies: easy bruising All/Imm: Denies: hives PFSH ED PFSH: Medical History COPD (chronic obstructive pulmonary disease) History of pulmonary embolism Hypertension Metastatic cancer Obesity Port-A-Cath in place Sleep apnea Small cell lung cancer Tobacco dependency Type 2 diabetes mellitus Surgical History History of lung biopsy Status post chemotherapy Family History Father Cancer Social History Smoking and tobacco status: current every day smoker cigarettes Packs smoked per day: 1 Alcohol intake: never Household members: spouse Marital status: Current occupational status: disabled Physical Exam Const: COMMON NORMALS: no apparent distress, oriented x3 and healthy appearing HENMT: COMMON NORMALS: normocephalic and head/scalp atraumatic HEAD & SCALP: normocephalic and atraumatic Eye: COMMON NORMALS: PERRL and EOMs intact bilaterally PUPIL: Yes PERRL Neck/C-Spine: COMMON NORMALS: full ROM and supple Chest: COMMONS NORMALS: inspection of chest normal and palpation of chest normal Resp: COMMON NORMALS: normal respiratory effort, no retractions, no use of accessory muscles and clear to auscultation bilaterally AUSCULTATION: clear to auscultation bilaterally Cardio: COMMON NORMALS: regular rate, regular rhythm and no murmurs RATE: regular rate RHYTHM: regular rhythm GI: COMMON NORMALS: normal to inspection, nondistended, normoactive bowel sounds, soft to palpation and no masses PALPATION: Yes soft and Yes tender Details: LLQ OTHER: No gross blood on rectal exam Hemoccult was positive Extremity: COMMON NORMALS: normal to inspection and full ROM Neuro: COMMON NORMALS: oriented x3, moves all extremities and no focal motor deficits Psych: COMMON NORMALS: mental status grossly normal, thought process normal and cooperative THOUGHT PROCESS: normal thought process Skin: COMMON NORMALS: no rashes or lesions noted and no wounds GENERAL SKIN EXAM: no rashes or lesions noted Course Vital Signs: Vital signs: Vital Signs Temperature 97.8 F 10/31/19 19:37 Pulse Rate 100 10/31/19 22:00 Respiratory Rate 16 10/31/19 22:00 Blood Pressure 87/55 10/31/19 22:00 Pulse Oximetry 94 10/31/19 22:00 MDM - GI Bleed MDM Narrative: Medical decision making narrative: Patient presents with abdominal pain along with rectal bleeding. Rectal exam here showed no gross amount of blood but was Hemoccult positive. Patient labs are pending and care turned over to Dr. Orlando at this time. Lab Data: Labs: Lab Results 10/31/19 10/31/19 10/31/19 Range/Units 17:11 17:11 17:11 WBC (4.0-10.0) 10^3/ uL RBC (4.1-5.3) 10^6/u L Hgb (11.7-16.6) g/dL Hct (42.0-52.0) % MCV (80-94) fL MCH (28.0-34.0) pg MCHC (30.0-36.0) g/dL RDW (12.1-15.1) % Plt Count (130-400) 10^3/c mm MPV (7.4-10.4) fL Neut % (Auto) % Lymph % (Auto) % [place] % (Auto) % Eos % (Auto) % Baso % (Auto) % Neut # (Auto) (1.8-7.7) 10^3/u L Lymph # (Auto) (0.8-4.8) 10^3/u L [place] # (Auto) (0.2-0.9) 10^3/u L Eos # (Auto) (0.0-0.8) 10^3/u L Baso # (Auto) (0.0-0.1) 10^3/u L Nucleated RBC % (a uto) % Nucleated RBCs # /100WBC PT 14.50 H (10.5-13.3) SECO NDS INR 1.10 (0.8-1.2) Sodium 137 (136-145) mmol/L Potassium 4.5 (3.5-5.1) mmol/L Chloride 101 (98-107) mmol/L Carbon Dioxide 24 (22-29) mmol/L Anion Gap 16.5 (5-19) BUN 13 (6-20) mg/dL Creatinine 1.0 (0.7-1.2) mg/dL GFR Calculation 79.8 L (90-130) mL/min Glucose 100 (65-115) mg/dL Calculated Osmolal ity 280 L (285-295) mOsm/k g Calcium 9.3 (8.5-10.5) mg/dL Total Bilirubin 0.4 (0.15-1.2) mg/dL AST 17 (0-40) U/L ALT 8 (0-41) U/L Alkaline Phosphata se 86 (40-130) IU/L Total Protein 7.8 (6.6-8.7) g/dL Albumin 3.5 (3.5-5.2) g/dL Globulin 4.3 (1.3-4.6) g/dL Procalcitonin 0.10 (0-0.5) ng/mL Blood Type Rho(D) Type Antibody Screen 10/31/19 10/31/19 Range/Units 17:57 17:57 WBC 10.5 H (4.0-10.0) 10^3/ uL RBC 3.98 L (4.1-5.3) 10^6/u L Hgb 12.1 (11.7-16.6) g/dL Hct 38.2 L (42.0-52.0) % MCV 96.0 H (80-94) fL MCH 30.4 (28.0-34.0) pg MCHC 31.7 (30.0-36.0) g/dL RDW 15.5 H (12.1-15.1) % Plt Count 273 (130-400) 10^3/c mm MPV 9.3 (7.4-10.4) fL Neut % (Auto) 75.8 % Lymph % (Auto) 16.4 % [place] % (Auto) 6.7 % Eos % (Auto) 0.2 % Baso % (Auto) 0.4 % Neut # (Auto) 7.9 H (1.8-7.7) 10^3/u L Lymph # (Auto) 1.7 (0.8-4.8) 10^3/u L [place] # (Auto) 0.7 (0.2-0.9) 10^3/u L Eos # (Auto) 0.0 (0.0-0.8) 10^3/u L Baso # (Auto) 0.0 (0.0-0.1) 10^3/u L Nucleated RBC % (a uto) 0 % Nucleated RBCs # 0.0 /100WBC PT (10.5-13.3) SECO NDS INR (0.8-1.2) Sodium (136-145) mmol/L Potassium (3.5-5.1) mmol/L Chloride (98-107) mmol/L Carbon Dioxide (22-29) mmol/L Anion Gap (5-19) BUN (6-20) mg/dL Creatinine (0.7-1.2) mg/dL GFR Calculation (90-130) mL/min Glucose (65-115) mg/dL Calculated Osmolal ity (285-295) mOsm/k g Calcium (8.5-10.5) mg/dL Total Bilirubin (0.15-1.2) mg/dL AST (0-40) U/L ALT (0-41) U/L Alkaline Phosphata se (40-130) IU/L Total Protein (6.6-8.7) g/dL Albumin (3.5-5.2) g/dL Globulin (1.3-4.6) g/dL Procalcitonin (0-0.5) ng/mL Blood Type A Positive Rho(D) Type Positive Antibody Screen Negative Discharge Plan Discharge Patient Disposition: Admitted As Inpatient Admit Provider: Rashaun Jones Clinical Impression: Colitis, Cecitis, Coagulopathy GI bleeding Qualifiers: GI bleed type/associated pathology: unspecified gastrointestinal hemorrhage type Qualified Code(s): K92.2 - Gastrointestinal hemorrhage, unspecified Anemia Qualifiers: Anemia type: other cause Other causes of anemia: other cause, not classified Qualified Code(s): D64.89 - Other specified anemias Primary lung cancer Qualifiers: Laterality: right Qualified Code(s): C34.91 - Malignant neoplasm of unspecified part of right bronchus or lung Condition: Stable Referrals: Pamela Lorenzana PA [Primary Care Provider] - Discharge Date/Time: 10/31/19 19:42 Sign Out Sign Out Data: Patient Sign Out occurred on 10/31/19 at 17:16. Patient's care was discussed, and care was transferred from to Sita Moore DO. Coding Level of Care Code ED Video Specialist for Chg Fwd Exam Comprehensive Documented by User: Sita Orlando DO 10/31/19 22:31 HPI - GI Bleed General: Chief complaint: GI Bleed Stated complaint: blood in stool Time Seen by Provider: 10/31/19 16:24 PFSH ED PFSH: Medical History COPD (chronic obstructive pulmonary disease) History of pulmonary embolism Hypertension Metastatic cancer Obesity Port-A-Cath in place Sleep apnea Small cell lung cancer Tobacco dependency Type 2 diabetes mellitus Surgical History History of lung biopsy Status post chemotherapy Family History Father Cancer Social History Smoking and tobacco status: current every day smoker cigarettes Packs smoked per day: 1 Alcohol intake: never Household members: spouse Marital status: Current occupational status: disabled Course Vital Signs: Vital signs: Vital Signs Temperature 97.8 F 10/31/19 19:37 Pulse Rate 100 10/31/19 22:00 Respiratory Rate 16 10/31/19 22:00 Blood Pressure 87/55 10/31/19 22:00 Pulse Oximetry 94 10/31/19 22:00 MDM - GI Bleed Lab Data: Labs: Lab Results 10/31/19 10/31/19 10/31/19 Range/Units 17:11 17:11 17:11 WBC (4.0-10.0) 10^3/ uL RBC (4.1-5.3) 10^6/u L Hgb (11.7-16.6) g/dL Hct (42.0-52.0) % MCV (80-94) fL MCH (28.0-34.0) pg MCHC (30.0-36.0) g/dL RDW (12.1-15.1) % Plt Count (130-400) 10^3/c mm MPV (7.4-10.4) fL Neut % (Auto) % Lymph % (Auto) % [place] % (Auto) % Eos % (Auto) % Baso % (Auto) % Neut # (Auto) (1.8-7.7) 10^3/u L Lymph # (Auto) (0.8-4.8) 10^3/u L [place] # (Auto) (0.2-0.9) 10^3/u L Eos # (Auto) (0.0-0.8) 10^3/u L Baso # (Auto) (0.0-0.1) 10^3/u L Nucleated RBC % (a uto) % Nucleated RBCs # /100WBC PT 14.50 H (10.5-13.3) SECO NDS INR 1.10 (0.8-1.2) Sodium 137 (136-145) mmol/L Potassium 4.5 (3.5-5.1) mmol/L Chloride 101 (98-107) mmol/L Carbon Dioxide 24 (22-29) mmol/L Anion Gap 16.5 (5-19) BUN 13 (6-20) mg/dL Creatinine 1.0 (0.7-1.2) mg/dL GFR Calculation 79.8 L (90-130) mL/min Glucose 100 (65-115) mg/dL Calculated Osmolal ity 280 L (285-295) mOsm/k g Calcium 9.3 (8.5-10.5) mg/dL Total Bilirubin 0.4 (0.15-1.2) mg/dL AST 17 (0-40) U/L ALT 8 (0-41) U/L Alkaline Phosphata se 86 (40-130) IU/L Total Protein 7.8 (6.6-8.7) g/dL Albumin 3.5 (3.5-5.2) g/dL Globulin 4.3 (1.3-4.6) g/dL Procalcitonin 0.10 (0-0.5) ng/mL Blood Type Rho(D) Type Antibody Screen 10/31/19 10/31/19 Range/Units 17:57 17:57 WBC 10.5 H (4.0-10.0) 10^3/ uL RBC 3.98 L (4.1-5.3) 10^6/u L Hgb 12.1 (11.7-16.6) g/dL Hct 38.2 L (42.0-52.0) % MCV 96.0 H (80-94) fL MCH 30.4 (28.0-34.0) pg MCHC 31.7 (30.0-36.0) g/dL RDW 15.5 H (12.1-15.1) % Plt Count 273 (130-400) 10^3/c mm MPV 9.3 (7.4-10.4) fL Neut % (Auto) 75.8 % Lymph % (Auto) 16.4 % [place] % (Auto) 6.7 % Eos % (Auto) 0.2 % Baso % (Auto) 0.4 % Neut # (Auto) 7.9 H (1.8-7.7) 10^3/u L Lymph # (Auto) 1.7 (0.8-4.8) 10^3/u L [place] # (Auto) 0.7 (0.2-0.9) 10^3/u L Eos # (Auto) 0.0 (0.0-0.8) 10^3/u L Baso # (Auto) 0.0 (0.0-0.1) 10^3/u L Nucleated RBC % (a uto) 0 % Nucleated RBCs # 0.0 /100WBC PT (10.5-13.3) SECO NDS INR (0.8-1.2) Sodium (136-145) mmol/L Potassium (3.5-5.1) mmol/L Chloride (98-107) mmol/L Carbon Dioxide (22-29) mmol/L Anion Gap (5-19) BUN (6-20) mg/dL Creatinine (0.7-1.2) mg/dL GFR Calculation (90-130) mL/min Glucose (65-115) mg/dL Calculated Osmolal ity (285-295) mOsm/k g Calcium (8.5-10.5) mg/dL Total Bilirubin (0.15-1.2) mg/dL AST (0-40) U/L ALT (0-41) U/L Alkaline Phosphata se (40-130) IU/L Total Protein (6.6-8.7) g/dL Albumin (3.5-5.2) g/dL Globulin (1.3-4.6) g/dL Procalcitonin (0-0.5) ng/mL Blood Type A Positive Rho(D) Type Positive Antibody Screen Negative Discharge Plan Discharge Patient Disposition: Admitted As Inpatient Admit Provider: Rashaun Jones Clinical Impression: Colitis, Cecitis, Coagulopathy GI bleeding Qualifiers: GI bleed type/associated pathology: unspecified gastrointestinal hemorrhage type Qualified Code(s): K92.2 - Gastrointestinal hemorrhage, unspecified Anemia Qualifiers: Anemia type: other cause Other causes of anemia: other cause, not classified Qualified Code(s): D64.89 - Other specified anemias Primary lung cancer Qualifiers: Laterality: right Qualified Code(s): C34.91 - Malignant neoplasm of unspecified part of right bronchus or lung Condition: Stable Referrals: Pamela Lorenzana PA [Primary Care Provider] - Discharge Date/Time: 10/31/19 19:42 Sign Out Sign Out Data: Patient Sign Out occurred on 10/31/19 at 17:16. Patient's care was discussed, and care was transferred from to Sita Moore DO. Coding Level of Care Code ED Video Specialist for Chg Fwd Exam Comprehensive
[2019-10-31] MEDS: sodium chloride 0.9% 1,000 ML 999 ML IV (17:30)
[2019-10-31] MEDS: iohexol 300 mg/mL 100 mL Btl IV (17:30)
--- NOTE | 2019-10-31 17:47 | ED_ITS ---
Documented by User: Sita Orlando DO 10/31/19 22:34 HPI - GI Bleed General: Chief complaint: GI Bleed Stated complaint: blood in stool Time Seen by Provider: 10/31/19 16:24 Source: patient Limitations: no limitations History of Present Illness: HPI Narrative: Pt has had 3 large bloody stools today, lower abd pain PFSH ED PFSH: Medical History COPD (chronic obstructive pulmonary disease) History of pulmonary embolism Hypertension Metastatic cancer Obesity Port-A-Cath in place Sleep apnea Small cell lung cancer Tobacco dependency Type 2 diabetes mellitus Surgical History History of lung biopsy Status post chemotherapy Family History Father Cancer Social History Smoking and tobacco status: current every day smoker cigarettes Packs smoked per day: 1 Alcohol intake: never Household members: spouse Marital status: Current occupational status: disabled Course Vital Signs: Vital signs: Vital Signs Temperature 97.8 F 11/01/19 04:00 Pulse Rate 90 11/01/19 06:00 Respiratory Rate 16 11/01/19 06:00 Blood Pressure 129/88 11/01/19 06:00 Pulse Oximetry 91 11/01/19 06:00 MDM - GI Bleed MDM Narrative: Medical decision making narrative: Pt has large amount of breaight red per rectum, started this am. He has had 3 large bm's, he is tachy at 111, normotensive. He is on eliquis. I will start him on iv fluids, ordering a armor officer and cross and will give him ffp 1800: Dr Calvo states he would give levaquin and flagyl for his cecitis which may be from his chemo, we are holding off on rbc's as his hg is 12 and he is not hypotensive. He has a peripheral iv and his port accessed, Dr Calvo states he will consult and rec he be admitted to hospitalist and go to icu. Calling Karen. Karen states ffp probably wont help, but as pt is stable we will not give reversal for eliquis, he will go to icu, agreed with hoolding off on rbc's for now . Lab Data: Attestation: I reviewed the patient's lab results. Labs: Lab Results 10/31/19 10/31/19 10/31/19 Range/Units 17:11 17:11 17:11 WBC (4.0-10.0) 10^3/ uL RBC (4.1-5.3) 10^6/u L Hgb (11.7-16.6) g/dL Hct (42.0-52.0) % MCV (80-94) fL MCH (28.0-34.0) pg MCHC (30.0-36.0) g/dL RDW (12.1-15.1) % Plt Count (130-400) 10^3/c mm MPV (7.4-10.4) fL Neut % (Auto) % Lymph % (Auto) % [place] % (Auto) % Eos % (Auto) % Baso % (Auto) % Neut # (Auto) (1.8-7.7) 10^3/u L Lymph # (Auto) (0.8-4.8) 10^3/u L [place] # (Auto) (0.2-0.9) 10^3/u L Eos # (Auto) (0.0-0.8) 10^3/u L Baso # (Auto) (0.0-0.1) 10^3/u L Nucleated RBC % (a uto) % Nucleated RBCs # /100WBC PT 14.50 H (10.5-13.3) SECO NDS INR 1.10 (0.8-1.2) Sodium 137 (136-145) mmol/L Potassium 4.5 (3.5-5.1) mmol/L Chloride 101 (98-107) mmol/L Carbon Dioxide 24 (22-29) mmol/L Anion Gap 16.5 (5-19) BUN 13 (6-20) mg/dL Creatinine 1.0 (0.7-1.2) mg/dL GFR Calculation 79.8 L (90-130) mL/min Glucose 100 (65-115) mg/dL Calculated Osmolal ity 280 L (285-295) mOsm/k g Calcium 9.3 (8.5-10.5) mg/dL Total Bilirubin 0.4 (0.15-1.2) mg/dL AST 17 (0-40) U/L ALT 8 (0-41) U/L Alkaline Phosphata se 86 (40-130) IU/L Total Protein 7.8 (6.6-8.7) g/dL Albumin 3.5 (3.5-5.2) g/dL Globulin 4.3 (1.3-4.6) g/dL Procalcitonin 0.10 (0-0.5) ng/mL Blood Type Rho(D) Type Antibody Screen 10/31/19 10/31/19 Range/Units 17:57 17:57 WBC 10.5 H (4.0-10.0) 10^3/ uL RBC 3.98 L (4.1-5.3) 10^6/u L Hgb 12.1 (11.7-16.6) g/dL Hct 38.2 L (42.0-52.0) % MCV 96.0 H (80-94) fL MCH 30.4 (28.0-34.0) pg MCHC 31.7 (30.0-36.0) g/dL RDW 15.5 H (12.1-15.1) % Plt Count 273 (130-400) 10^3/c mm MPV 9.3 (7.4-10.4) fL Neut % (Auto) 75.8 % Lymph % (Auto) 16.4 % [place] % (Auto) 6.7 % Eos % (Auto) 0.2 % Baso % (Auto) 0.4 % Neut # (Auto) 7.9 H (1.8-7.7) 10^3/u L Lymph # (Auto) 1.7 (0.8-4.8) 10^3/u L [place] # (Auto) 0.7 (0.2-0.9) 10^3/u L Eos # (Auto) 0.0 (0.0-0.8) 10^3/u L Baso # (Auto) 0.0 (0.0-0.1) 10^3/u L Nucleated RBC % (a uto) 0 % Nucleated RBCs # 0.0 /100WBC PT (10.5-13.3) SECO NDS INR (0.8-1.2) Sodium (136-145) mmol/L Potassium (3.5-5.1) mmol/L Chloride (98-107) mmol/L Carbon Dioxide (22-29) mmol/L Anion Gap (5-19) BUN (6-20) mg/dL Creatinine (0.7-1.2) mg/dL GFR Calculation (90-130) mL/min Glucose (65-115) mg/dL Calculated Osmolal ity (285-295) mOsm/k g Calcium (8.5-10.5) mg/dL Total Bilirubin (0.15-1.2) mg/dL AST (0-40) U/L ALT (0-41) U/L Alkaline Phosphata se (40-130) IU/L Total Protein (6.6-8.7) g/dL Albumin (3.5-5.2) g/dL Globulin (1.3-4.6) g/dL Procalcitonin (0-0.5) ng/mL Blood Type A Positive Rho(D) Type Positive Antibody Screen Negative Imaging Data^: CT Abd/Pel: Radiologist's impression: [place] [address] CT Scan Report Signed Patient: Kenzie Mckeon #: [id number] : 1970Acct#:[id number] Age/Sex: 48 / MADM Date: 10/31/19 [facility]Bed: Attending Dr: Ordering Provider/Ordering MD: Erin Jackson MD Date of Service: 10/31/19 Procedure(s): CT abdomen pelvis w con* [id number] Accession Number(s): [id number] Report Number: [id number] PROCEDURE INFORMATION: Exam: CT Abdomen And Pelvis With Contrast Exam date and time: 10/31/2019 4:49 PM Age: 48 years old Clinical indication: Other: Bloody stool; Abdominal pain; Localized; Lower; Prior surgery; Surgery type: Hernia; Additional info: Abd pain TECHNIQUE: Imaging protocol: Computed tomography of the abdomen and pelvis with intravenous contrast. Radiation optimization: All CT scans at this facility use at least one of these dose optimization techniques: automated exposure control; mA and/or kV adjustment per patient size (includes targeted exams where dose is matched to clinical indication); or iterative reconstruction. Contrast material: OMNI 300; Contrast volume: 95 ml; Contrast route: IV; COMPARISON: CT chest abd pel w con* 09/01/2019 10:10 PM RADIATION DOSE METRICS: Total DLP: 1974.99 mGy-cm FINDINGS: Liver: Liver unremarkable. Gallbladder and bile ducts: Gallbladder free of cholelithiasis. No intra or extrahepatic biliary ectasia. Pancreas: Pancreas unremarkable. No pancreatic ductal ectasia. Spleen: Calcified splenic granulomas. Adrenals: Again note of bilateral small adrenal nodules that measure 9 mm on the left and 7 mm on the right both believed to represent adenomas due to CT attenuation values. No significant will change. Kidneys and ureters: Again note of an old cortical scar equator left kidney. Tiny focus of nonobstructing calyceal nephrolithiasis inferior pole left kidney under 2 mm. No hydronephrosis or perinephric fluid. Stable tiny cortical cyst equator right kidney and inferior pole left kidney. Stomach and bowel: Similar findings as from the last of evaluation of 09/01/2019. Evidence of mild low-grade infectious or inflammatory cecitis and ascending colitis to the level of the patent flexure. Remainder of the colon unremarkable. Nonobstructive bowel pattern. No visible adynamic or reactive ileus. Appendix: Appendix noninflamed. Intraperitoneal space: Unremarkable. No free air. No significant fluid collection. Vasculature: The abdominal aorta is nonaneurysmal. Lymph nodes: No visible panniculitis/mesenteritis or evidence of mesenteric lymphadenitis/lymphadenopathy. Bladder: Urinary bladder unremarkable. Reproductive: Prostate hypertrophy. Bones/joints: No visible active osseous pathology. No visible osteolytic or osteoblastic destructive process within the field of view. Soft tissues: Small periumbilical ventral hernia measuring 5.4 cm x 2.5 cm by 4.2 cm unchanged. No incarcerated bowel. Other findings: Obesity. CT/CT abdomen pelvis w con* [id number] IMPRESSION: 1. Mild low-grade infectious or inflammatory cecitis and ascending colitis to level of hepatic flexure. 2. Stable bilateral small adrenal adenomas. 3. Other nonurgent, nonemergent, chronic, and age related findings as discussed in detail in text above. Radiation Dose CTDIVOL = (mGy): DLP = 1974.99 (mGy-cm) Dictated By:Edgardo Jacob Signed By:Edgardo JacobSignaurelia Date/Time:10/31/191752 DD/ 51 Discharge Plan Discharge Patient Disposition: Admitted As Inpatient Admit Provider: Rashaun Jones Clinical Impression: Colitis, Cecitis, Coagulopathy GI bleeding Qualifiers: GI bleed type/associated pathology: unspecified gastrointestinal hemorrhage type Qualified Code(s): K92.2 - Gastrointestinal hemorrhage, unspecified Anemia Qualifiers: Anemia type: other cause Other causes of anemia: other cause, not classified Qualified Code(s): D64.89 - Other specified anemias Primary lung cancer Qualifiers: Laterality: right Qualified Code(s): C34.91 - Malignant neoplasm of unspecified part of right bronchus or lung Condition: Stable Referrals: Pamela Lorenzana PA [Primary Care Provider] - Discharge Date/Time: 10/31/19 19:42 Sign Out Sign Out Data: Patient Sign Out occurred on 10/31/19 at 17:16. Patient's care was discussed, and care was transferred from to Sita Moore DO. Coding Level of Care Code ED Munitions Worker for Chg Fwd Documented by User: Erin Jackson MD 11/01/19 06:35 HPI - GI Bleed General: Chief complaint: GI Bleed Stated complaint: blood in stool Time Seen by Provider: 10/31/19 16:24 PFSH ED PFSH: Medical History COPD (chronic obstructive pulmonary disease) History of pulmonary embolism Hypertension Metastatic cancer Obesity Port-A-Cath in place Sleep apnea Small cell lung cancer Tobacco dependency Type 2 diabetes mellitus Surgical History History of lung biopsy Status post chemotherapy Family History Father Cancer Social History Smoking and tobacco status: current every day smoker cigarettes Packs smoked per day: 1 Alcohol intake: never Household members: spouse Marital status: Current occupational status: disabled Course Vital Signs: Vital signs: Vital Signs Temperature 97.8 F 11/01/19 04:00 Pulse Rate 90 11/01/19 06:00 Respiratory Rate 16 11/01/19 06:00 Blood Pressure 129/88 11/01/19 06:00 Pulse Oximetry 91 11/01/19 06:00 MDM - GI Bleed Lab Data: Labs: Lab Results 10/31/19 10/31/19 10/31/19 Range/Units 17:11 17:11 17:11 WBC (4.0-10.0) 10^3/ uL RBC (4.1-5.3) 10^6/u L Hgb (11.7-16.6) g/dL Hct (42.0-52.0) % MCV (80-94) fL MCH (28.0-34.0) pg MCHC (30.0-36.0) g/dL RDW (12.1-15.1) % Plt Count (130-400) 10^3/c mm MPV (7.4-10.4) fL Neut % (Auto) % Lymph % (Auto) % [place] % (Auto) % Eos % (Auto) % Baso % (Auto) % Neut # (Auto) (1.8-7.7) 10^3/u L Lymph # (Auto) (0.8-4.8) 10^3/u L [place] # (Auto) (0.2-0.9) 10^3/u L Eos # (Auto) (0.0-0.8) 10^3/u L Baso # (Auto) (0.0-0.1) 10^3/u L Nucleated RBC % (a uto) % Nucleated RBCs # /100WBC PT 14.50 H (10.5-13.3) SECO NDS INR 1.10 (0.8-1.2) Sodium 137 (136-145) mmol/L Potassium 4.5 (3.5-5.1) mmol/L Chloride 101 (98-107) mmol/L Carbon Dioxide 24 (22-29) mmol/L Anion Gap 16.5 (5-19) BUN 13 (6-20) mg/dL Creatinine 1.0 (0.7-1.2) mg/dL GFR Calculation 79.8 L (90-130) mL/min Glucose 100 (65-115) mg/dL Calculated Osmolal ity 280 L (285-295) mOsm/k g Calcium 9.3 (8.5-10.5) mg/dL Total Bilirubin 0.4 (0.15-1.2) mg/dL AST 17 (0-40) U/L ALT 8 (0-41) U/L Alkaline Phosphata se 86 (40-130) IU/L Total Protein 7.8 (6.6-8.7) g/dL Albumin 3.5 (3.5-5.2) g/dL Globulin 4.3 (1.3-4.6) g/dL Procalcitonin 0.10 (0-0.5) ng/mL Blood Type Rho(D) Type Antibody Screen 10/31/19 10/31/19 Range/Units 17:57 17:57 WBC 10.5 H (4.0-10.0) 10^3/ uL RBC 3.98 L (4.1-5.3) 10^6/u L Hgb 12.1 (11.7-16.6) g/dL Hct 38.2 L (42.0-52.0) % MCV 96.0 H (80-94) fL MCH 30.4 (28.0-34.0) pg MCHC 31.7 (30.0-36.0) g/dL RDW 15.5 H (12.1-15.1) % Plt Count 273 (130-400) 10^3/c mm MPV 9.3 (7.4-10.4) fL Neut % (Auto) 75.8 % Lymph % (Auto) 16.4 % [place] % (Auto) 6.7 % Eos % (Auto) 0.2 % Baso % (Auto) 0.4 % Neut # (Auto) 7.9 H (1.8-7.7) 10^3/u L Lymph # (Auto) 1.7 (0.8-4.8) 10^3/u L [place] # (Auto) 0.7 (0.2-0.9) 10^3/u L Eos # (Auto) 0.0 (0.0-0.8) 10^3/u L Baso # (Auto) 0.0 (0.0-0.1) 10^3/u L Nucleated RBC % (a uto) 0 % Nucleated RBCs # 0.0 /100WBC PT (10.5-13.3) SECO NDS INR (0.8-1.2) Sodium (136-145) mmol/L Potassium (3.5-5.1) mmol/L Chloride (98-107) mmol/L Carbon Dioxide (22-29) mmol/L Anion Gap (5-19) BUN (6-20) mg/dL Creatinine (0.7-1.2) mg/dL GFR Calculation (90-130) mL/min Glucose (65-115) mg/dL Calculated Osmolal ity (285-295) mOsm/k g Calcium (8.5-10.5) mg/dL Total Bilirubin (0.15-1.2) mg/dL AST (0-40) U/L ALT (0-41) U/L Alkaline Phosphata se (40-130) IU/L Total Protein (6.6-8.7) g/dL Albumin (3.5-5.2) g/dL Globulin (1.3-4.6) g/dL Procalcitonin (0-0.5) ng/mL Blood Type A Positive Rho(D) Type Positive Antibody Screen Negative Discharge Plan Discharge Patient Disposition: Admitted As Inpatient Admit Provider: Rashaun Jones Clinical Impression: Colitis, Cecitis, Coagulopathy GI bleeding Qualifiers: GI bleed type/associated pathology: unspecified gastrointestinal hemorrhage type Qualified Code(s): K92.2 - Gastrointestinal hemorrhage, unspecified Anemia Qualifiers: Anemia type: other cause Other causes of anemia: other cause, not classified Qualified Code(s): D64.89 - Other specified anemias Primary lung cancer Qualifiers: Laterality: right Qualified Code(s): C34.91 - Malignant neoplasm of unspecified part of right bronchus or lung Condition: Stable Referrals: Pamela Lorenzana PA [Primary Care Provider] - Discharge Date/Time: 10/31/19 19:42 Sign Out Sign Out Data: Patient Sign Out occurred on 10/31/19 at 17:16. Patient's care was discussed, and care was transferred from to Sita Moore DO. Coding Level of Care Code ED Munitions Worker for Sharron Landry
[2019-10-31 17:54] LABS: Alanine Aminotransferase 8 U/L (0-41); Albumin Level 3.5 g/dL (3.5-5.2); Alkaline Phosphatase 86 IU/L (40-130); Anion Gap 16.5 (5-19); Blood Urea Nitrogen 13 mg/dL (6-20); Calcium 9.3 mg/dL (8.5-10.5); Carbon Dioxide 24 mmol/L (22-29); Chloride 101 mmol/L (98-107); Globulin 4.3 g/dL (1.3-4.6); Glomerular Filtration Rate 79.8 mL/min (90-130); Glucose 100 mg/dL (65-115); Osmolality Calculated 280 mOsm/kg (285-295); Potassium 4.5 mmol/L (3.5-5.1); Sodium 137 mmol/L (136-145); Total Bilirubin 0.4 mg/dL (0.15-1.2); Total Protein 7.8 g/dL (6.6-8.7)
[2019-10-31 18:03] LABS: Basophils % 0.4 %; Eosinophils % 0.2 %; Hematocrit 38.2 % (42.0-52.0); Hemoglobin 12.1 g/dL (11.7-16.6); Lymphocytes # 1.7 10^3/uL (0.8-4.8); Lymphocytes % 16.4 %; Mean Corpuscular HGB Conc 31.7 g/dL (30.0-36.0); Mean Corpuscular Hemoglobin 30.4 pg (28.0-34.0); Mean Platelet Volume 9.3 fL (7.4-10.4); Monocytes # 0.7 10^3/uL (0.2-0.9); Monocytes % 6.7 %; Neutrophils # 7.9 10^3/uL (1.8-7.7); Neutrophils % 75.8 %; Nucleated Red Blood Cells % 0 %; Platelet Count 273 10^3/cmm (130-400); Red Blood Count 3.98 10^6/uL (4.1-5.3); Red Cell Distribution Width 15.5 % (12.1-15.1); White Blood Count 10.5 10^3/uL (4.0-10.0)
[2019-10-31] MEDS: HYDROmorphone 1 mg/mL INJ 1 mL 0.5 MG IVP (18:18)
[2019-10-31] MEDS: ondansetron 2 mg/ML SDV 2 mL 4 MG IVP (18:19)
[2019-10-31] MEDS: levofloxacin-dextrose 5 % 750 MG/150 ML PREMIX 100 MG IV (18:32)
[2019-10-31 19:04] LABS: Aspartate Amino Transferase 17 U/L (0-40)
--- NOTE | 2019-10-31 19:14 | PM.HP ---
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 difficile as well coming in today with chief complaint of bright bleed per rectum. Patient has been seeing Dr. Plummer who has started him on Temodar for 5 days every 28 days prescription started on 10/15. He has completed his radiotherapy for left neck mass last session 06/19/2019. Patient is stating that he was in his usual state of health until today when he started experiencing abdominal cramps, after bowel movement he noticed his toilet bowl is full of fresh bright bleed, he did not notice any chest pain, shortness of breath, lightheadedness, diaphoresis. He had 2 bowel movements at home which are bloody. He had one bloody bowel movement in the ER. He is compliant with his medications including anticoagulation. He is denying chest pain, shortness of breath, fever, nausea or vomiting. Diagnosis in the ER revealed normal hemodynamics, systolic blood pressure 150, tachycardic heart rate 102, afebrile, hemoglobin stable at 12 Dr. Calvo has been consulted When I examined the patient IV Levaquin was running at the bedside which was ordered by the ER physician, patient was hemodynamically stable alert oriented x3 GCS 15 and he was asking for food and was not willing to stay n.p.o. Review of Systems Const: Reports: body aches and fatigue; Denies: fever or chills Eyes: Denies: change in vision ENMT: Denies: throat pain Card: Denies: chest pain or palpitations Resp: Denies: shortness of breath GI: Reports: abdominal pain, heartburn/indigestion, diarrhea and blood in stool; Denies: change in stool character : Denies: flank pain Musc: Denies: neck pain Skin/Breast: Denies: rash Neuro: Reports: headache Psych: Reports: anxiety and depression Endo: Denies: excessive urination Romeo/Lymph: Denies: easy bruising All/Imm: Denies: hives Medications/Allergies Home Medications Medication Instructions Recorded Confirmed Last Taken Type Eliquis 5 mg PO BID 08/29/19 10/31/19 10/30/19 History Tradjenta 5 mg PO DAILY 08/29/19 10/31/19 10/30/19 History allopurinol 100 mg PO BID 08/29/19 10/31/19 10/30/19 History fluticasone propion-salmeterol 1 inh INHALATION BID 08/29/19 10/31/19 10/30/19 History [Advair Diskus] gabapentin 300 mg PO QID 08/29/19 10/31/19 10/30/19 History hydrocodone-acetaminophen 1 - 2 tab PO Q6H PRN 08/29/19 10/31/19 10/30/19 History metoprolol succinate 50 mg PO DAILY 08/29/19 10/31/19 10/30/19 History oxybutynin chloride 5 mg PO BID 08/29/19 10/31/19 10/30/19 History pramipexole 0.25 mg PO DAILY 08/29/19 10/31/19 10/30/19 History morphine 30 mg PO Q12H 09/08/19 10/31/19 10/30/19 History cetirizine [Zyrtec] 10 mg PO DAILY 10/31/19 10/31/19 10/30/19 History diclofenac sodium 75 mg PO BID 10/31/19 10/31/19 10/30/19 History lisinopril 20 mg PO DAILY 10/31/19 10/31/19 10/30/19 History ondansetron 8 mg PO TID PRN 10/31/19 10/31/19 10/30/19 History temozolomide 250 mg PO DAILY 10/31/19 10/31/19 10/30/19 History Allergies Allergy/AdvReac Type Severity Reaction Status Date / Time Penicillins Allergy ALGY-Hives Verified 09/01/19 18:46 PFSH Acute PFSH: Medical History COPD (chronic obstructive pulmonary disease) History of pulmonary embolism Hypertension Metastatic cancer Obesity Port-A-Cath in place Sleep apnea Small cell lung cancer Tobacco dependency Type 2 diabetes mellitus Surgical History History of lung biopsy Status post chemotherapy Family History Father Cancer Social History Smoking and tobacco status: current every day smoker cigarettes Packs smoked per day: 1 Alcohol intake: never Household members: spouse Marital status: Current occupational status: disabled Vitals/I&O/Wt Last Vital Signs Temp 98.6 F 10/31/19 16:17 Pulse 117 H 10/31/19 16:17 Resp 18 10/31/19 18:18 BP 100/65 10/31/19 16:17 Pulse Ox 96 10/31/19 16:17 Weight last 48 hrs Weight 131.088 kg Physical Exam Narrative: EXAM NARRATIVE: Obese male sitting comfortably in his bed with normal hemodynamics Patient is a bit agitated because we have made him n.p.o., he wants to have 1 sandwich S1, S2 sinus tachycardia, normal hemodynamics No signs of fluid overload Abdomen soft, nontender, nondistended bowel sound present Alert oriented x3 GCS 15 Mood is irritable EOMI, PERRLA Venous stasis dermatitis bilateral lower extremities No active signs of ischemia gangrene or ulcer of lower extremity, chronic skin changes of right lower leg Data : 10/31/19 17:57 10/31/19 17:11 A&P Assessment and plan (1) GI bleeding: Status: Acute Qualifiers: GI bleed type/associated pathology: unspecified gastrointestinal hemorrhage type Qualified Code(s): K92.2 - Gastrointestinal hemorrhage, unspecified (2) Cecitis: Status: Acute (3) Primary lung cancer: Status: Acute Qualifiers: Laterality: right Qualified Code(s): C34.91 - Malignant neoplasm of unspecified part of right bronchus or lung (4) Colitis: Status: Acute (5) Lung cancer: Status: Acute (6) Adrenal mass: Status: Acute Additional A&P Information Hematochezia CT abdomen consistent with cystitis and ascending colitis Currently hemodynamic stable Stable H&H Check C. difficile I would continue ciprofloxacin and Flagyl at this point for anaerobic and gram-negative coverage IV fluid resuscitation Protonix 40 IV twice daily H&H at 11 PM C. difficile isolation because previous positive history Dr. Calvo has been consulted On previous admission he was diagnosed with drug-induced colitis, he only has received 1 dose of new medication, I will be reluctant to use steroids at this point, would like to rule out C. difficile first Sepsis due to colitis Criteria met with leukocytosis, tachycardia Will check lactic acid, continue ciprofloxacin and Flagyl, Patient is immunocompromised but there is no neutropenia or lymphopenia, he is not on PCP prophylaxis as well Currently hemodynamically stable, continue IV fluids Blood culture, enteric pathogens ordered, MRSA nasal swab History of DVT/PE, chronic anticoagulation with Eliquis Hold Eliquis because of fresh bright bleed per rectum Hemoglobin stable No need to reverse coagulopathy Patient is not supratherapeutic Would manage conservatively at this point Obstructive sleep apnea: CPAP with auto titration Full code N.p.o. DVT prophylaxis: SCDs Attestations Medical Necessity Statement*: Anticipating stay in the hospital to cross more than 2 midnights currently needs management for colitis, cystitis and sepsis, patient is immunocompromised, length of stay depends on his clinical course Time Spent in Patient Care: 40 Coding Level of Care Code Acute Solar Installer Technician for g Fwd Diagnoses GI bleeding K92.2 GI bleed type/associated pathology: unspecified gastrointestinal hemorrhage type Cecitis K52.9 Primary lung cancer C34.91 Laterality: right Colitis K52.9 Lung cancer C34.90 Adrenal mass E27.8
--- NOTE | 2019-10-31 19:30 | PC.NURSE ---
Pt arrived to unit from ER at this time via gurney. Transferred self to bed. Alert and oriented X 3. Breathing even and non-labored on room air. Reports bright red bloody loose stools X 3 today with complaints of LLQ pain earlier today, denies at this time. Denies nausea/emesis/heartburn. Abdomen is soft, non-tender, non-distended with hyperactive bowel sounds. Levaquin and fluids hanging on arrival to unit into portacat.
--- NOTE | 2019-10-31 19:36 | XR_ITS ---
WS: [id number] PORTABLE CHEST HISTORY: SOB AND IMMUNOCOMPROMISED COMPARISON: 09/08/2019 LEFT subclavian Port-A-Cath. Tip of the catheter is in the thorax and has not entered the SVC. Simila r appearance to the prior study. Soft tissue mass is ill-defined centered over the RIGHT hilum and central RIGHT lung with no improvem ent. No pleural effusion or pneumothorax. Cardiac size: Normal. Mediastinum/Aorta: Normal mediastinum. No osseous abnormality seen. Foreign body object over the RIGHT neck soft tissues of uncertain etiology. May be related to the oxy gen supplementation. XR/XR chest 1V portable [id number] IMPRESSION: 1. No interval change in appearance of the chest since 09/08/2019. RIGHT hilar a nd central lung mass is again evident without significant decrease in size. 2. No pneumonia.
--- NOTE | 2019-10-31 20:00 | PC.NURSE ---
Pt upset about NPO status. Dr. Vásquez at bedside gave verbal orders for patient to have light meal this pm only.
[2019-10-31 20:29] LABS: Lactic Acid level (Lactate) 0.8 mmol/L (0.5-2.2); Lactic Sepsis W/Reflex 0.8 mmol/L (0.5-2.2)
--- NOTE | 2019-10-31 21:00 | PC.NURSE ---
Home meds Pt concerned about receiving home medications for his chronic back pain. Dr. Vásquez notified and reviewed/ordered home pain medications at this time.
[2019-10-31] MEDS: gabapentin 300 mg Capsule PO (21:15)
[2019-10-31] MEDS: morphine ER (12 HR) 30 mg tablet PO (21:15)
[2019-10-31] MEDS: pantoprazole 40 mg SDV IVP (21:15)
[2019-10-31 22:50] LABS: Hematocrit 34.8 % (42.0-52.0); Hemoglobin 10.9 g/dL (11.7-16.6)
[2019-11-01] VITALS (19 sets, daily range): BP systolic 114–139; BP diastolic 71–96; PULSE 72–103; RESP 14–20; TEMP 36.5–37.1; O2SAT 91–98
[2019-11-01] MEDS: metroNIDAZOLE IV 500 MG/100 ML PREMIX 100 MG IV ×2 (01:40→18:49)
[2019-11-01] MEDS: sodium chloride 0.9% 1,000 ML 100 ML IV ×2 (01:40→14:30)
[2019-11-01 05:02] LABS: Basophils % 0.6 %; Eosinophils # 0.1 10^3/uL (0.0-0.8); Hematocrit 33.8 % (42.0-52.0); Hemoglobin 10.3 g/dL (11.7-16.6); Lymphocytes # 2.4 10^3/uL (0.8-4.8); Mean Corpuscular HGB Conc 30.5 g/dL (30.0-36.0); Mean Corpuscular Hemoglobin 29.9 pg (28.0-34.0); Mean Platelet Volume 9.4 fL (7.4-10.4); Monocytes # 0.6 10^3/uL (0.2-0.9); Monocytes % 9.1 %; Neutrophils # 3.3 10^3/uL (1.8-7.7); Neutrophils % 50.4 %; Nucleated Red Blood Cells % 0 %; Platelet Count 235 10^3/cmm (130-400); Red Blood Count 3.45 10^6/uL (4.1-5.3); Red Cell Distribution Width 15.9 % (12.1-15.1); White Blood Count 6.5 10^3/uL (4.0-10.0)
[2019-11-01 05:16] LABS: Anion Gap 13.8 (5-19); Blood Urea Nitrogen 11 mg/dL (6-20); Calcium 8.5 mg/dL (8.5-10.5); Carbon Dioxide 25 mmol/L (22-29); Chloride 104 mmol/L (98-107); Glomerular Filtration Rate 79.8 mL/min (90-130); Glucose 76 mg/dL (65-115); Osmolality Calculated 283 mOsm/kg (285-295); Potassium 3.8 mmol/L (3.5-5.1); Sodium 139 mmol/L (136-145)
[2019-11-01] MEDS: ciprofloxacin 400 MG/200 ML PREMIX 200 MG IV ×2 (05:47→18:49)
--- NOTE | 2019-11-01 06:19 | PC.NURSE ---
pt co pain at anat cath site. cipro started at 0600. unable to aspirate from port. pt continues to state that it is ok to use port that he has had a dye test to verify patency . when questioned about the date of test he became agitated c staff. pt finally reports portagram was > [address] c [address] hoover will deaccess port and apply cool compress for comfort measures. discussed c afshin adkins primary nurse who will deaccess port at this time. jessica adkins.
--- NOTE | 2019-11-01 06:33 | PC.NURSE ---
Left chest portacath deaccessed at this time. light blanching redness above port site. Pt reports pain had ceased after stopping ciprofloxacin. Right AC IV patent and flushed. Nurse at bedside monitoring start of ciprofloxacin infusion through peripheral IV.Pt educated on reportable s/s.
[2019-11-01] MEDS: pantoprazole 40 mg SDV IVP ×2 (08:14→21:06)
[2019-11-01] MEDS: morphine ER (12 HR) 30 mg tablet PO ×2 (08:15→18:46)
--- NOTE | 2019-11-01 09:00 | XR_ITS ---
WS: [id number] ABDOMEN 2 VIEW(S) HISTORY: colitis r/o megacolon COMPARISON: 10/31/2019 Abnormal bowel gas pattern. Increasing amount of air throughout the small bowel and colon since the p rior study. Small bowel loops now measure 3.5 cm diameter. Air in the transverse colon with a diamete r 9.0 cm. Thickening of the mucosal folds and marked nodularity (pseudopolyps) most significant in th e RIGHT lower quadrant involving the cecum and distal small bowel. There is a small amount of air in the distal colon. No free air. No pneumatosis appreciated. High density contrast in urinary bladder prior CT. XR/XR abdomen min 2V [id number] IMPRESSION: 1. Progression of small bowel and colon dilatation with thickening/thumbprinti ng of the mucosa. All these findings can be seen with toxic megacolon. 2. No free air. No pneumatosis identified radiographically.
--- NOTE | 2019-11-01 09:42 | PM.PN ---
Subjective Subjective: Interval history: No acute events overnight. Overnight patient has not had any more bowel movements. He has remained hemodynamically stable. On examination patient was mildly agitated, anxious. He was worried about his gabapentin and pramipexole. He denies of having abdominal pain, nausea, vomiting, headache, dizziness, palpitations. Vitals/I&O/Wt Last Vital Signs Temp 97.7 F 11/01/19 08:00 Pulse 93 11/01/19 09:04 Resp 18 11/01/19 09:04 BP 127/83 11/01/19 08:00 Pulse Ox 94 11/01/19 09:04 10/31/19 11/01/19 11/01/19 22:59 06:59 14:59 Intake Total 240 / 240 103.333 / 343.333 Output Total 0 / 0 450 / 450 Balance 240 / 240 103.333 / 343.333 -450 / -450 Weight last 48 hrs Weight 131.088 kg Physical Exam Narrative: EXAM NARRATIVE: General: No acute distress, AO x3 HEENT: PERRLA, pupils bilaterally equal and reactive Chest: Normal vesicular breath sounds, no added sounds, equal good air entry bilaterally CVS: S1-S2 regular, no murmurs, no tachycardia, no gallops, no rubs Abdomen: Soft, mild tenderness periumbilical region, bowel sounds sluggish Neuro: No focal deficits, no facial deformity, AO x3, power 5/5 in all limbs Data : 11/01/19 04:27 11/01/19 04:27 Micro: Microbiology 10/31/19 17:25 Stool Lactoferrin - Final Stool C.difficile Toxin B Gene (PCR) - Final 10/31/19 20:05 Blood Culture - Preliminary Blood SPECIMEN COLLECTED 10/31/19 20:00 Blood Culture - Preliminary Blood SPECIMEN COLLECTED A&P Assessment and plan (1) Hypovolemic shock: Status: Acute (2) GI bleeding: Status: Acute Qualifiers: GI bleed type/associated pathology: unspecified gastrointestinal hemorrhage type Qualified Code(s): K92.2 - Gastrointestinal hemorrhage, unspecified (3) Cecitis: Status: Acute (4) Colitis: Status: Acute (5) Primary lung cancer: Status: Acute Qualifiers: Laterality: right Qualified Code(s): C34.91 - Malignant neoplasm of unspecified part of right bronchus or lung (6) Lung cancer: Status: Acute (7) Adrenal mass: Status: Acute Additional A&P Information GI bleed/hematochezia: CT abdomen done on admission consistent with ascending Colitis and Cecitis. Since admission. Hemoglobin has remained stable. Stool studies negative for C. difficile, ova parasite awaited. Continue with ciprofloxacin, Flagyl, Protonix 40 mg twice daily for now. Case discussed with Dr. Plummer from oncology. Chances of inflammatory colitis because of temozolomide is rare but sometimes it can cause reactivation of old colitis. If patient has any more bloody bowel movements we will start him on IV steroids. If patient has more bloody bowel movements he would possibly need a repeat of colonoscopy. On review of results from last colonoscopy 2-1/2 months ago biopsy could not rule out inflammatory bowel disease. Case discussed with Dr. Calvo. If patient remains stable plan would be to discharge him of anticoagulation for 2 weeks with him to follow-up with Dr. Calvo as an outpatient for colonoscopy. Continue normal saline at 100 cc/h. As patient has not had any more bloody bowel movements can start him on a bland diet. Shock: Most likely hypovolemic. Septic shock less likely. Lactate negative. Blood pressures better. Patient not having any more symptoms of hypovolemic shock. Keep mean arterial pressures over 65 mmHg. Continue IV antibiotics as above. Follow-up blood cultures and MRSA swab. History of DVT/PE, chronic anticoagulation with Eliquis: Hold Eliquis because of fresh bright bleed per rectum. Hypertension: Blood pressures better now. We will hold off on antihypertensives in view of hypovolemic shock on admission. Obstructive sleep apnea: CPAP with auto titration Full code [place] diet DVT prophylaxis: SCDs Can transfer to floors with intermediate care. 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
[2019-11-01] MEDS: metroNIDAZOLE IV 500 MG/100 ML PREMIX 200 MG IV (10:57)
[2019-11-01] MEDS: nicotine 21 mg Patch 1 PATCH TRANSDERMA (10:57)
[2019-11-01 11:57] LABS: Iron 53 ug/dL (59-158); Percent Saturation 32.7 % (20-50); Total Iron Binding Capacity 162 mcg/dl; Unsaturated Iron Binding 109 ug/dL (112-347)
[2019-11-01 12:13] LABS: Folate Level 10.4 ng/mL (4.5-32.2)
[2019-11-01 12:14] LABS: Vitamin B12 1292 pg/mL (232-1245)
[2019-11-01] MEDS: HYDROmorphone 1 mg/mL INJ 1 mL IVP (13:56)
[2019-11-01] MEDS: gabapentin 300 mg Capsule 600 MG PO (14:30)
--- NOTE | 2019-11-01 16:20 | P.CONIM_ITS ---
Providers/Reason For Consult Consulting Physican/Specialty*: Dr. Salazar Reason for Consult*: Hematochezia Attending Physician: Rashaun Jones MD Primary Care Provider: Pamela Lorenzana History of Present Illness History of Present Illness Eric Mckeon is a 48 year old male gentleman with recurrent small cell cancer who presents with hematochezia. Patient had a similar episode last month and a colonoscopy was performed which showed extensive colitis involving the entire co lolis and was treated with IV steroids, Cipro and Flagyl and his symptoms had resolved. Patient states that he had a large bloody bowel movement yesterday and therefore he presented to the ER for further evaluation. A CT scan showed colitis. Since admission he has not had any further bleeding per rectum Review of Systems General: Reports: 10 or more systems reviewed and unremarkable except in HPI and below Meds/Allergies Home Medications and Allergies Home Medications Medication Instructions Recorded Confirmed Last Taken Type Eliquis 5 mg PO BID 08/29/19 10/31/19 10/30/19 History Tradjenta 5 mg PO DAILY 08/29/19 10/31/19 10/30/19 History allopurinol 100 mg PO BID 08/29/19 10/31/19 10/30/19 History fluticasone propion-salmeterol 1 inh INHALATION BID 08/29/19 10/31/19 10/30/19 History [Advair Diskus] gabapentin 300 mg PO QID 08/29/19 10/31/19 10/30/19 History hydrocodone-acetaminophen 1 - 2 tab PO Q6H PRN 08/29/19 10/31/19 10/30/19 History metoprolol succinate 50 mg PO DAILY 08/29/19 10/31/19 10/30/19 History oxybutynin chloride 5 mg PO BID 08/29/19 10/31/19 10/30/19 History pramipexole 0.25 mg PO DAILY 08/29/19 10/31/19 10/30/19 History morphine 30 mg PO Q12H 09/08/19 10/31/19 10/30/19 History cetirizine [Zyrtec] 10 mg PO DAILY 10/31/19 10/31/19 10/30/19 History diclofenac sodium 75 mg PO BID 10/31/19 10/31/19 10/30/19 History lisinopril 20 mg PO DAILY 10/31/19 10/31/19 10/30/19 History ondansetron 8 mg PO TID PRN 10/31/19 10/31/19 10/30/19 History temozolomide 250 mg PO DAILY 10/31/19 10/31/19 10/30/19 History Allergies Allergy/AdvReac Type Severity Reaction Status Date / Time Penicillins Allergy ALGY-Hives Verified 09/01/19 18:46 Current Medications Current Medications Generic Name Dose Route Start Last Admin Trade Name Freq PRN Reason Stop Dose Admin Albuterol/Ipratropium 3 ml 10/31/19 21:00 11/01/19 09:07 Duoneb INHALATION Not Given Q6H.RESPIRATORY JACOBY Ciprofloxacin/Dextrose 400 mg in 200 mls @ 200 mls/hr 11/01/19 06:00 11/01/19 06:37 Cipro IV Infused Q12H JACOBY Infusion Protocol Metronidazole 500 mg in 100 mls @ 100 mls/hr 11/01/19 02:00 11/01/19 11:36 Flagyl Iv IV Infused Q8H JACOBY Infusion Protocol Sodium Chloride 1,000 mls @ 100 mls/hr 10/31/19 19:27 11/01/19 14:30 Sodium Chloride 0.9% IV 100 mls/hr .Q10H JACOBY Administration Nicotine 1 patch 11/01/19 11:00 11/01/19 10:57 Nicoderm 21 Mg Patch TRANSDERMA 1 patch DAILY JACOBY Administration Pantoprazole Sodium 40 mg 10/31/19 19:00 11/01/19 08:14 Protonix IVP 40 mg Q12H JACOBY Administration Fluticasone/Salmeterol 1 puff 10/31/19 20:00 11/01/19 09:02 Advair Diskus 250-50 INHALATION 1 puff BID.RESPIRATORY JACOBY Administration PFSH Acute PFSH: Medical History COPD (chronic obstructive pulmonary disease) History of pulmonary embolism Hypertension Metastatic cancer Sleep apnea Small cell lung cancer Type 2 diabetes mellitus Surgical History History of lung biopsy Port-A-Cath in place Status post chemotherapy Status post colonoscopy (~09/2019) Family History Father Cancer Social History Smoking and tobacco status: current every day smoker cigarettes Packs smoked per day: 1 Alcohol intake: never Household members: spouse Marital status: Current occupational status: disabled Vitals/I&O/Wt Last Vital Signs Temp 97.7 F 11/01/19 12:00 Pulse 93 11/01/19 14:00 Resp 16 11/01/19 14:00 BP 128/88 11/01/19 14:00 Pulse Ox 95 11/01/19 14:00 11/01/19 11/01/19 11/01/19 06:59 14:59 22:59 Intake Total 303.333 / 479.381 9462.667 / 1096.667 Output Total 0 / 0 450 / 450 Balance 303.333 / 543.333 646.667 / 646.667 Weight last 48 hrs Weight 289 lb Physical Exam Narrative: EXAM NARRATIVE: HEENT: Normocephalic Eye: Sclera /conjunctiva normal Respiratory and chest: Bilateral clear breath sounds on auscultation Cardiovascular: Normal S1 and S2 heart sounds Abdomen: Soft to palpation Neurological: Oriented to place person and time Skin: Intact, no lesions appreciated on gross exam Data Micro: Micro: Microbiology 10/31/19 17:25 Stool Lactoferrin - Final Stool C.difficile Toxin B Gene (PCR) - Jaime antoine 10/31/19 20:05 Blood Culture - Pr eliminary Blood SPECIMEN [facility] 10/31/19 20:00 Blood Culture - Pr eliminary Blood SPECIMEN [facility] A&P Assessment and plan (1) Cecitis: 48-year-old gentleman with metastatic lung cancer currently on chemotherapy who presents with hematochezia. He had presented with similar episodes last month and a colonoscopy showed colitis, which is secondary to his chemotherapy. His chemotherapy regimen was changed and Dr. Plummer would like a repeat colonoscopy to rule out inflammatory bowel disease. Patient is currently off Eliquis and will plan for outpatient colonoscopy next week Status: Acute Coding Level of Care Code Acute [place] Teacher for [facility] Diagnoses Cecitis K52.9
--- NOTE | 2019-11-01 18:32 | PC.NURSE ---
11/01/2019 1800 - PT TRANSFERRED ROOM 250; ALL PT BELONGING'S ACCOUNTED FOR; PT TOLERATED BLAND DIET; NO BOWEL MOVEMENTS DURING THE DAY; PT PASSING FLATUS; PT'S PAIN CONTROLLED/MINIMAL;
[2019-11-01] MEDS: gabapentin 300 mg Capsule PO (18:46)
[2019-11-01] MEDS: allopurinol 100 mg Tablet PO (18:47)
[2019-11-01 20:33] LABS: Glucose Point of Care 124 mg/dL (70-110)
[2019-11-01 20:42] LABS: Hematocrit 34.2 % (42.0-52.0); Hemoglobin 10.3 g/dL (11.7-16.6)
--- NOTE | 2019-11-01 20:44 | PC.NURSE ---
FLAGYL FLAGYL ADMINISTERED AT 2044 BY THIS NURSE PER ORDERS.
[2019-11-01] MEDS: HYDROcodone-acetaminophen 5-325 mg Tablet 1 TAB PO (21:29)
[2019-11-01] MEDS: pramipexole 0.25 mg Tablet PO (21:29)
[2019-11-02] VITALS (7 sets, daily range): BP systolic 113–136; BP diastolic 66–84; PULSE 74–103; RESP 18–22; TEMP 36.6–37; O2SAT 94–96
[2019-11-02] MEDS: HYDROcodone-acetaminophen 5-325 mg Tablet 1 TAB PO (03:44)
[2019-11-02] MEDS: sodium chloride 0.9% 1,000 ML 100 ML IV (03:46)
[2019-11-02] MEDS: metroNIDAZOLE IV 500 MG/100 ML PREMIX 100 MG IV (04:50)
[2019-11-02 05:52] LABS: Basophils % 0.6 %; Eosinophils # 0.1 10^3/uL (0.0-0.8); Eosinophils % 2.1 %; Hematocrit 36.1 % (42.0-52.0); Hemoglobin 10.2 g/dL (11.7-16.6); Lymphocytes # 1.2 10^3/uL (0.8-4.8); Lymphocytes % 25.5 %; Mean Corpuscular HGB Conc 28.3 g/dL (30.0-36.0); Mean Corpuscular Hemoglobin 31.1 pg (28.0-34.0); Mean Corpuscular Volume 110.1 fL (80-94); Mean Platelet Volume 9.3 fL (7.4-10.4); Monocytes # 0.4 10^3/uL (0.2-0.9); Monocytes % 7.5 %; Neutrophils # 3.1 10^3/uL (1.8-7.7); Neutrophils % 63.3 %; Nucleated Red Blood Cells % 0 %; Platelet Count 209 10^3/cmm (130-400); Red Blood Count 3.28 10^6/uL (4.1-5.3); Red Cell Distribution Width 15.7 % (12.1-15.1); White Blood Count 4.8 10^3/uL (4.0-10.0)
[2019-11-02] MEDS: ciprofloxacin 400 MG/200 ML PREMIX 200 MG IV (06:02)
[2019-11-02 06:13] LABS: Alanine Aminotransferase 7 U/L (0-41); Albumin Level 3.1 g/dL (3.5-5.2); Alkaline Phosphatase 67 IU/L (40-130); Anion Gap 14.8 (5-19); Aspartate Amino Transferase 13 U/L (0-40); Blood Urea Nitrogen 8 mg/dL (6-20); Calcium 8.3 mg/dL (8.5-10.5); Carbon Dioxide 22 mmol/L (22-29); Chloride 104 mmol/L (98-107); Globulin 2.8 g/dL (1.3-4.6); Glomerular Filtration Rate 79.8 mL/min (90-130); Glucose 84 mg/dL (65-115); Osmolality Calculated 279 mOsm/kg (285-295); Potassium 3.8 mmol/L (3.5-5.1); Sodium 137 mmol/L (136-145); Total Bilirubin 0.4 mg/dL (0.15-1.2); Total Protein 5.9 g/dL (6.6-8.7)
[2019-11-02] MEDS: pantoprazole 40 mg SDV IVP (07:50)
[2019-11-02] MEDS: morphine ER (12 HR) 30 mg tablet PO (08:07)
[2019-11-02] MEDS: gabapentin 300 mg Capsule PO (08:07)
[2019-11-02] MEDS: allopurinol 100 mg Tablet PO (08:08)
[2019-11-02] MEDS: nicotine 21 mg Patch 1 PATCH TRANSDERMA (08:08)
--- NOTE | 2019-11-02 11:12 | P.DS_ITS ---
Discharge Providers Date of Admission: 10/31/19 18:24 Date of Discharge: November 02, 2019 Attending Provider at Admission: Rashaun Jones MD Attending Provider at Discharge: Rashaun Jones MD Primary Care Provider: Pamela Lorenzana Diagnoses at Discharge Discharge Diagnosis (1) Cecitis: Status: Acute (2) Hypovolemic shock: Status: Acute (3) GI bleeding: Status: Acute Qualifiers: GI bleed type/associated pathology: unspecified gastrointestinal hemorrhage type Qualified Code(s): K92.2 - Gastrointestinal hemorrhage, unspecified (4) Anemia: Status: Acute Qualifiers: Anemia type: other cause Other causes of anemia: other cause, not classified Qualified Code(s): D64.89 - Other specified anemias (5) Primary lung cancer: Status: Acute Qualifiers: Laterality: right Qualified Code(s): C34.91 - Malignant neoplasm of unspecified part of right bronchus or lung (6) Coagulopathy: Status: Acute (7) Colitis: Status: Acute Reason for Visit 2 Reason for Visit: Reason For Visit: blood in stool Hospital Course Discharge Summary: Eric Mckeon is a 48 year old male who has history of recurrent small cell cancer currently on temozolomide, suffered from hematochezia in the past, got diagnosed with nivolumab ipilimumuab induced colitis after colonoscopy and negative infectious work-up, required IV steroids, ciprofloxacin, Flagyl and oral vancomycin for C. difficile as well coming in today with chief complaint of bright bleed per rectum. Patient has been seeing Dr. Plummer who has started him on Temodar for 5 days every 28 days prescription started on 10/15. He has completed his radiotherapy for left neck mass last session 06/19/2019. Patient is stating that he was in his usual state of health until today when he started experiencing abdominal cramps, after bowel movement he noticed his toilet bowl is full of fresh bright bleed, he did not notice any chest pain, shortness of breath, lightheadedness, diaphoresis. He had 2 bowel movements at home which are bloody. He had one bloody bowel movement in the ER. He is compliant with his medications including anticoagulation. He is denying chest pain, shortness of breath, fever, nausea or vomiting. Patient was admitted to the ICU for hematochezia. Patient had no more bloody bowel movements since admission. His hemoglobin remained stable and did not require any PRBC transfusion. His case was discussed with Dr. Plummer and his current chemotherapy which is temozolomide usually does not cause colitis but can activate old colitis. Patient did not have any melena nor bloody bowel movements he was not started back on the steroids. He was eventually started b ack on bland diet which he tolerated well. Patient was advised to not start back his anticoagulation for at least the next 14 days. He is also advised to follow-up with Dr. Calvo as an outpatient for possible colonoscopy/EGD for further biopsies to rule out inflammatory bowel disease. Patient is been discharged in hemodynamically stable condition with advised to hold off on his Eliquis, while being on ciprofloxacin and Flagyl for 5 more days and advised to follow-up with Dr. Calvo, Dr. Plummer and his primary care provider within next 2 weeks. Physical Exam Narrative: EXAM NARRATIVE: General: No acute distress, AO x3 HEENT: PERRLA, pupils bilaterally equal and reactive Chest: Normal vesicular breath sounds, no added sounds, equal good air entry bilaterally CVS: S1-S2 regular, no murmurs, no tachycardia, no gallops, no rubs Abdomen: Soft, mild tenderness periumbilical region, bowel sounds sluggish Neuro: No focal deficits, no facial deformity, AO x3, power 5/5 in all limbs Discharge Data Data Completed and Pending: Completed Studies During Hospitalization Category Date Time Status CT abdomen pelvis w con* [id number] Urge nt Cat Scan 10/31/19 16:38 Completed XR abdomen min 2V [id number] Routine Exams 11/01/19 09:00 Completed XR chest 1V anat ble [id number] Routine Exams 10/31/19 19:36 Completed Pending at discharge Category Date Time Status Blood Culture Sta t Lab 10/31/19 20:05 Results CMV IGG&IGM Panel Stat Lab 11/01/19 10:37 Received Clostridium Diffi cile BY PCR Stat Lab 10/31/19 17:24 Ordered [facility] SIOBHAN Profile R outine Lab 11/01/19 10:37 Received Labs from last 24 hours 11/02/19 11/02/19 11/01/19 04:38 04:38 20:30 WBC 4.8 RBC 3.28 L Hgb 10.2 L Hct 36.1 L MCV 110.1 H MCH 31.1 MCHC 28.3 L RDW 15.7 H Plt Count 209 MPV 9.3 Neut % (Auto) 63.3 Lymph % (Auto) 25.5 [place] % (Auto) 7.5 Eos % (Auto) 2.1 Baso % (Auto) 0.6 Neut # (Auto) 3.1 Lymph # (Auto) 1.2 [place] # (Auto) 0.4 Eos # (Auto) 0.1 Baso # (Auto) 0.0 Nucleated RBC % (a uto) 0 Nucleated RBCs # 0.0 Sodium 137 Potassium 3.8 Chloride 104 Carbon Dioxide 22 Anion Gap 14.8 BUN 8 Creatinine 1.0 GFR Calculation 79.8 L Glucose 84 POC Glucose 124 Calculated Osmolal ity 279 L Calcium 8.3 L Iron TIBC % Saturation Unsat Iron Binding Total Bilirubin 0.4 AST 13 ALT 7 Alkaline Phosphata se 67 Total Protein 5.9 L Albumin 3.1 L Globulin 2.8 Vitamin B12 Folate 11/01/19 11/01/19 11/01/19 19:50 04:27 04:27 WBC RBC Hgb 10.3 L Hct 34.2 L MCV MCH MCHC RDW Plt Count MPV Neut % (Auto) Lymph % (Auto) [place] % (Auto) Eos % (Auto) Baso % (Auto) Neut # (Auto) Lymph # (Auto) [place] # (Auto) Eos # (Auto) Baso # (Auto) Nucleated RBC % (a uto) Nucleated RBCs # Sodium Potassium Chloride Carbon Dioxide Anion Gap BUN Creatinine GFR Calculation Glucose POC Glucose Calculated Osmolal ity Calcium Iron 53 L TIBC 162 % Saturation 32.7 Unsat Iron Binding 109 L Total Bilirubin AST ALT Alkaline Phosphata se Total Protein Albumin Globulin Vitamin B12 1292 H Folate 10.4 Vitals: Last Vital Signs Temp 98.1 F 11/02/19 11:06 Pulse 88 11/02/19 11:06 Resp 22 H 11/02/19 11:06 BP 122/66 11/02/19 11:06 Pulse Ox 95 11/02/19 11:06 Discharge Plan Discharge Patient Disposition: Home, Self-Care Condition: Stable Prescriptions: New Protonix [address] for susp in packet 40 mg PO DAILY Qty: 30 RF: 0 ciprofloxacin HCl 500 mg tablet 500 mg PO BID Qty: 10 RF: 0 Flagyl 500 mg tablet 500 mg PO Q12H 5 Days Qty: 10 RF: 0 Continued fluticasone propion-salmeterol [Advair Diskus] 250-50 mcg/dose Blister With Device 1 inh INHALATION BID RF: 0 metoprolol succinate 50 mg Tablet Extended Release 24 Hr 50 mg PO DAILY RF: 0 hydrocodone-acetaminophen 5-325 mg Tablet 1 - 2 tab PO Q6H PRN (Reason: Pain, Moderate) RF: 0 allopurinol 100 mg Tablet 100 mg PO BID RF: 0 pramipexole 0.25 mg Tablet 0.25 mg PO DAILY RF: 0 gabapentin 300 mg Capsule 300 mg PO QID RF: 0 oxybutynin chloride 5 mg Tablet 5 mg PO BID RF: 0 Tradjenta 5 mg Tablet 5 mg PO DAILY RF: 0 lisinopril 20 mg tablet 20 mg PO DAILY RF: 0 temozolomide 250 mg Capsule 250 mg PO DAILY RF: 0 ondansetron 8 mg tablet,disintegrating 8 mg PO TID PRN (Reason: NAUSEA/VOMITING) RF: 0 Zyrtec 10 mg Tablet 10 mg PO DAILY RF: 0 morphine 30 mg Tablet,Oral Only,Extnd Release 30 mg PO Q12H RF: 0 Held Eliquis 5 mg Tablet 5 mg PO BID RF: 0 Hold Instructions: Resume on 11/16/19. Doctor's Order Discontinued diclofenac sodium 75 mg tablet,delayed release (DR/EC) 75 mg PO BID RF: 0 Discharge Orders: Discharge Order (Routine); Ordered 11/02/19 Ordered By: Rashaun Jones Referrals: Kurt Calvo MD [Physician] - 1-3 days (Please call monday to make an appointment) Pamela Lorenzana PA [Primary Care Provider] - 2 weeks (please call monday to make an appointment ) Nupur Plummer MD [Staff Physician] - 1 month (please call monday to make an appointment ) Discharge Diet: Advance as tolerated Discharge Activity: Resume usual activity Patient Instructions: Pantoprazole (By mouth), GI Bleeding Activity Restrictions/Additional Instructions: Please do not take Eliquis for the next 14 days. Please follow-up with Dr. Calvo for possible colonoscopy/endoscopy as an outpatient within next 1 week. Please check CBC in 1 week and follow-up with the primary care physician. Please take bland/brat diet for next 1 week and advance gradually. Discharge Attestations Time Spent in Discharge Care*: greater than 30 min Specific Discharge Activities: Specific discharge activities: educating patient, discussing with pcp/other providers, discussing with watch case polisher/social workers/dc planners, documenting/other paperwork and evaluating patient/reviewing data Status at Discharge: Cognitive status at discharge: cognitively intact , Behavioral status at discharge: cooperative , Functional status at discharge: independent ambulation Overall status at discharge: patient is back to baseline Quality Metrics Clinical Quality Measures During this hospital stay, did patient experience: None Coding Level of Care Code 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
[2019-11-04 14:46] LABS: Cytomegalovirus Antibody (IGG) >10.00 U/mL; Cytomegalovirus Antibody (IGM) <30.00 AU/mL
[2019-11-04 15:46] LABS: Anti-Double Strand DNA AB 1 IU/mL; Jo-1 Antibody <1.0 NEG AI (<1.0 NEG); SM/RNP Antibodies <1.0 NEG AI (<1.0 NEG); SS-B/LA IGG <1.0 NEG AI (<1.0 NEG); Scleroderma Ab(Scl-70) Ab <1.0 NEG AI (<1.0 NEG); Ss-A/Ro Igg <1.0 NEG AI (<1.0 NEG)
== END 2019-11-02 12:00 | disposition home or self-care (01) | DRG 872 ==
LOC: ER 18:18 → ICU 18:41 → MEDSURG 11-01 18:21
PROVIDERS: Emergency Medicine; Internal Medicine; Admitting Provider Student in an Organized Health Care Education/Training Program; Emergency Provider Emergency Medicine; Family Provider Physician Assistant; PCP Physician Assistant; Visit Provider Student in an Organized Health Care Education/Training Program
DX: A41.9 Sepsis, unspecified organism (principal); K92.2 Gastrointestinal hemorrhage, unspecified; C34.91 Malignant neoplasm of unspecified part of right bronchus or lung; K52.1 Toxic gastroenteritis and colitis; Z79.899 Other long term (current) drug therapy; Z92.3 Personal history of irradiation; J43.9 Emphysema, unspecified; Z86.711 Personal history of pulmonary embolism; I10 Essential (primary) hypertension; E66.9 Obesity, unspecified; Z68.36 Body mass index [BMI] 36.0-36.9, adult; G47.33 Obstructive sleep apnea (adult) (pediatric); E11.9 Type 2 diabetes mellitus without complications; F17.210 Nicotine dependence, cigarettes, uncomplicated; T45.1X5A Adverse effect of antineoplastic and immunosuppressive drugs, initial encounter; E27.8 Other specified disorders of adrenal gland; N30.90 Cystitis, unspecified without hematuria; Z79.01 Long term (current) use of anticoagulants; D89.9 Disorder involving the immune mechanism, unspecified; K52.9 Noninfective gastroenteritis and colitis, unspecified; Z79.891 Long term (current) use of opiate analgesic
CPT/HCPCS: 12345; 36415; 36416; 71045; 74019; 74177; 80048; 80053; 82607; 82746; 82962; 83540; 83550; 83605; 83630; 84145; 85014; 85018; 85025; 85610; 86225; 86235; 86850; 86900; 87040; 87493; 87506; 87641; 94640; 96375; 99282; C9113; J0744; J1170; J1956; J2405; J7030; Q9967; S0030

== ENCOUNTER 2019-11-07 08:08 | Day surgery (SDC) | payer MEDICARE, MEDICAID, SELFPAY ==
[2019-11-06 11:53] VITALS: BMI 34.7
--- NOTE | 2019-11-07 07:56 | W.PM.OPSUD ---
Surgery/Procedure H&P Update DATE OF PROCEDURE: November 07, 2019 DATE H&P PERFORMED: 11/04/19 H&P UPDATE INFORMATION: I have reviewed H&P completed within last 30 days, I have examined patient prior to procedure and No changes to prior documentation PREOP DIAGNOSIS: rectal bleeding PLANNED PROCEDURE: Operation Date: 11/07/19 09:40 Proposed Procedures p Colonoscopy 06273 K92.2(Not Applicable) - Kurt Calvo MD
[2019-11-07] MEDS: sodium chloride 0.9% 1,000 ML 30 ML IV (08:45)
[2019-11-07 08:48] VITALS: BP 144/85; PULSE 91; RESP 20; TEMP 36.9; O2SAT 96
[2019-11-07 08:56] LABS: Glucose Point of Care 89 mg/dL (70-110)
--- NOTE | 2019-11-07 09:18 | ANES.PREANE2 ---
Pre-Anesthetic Assessment Pre-Anesthetic Assessment: Height/Weight: Height 1.91 m Weight 126.099 kg Temp Pulse Resp BP Pulse Ox 98.4 F 91 20 H 144/85 96 11/07/19 08:48 11/07/19 08:48 11/07/19 08:48 11/07/19 08:48 11/07/19 08:48 Preop Diagnosis: hematochezia Proposed Procedure: Operation Date: 11/07/19 09:40 Proposed Procedures p Colonoscopy 13278 K92.2(Not Applicable) - Kurt Calvo MD Last intake: Intake Last Liquid Date 11/06/19 Last Liquid Time 22:30 Last Solid Date 11/06/19 Last Solid Time 08:00 Social: Social History: Tobacco Exam: Pre-Anes Outpt Exam: alert, oriented x 3, clear to auscultation bilaterally and regular rate & rhythm Airway: Submandibular: WNL Cervical ROM: WNL MP: 4 Dentition: Chipped History/ROS: No significant history except as noted CV/HEM: CV/HEM: DVT GI: GI: GERD Metabolic: Metabolic: DM and Hyperlipidemia Anesthetic Plan: ASA status: 3 Anesthesia: Anesthesia Evaluation and MAC Risk of > 500 ml blood loss (7ml/kg in children): No PFSH Anesthesia PFSH: Medical History COPD (chronic obstructive pulmonary disease) History of pulmonary embolism Hypertension Metastatic cancer Sleep apnea Small cell lung cancer Type 2 diabetes mellitus Surgical History (Updated 11/04/19 @ 16:13 by Kutr Calvo MD) History of lung biopsy History of umbilical hernia repair Port-A-Cath in place Status post chemotherapy Status post colonoscopy (~09/2019) Social History Smoking and tobacco status: current every day smoker cigarettes Packs smoked per day: 1 Alcohol intake: never Household members: spouse Marital status: Current occupational status: disabled Data Anesthesia Other Labs: Laboratory Results - last 48 hr 11/07/19 08:51 POC Glucose 89 Cardiac Studies: No Data to Display
[2019-11-07 11:12] VITALS: BP 116/76; PULSE 86; RESP 16; TEMP 36.4; O2SAT 95
[2019-11-07 11:28] VITALS: BP 118/80; PULSE 88; RESP 18
== END 2019-11-07 12:04 | disposition home or self-care (01) ==
PROVIDERS: Family Provider Physician Assistant; PCP Physician Assistant; Visit Provider Surgery
PROC: 0DJD8ZZ Inspection of Lower Intestinal Tract, Via Natural or Artificial Opening Endoscopic (ICD-10-PCS; CPT 45378; principal; 2019-11-07 09:35)
DX: K62.5 Hemorrhage of anus and rectum (principal); Z86.718 Personal history of other venous thrombosis and embolism; K21.9 Gastro-esophageal reflux disease without esophagitis; E11.9 Type 2 diabetes mellitus without complications; E78.5 Hyperlipidemia, unspecified; J44.9 Chronic obstructive pulmonary disease, unspecified; G47.30 Sleep apnea, unspecified; I10 Essential (primary) hypertension; F17.210 Nicotine dependence, cigarettes, uncomplicated
CPT/HCPCS: 45378; 12345; 36416; 82962; J2704; J7030

== ENCOUNTER 2019-11-19 09:21 | Outpatient (RCR) | payer MEDICARE, MEDICAID, SELFPAY ==
[2019-11-19 08:55] LABS: Basophils # 0.1 10^3/uL (0.0-0.1); Basophils % 0.9 %; Eosinophils # 0.4 10^3/uL (0.0-0.8); Eosinophils % 6.6 %; Hematocrit 38.9 % (42.0-52.0); Hemoglobin 12.3 g/dL (11.7-16.6); Lymphocytes # 2.4 10^3/uL (0.8-4.8); Lymphocytes % 43.6 %; Mean Corpuscular HGB Conc 31.6 g/dL (30.0-36.0); Mean Corpuscular Hemoglobin 30.8 pg (28.0-34.0); Mean Corpuscular Volume 97.5 fL (80-94); Mean Platelet Volume 9.4 fL (7.4-10.4); Monocytes # 0.4 10^3/uL (0.2-0.9); Monocytes % 7.2 %; Neutrophils # 2.3 10^3/uL (1.8-7.7); Neutrophils % 41.5 %; Nucleated Red Blood Cells % 0 %; Platelet Count 274 10^3/cmm (130-400); Red Blood Count 3.99 10^6/uL (4.1-5.3); Red Cell Distribution Width 16.1 % (12.1-15.1); White Blood Count 5.6 10^3/uL (4.0-10.0)
[2019-11-19 09:06] LABS: Alanine Aminotransferase 11 U/L (0-41); Albumin Level 3.6 g/dL (3.5-5.2); Alkaline Phosphatase 67 IU/L (40-130); Anion Gap 14.9 (5-19); Aspartate Amino Transferase 19 U/L (0-40); Blood Urea Nitrogen 13 mg/dL (6-20); Calcium 9.8 mg/dL (8.5-10.5); Carbon Dioxide 24 mmol/L (22-29); Chloride 105 mmol/L (98-107); Globulin 3.9 g/dL (1.3-4.6); Glomerular Filtration Rate 89.7 mL/min (90-130); Glucose 117 mg/dL (65-115); Osmolality Calculated 287 mOsm/kg (285-295); Potassium 3.9 mmol/L (3.5-5.1); Sodium 140 mmol/L (136-145); Total Bilirubin 0.3 mg/dL (0.15-1.2); Total Protein 7.5 g/dL (6.6-8.7)
--- NOTE | 2019-11-19 11:07 | ONC FU_ITS ---
Dr. Plummer follow up note Patient: Eric Mckeon Unit #: [id number]: 1970 Dicatated By: Nupur Plummer M.D.Date of Visit:November 19, 2019 Onc Med Follow-up/Prog Note History of Present Illness: Mr. Mckeon is a 49-years -old gentleman who developed a left neck mass. He was seen by Dr. Ben FOX and underwent needle core biopsy of left neck mass on 10/16/2017. 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 He underwent a CT of chest on 10/23/2017 which revealed a large right paratracheal mass measuring 8.3???7.7 cm. It involves the superior vena cava with near occlusion. It also causes encasement of the right main pulmonary artery with moderate narrowing with moderate stenosis. It also encases the right proximal main stem bronchus and bronchus intermedius. Mr Mckeon subsequently underwent CT PET scan on 10/28/2017 which showed hypermetabolic left neck mass 4.9 x 3.7 cm with SUV of 12.9. Right paratracheal mass with SUV of 15. At the level of pelvis a 6.1 x 4.5 cm soft tissue mass was reported in the right external iliac territory which has SUV of 14.4. There was an FDG positive muscular implant anterior to right femoral neck measuring 1.[address] scan done on 12/07/2017 showed right lower lobe and right middle lobe pulmonary embolism and was started on apixaban and for the study showed right lower extremity clot Mr Mckeon was seen by radiation oncology and started on radiation to his chest on urgent basis because of risk of impending SVC syndrome. He began his first cycle of chemotherapy with Carboplatin/etoposide on 11/06/2017. His last cycle of chemotherapy was on 02/06/2018. Mr. Mckeon did have follow-up PET CT on 02/03/2018. The left-sided cervical mass seen on the exam from 10/28/2017 is now subcentimeter in size and within minimal FDG activity. Similarly, the right hilar/paratracheal mass demonstrates activity minimally greater than that of the mediastinal background and measures 2.3 x 4.1 cm. The right external iliac mass now measures 1.5 cm without significant FDG activity. The muscle implant anterior to the right femoral neck currently has SUV of 6.6 down from 14.1 indicating a positive response to chemotherapy. His cycle 6 chemotherapy, was on 04/02/2018. Patient has seen Dr. Cotton radiation oncology, regarding persistent activity in muscle implant anterior to the right femoral neck, as per patient he was informed that there is a risk of radiation-induced damage to his femoral neck/ right hip and suggested to continue with chemotherapy and repeat CT PET scan as planned. Underwent CT-guided biopsy of right iliopsoas muscle implant anterior to right femoral neck on 06/04/2018 at [facility] radiology department in [place] and final pathology report came back fibrohistiocytic proliferation, no evidence of carcinoma Sleep apnea on CPAP machine Underwent fluoroscopy Port-A-Cath on 08/06/2018 showed patent Port-A-Cath He was supposed to get CT PET scan but insurance refused coverage so CT scan of chest abdomen pelvis and neck was done on 08/17/2018. It reported recurrent mass in the left neck centered at level of hyoid bone. Mass extends over a length of 4 x 2.2 x 3.4 cm. The mass abuts and displaces the fat planes along the sternocleidomastoid muscle. Mass also abuts the left jugular vein. Mass in a similar location on study of 09/18/2017. CT PET scan done on 04/21/2018 was negative. No additional masses noted. CT scan of chest showed continued decrease righ media l upper lobe mass; Unchanged right upper lobe linear and patchy nodular opacity; CT abdomen pelvis showed no definite metastatic disease in abdomen pelvis; Left mid kidney indeterminant wedge-shaped low-attenuation focus Mr Mckeon underwent biopsy of left neck mass at [facility] on 09/12/2018, final pathology report came back high-grade neuroendocrine carcinoma, predominantly small cell feature and positive focally week for TTF-1, it was concluded, given history of SVC syndrome and radiological studies diagnosis was revised to metastatic small cell lung cancer. And rechallenge with carboplatin/etoposide was recommended along with tecentriq (atezolizumab), Which he was started on 09/26/2018. Follow-up CT PET scan done after 4 doses of carboplatin/etoposide/ tecentriq , on 12/29/2018 showed persistent left supraclavicular mass measuring 3.7 x 2.7 with SUV of 8.2 compared to 4 prior to by 3.[address] scan of neck done on 08/17/[address] [facility]. And also showed persistent but stable muscle implant anterior to right femur, with SUV 14.0 and it was biopsied earlier and showed no evidence of metastatic disease Patient was evaluated by Dr. Gorman in March 2019 and as per his evaluation patient still responding to the treatment and left neck mass is smaller than before and . Last chemotherapy was done on 02/03/2019. The muscle implant was also seen with SUV of 14, biopsy of specimen was consistent with recurrent high-grade tumor and he was offered a clinical trial [facility] neuroendocrine oncology clinic at [facility]. Patient did well and clinical trial but eventually developed progressive thrombocytopenia and at his followup visit on May 07, [address] Gorman, his follow-up scan showed disease progression. At that time he was taken off clinical trial as left neck mass continued to grow. CT scan of neck done at the May 2019 followup visit, showed progressive left neck mass site 6.1 x 7.6 cm compared to 4.4 x 6.4 on 02/21/2019 with central hypoattenuation in mass is intimately associated with the left internal jugular vein and now appears to encase it and right pulmonary nodularity, cavitary lesion, right hilar mass seen. With this impression it was decided a few with palliative therapy which include radiation therapy to the left neck mass and because of persistent thrombocytopenia immunotherapy with ipilimumab and nivolumab was recommended and in case thrombocytopenia resolved topotecan based regimen can be considered Tolerated radiation therapy to left neck reasonably well and he concluded radiation therapy on 06/19/2019 o a total dose of 4,500 cGy. recommended that he pursue ipilimumab and nivolumab. 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 difficile which came back positive and he was started on antibiotics overall condition improved was discharge home in a stable condition with a tapering dose of steroids, patient return to [facility] with hypotension and severe diarrhea and again responded very well to high-dose steroids underwent colonoscopy evaluation.which showed extensive inflammation. Follow-up CT PET scan done on 10/12/2019 showed the left cervical mass now measured 3.0 x 1.8 cm with SUV of 4.2, significant improvement from prior study. The implant anterior to right femur has improved, now with SUV of 6 down from [address] PET scan done on 12/29/2018. Started on maintenance therapy with Temodar 100 mg/m??? daily for 5 days every 28 days prescription was given on 10/16/2019 As per patient, he took first dose of Temodar on 11/01/2019 and he did develop bright blood per rectum and went to [facility] and was admitted to hospital treated conservatively, GI was consulted patient underwent colonoscopy evaluation on 11/07/2019 which showed no abnormality and previously seen colitis has completely resolved.patient did not complete his 5 days/28 days course of Temodare.g. took only 1 dose.because of GI bleeding, his Eliquis was also put on hold. Him for follow-up, denies any specific complaint today no nausea vomiting no fever no chills no melena or hematochezia, no jaundice, no abdominal pain, no shortness of breath no hemoptysis or hematemesis. . Medications: Advair Diskus 2 puff(s) (of 250-50 mcg/dose) Aerosol Powder, Breath Activated Inhalation b.i.d., Ativan 0.5 - 1 Tablet (of 1 mg) Oral t.i.d. PRN, Cetirizine HCl 1 Tablet (of 10 mg) Tablet Oral b.i.d., Diclofenac Sodium 1 Tablet (of 75 mg) Tablet, enteric coated Oral b.i.d., Eliquis 1 Tablet Oral b.i.d., Gabapentin 1 Capsule (of 300 mg) Capsule Oral four times a day, Hydrocodone-Acetaminophen 1 - 2 Tablet (of 5-325 mg) Oral q 6 hours, Lisinopril 1 Tablet (of 20 mg) Oral daily, Metoprolol Tartrate 1 Tablet (of 50 mg) Tablet Oral daily, Oxybutynin Chloride 1 Tablet (of 5 mg) Tablet Oral b.i.d., Pramipexole Dihydrochloride 1 (0.25 mg) Tablet Oral at bedtime Allergies: Penicillins Review of Systems: Constitutional - Appetite is fair, energy is poor, weight is stable at present, ENMT - Positive for sinus congestion/drainage. No mouth sores. No sore throat or difficulty swallowing, Hematologic/Lymphatic - No unusual bruising or bleeding, Respiratory - Occasional cough, Cardiovascular - No anginal chest pain, palpitations. He has no leg swelling, Gastrointestinal - No nausea, vomiting, diarrhea, GI bleeding. Positive for constipation. No change in bowel habits, no heartburn or early satiety, Genitourinary (M) - No hematuria, dysuria, increased frequency, urgency, hesitancy or incontinence, Musculoskeletal - No joint pain, swelling or redness. No decreased range of motion, Integumentary - No skin ulcers or open wounds, Neurologic - No headaches, no dizziness, Psychiatric - Patient denies anxiety or depression. Pt has difficulty falling asleep. Vital Signs: Performed on November 19, 2019 08:57 Height - 72.00 in Weight - 285.4 lbs (LOW) BSA - 2.48 sq.m BMI - 38.71 (HIGH) Temperature - 98.4 F Pulse - 106 /min (HIGH) Respiration - 18 /min BP - 138/87 mm(hg) O2 Sat - 96 % Pain - 0 Performance Status: 1 - No physically strenuous activity, but ambulatory and able to carry out light or sedentary work (e.g. office work, light house work). (ECOG) Physical Examination: ENMT - no mouth sores, no jaundice, Respiratory - Lungs are clear, Cardiovascular - Regular rate and rhythm of heart, Abdomen - soft, bowel sounds present, Extremities - 1+ edema bilaterally. Lab/Imaging: Test performed on Oct 16, 2019 09:26 Sodium 138 mmol/L Potassium 3.9 mmol/L Chloride 102 mmol/L CO2 25 mmol/L Anion Gap 14.9 BUN 14 mg/dL Creatinine 0.8 mg/dL Cr Clearance (Est) 226.1900 mL/min eGFR 103.2 mL/min Glucose 135 mg/dL Calcium 9.2 mg/dL Protein, Total 6.8 g/dL Albumin 3.4 g/dL Globulin 3.4 g/dL Bilirubin, Total 0.4 mg/dL ALT (SGPT) 17 U/L AST (SGOT) 18 U/L Alkaline Phosphatase 76 IU/L WBC 7.0 10 3/uL RBC 4.19 10 6/uL HGB 13.0 g/dL HCT 41.5 % MCV 99.0 fL MCH 31.0 pg MCHC 31.3 g/dL RDW 16.7 % Platelet Count 186 10 3/cmm MPV 9.7 fL Neutrophils 4.4 10 3/uL Lymphocytes 1.9 10 3/uL Monocytes 0.6 10 3/uL Eosinophils 0.1 10 3/uL Basophils 0.0 10 3/uL Neutrophil % 62.1 % Lymphocyte % 26.9 % Monocyte % 9.0 % Eosinophil % 1.0 % Basophils % 0.4 % Test performed on Jul 23, 2019 09:13 TSH 0.54 uIU/mL Test performed on Jul 16, 2019 08:39 Manual Lymphocytes 43.2 % Manual Monocytes 7.2 % Manual Eosinophils 9.0 % Manual Basophils 0.9 % NRBCs 0.0 /100 WBC Test performed on Jul 10, 2019 15:39 Hemoglobin A1C 5.2 % Impression: Recurrent small cell lung cancer per left neck mass biopsy on 09/12/2018, which showed high-grade neuroendocrine carcinoma, predominantly small cell feature and positive focally for TTF-1, it was concluded, given history of SVC syndrome and radiological studies diagnosis was revised to metastatic small cell lung cancer Metastatic High-grade neuroendocrine carcinoma per needle core biopsy of left neck mass done on 10/16/2017 Pathology also showed sheets and cords of large malignant cells with neuroendocrine features, numerous mitotic figures are seen as well as area of tumor necrosis. immuno histochemistry positive for CAM 5.2, CD 56 , synaptophysin, TTF-[address] scan of chest done on 10/23/2017 showed 7.7 x 2.3 cm right paratracheal mass with a near occlusion of SVC, and encasement of right proximal pulmonary artery with moderate stenosis, and encasement of right proximal main stem bronchus and bronchus intermedius CT PET scan done on 10/28/2017 showed hypermetabolic left neck mass measuring 4.9 x 3.7 cm with SUV of 12.9 and right paratracheal mass measures 6.8 x 7.8 cm with SUV of 15 and at the level of pelvis a 6.1 x 4.5 cm soft tissue mass in the right external iliac territory has SUV of 14.4 and and FDG positive muscular implant anterior to right femoral neck measuring about 1.2 cm in size On radiation therapy to right paratracheal mass and chemotherapy with carboplatin and etoposide was added on 11/06/2017. He received radiation therapy to right pelvic mass Right leg DVT diagnosed on 12/07/2017 on Eliquis. Mr. Mckeon was admitted on 01/20/2018 with an initial concerns for sepsis but was found to have UTI. He was discharged on antibiotics andhis fever, rigors and tachycardia resolved. CT PET scan done on 02/03/2018 showed left sided cervical mass seen on exam from 10/28/2017 is now subcentimeter in size and within normal limit FDG activity early. Right hilar/paratracheal mass demonstrates activity minimally greater than that of mediastinal background and molecular 2.3 x 4.1 cm. Right external iliac mass now measured 1.5 cm without significant FDG activity. The muscle implant anterior to the right femoral neck currently has SUV of 6.6, down from 14.1, indicating a positive response to therapy. Repeat CT PET scan done after 6th dose of chemo on 04/21/2018 showed previously described left sided cervical mass was not identifiable on the current study. Right hilar/paratracheal mass is improved in size to 3 cm with a minimum FDG activity. Right external iliac lymph node was unchanged in size but without significant FDG activity Muscle implant anterior to right femoral neck had an SUV of 12 compared to 6.6 previously, consistent with progression of disease at that location. On 06/04/2018, he underwent CT-guided biopsy of this lesion at [facility] radiology department in [place] and final pathology report came back fibrohistiocytic proliferation, no evidence of carcinoma CT scan of neck chest abdomen pelvis done on 08/17/2018 showed recurrent mass in the left neck centered at level of hyoid bone. Mass extends over a length of 4 x 2.2 x 3.4 cm and abuts and displaces fat planes along the sternocleidomastoid muscle. Mass also abuts left jugular vein. No additional mass seen. Mass in a similar location on the study of 09/18/2017. CT PET scan done on 04/21/[address] scan of chest showed continued decrease right medial upper lobe mass. Unchanged right upper lobe linear and patchy nodular opacity. New right lower lobe superior segment focal irregular opacity nonspecific follow-up CT scan recommended in [address] abdomen showed no definite metastatic disease in abdomen pelvis. Left mid kidney indeterminant wedge-shaped low-attenuation focus nonspecific. Mr Mckeon underwent biopsy of left neck mass at [facility] on 09/12/2018, final pathology report came back high-grade neuroendocrine carcinoma, predominantly small cell feature and positive focally week for TTF-1, it was concluded, given history of SVC syndrome and radiological studies diagnosis was revised to metastatic small cell lung cancer. Re-challenging with carboplatin and etoposide was recommended along with tecentriq (atezolizumab). So planning was to start him on carboplatin/etoposide and tecentriq 1200 mg IV day 1 q3 weeks ???[address] PET scan if complete remission, may consider maintenance therapy with Tecentriq alone.Which was started on 09/26/2018 Follow-up CT PET scan done after 4 doses of carboplatin/etoposide/ tecentriq , on 12/29/2018 showed persistent left supraclavicular mass measuring 3.7 x 2.7 with SUV of 8.2 compared to 4 prior to by 3.[address] scan of neck done on 08/17/[address] [facility]. It also showed persistent but stable muscle implant anterior to right femur, with SUV 14.0 and it was biopsied earlier and showed no evidence of metastatic disease Patient was evaluated by Dr. Gorman in March 2019 and as per his evaluation, Mr Mckeon was still responding to the treatment and left neck mass is smaller than before. Last chemotherapy was done on 02/03/2019. The muscle implant was also seen with SUV of 14 biopsy of specimen was consistent with recurrent high-grade tumor and he was offered a clinical trial at neuroendocrine oncology clinic at [facility]. Patient did well in the clinical trial but eventually developed progressive thrombocytopenia and follow-up scan showed disease progressio at [facility] followup visit on May 07, 2019 At that time he was taken off clinical trial as left neck mass continued to grow. CT scan of neck done showed progressive left neck mass site 6.1 x 7.6 cm compared to 4.4 x 6.4 on 02/21/2019 with central hypoattenuation in mass and it was intimately associated with the left internal jugular vein and now appears to encase it. Right pulmonary nodularity, cavitary lesion, right hilar mass seen. With this impression, it was decided to pursue palliative therapy which include radiation therapy to the left neck mass and because of persistent thrombocytopenia- immunotherapy with ipilimumab and nivolumab was recommended and in case thrombocytopenia resolved- topotecan based regimen can be considered. Tolerated radiation therapy to left neck reasonably well and concluded radiation therapy on 06/19/2019 to a total dose of [address] Plummer recommended that he pursue ipilimumab and nivolumab. He began his first cycle on 07/10/2019. He has tolerated it well thus far. Plan: Discussed with patient regarding his labs white blood count 5.6 hemoglobin 12.3 crit 38.9 platelets 274,000 CMP within normal limits Clinically, patient is doing well, no new signs symptom suggestive of disease progression. No more episode of GI bleeding, recently done colonoscopy showed no evidence of colitis. Again discussed with patient regarding treatment options including restarting Temodar or observation, patient is a high risk for recurrence. Patient agreed to restart Temodar so he will complete remaining 4 days/28 days, of Temodar and if tolerated then we will reorder next cycle which will be 5 days every 28 days. Patient was also advised to start Eliquis per history of pulmonary embolism/DVT next Patient was advised to discontinue allopurinol. Return to clinic in 3 weeks with CBC CMP. Signed By: Nupur Plummer M.D. <<Signature on File>>
== END 2019-12-01 23:59 | disposition home or self-care (01) ==
LOC: ONCMED 09:21
PROVIDERS: PCP Physician Assistant; Visit Provider Internal Medicine Hematology & Oncology
DX: C7A.1 Malignant poorly differentiated neuroendocrine tumors (principal); C34.11 Malignant neoplasm of upper lobe, right bronchus or lung; C79.89 Secondary malignant neoplasm of other specified sites; D70.1 Agranulocytosis secondary to cancer chemotherapy; J43.8 Other emphysema; I10 Essential (primary) hypertension; E11.9 Type 2 diabetes mellitus without complications; Z92.3 Personal history of irradiation; Z79.899 Other long term (current) drug therapy
CPT/HCPCS: 36415; 80053; 85025; 96523; 99214

== ENCOUNTER 2019-12-31 06:51 | Outpatient (RCR) | payer MEDICARE, MEDICAID, SELFPAY ==
[2019-12-06 10:26] LABS: Basophils % 0.9 %; Eosinophils # 0.5 10^3/uL (0.0-0.8); Eosinophils % 10.7 %; Hematocrit 41.9 % (42.0-52.0); Lymphocytes % 47.2 %; Mean Corpuscular Volume 96.5 fL (80-94); Mean Platelet Volume 9.7 fL (7.4-10.4); Monocytes # 0.3 10^3/uL (0.2-0.9); Monocytes % 6.9 %; Neutrophils # 1.4 10^3/uL (1.8-7.7); Neutrophils % 34.1 %; Nucleated Red Blood Cells % 0 %; Platelet Count 202 10^3/cmm (130-400); Red Blood Count 4.34 10^6/uL (4.1-5.3); Red Cell Distribution Width 14.6 % (12.1-15.1); White Blood Count 4.2 10^3/uL (4.0-10.0)
[2019-12-06 10:52] LABS: Alanine Aminotransferase 12 U/L (0-41); Albumin Level 3.6 g/dL (3.5-5.2); Alkaline Phosphatase 63 IU/L (40-130); Aspartate Amino Transferase 18 U/L (0-40); Blood Urea Nitrogen 14 mg/dL (6-20); Calcium 9.2 mg/dL (8.5-10.5); Carbon Dioxide 25 mmol/L (22-29); Chloride 105 mmol/L (98-107); Globulin 3.1 g/dL (1.3-4.6); Glomerular Filtration Rate 89.7 mL/min (90-130); Glucose 132 mg/dL (65-115); Osmolality Calculated 290 mOsm/kg (285-295); Sodium 141 mmol/L (136-145); Total Bilirubin 0.3 mg/dL (0.15-1.2); Total Protein 6.7 g/dL (6.6-8.7)
--- NOTE | 2019-12-09 15:03 | ONC FU_ITS ---
Dr. Plummer follow up note Patient: Eric Mckeon Unit #: [id number]: 1970 Dicatated By: Nupur Plummer M.D.Date of Visit:Dec 09, 2019 Onc Med Follow-up/Prog Note History of Present Illness: Mr. Mckeon is a 49-years -old gentleman who developed a left neck mass. He was seen by Dr. Ben FOX and underwent needle core biopsy of left neck mass on 10/16/2017. 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 He underwent a CT of chest on 10/23/2017 which revealed a large right paratracheal mass measuring 8.3???7.7 cm. It involves the superior vena cava with near occlusion. It also causes encasement of the right main pulmonary artery with moderate narrowing with moderate stenosis. It also encases the right proximal main stem bronchus and bronchus intermedius. Mr Mckeon subsequently underwent CT PET scan on 10/28/2017 which showed hypermetabolic left neck mass 4.9 x 3.7 cm with SUV of 12.9. Right paratracheal mass with SUV of 15. At the level of pelvis a 6.1 x 4.5 cm soft tissue mass was reported in the right external iliac territory which has SUV of 14.4. There was an FDG positive muscular implant anterior to right femoral neck measuring 1.[address] scan done on 12/07/2017 showed right lower lobe and right middle lobe pulmonary embolism and was started on apixaban and for the study showed right lower extremity clot Mr Mckeon was seen by radiation oncology and started on radiation to his chest on urgent basis because of risk of impending SVC syndrome. He began his first cycle of chemotherapy with Carboplatin/etoposide on 11/06/2017. His last cycle of chemotherapy was on 02/06/2018. Mr. Mckeon did have follow-up PET CT on 02/03/2018. The left-sided cervical mass seen on the exam from 10/28/2017 is now subcentimeter in size and within minimal FDG activity. Similarly, the right hilar/paratracheal mass demonstrates activity minimally greater than that of the mediastinal background and measures 2.3 x 4.1 cm. The right external iliac mass now measures 1.5 cm without significant FDG activity. The muscle implant anterior to the right femoral neck currently has SUV of 6.6 down from 14.1 indicating a positive response to chemotherapy. His cycle 6 chemotherapy, was on 04/02/2018. Patient has seen Dr. Cotton radiation oncology, regarding persistent activity in muscle implant anterior to the right femoral neck, as per patient he was informed that there is a risk of radiation-induced damage to his femoral neck/ right hip and suggested to continue with chemotherapy and repeat CT PET scan as planned. Underwent CT-guided biopsy of right iliopsoas muscle implant anterior to right femoral neck on 06/04/2018 at [facility] radiology department in [place] and final pathology report came back fibrohistiocytic proliferation, no evidence of carcinoma Sleep apnea on CPAP machine Underwent fluoroscopy Port-A-Cath on 08/06/2018 showed patent Port-A-Cath He was supposed to get CT PET scan but insurance refused coverage so CT scan of chest abdomen pelvis and neck was done on 08/17/2018. It reported recurrent mass in the left neck centered at level of hyoid bone. Mass extends over a length of 4 x 2.2 x 3.4 cm. The mass abuts and displaces the fat planes along the sternocleidomastoid muscle. Mass also abuts the left jugular vein. Mass in a similar location on study of 09/18/2017. CT PET scan done on 04/21/2018 was negative. No additional masses noted. CT scan of chest showed continued decrease righ media l upper lobe mass; Unchanged right upper lobe linear and patchy nodular opacity; CT abdomen pelvis showed no definite metastatic disease in abdomen pelvis; Left mid kidney indeterminant wedge-shaped low-attenuation focus Mr Mckeon underwent biopsy of left neck mass at [facility] on 09/12/2018, final pathology report came back high-grade neuroendocrine carcinoma, predominantly small cell feature and positive focally week for TTF-1, it was concluded, given history of SVC syndrome and radiological studies diagnosis was revised to metastatic small cell lung cancer. And rechallenge with carboplatin/etoposide was recommended along with tecentriq (atezolizumab), Which he was started on 09/26/2018. Follow-up CT PET scan done after 4 doses of carboplatin/etoposide/ tecentriq , on 12/29/2018 showed persistent left supraclavicular mass measuring 3.7 x 2.7 with SUV of 8.2 compared to 4 prior to by 3.[address] scan of neck done on 08/17/2018 at [facility]. And also showed persistent but stable muscle implant anterior to right femur, with SUV 14.0 and it was biopsied earlier and showed no evidence of metastatic disease Patient was evaluated by Dr. Gorman in March 2019 and as per his evaluation patient still responding to the treatment and left neck mass is smaller than before and . Last chemotherapy was done on 02/03/2019. The muscle implant was also seen with SUV of 14, biopsy of specimen was consistent with recurrent high-grade tumor and he was offered a clinical trial [facility] neuroendocrine oncology clinic at [facility]. Patient did well and clinical trial but eventually developed progressive thrombocytopenia and at his followup visit on May 07, [address] Gorman, his follow-up scan showed disease progression. At that time he was taken off clinical trial as left neck mass continued to grow. CT scan of neck done at the May 2019 followup visit, showed progressive left neck mass site 6.1 x 7.6 cm compared to 4.4 x 6.4 on 02/21/2019 with central hypoattenuation in mass is intimately associated with the left internal jugular vein and now appears to encase it and right pulmonary nodularity, cavitary lesion, right hilar mass seen. With this impression it was decided a few with palliative therapy which include radiation therapy to the left neck mass and because of persistent thrombocytopenia immunotherapy with ipilimumab and nivolumab was recommended and in case thrombocytopenia resolved topotecan based regimen can be considered Tolerated radiation therapy to left neck reasonably well and he concluded radiation therapy on 06/19/2019 o a total dose of 4,500 cGy. recommended that he pursue ipilimumab and nivolumab. 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 difficile which came back positive and he was started on antibiotics overall condition improved was discharge home in a stable condition with a tapering dose of steroids, patient return to [facility] with hypotension and severe diarrhea and again responded very well to high-dose steroids underwent colonoscopy evaluation.which showed extensive inflammation. Follow-up CT PET scan done on 10/12/2019 showed the left cervical mass now measured 3.0 x 1.8 cm with SUV of 4.2, significant improvement from prior study. The implant anterior to right femur has improved, now with SUV of 6 down from [address] PET scan done on 12/29/2018. Started on maintenance therapy with Temodar 100 mg/m??? daily for 5 days every 28 days prescription was given on 10/16/2019 As per patient, he took first dose of Temodar on 11/01/2019 and he did develop bright blood per rectum and went to [facility] ER and was admitted to hospital treated conservatively, GI was consulted patient underwent colonoscopy evaluation on 11/07/2019 which showed no abnormality and previously seen colitis has completely resolved.patient did not complete his 5 days/28 days course of Temodar e.g. took only 1 dose.because of GI bleeding, his Eliquis was also put on hold Then patient restarted his remaining temodar on November 19, 2019 and completed first cycle on November 22, 2019 Came for follow-up, denies any specific complaint today, patient completed his first cycle of Temodar on November 22, 2019 without any problem, no diarrhea or melena or hematochezia, what he experienced after first dose of Temodar. No fever or chills, no nausea or vomiting, no diarrhea constipation, no peripheral lymphadenopathy. . Medications: Advair Diskus 2 puff(s) (of 250-50 mcg/dose) Aerosol Powder, Breath Activated Inhalation b.i.d., Ativan 0.5 - 1 Tablet (of 1 mg) Oral t.i.d. PRN, Cetirizine HCl 1 Tablet (of 10 mg) Tablet Oral b.i.d., Diclofenac Sodium 1 Tablet (of 75 mg) Tablet, enteric coated Oral b.i.d., Eliquis 1 Tablet (of 5 mg) Oral b.i.d., Gabapentin 1 Capsule (of 300 mg) Capsule Oral four times a day, Hydrocodone-Acetaminophen 1 - 2 Tablet (of 5-325 mg) Oral q 6 hours, Lisinopril 1 Tablet (of 20 mg) Oral daily, Oxybutynin Chloride 1 Tablet (of 5 mg) Tablet Oral b.i.d., Pramipexole Dihydrochloride 1 (0.25 mg) Tablet Oral at bedtime Allergies: Penicillins Review of Systems: Constitutional - Appetite is fair, energy is poor, weight is stable at present, ENMT - Positive for sinus congestion/drainage. No mouth sores. No sore throat or difficulty swallowing, Hematologic/Lymphatic - No unusual bruising or bleeding, Respiratory - Occasional cough, Cardiovascular - No anginal chest pain, palpitations. He has no leg swelling, Gastrointestinal - No nausea, vomiting, diarrhea, GI bleeding. Positive for constipation. No change in bowel habits, no heartburn or early satiety, Genitourinary (M) - No hematuria, dysuria, increased frequency, urgency, hesitancy or incontinence, Musculoskeletal - No joint pain, swelling or redness. No decreased range of motion, Integumentary - No skin ulcers or open wounds, Neurologic - No headaches, no dizziness, Psychiatric - Patient denies anxiety or depression. Pt has difficulty falling asleep. Vital Signs: Performed on Dec 09, 2019 10:34 Height - 72.00 in Weight - 228.8 lbs (LOW) BSA - 2.26 sq.m BMI - 31.03 (HIGH) Temperature - 99.3 F (HIGH) Pulse - 96 /min Respiration - 20 /min BP - 138/94 mm(hg) O2 Sat - 97 % Pain - 0 Performance Status: 0 - Fully active, able to carry on all predisease activities without restrictions. (ECOG) Physical Examination: ENMT - No mouth sores, no thrush, no jaundice, Respiratory - Lungs are clear, Cardiovascular - Regular rate and rhythm of heart, Abdomen - Soft, bowel sounds present, Extremities - No visible edema or rash. Lab/Imaging: Test performed on November 19, 2019 08:44 Sodium 140 mmol/L Potassium 3.9 mmol/L Chloride 105 mmol/L CO2 24 mmol/L Anion Gap 14.9 BUN 13 mg/dL Creatinine 0.9 mg/dL Cr Clearance (Est) 198.8700 mL/min eGFR 89.7 mL/min Glucose 117 mg/dL Calcium 9.8 mg/dL Protein, Total 7.5 g/dL Albumin 3.6 g/dL Globulin 3.9 g/dL Bilirubin, Total 0.3 mg/dL ALT (SGPT) 11 U/L AST (SGOT) 19 U/L Alkaline Phosphatase 67 IU/L WBC 5.6 10 3/uL RBC 3.99 10 6/uL HGB 12.3 g/dL HCT 38.9 % MCV 97.5 fL MCH 30.8 pg MCHC 31.6 g/dL RDW 16.1 % Platelet Count 274 10 3/cmm MPV 9.4 fL Neutrophils 2.3 10 3/uL Lymphocytes 2.4 10 3/uL Monocytes 0.4 10 3/uL Eosinophils 0.4 10 3/uL Basophils 0.1 10 3/uL Neutrophil % 41.5 % Lymphocyte % 43.6 % Monocyte % 7.2 % Eosinophil % 6.6 % Basophils % 0.9 % Test performed on Jul 23, 2019 09:13 TSH 0.54 uIU/mL Test performed on Jul 16, 2019 08:39 Manual Lymphocytes 43.2 % Manual Monocytes 7.2 % Manual Eosinophils 9.0 % Manual Basophils 0.9 % NRBCs 0.0 /100 WBC Test performed on Jul 10, 2019 15:39 Hemoglobin A1C 5.2 % Impression: Recurrent small cell lung cancer per left neck mass biopsy on 09/12/2018, which showed high-grade neuroendocrine carcinoma, predominantly small cell feature and positive focally for TTF-1, it was concluded, given history of SVC syndrome and radiological studies diagnosis was revised to metastatic small cell lung cancer Metastatic High-grade neuroendocrine carcinoma per needle core biopsy of left neck mass done on 10/16/2017 Pathology also showed sheets and cords of large malignant cells with neuroendocrine features, numerous mitotic figures are seen as well as area of tumor necrosis. immuno histochemistry positive for CAM 5.2, CD 56 , synaptophysin, TTF-[address] scan of chest done on 10/23/2017 showed 7.7 x 2.3 cm right paratracheal mass with a near occlusion of SVC, and encasement of right proximal pulmonary artery with moderate stenosis, and encasement of right proximal main stem bronchus and bronchus intermedius CT PET scan done on 10/28/2017 showed hypermetabolic left neck mass measuring 4.9 x 3.7 cm with SUV of 12.9 and right paratracheal mass measures 6.8 x 7.8 cm with SUV of 15 and at the level of pelvis a 6.1 x 4.5 cm soft tissue mass in the right external iliac territory has SUV of 14.4 and and FDG positive muscular implant anterior to right femoral neck measuring about 1.2 cm in size On radiation therapy to right paratracheal mass and chemotherapy with carboplatin and etoposide was added on 11/06/2017. He received radiation therapy to right pelvic mass Right leg DVT diagnosed on 12/07/2017 on Eliquis. Mr. Mckeon was admitted on 01/20/2018 with an initial concerns for sepsis but was found to have UTI. He was discharged on antibiotics andhis fever, rigors and tachycardia resolved. CT PET scan done on 02/03/2018 showed left sided cervical mass seen on exam from 10/28/2017 is now subcentimeter in size and within normal limit FDG activity early. Right hilar/paratracheal mass demonstrates activity minimally greater than that of mediastinal background and molecular 2.3 x 4.1 cm. Right external iliac mass now measured 1.5 cm without significant FDG activity. The muscle implant anterior to the right femoral neck currently has SUV of 6.6, down from 14.1, indicating a positive response to therapy. Repeat CT PET scan done after 6th dose of chemo on 04/21/2018 showed previously described left sided cervical mass was not identifiable on the current study. Right hilar/paratracheal mass is improved in size to 3 cm with a minimum FDG activity. Right external iliac lymph node was unchanged in size but without significant FDG activity Muscle implant anterior to right femoral neck had an SUV of 12 compared to 6.6 previously, consistent with progression of disease at that location. On 06/04/2018, he underwent CT-guided biopsy of this lesion at [facility] radiology department in [place] and final pathology report came back fibrohistiocytic proliferation, no evidence of carcinoma CT scan of neck chest abdomen pelvis done on 08/17/2018 showed recurrent mass in the left neck centered at level of hyoid bone. Mass extends over a length of 4 x 2.2 x 3.4 cm and abuts and displaces fat planes along the sternocleidomastoid muscle. Mass also abuts left jugular vein. No additional mass seen. Mass in a similar location on the study of 09/18/2017. CT PET scan done on 04/21/[address] scan of chest showed continued decrease right medial upper lobe mass. Unchanged right upper lobe linear and patchy nodular opacity. New right lower lobe superior segment focal irregular opacity nonspecific follow-up CT scan recommended in [address] abdomen showed no definite metastatic disease in abdomen pelvis. Left mid kidney indeterminant wedge-shaped low-attenuation focus nonspecific. Mr Mckeon underwent biopsy of left neck mass at [facility] on 09/12/2018, final pathology report came back high-grade neuroendocrine carcinoma, predominantly small cell feature and positive focally week for TTF-1, it was concluded, given history of SVC syndrome and radiological studies diagnosis was revised to metastatic small cell lung cancer. Re-challenging with carboplatin and etoposide was recommended along with tecentriq (atezolizumab). So planning was to start him on carboplatin/etoposide and tecentriq 1200 mg IV day 1 q3 weeks ???[address] PET scan if complete remission, may consider maintenance therapy with Tecentriq alone.Which was started on 09/26/2018 Follow-up CT PET scan done after 4 doses of carboplatin/etoposide/ tecentriq , on 12/29/2018 showed persistent left supraclavicular mass measuring 3.7 x 2.7 with SUV of 8.2 compared to 4 prior to by 3.[address] scan of neck done on 08/17/2018 at [facility]. It also showed persistent but stable muscle implant anterior to right femur, with SUV 14.0 and it was biopsied earlier and showed no evidence of metastatic disease Patient was evaluated by Dr. Gorman in March 2019 and as per his evaluation, Mr Mckeon was still responding to the treatment and left neck mass is smaller than before. Last chemotherapy was done on 02/03/2019. The muscle implant was also seen with SUV of 14 biopsy of specimen was consistent with recurrent high-grade tumor and he was offered a clinical trial at neuroendocrine oncology clinic at [facility]. Patient did well in the clinical trial but eventually developed progressive thrombocytopenia and follow-up scan showed disease progressio at hiis followup visit on May 07, 2019 At that time he was taken off clinical trial as left neck mass continued to grow. CT scan of neck done showed progressive left neck mass site 6.1 x 7.6 cm compared to 4.4 x 6.4 on 02/21/2019 with central hypoattenuation in mass and it was intimately associated with the left internal jugular vein and now appears to encase it. Right pulmonary nodularity, cavitary lesion, right hilar mass seen. With this impression, it was decided to pursue palliative therapy which include radiation therapy to the left neck mass and because of persistent thrombocytopenia- immunotherapy with ipilimumab and nivolumab was recommended and in case thrombocytopenia resolved- topotecan based regimen can be considered. Tolerated radiation therapy to left neck reasonably well and concluded radiation therapy on 06/19/2019 to a total dose of [address] Plummer recommended that he pursue ipilimumab and nivolumab. He began his first cycle on 07/10/2019. He has tolerated it well thus far. Plan: Discussed with patient regarding his labs white blood count 4.2 hemoglobin 13 crit 41.9 platelets 202,000 CMP within normal limits TSH 3.1 Clinically, patient is doing well with no signs symptom suggestive recurrence/progression of disease. Not being treated with maintenance therapy with Temodar 5 days every month. Patient has completed fourth cycle on November 22, 2019. He is due for next treatment on December 17, 2019. Patient will return to clinic on January 08, 2020 with CBC CMP and will consider follow-up CT PET scan after third cycle to assess disease response. Signed By: Nupur Plummer M.D. <<Signature on File>>
--- NOTE | 2019-12-25 13:10 | CTR_ITS ---
PROCEDURE INFORMATION: Exam: CT Head Without And With Contrast Exam date and time: 12/25/2019 1:23 PM Age: 49 years old Clinical indication: Injury or trauma; Initial encounter; Blunt trauma (contusions or hematomas); Patient HX: Two falls last night. History of metastatic lung cell cancer with metastasis to brain; Additional info: Neuroendocrine tumor involving left neck TECHNIQUE: Imaging protocol: Computed tomography of the head without and with intravenous contrast. Radiation optimization: All CT scans at this facility use at least one of these dose optimization techniques: automated exposure control; mA and/or kV adjustment per patient size (includes targeted exams where dose is matched to clinical indication); or iterative reconstruction. Contrast material: OMNI 300; Contrast volume: 95 ml; Contrast route: INTRAVENOUS (IV); COMPARISON: No relevant prior studies available. RADIATION DOSE METRICS: Total DLP (mGy-cm): 1462.96 FINDINGS: Brain: There is mixed cystic and solid 1 cm metastasis in the right temporal lobe with mural nodule. There is 4.4 cm rim enhancing centrally cystic metastasis in the right frontal lobe. This shows thicker enhancing mural soft tissue inferiorly. There is density layering posteriorly consistent with intraluminal layering hemorrhage. There is approximately 0.7 cm enhancing nodule in the right frontal lobe which shows mild pre contrast hyperdensity consistent with small amount of hemorrhage. There is approximately 4 mm of [id number] midline shift. Ventricles: Normal. No ventriculomegaly. Bones/joints: Unremarkable. No acute fracture. Sinuses: There is small amount of mucosal thickening in bilateral maxillary, bilateral ethmoid, and right frontal sinuses. No air-fluid levels. Mastoid air cells: Visualized mastoid air cells are well aerated. Soft tissues: Unremarkable. CT/CT head wo/w con [id number] IMPRESSION: Three visible brain metastases as described with largest in right frontal lobe. Mild [id number] midline shift. Radiation Dose CTDIVOL = (mGy): DLP = 1462.96 (mGy-cm)
[2019-12-25] MEDS: iohexol 300 mg/mL 100 mL Btl IV (14:19)
[2019-12-25 15:00] LABS: Basophils # 0.1 10^3/uL (0.0-0.1); Basophils % 0.9 %; Eosinophils # 0.2 10^3/uL (0.0-0.8); Eosinophils % 4.2 %; Hematocrit 43.5 % (42.0-52.0); Hemoglobin 13.8 g/dL (11.7-16.6); Lymphocytes # 2.3 10^3/uL (0.8-4.8); Lymphocytes % 41.2 %; Mean Corpuscular HGB Conc 31.7 g/dL (30.0-36.0); Mean Corpuscular Hemoglobin 30.6 pg (28.0-34.0); Mean Corpuscular Volume 96.5 fL (80-94); Mean Platelet Volume 9.6 fL (7.4-10.4); Monocytes # 0.3 10^3/uL (0.2-0.9); Neutrophils # 2.6 10^3/uL (1.8-7.7); Neutrophils % 47.5 %; Nucleated Red Blood Cells % 0 %; Platelet Count 186 10^3/cmm (130-400); Red Blood Count 4.51 10^6/uL (4.1-5.3); Red Cell Distribution Width 14.2 % (12.1-15.1); White Blood Count 5.5 10^3/uL (4.0-10.0)
[2019-12-25 15:28] LABS: Alanine Aminotransferase 20 U/L (0-41); Albumin Level 4.1 g/dL (3.5-5.2); Alkaline Phosphatase 65 IU/L (40-130); Anion Gap 14.8 (5-19); Aspartate Amino Transferase 24 U/L (0-40); Blood Urea Nitrogen 15 mg/dL (6-20); Calcium 9.4 mg/dL (8.5-10.5); Carbon Dioxide 24 mmol/L (22-29); Chloride 106 mmol/L (98-107); Globulin 3.4 g/dL (1.3-4.6); Glomerular Filtration Rate 102.7 mL/min (90-130); Glucose 116 mg/dL (65-115); Osmolality Calculated 289 mOsm/kg (285-295); Potassium 3.8 mmol/L (3.5-5.1); Sodium 141 mmol/L (136-145); Total Bilirubin 0.4 mg/dL (0.15-1.2); Total Protein 7.5 g/dL (6.6-8.7)
--- NOTE | 2019-12-26 | CT_ITS ---
Radiation Therapy Planning CT images; total exam DLP: 535.09 mGy-cm MTDD
--- NOTE | 2019-12-26 11:38 | ONC FU_ITS ---
Dr. Plummer follow up note Patient: Eric Mckeon Unit #: [id number]: 1970 Dicatated By: Nupur Plummer M.D.Date of Visit:Dec 26, 2019 Onc Med Follow-up/Prog Note History of Present Illness: Mr. Mckeon is a 49-years -old gentleman who developed a left neck mass. He was seen by Dr. Ben FOX and underwent needle core biopsy of left neck mass on 10/16/2017. 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 He underwent a CT of chest on 10/23/2017 which revealed a large right paratracheal mass measuring 8.3???7.7 cm. It involves the superior vena cava with near occlusion. It also causes encasement of the right main pulmonary artery with moderate narrowing with moderate stenosis. It also encases the right proximal main stem bronchus and bronchus intermedius. Mr Mckeon subsequently underwent CT PET scan on 10/28/2017 which showed hypermetabolic left neck mass 4.9 x 3.7 cm with SUV of 12.9. Right paratracheal mass with SUV of 15. At the level of pelvis a 6.1 x 4.5 cm soft tissue mass was reported in the right external iliac territory which has SUV of 14.4. There was an FDG positive muscular implant anterior to right femoral neck measuring 1.[address] scan done on 12/07/2017 showed right lower lobe and right middle lobe pulmonary embolism and was started on apixaban and for the study showed right lower extremity clot Mr Mckeon was seen by radiation oncology and started on radiation to his chest on urgent basis because of risk of impending SVC syndrome. He began his first cycle of chemotherapy with Carboplatin/etoposide on 11/06/2017. His last cycle of chemotherapy was on 02/06/2018. Mr. Mckeon did have follow-up PET CT on 02/03/2018. The left-sided cervical mass seen on the exam from 10/28/2017 is now subcentimeter in size and within minimal FDG activity. Similarly, the right hilar/paratracheal mass demonstrates activity minimally greater than that of the mediastinal background and measures 2.3 x 4.1 cm. The right external iliac mass now measures 1.5 cm without significant FDG activity. The muscle implant anterior to the right femoral neck currently has SUV of 6.6 down from 14.1 indicating a positive response to chemotherapy. His cycle 6 chemotherapy, was on 04/02/2018. Patient has seen Dr. Cotton radiation oncology, regarding persistent activity in muscle implant anterior to the right femoral neck, as per patient he was informed that there is a risk of radiation-induced damage to his femoral neck/ right hip and suggested to continue with chemotherapy and repeat CT PET scan as planned. Underwent CT-guided biopsy of right iliopsoas muscle implant anterior to right femoral neck on 06/04/2018 at [facility] radiology department in [place] and final pathology report came back fibrohistiocytic proliferation, no evidence of carcinoma Sleep apnea on CPAP machine Underwent fluoroscopy Port-A-Cath on 08/06/2018 showed patent Port-A-Cath He was supposed to get CT PET scan but insurance refused coverage so CT scan of chest abdomen pelvis and neck was done on 08/17/2018. It reported recurrent mass in the left neck centered at level of hyoid bone. Mass extends over a length of 4 x 2.2 x 3.4 cm. The mass abuts and displaces the fat planes along the sternocleidomastoid muscle. Mass also abuts the left jugular vein. Mass in a similar location on study of 09/18/2017. CT PET scan done on 04/21/2018 was negative. No additional masses noted. CT scan of chest showed continued decrease righ media l upper lobe mass; Unchanged right upper lobe linear and patchy nodular opacity; CT abdomen pelvis showed no definite metastatic disease in abdomen pelvis; Left mid kidney indeterminant wedge-shaped low-attenuation focus Mr Mckeon underwent biopsy of left neck mass at [facility] on 09/12/2018, final pathology report came back high-grade neuroendocrine carcinoma, predominantly small cell feature and positive focally week for TTF-1, it was concluded, given history of SVC syndrome and radiological studies diagnosis was revised to metastatic small cell lung cancer. And rechallenge with carboplatin/etoposide was recommended along with tecentriq (atezolizumab), Which he was started on 09/26/2018. Follow-up CT PET scan done after 4 doses of carboplatin/etoposide/ tecentriq , on 12/29/2018 showed persistent left supraclavicular mass measuring 3.7 x 2.7 with SUV of 8.2 compared to 4 prior to by 3.[address] scan of neck done on 08/17/2018 at [facility]. And also showed persistent but stable muscle implant anterior to right femur, with SUV 14.0 and it was biopsied earlier and showed no evidence of metastatic disease Patient was evaluated by Dr. Gorman in March 2019 and as per his evaluation patient still responding to the treatment and left neck mass is smaller than before and . Last chemotherapy was done on 02/03/2019. The muscle implant was also seen with SUV of 14, biopsy of specimen was consistent with recurrent high-grade tumor and he was offered a clinical trial [facility] neuroendocrine oncology clinic at [facility]. Patient did well and clinical trial but eventually developed progressive thrombocytopenia and at his followup visit on May 07, [address] Gorman, his follow-up scan showed disease progression. At that time he was taken off clinical trial as left neck mass continued to grow. CT scan of neck done at the May 2019 followup visit, showed progressive left neck mass site 6.1 x 7.6 cm compared to 4.4 x 6.4 on 02/21/2019 with central hypoattenuation in mass is intimately associated with the left internal jugular vein and now appears to encase it and right pulmonary nodularity, cavitary lesion, right hilar mass seen. With this impression it was decided a few with palliative therapy which include radiation therapy to the left neck mass and because of persistent thrombocytopenia immunotherapy with ipilimumab and nivolumab was recommended and in case thrombocytopenia resolved topotecan based regimen can be considered Tolerated radiation therapy to left neck reasonably well and he concluded radiation therapy on 06/19/2019 o a total dose of 4,500 cGy. recommended that he pursue ipilimumab and nivolumab. 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 difficile which came back positive and he was started on antibiotics overall condition improved was discharge home in a stable condition with a tapering dose of steroids, patient return to [facility] with hypotension and severe diarrhea and again responded very well to high-dose steroids underwent colonoscopy evaluation.which showed extensive inflammation. Follow-up CT PET scan done on 10/12/2019 showed the left cervical mass now measured 3.0 x 1.8 cm with SUV of 4.2, significant improvement from prior study. The implant anterior to right femur has improved, now with SUV of 6 down from [address] PET scan done on 12/29/2018. Started on maintenance therapy with Temodar 100 mg/m??? daily for 5 days every 28 days prescription was given on 10/16/2019 As per patient, he took first dose of Temodar on 11/01/2019 and he did develop bright blood per rectum and went to [facility] and was admitted to hospital treated conservatively, GI was consulted patient underwent colonoscopy evaluation on 11/07/2019 which showed no abnormality and previously seen colitis has completely resolved.patient did not complete his 5 days/28 days course of Temodar e.g. took only 1 dose.because of GI bleeding, his Eliquis was also put on hold Then patient restarted his remaining temodar on November 19, 2019 and completed first cycle on November 22, 2019 Completed second cycle on December 21, 2019 Came for follow-up, now complaining of forgetfulness, episode of passing out twice on day before yesterday night. No focal weakness, no seizure-like activity patient has episode of off and on hiccups. No blurred vision or double vision, no fever or chills, no nuchal rigidity. CT scan of the head was done on December 25, 2019 showed mixed cystic and solid 1 cm metastasis in the right temporal lobe with a mural nodule. There is a 4.4 cm rim-enhancing centrally cystic metastasis in the right frontal lobe. Approximately 0.7 cm enhancing nodule in the right frontal lobe which shows mild pre-contrast hypodensity consistent with small amount of hemorrhage. Approximately 4 mm [id number] midline shift., Case was discussed with Dr. Flores, radiologist this morning as there was a concern whether is a metastatic disease or infectious, and his impression was findings most consistent with metastatic disease as his previous scan done in August showed very small 1.3 cm cystic lesion which was not that obvious but now progressed. . Medications: Advair Diskus 2 puff(s) (of 250-50 mcg/dose) Aerosol Powder, Breath Activated Inhalation b.i.d., Ativan 0.5 - 1 Tablet (of 1 mg) Oral t.i.d. PRN, Cetirizine HCl 1 Tablet (of 10 mg) Tablet Oral b.i.d., Diclofenac Sodium 1 Tablet (of 75 mg) Tablet, enteric coated Oral b.i.d., Eliquis 1 Tablet (of 5 mg) Oral b.i.d., Gabapentin 1 Capsule (of 300 mg) Capsule Oral four times a day, Hydrocodone-Acetaminophen 1 - 2 Tablet (of 5-325 mg) Oral q 6 hours, Lisinopril 1 Tablet (of 20 mg) Oral daily, Oxybutynin Chloride 1 Tablet (of 5 mg) Tablet Oral b.i.d., Pramipexole Dihydrochloride 1 (0.25 mg) Tablet Oral at bedtime Allergies: Penicillins Review of Systems: Constitutional - Appetite is fair, energy is poor, weight is stable at present, ENMT - Positive for sinus congestion/drainage. No mouth sores. No sore throat or difficulty swallowing, Hematologic/Lymphatic - No unusual bruising or bleeding, Respiratory - Occasional cough, Cardiovascular - No anginal chest pain, palpitations. He has no leg swelling, Gastrointestinal - No nausea, vomiting, diarrhea, GI bleeding. Flucuates between constipation and diarrhea. No heartburn or early satiety, Genitourinary (M) - No hematuria, dysuria, increased frequency, urgency, hesitancy or incontinence, Musculoskeletal - No joint pain, swelling or redness. No decreased range of motion, Integumentary - No skin ulcers or open wounds, Neurologic - Positive for dizziness, falls, passing out , forgetfulness and an increase in tremors, Psychiatric - Patient denies anxiety or depression. Pt has difficulty falling asleep. Pt also reports noticable mood changes. Vital Signs: Performed on Dec 26, 2019 10:48 Height - 72.00 in Weight - 282.4 lbs (HIGH) BSA - 2.47 sq.m BMI - 38.30 (HIGH) Temperature - 98.8 F Pulse - 72 /min Respiration - 24 /min BP - 144/90 mm(hg) (HIGH) O2 Sat - 99 % Pain - 0 Performance Status: 0 - Fully active, able to carry on all predisease activities without restrictions. (ECOG) Physical Examination: ENMT - No mouth sores, no thrush no jaundice, Respiratory - Lungs are clear, Cardiovascular - Regular rate and rhythm of heart, Abdomen - Soft, bowel sounds present, Extremities - Trace edema bilaterally, Neuro exam, nonfocal. Lab/Imaging: Test performed on November 19, 2019 08:44 Sodium 140 mmol/L Potassium 3.9 mmol/L Chloride 105 mmol/L CO2 24 mmol/L Anion Gap 14.9 BUN 13 mg/dL Creatinine 0.9 mg/dL Cr Clearance (Est) 198.8700 mL/min eGFR 89.7 mL/min Glucose 117 mg/dL Calcium 9.8 mg/dL Protein, Total 7.5 g/dL Albumin 3.6 g/dL Globulin 3.9 g/dL Bilirubin, Total 0.3 mg/dL ALT (SGPT) 11 U/L AST (SGOT) 19 U/L Alkaline Phosphatase 67 IU/L WBC 5.6 10 3/uL RBC 3.99 10 6/uL HGB 12.3 g/dL HCT 38.9 % MCV 97.5 fL MCH 30.8 pg MCHC 31.6 g/dL RDW 16.1 % Platelet Count 274 10 3/cmm MPV 9.4 fL Neutrophils 2.3 10 3/uL Lymphocytes 2.4 10 3/uL Monocytes 0.4 10 3/uL Eosinophils 0.4 10 3/uL Basophils 0.1 10 3/uL Neutrophil % 41.5 % Lymphocyte % 43.6 % Monocyte % 7.2 % Eosinophil % 6.6 % Basophils % 0.9 % Test performed on Jul 23, 2019 09:13 TSH 0.54 uIU/mL Test performed on Jul 16, 2019 08:39 Manual Lymphocytes 43.2 % Manual Monocytes 7.2 % Manual Eosinophils 9.0 % Manual Basophils 0.9 % NRBCs 0.0 /100 WBC Test performed on Jul 10, 2019 15:39 Hemoglobin A1C 5.2 % Impression: Recurrent small cell lung cancer per left neck mass biopsy on 09/12/2018, which showed high-grade neuroendocrine carcinoma, predominantly small cell feature and positive focally for TTF-1, it was concluded, given history of SVC syndrome and radiological studies diagnosis was revised to metastatic small cell lung cancer Metastatic High-grade neuroendocrine carcinoma per needle core biopsy of left neck mass done on 10/16/2017 Pathology also showed sheets and cords of large malignant cells with neuroendocrine features, numerous mitotic figures are seen as well as area of tumor necrosis. immuno histochemistry positive for CAM 5.2, CD 56 , synaptophysin, TTF-[address] scan of chest done on 10/23/2017 showed 7.7 x 2.3 cm right paratracheal mass with a near occlusion of SVC, and encasement of right proximal pulmonary artery with moderate stenosis, and encasement of right proximal main stem bronchus and bronchus intermedius CT PET scan done on 10/28/2017 showed hypermetabolic left neck mass measuring 4.9 x 3.7 cm with SUV of 12.9 and right paratracheal mass measures 6.8 x 7.8 cm with SUV of 15 and at the level of pelvis a 6.1 x 4.5 cm soft tissue mass in the right external iliac territory has SUV of 14.4 and and FDG positive muscular implant anterior to right femoral neck measuring about 1.2 cm in size On radiation therapy to right paratracheal mass and chemotherapy with carboplatin and etoposide was added on 11/06/2017. He received radiation therapy to right pelvic mass Right leg DVT diagnosed on 12/07/2017 on Eliquis. Mr. Mckeon was admitted on 01/20/2018 with an initial concerns for sepsis but was found to have UTI. He was discharged on antibiotics andhis fever, rigors and tachycardia resolved. CT PET scan done on 02/03/2018 showed left sided cervical mass seen on exam from 10/28/2017 is now subcentimeter in size and within normal limit FDG activity early. Right hilar/paratracheal mass demonstrates activity minimally greater than that of mediastinal background and molecular 2.3 x 4.1 cm. Right external iliac mass now measured 1.5 cm without significant FDG activity. The muscle implant anterior to the right femoral neck currently has SUV of 6.6, down from 14.1, indicating a positive response to therapy. Repeat CT PET scan done after 6th dose of chemo on 04/21/2018 showed previously described left sided cervical mass was not identifiable on the current study. Right hilar/paratracheal mass is improved in size to 3 cm with a minimum FDG activity. Right external iliac lymph node was unchanged in size but without significant FDG activity Muscle implant anterior to right femoral neck had an SUV of 12 compared to 6.6 previously, consistent with progression of disease at that location. On 06/04/2018, he underwent CT-guided biopsy of this lesion at [facility] radiology department in [place] and final pathology report came back fibrohistiocytic proliferation, no evidence of carcinoma CT scan of neck chest abdomen pelvis done on 08/17/2018 showed recurrent mass in the left neck centered at level of hyoid bone. Mass extends over a length of 4 x 2.2 x 3.4 cm and abuts and displaces fat planes along the sternocleidomastoid muscle. Mass also abuts left jugular vein. No additional mass seen. Mass in a similar location on the study of 09/18/2017. CT PET scan done on 04/21/[address] scan of chest showed continued decrease right medial upper lobe mass. Unchanged right upper lobe linear and patchy nodular opacity. New right lower lobe superior segment focal irregular opacity nonspecific follow-up CT scan recommended in [address] abdomen showed no definite metastatic disease in abdomen pelvis. Left mid kidney indeterminant wedge-shaped low-attenuation focus nonspecific. Mr Mckeon underwent biopsy of left neck mass at [facility] on 09/12/2018, final pathology report came back high-grade neuroendocrine carcinoma, predominantly small cell feature and positive focally week for TTF-1, it was concluded, given history of SVC syndrome and radiological studies diagnosis was revised to metastatic small cell lung cancer. Re-challenging with carboplatin and etoposide was recommended along with tecentriq (atezolizumab). So planning was to start him on carboplatin/etoposide and tecentriq 1200 mg IV day 1 q3 weeks ???[address] PET scan if complete remission, may consider maintenance therapy with Tecentriq alone.Which was started on 09/26/2018 Follow-up CT PET scan done after 4 doses of carboplatin/etoposide/ tecentriq , on 12/29/2018 showed persistent left supraclavicular mass measuring 3.7 x 2.7 with SUV of 8.2 compared to 4 prior to by 3.[address] scan of neck done on 08/17/2018 at [facility]. It also showed persistent but stable muscle implant anterior to right femur, with SUV 14.0 and it was biopsied earlier and showed no evidence of metastatic disease Patient was evaluated by Dr. Gorman in March 2019 and as per his evaluation, Mr Mckeon was still responding to the treatment and left neck mass is smaller than before. Last chemotherapy was done on 02/03/2019. The muscle implant was also seen with SUV of 14 biopsy of specimen was consistent with recurrent high-grade tumor and he was offered a clinical trial at neuroendocrine oncology clinic at [facility]. Patient did well in the clinical trial but eventually developed progressive thrombocytopenia and follow-up scan showed disease progressio at sdis followup visit on May 07, 2019 At that time he was taken off clinical trial as left neck mass continued to grow. CT scan of neck done showed progressive left neck mass site 6.1 x 7.6 cm compared to 4.4 x 6.4 on 02/21/2019 with central hypoattenuation in mass and it was intimately associated with the left internal jugular vein and now appears to encase it. Right pulmonary nodularity, cavitary lesion, right hilar mass seen. With this impression, it was decided to pursue palliative therapy which include radiation therapy to the left neck mass and because of persistent thrombocytopenia- immunotherapy with ipilimumab and nivolumab was recommended and in case thrombocytopenia resolved- topotecan based regimen can be considered. Tolerated radiation therapy to left neck reasonably well and concluded radiation therapy on 06/19/2019 to a total dose of [address] Plummer recommended that he pursue ipilimumab and nivolumab. He began his first cycle on 07/10/2019. He has tolerated it well thus far. Plan: Discussed with patient regarding his recently done CT scan of head findings which showed multiple brain lesions consistent with metastatic disease, case was discussed with Dr. Flores, radiologist as well as with radiation oncology and patient was referred to radiation oncology for evaluation and management and he will see them today. In the meantime patient has completed second cycle of Temodar on last Monday, December 21, 2019, we will hold further oral chemotherapy until brain lesion seen on CT scan evaluated and managed. Patient will return to clinic 2 weeks after radiation oncology evaluation. Signed By: Nupur Plummer M.D. <<Signature on File>>
--- NOTE | 2019-12-26 12:44 | ONCRAD EPV_ITS ---
Radiation Oncology Established Patient Visit Patient: Shant MR#: [id number] : 1970> Age: 49> Sex: Male> Dictated by: Dr. Parminder Lacey Date of Service: 12/26/2019 Referring Physician(s) : Nupur Plummer M.D. 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 ID: RT Lung [id number], Energy: 6X, Dose/Fx (cGy): 250, #Fx: / 20, Dose Correction (cGy): 0, Total Dose (cGy): 1,000, Start Date: 10/27/2017, End Date: 11/01/2017, Elapsed Days: 5 Treatment Site: [id number], Ref. ID: RT Lung [id number], Energy: 6X, Dose/Fx (cGy): 200, #Fx: / 20, Dose Correction (cGy): 0, Total Dose (cGy): 2,400, Start Date: 11/02/2017, End Date: 11/20/2017, Elapsed Days: 18 Treatment Site: [id number], Ref. ID: RT Lung [id number], Energy: 6X, Dose/Fx (cGy): 200, #Fx: 8 / 8, Dose Correction (cGy): 0, Total Dose (cGy): 1,600, Start Date: 11/23/2017, End Date: 12/05/2017, Elapsed Days: 12 Treatment Site: GROIN GTV37.5, Ref. ID: RT GROIN GTV37.5, Energy: 15X, Dose/Fx (cGy): 250, #Fx: 15 / 15, Dose Correction (cGy): 0, Total Dose (cGy): 3,750, Start Date: 12/04/2017, End Date: 12/27/2017, Elapsed Days: 23 Treatment Site: Neck 45Gy, Ref. ID: [id number], Energy: 6X, Dose/Fx (cGy): 250, #Fx: 18 / 18, Dose Correction (cGy): 0, Total Dose (cGy): 4,500, Start Date: 05/23/2019, End Date: 06/19/2019, Elapsed Days: 27 Chief Complaint / History of Present Illness: Mr. 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 He has received multiple courses of radiation as noted above. Recently he has been experiencing headaches, forgetfulness, and instability of gait. He also related to Dr. Plummer that he is passed out twice recently. He did not experience any injuries when he fell. He had a CT of the head performed 12/25/2019. He has a 4 cm mass involving the right frontal lobe. The mass is primarily cystic. He also has 2 other lesions, a 1 cm metastasis in the right temporal lobe and a 7 mm mass in the right frontal lobe. Based on review of the study by Dr. Flores, Dr. Plummer, and myself, these lesions appear consistent with metastatic disease. Mr. Greer is referred for palliative radiation. He is not on steroids. Current Medications: Acetaminophen, advair Diskus, ativan, cetirizine HCl, dexamethasone Sodium Phosphate, diclofenac Sodium, diphenhydrAMINE HCl, eliquis, gabapentin, hydrocodone-Acetaminophen, hYDROcodone-Acetaminophen, lisinopril, medrol, morphine Sulfate ER, mouthwash Compounding Base, nivolumab, ondansetron, oxybutynin Chloride, pepcid, pramipexole Dihydrochloride, predniSONE, silvadene, yervoy, zithromax Z-Luis. Allergies: Penicillins. Current Complaints / Review of Systems: ROS Constitutional - Appetite is fair, energy is poor, weight is stable at present. ROS ENMT - Positive for sinus congestion/drainage. No mouth sores. No sore throat or difficulty swallowing. ROS Hematologic/Lymphatic - No unusual bruising or bleeding. ROS Respiratory - Occasional cough. ROS Cardiovascular - No anginal chest pain, palpitations. He has no leg swelling. ROS Gastrointestinal - No nausea, vomiting, diarrhea, GI bleeding. Flucuates between constipation and diarrhea. No heartburn or early satiety. ROS Genitourinary (M) - No hematuria, dysuria, increased frequency, urgency, hesitancy or incontinence. ROS Musculoskeletal - No joint pain, swelling or redness. No decreased range of motion. ROS Integumentary - No skin ulcers or open wounds. ROS Neurologic - Positive for dizziness, falls, passing out , forgetfulness and an increase in tremors. ROS Psychiatric - Patient denies anxiety or depression. Pt has difficulty falling asleep. Pt also reports noticable mood changes.. Vital Signs: Performed on 12/26/2019 10:48 AM Height - 72.00 in, Weight - 282.4 lbs (high), BSA - 2.47 sq.m, BMI - 38.30 (high), Temperature - 98.8 f, Pulse - 72 /min, Respiration - 24 /min, O2 Sat - 99 %, Pain - 0 and BP - 144/ 90 mm(hg)(high/). Physical Exam: General: Alert and oriented x 3. No acute distress. NECK: Supple without supraclavicular or jugular lymphadenopathy. LUNGS: Clear to auscultation bilaterally without rales, rhonchi or wheeze. HEART: Regular rate and rhythm, normal S1 and S2 without murmur, gallop or rub. MUSCULOSKELETAL: No tenderness or percussion pain over the axial skeleton, scapulae or pelvis. ABDOMEN: Soft, nontender. NEUROLOGIC: Cranial nerves II ???XII are grossly intact. Normal sensation, strength 5/5 in all extremities, normal gait, no ataxia. Performance Status: KPS: 80 Lab: None pending. Test performed on 07/16/2019 8:39 AM Manual Eosinophils - 9.0 % (high), Test performed on 11/19/2019 8:44 AM RBC - 3.99 10 6/ul (low), HCT - 38.9 % (low), MCV - 97.5 fl (high), RDW - 16.1 % (high), Cr Clearance (Est) - 198.8700 ml/min (high), eGFR - 89.7 ml/min (low) and Glucose - 117 mg/dl (high). 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 Imaging: See HPI Impression: Symptomatic brain metastases. Although these metastases do not have a significant amount of edema, initiating radiation with a relatively large cystic mass could result in enough edema to worsen his symptoms. I advised that he be on steroids and if okay with Dr. Plummer we will prescribe them. I discussed palliative radiation with Mr. Greer and his . He has been through multiple courses of treatment and is familiar with the overall process. He had a mask for treatment of his neck and was able to tolerate it well. We discussed that a mask will be made for the whole brain radiation. I discussed skin reaction, hair loss, middle ear effusions possibly requiring tubes, fatigue, loss of appetite, nausea, headache, and the significant risk of memory loss and decrease in executive function. Mr. Greer wishes to proceed with palliative radiation. I reviewed the previous treatment volume to the neck. There should be no overlap with the whole brain field. Simulation will be performed today. He will be put on steroids if okay with Dr. Plummer. Signed by: 12/26/2019 12:43:22 PM <<Signature on File>> Time spent with patient: CPT Code: CPT Code:
--- NOTE | 2019-12-31 11:11 | ONCRAD TMN_ITS ---
Radiation Oncology Weekly Treatment Management Patient: Eric Mckeon MR#: [id number] : 1970> Age: 49> Sex: Male Dictated by: Dr. Parminder Lacey Date of Service: 12/31/2019 Referring Physician(s) : Nupur Plummer M.D. 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 ID: [id number], Energy: 15X/6X, Dose/Fx (cGy): 300, #Fx: , Dose Correction (cGy): 0, Total Dose (cGy): 600, Start Date: 12/30/2019, Elapsed Days: 1 Chief Complaint/History of Present Illness: Tumor dose 600 cGy in 2 fractions. Mr. Greer is tolerated the first 2 treatments of whole brain radiation well. His headaches are stable and are relieved by hydrocodone. He denies any balance problems at this time. His forgetfulness is stable. He is tolerating the dexamethasone well. His appetite has increased and his weight is up 4 pounds. He denies mouth sores. Current Medications: Acetaminophen, advair Diskus, ativan, cetirizine HCl, dexamethasone, dexamethasone Sodium Phosphate, diclofenac Sodium, diphenhydrAMINE HCl, eliquis, gabapentin, hydrocodone-Acetaminophen, hYDROcodone-Acetaminophen, lisinopril, medrol, morphine Sulfate ER, mouthwash Compounding Base, nivolumab, omeprazole, ondansetron, oxybutynin Chloride, pepcid, pramipexole Dihydrochloride, predniSONE, silvadene, yervoy, zithromax Z-Luis. Allergies: Penicillins. Current Complaints/Review of Systems: Constitutional - Complains of fatigue and change in weight in which it up 4.2 lbs. since starting Dexamethasone.. Denies lack of appetite, fever and night sweats. ENMT - Complains of altered taste. Denies ear pain and stomatitis. Respiratory - Complains of moderate hiccoughs. Gastrointestinal - Denies nausea and vomiting. Neurologic - Complains of headaches in which he as been getting them in the evenings. Denies dizziness. Vital Signs: Performed on 12/31/2019 10:50 AM BMI - 38.87 kg/m2 (high), Height - 72.00 in, Weight - 286.6 lbs, Temperature - 98.8 f, Pulse - 67, Respiration - 18, O2 Sat - 98 %, Pain - 0 and BP - 132/ 86 mm(hg). Physical Exam: Appears stable, no skin erythema or desquamation. Oral cavity without yeast. He is ambulatory without assistance and steady on his feet. No gross neurologic deficits detected on observation. He is alert and oriented. Performance Status: 0 - Fully active, able to carry on all predisease activities without restrictions. (ECOG) Lab: None pending in Radiation Oncology. Imaging: No new diagnostic imaging was performed since the last weekly treatment visit. All radiation therapy related imaging (including but not limited to kV, MV, and CBCT generated images) was reviewed. Appropriate changes, if any, were made to assure accurate target localization. Impression/Plan: Tolerating treatment well with expected side effects. Continue treatment as planned. He is still having headaches and he had a large cystic mass. Therefore, I will not start a steroid taper yet. CPT: 27927 Signed by: Dr. Parminder Lacey>12/31/2019 11:09:56 AM <<Signature on File>>
== END 2019-12-31 23:59 | disposition home or self-care (01) ==
LOC: ONCMED 06:51
PROVIDERS: Internal Medicine Hematology & Oncology; Nurse Practitioner; Absent Provider Specialist; PCP Physician Assistant; Visit Provider Specialist
DX: Z51.0 Encounter for antineoplastic radiation therapy (principal); C34.11 Malignant neoplasm of upper lobe, right bronchus or lung; C7A.1 Malignant poorly differentiated neuroendocrine tumors; D70.1 Agranulocytosis secondary to cancer chemotherapy; T45.1X5A Adverse effect of antineoplastic and immunosuppressive drugs, initial encounter; J43.8 Other emphysema; I10 Essential (primary) hypertension; E11.9 Type 2 diabetes mellitus without complications; Z79.899 Other long term (current) drug therapy
CPT/HCPCS: 36415; 70470; 77290; 77307; 77334; 77387; 77412; 80053; 85025; 99214

== ENCOUNTER 2020-01-16 13:56 | Outpatient (RCR) | payer MEDICARE, MEDICAID, SELFPAY ==
--- NOTE | 2020-01-07 19:41 | ONCRAD TMN_ITS ---
Radiation Oncology Weekly Treatment Management Patient: Eric Mckeon MR#: [id number] : 1970 Age: 49 Sex: Male Dictated by: Dr. 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 ID: [id number], Energy: 15X/6X, Dose/Fx (cGy): 300, #Fx: , Dose Correction (cGy): 0, Total Dose (cGy): 1,800, Start Date: 12/30/2019, Elapsed Days: 8 Chief Complaint/History of Present Illness: The patient has moderate headaches which occur every evening and he believes that his tremors are increasing in his left hand. The tremors are described as occurring when he speaks and they are not consistent with seizure-like activity. He is currently taking 4 mg of dexamethasone 4 times daily. He was instructed to decrease his dexamethasone to twice daily. If his headaches do not increase, we will continue to taper his dexamethasone. Current Medications: Acetaminophen, advair Diskus, ativan, cetirizine HCl, dexamethasone, dexamethasone Sodium Phosphate, diclofenac Sodium, diphenhydrAMINE HCl, eliquis, gabapentin, hydrocodone-Acetaminophen, hYDROcodone-Acetaminophen, lisinopril, medrol, morphine Sulfate ER, mouthwash Compounding Base, nivolumab, omeprazole, ondansetron, oxybutynin Chloride, pepcid, pramipexole Dihydrochloride, predniSONE, silvadene, yervoy, zithromax Z-Luis. Allergies: Penicillins. Current Complaints/Review of Systems: Constitutional - Complains of moderate fatigue. Denies lack of appetite, fever, night sweats and change in weight. Eyes - Denies blurred vision and double vision. ENMT - Complains of altered taste. Denies ear pain and stomatitis. Gastrointestinal - Denies nausea and vomiting. Neurologic - Complains of moderate headaches which occurs in the evenings. Denies dizziness and abnormal gait. Having increased tremors in the left hand. Having short term memory loss. Vital Signs: Performed on 01/07/2020 10:55 AM BMI - 38.816 kg/m2 (high), Height - 72.00 in, Weight - 286.2 lbs, Temperature - 98.4 f, Pulse - 77, Respiration - 20, O2 Sat - 98 %, Pain - 0 and BP - 159/ 86 mm(hg)(high/). Physical Exam: Appears stable, no skin erythema or desquamation. There is no evidence of oral thrush. Performance Status: 1 - No physically strenuous activity, but ambulatory and able to carry out light or sedentary work (e.g. office work, light house work). (ECOG) Lab: None pending in Radiation Oncology. Imaging: No new diagnostic imaging was performed since the last weekly treatment visit. All radiation therapy related imaging (including but not limited to kV, MV, and CBCT generated images) was reviewed. Appropriate changes, if any, were made to assure accurate target localization. Impression/Plan: Tolerating treatment well with expected side effects. Continue treatment as planned. Dexamethasone was reduced from 4 mg 4 times daily to 4 mg twice daily. CPT: 01589 Signed by: Dr. Kiko Chan>01/07/2020 7:39:34 PM <<Signature on File>>
--- NOTE | 2020-01-16 11:31 | ONCRAD EPV_ITS ---
Radiation Oncology Established Patient Visit Patient: Shant MR#: [id number] : 1970 Age: 49 Sex: Male Dictated by: Dr. Kiko Chan Date of Service: 01/16/2020 Referring Physician(s) : Nupur Plummer M.D. 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 ID: RT Lung [id number], Energy: 6X, Dose/Fx (cGy): 250, #Fx: 20, Dose Correction (cGy): 0, Total Dose (cGy): 1,000, Start Date: 10/27/2017, End Date: 11/01/2017, Elapsed Days: 5 Treatment Site: [id number], Ref. ID: RT Lung [id number], Energy: 6X, Dose/Fx (cGy): 200, #Fx: 20, Dose Correction (cGy): 0, Total Dose (cGy): 2,400, Start Date: 11/02/2017, End Date: 11/20/2017, Elapsed Days: 18 Treatment Site: [id number], Ref. ID: RT Lung [id number], Energy: 6X, Dose/Fx (cGy): 200, #Fx: 8 / 8, Dose Correction (cGy): 0, Total Dose (cGy): 1,600, Start Date: 11/23/2017, End Date: 12/05/2017, Elapsed Days: 12 Treatment Site: GROIN GTV37.5, Ref. ID: RT GROIN GTV37.5, Energy: 15X, Dose/Fx (cGy): 250, #Fx: 15 / 15, Dose Correction (cGy): 0, Total Dose (cGy): 3,750, Start Date: 12/04/2017, End Date: 12/27/2017, Elapsed Days: 23 Treatment Site: Neck 45Gy, Ref. ID: [id number], Energy: 6X, Dose/Fx (cGy): 250, #Fx: 18 / 18, Dose Correction (cGy): 0, Total Dose (cGy): 4,500, Start Date: 05/23/2019, End Date: 06/19/2019, Elapsed Days: 27 Treatment Site: WholeBrain, Ref. 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 He recently completed whole brain radiation on 12/30/2019, and now the patient presents with a two day history of pain & swelling in his left lower extremity. It should be noted that the patient has a history of a right lower extremity DVT and he is currently on eliquis. The patient is tolerating his dexamethasone taper. Current Medications: Acetaminophen, advair Diskus, ativan, cetirizine HCl, dexamethasone, dexamethasone Sodium Phosphate, diclofenac Sodium, diphenhydrAMINE HCl, eliquis, gabapentin, hydrocodone-Acetaminophen, hYDROcodone-Acetaminophen, lisinopril, medrol, morphine Sulfate ER, mouthwash Compounding Base, nivolumab, omeprazole, ondansetron, oxybutynin Chloride, pepcid, pramipexole Dihydrochloride, predniSONE, silvadene, yervoy, zithromax Z-Luis. Allergies: Penicillins. Current Complaints / Review of Systems: . Vital Signs: Physical Exam: General: Alert and oriented x 3. No acute distress. HEENT: Normocephalic, atraumatic. Extraocular Movements Intact: Pupils Equal, Round, Reactive to Light and Accommodation: Sclerae anicteric. Oral cavity is clear without lesions, masses or ulcers. NECK: Supple without supraclavicular or jugular lymphadenopathy. LUNGS: Clear to auscultation bilaterally without rales, rhonchi or wheeze. HEART: Regular rate and rhythm, normal S1 and S2 without murmur, gallop or rub. MUSCULOSKELETAL: No tenderness or percussion pain over the axial skeleton, scapulae or pelvis. ABDOMEN: Soft, nontender, nondistended without masses or organomegaly. Bowell sounds are present. EXTREMITIES: The patient is wearing bilateral lower extremity compression socks. There is a small amount of edema present on the left lower leg. NEUROLOGIC: Cranial nerves II ???XII are grossly intact. Normal sensation, strength 5/5 in all extremities, normal gait, no ataxia. Performance Status: Lab: None pending. Test performed on 07/16/2019 8:39 AM Manual Eosinophils - 9.0 % (high), Test performed on 12/25/2019 2:45 PM MCV - 96.5 fl (high), Cr Clearance (Est) - 202.37 ml/min (high) and Glucose - 116 mg/dl (high). 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 The patient presented today by self-referral with a two day history of pain & swelling in his left lower extremity. This is a new complaint. The patient has a history of a prior DVT on the contralateral leg and he is currently being treated with eliquis. I have low/moderate suspicion that he has a recurrent DVT, but in an effort to be thorough, I have ordered a Doppler on his left lower extremity. Plan: -) Follow up in Radiation Oncology as originally scheduled to assess the patient???s tolerance of the prescribed Dexamethasone taper. -) In the event that the Doppler proves positive for a DVT, staff has been notified to contact Dr Plummer since I will be on a plane traveling when the results are likely to be called in. I have discussed this with Dr Yeung and he has agreed to cover for me. Signed by: 01/16/2020 11:29:51 AM <<Signature on File>> Time spent with patient: CPT Code: CPT Code:
--- NOTE | 2020-01-16 14:31 | USCV_ITS ---
MikeEric Age: 49 Gender: M : 1970 Exam Date: 01/16/2020 14:28 Ordering Phys: Kiko Chan MD Technologist: Margaux Lyles [place] [facility] [place]: Swelling and pain left lower extremity HISTORY: Left lower extremity pain and swelling. PROCEDURES: Comparison: Right lower extremity only. Venous duplex imaging was performed in only the left lower extremity. The following venous structures were evaluated: common femoral vein, profunda vein, proximal portion of the greater saphenous vein, superficial femoral vein, and the popliteal vein. In addition, the posterior tibial and peroneal trunk were evaluated. Serial compression, augmentation maneuvers, and spectral Doppler flow evaluation were performed. FINDINGS: No evidence of DVT seen in any vessel visualized at this time. CONCLUSIONS No evidence of left lower extremity DVT. Cedrick Flores MD (Electronically Signed) Final Date: 16 January 2020 16:14 S
== END 2020-01-16 23:59 | disposition home or self-care (01) ==
LOC: RAD 13:56
PROVIDERS: PCP Physician Assistant; Visit Provider Radiology Radiation Oncology
DX: Z51.0 Encounter for antineoplastic radiation therapy (principal); C34.11 Malignant neoplasm of upper lobe, right bronchus or lung; C79.89 Secondary malignant neoplasm of other specified sites; M79.662 Pain in left lower leg; M79.89 Other specified soft tissue disorders; R51 Headache; R25.1 Tremor, unspecified; Z79.52 Long term (current) use of systemic steroids; Z86.718 Personal history of other venous thrombosis and embolism; Z79.01 Long term (current) use of anticoagulants; Z79.899 Other long term (current) drug therapy
CPT/HCPCS: 77336; 77387; 77412; 93971; 99213

== ENCOUNTER 2020-01-20 21:37 | Emergency (ER) | payer MEDICARE, MEDICAID, SELFPAY ==
[2020-01-20 22:05] VITALS: BP 128/93; PULSE 85; RESP 14; TEMP 37; O2SAT 97; BMI 35.9
--- NOTE | 2020-01-20 22:15 | CTR_ITS ---
PROCEDURE INFORMATION: Exam: CT Head Without Contrast Exam date and time: 01/20/2020 10:18 PM Age: 49 years old Clinical indication: Other: Seizure; Patient HX: HX brain tumor TECHNIQUE: Imaging protocol: Computed tomography of the head without contrast. Radiation optimization: All CT scans at this facility use at least one of these dose optimization techniques: automated exposure control; mA and/or kV adjustment per patient size (includes targeted exams where dose is matched to clinical indication); or iterative reconstruction. COMPARISON: CT head wo/w con [id number] 12/25/2019 2:09 PM FINDINGS: Brain: There is a 4.3 cm sized prominently cystic lesion in the right frontal lobe with mural nodule not significantly changed compared with 12/25/2019. There is also a small partly cystic lesion in the right temporal lobe tip measuring approximately 1 cm not significantly changed from previous. There is no new intracranial mass. There is approximately 5 mm of midline shift to the left not significantly changed from previous. Ventricles: Normal. No ventriculomegaly. Bones/joints: Unremarkable. No acute fracture. Sinuses: Visualized sinuses are unremarkable. No fluid levels. Mastoid air cells: Visualized mastoid air cells are well aerated. Soft tissues: Unremarkable. Other findings: The Total DLP (mGy-cm): 860.2; No acute hemorrhage is identified. CT/CT head wo con* [id number] IMPRESSION: 1. Brain metastasis with slight midline shift not significantly changed from 12/25/2019. 2. No acute finding. Radiation Dose CTDIVOL = (mGy): DLP = 860.2 (mGy-cm)
[2020-01-20 22:27] VITALS: BP 149/99; PULSE 88; RESP 18; O2SAT 96
--- NOTE | 2020-01-20 22:31 | W.ED.SEIZURE ---
HPI - Seizure General: Chief Complaint: Seizure Stated Complaint: poss seizure Time Seen by Provider: 01/20/20 22:15 Source: patient Mode of arrival: ambulatory Limitations: no limitations History of Present Illness: HPI Narrative: 49-year-old male who has a history of brain tumors that states he got his medicines this morning. He then had a seizure roughly 1 hour ago that lasted 2 minutes and witnessed by . Patient denies any headaches. He has no complaints this time and states he feels improved. He has not had a seizure in the past but his oncologist had expected him to. He just finished up radiation 1 week ago. complaint: seizure Onset (ago): hour(s) Associated symptoms: Deny chest pain, chills or fever(s) Review of Systems Const: Denies: fever(s), chills, body aches or change in appetite Eyes: Denies: blurry vision or eye discomfort ENMT: Denies: throat pain or dental pain Card: Denies: chest pain Resp: Denies: dyspnea GI: Denies: abdominal pain, nausea, vomiting or diarrhea : Denies: dysuria Musc: Denies: neck pain or back pain Skin/Breast: Denies: rash Neuro: Reports: seizure-like activity Psych: Denies: depression Romeo/Lymph: Denies: easy bruising All/Imm: Denies: urticaria PFSH ED PFSH: Medical History COPD (chronic obstructive pulmonary disease) History of pulmonary embolism Hypertension Metastatic cancer Sleep apnea Small cell lung cancer Type 2 diabetes mellitus Surgical History History of lung biopsy History of umbilical hernia repair Port-A-Cath in place Status post chemotherapy Status post colonoscopy (11/07/19) Family History Father Cancer Social History Smoking and tobacco status: current every day smoker cigarettes Packs smoked per day: 1 Alcohol intake: never Household members: spouse Marital status: Current occupational status: disabled Physical Exam Const: COMMON NORMALS: no acute distress, patient oriented x3 and healthy appearing HENMT: COMMON NORMALS: normocephalic and atraumatic HEAD & SCALP: normocephalic and atraumatic Eye: COMMON NORMALS: Equal, round and reactive pupils present and EOMs intact bilaterally PUPIL: Yes Equal, round and reactive pupils present Neck/C-Spine: COMMON NORMALS: full ROM and supple Chest: COMMONS NORMALS: normal inspection of the chest and normal palpation of entire chest wall Resp: COMMON NORMALS: normal respiratory effort, No retractions, No use of accessory muscles and clear to auscultation bilaterally AUSCULTATION: clear to auscultation bilaterally Cardio: COMMON NORMALS: regular rate, regular rhythm and No murmurs present (Cardio) RATE: regular rate RHYTHM: regular rhythm GI: COMMON NORMALS: Normal to inspection, nondistended, normoactive bowel sounds present, Soft to palpation, non-tender and no masses PALPATION: Yes Soft to palpation Extremity: COMMON NORMALS: normal to inspection and full ROM Neuro: COMMON NORMALS: patient oriented x3, moves all extremities and no focal motor deficits Psych: COMMON NORMALS: mental status grossly normal, Normal thought process present and cooperative THOUGHT PROCESS: Normal thought process present Skin: COMMON NORMALS: no rashes or lesions noted and no wounds GENERAL SKIN EXAM: no rashes or lesions noted Course Vital Signs: Vital signs: Vital Signs Temperature 98.6 F 01/20/20 22:05 Pulse Rate 79 01/21/20 00:00 Respiratory Rate 17 01/21/20 00:00 Blood Pressure 142/98 01/21/20 00:00 Pulse Oximetry 96 01/21/20 00:00 MDM - Seizure MDM Narrative: Medical decision making narrative: presents here with a seizure likely from his brain tumor. We will start him on Keppra. Patient's blood work here is normal and he feels improved and is had no seizure-like activity here. Patient is stable for discharge and is to follow-up with his oncologist. He is return if he has any other seizure-like activity. He and his understand and agree to plan. Lab Data: Labs: Lab Results 01/20/20 01/20/20 01/20/20 Range/Units 23:15 23:30 23:30 WBC 7.0 (4.0-10.0) 10^3/ uL RBC 4.76 (4.1-5.3) 10^6/u L Hgb 14.3 (11.7-16.6) g/dL Hct 44.0 (42.0-52.0) % MCV 92.4 (80-94) fL MCH 30.0 (28.0-34.0) pg MCHC 32.5 (30.0-36.0) g/dL RDW 15.0 (12.1-15.1) % Plt Count 132 (130-400) 10^3/c mm MPV 10.1 (7.4-10.4) fL Neut % (Auto) 81.4 % Lymph % (Auto) 11.7 % Martin % (Auto) 5.3 % Eos % (Auto) 0.4 % Baso % (Auto) 0.1 % Neut # (Auto) 5.68 (1.8-7.7) 10^3/u L Lymph # (Auto) 0.8 (0.8-4.8) 10^3/u L Martin # (Auto) 0.4 (0.2-0.9) 10^3/u L Eos # (Auto) 0.0 (0.0-0.8) 10^3/u L Baso # (Auto) 0.0 (0.0-0.1) 10^3/u L Nucleated RBC % (a uto) 0 % Nucleated RBCs # 0.0 /100WBC PT 14.80 H (10.5-13.3) SECO NDS INR 1.12 (0.8-1.2) Sodium 136 (136-145) mmol/L Potassium 4.7 (3.5-5.1) mmol/L Chloride 101 (98-107) mmol/L Carbon Dioxide 26 (22-29) mmol/L Anion Gap 13.7 (5-19) BUN 35 H (6-20) mg/dL Creatinine 0.8 (0.7-1.2) mg/dL GFR Calculation 102.7 (90-130) mL/min Glucose 127 H (65-115) mg/dL Calculated Osmolal ity 281 L (285-295) mOsm/k g Calcium 8.7 (8.5-10.5) mg/dL Total Bilirubin 0.3 (0.15-1.2) mg/dL AST 17 (0-40) U/L ALT 40 (0-41) U/L Alkaline Phosphata se 48 (40-130) IU/L Total Protein 6.0 L (6.6-8.7) g/dL Albumin 3.5 (3.5-5.2) g/dL Globulin 2.5 (1.3-4.6) g/dL Imaging Data^: CT Head: Radiologist's impression: [address] [address] [address] Scan Report Signed Patient: Eric Mckeon Unit #: [id number] : 1970 Age/Sex: 49 / M ADM Date: 01/20/20 Loc: ER Room/Bed: Attending Dr: Ordering Provider/Ordering MD: Erin Jackson MD Date of Service: 01/20/20 Procedure(s): CT head wo con* [id number] Accession Number(s): [id number] Report Number: [id number] PROCEDURE INFORMATION: Exam: CT Head Without Contrast Exam date and time: 01/20/2020 10:18 PM Age: 49 years old Clinical indication: Other: Seizure; Patient HX: HX brain tumor TECHNIQUE: Imaging protocol: Computed tomography of the head without contrast. Radiation optimization: All CT scans at this facility use at least one of these dose optimization techniques: automated exposure control; mA and/or kV adjustment per patient size (includes targeted exams where dose is matched to clinical indication); or iterative reconstruction. COMPARISON: CT head wo/w con [id number] 12/25/2019 2:09 PM FINDINGS: Brain: There is a 4.3 cm sized prominently cystic lesion in the right frontal lobe with mural nodule not significantly changed compared with 12/25/2019. There is also a small partly cystic lesion in the right temporal lobe tip measuring approximately 1 cm not significantly changed from previous. There is no new intracranial mass. There is approximately 5 mm of midline shift to the left not significantly changed from previous. Ventricles: Normal. No ventriculomegaly. Bones/joints: Unremarkable. No acute fracture. Sinuses: Visualized sinuses are unremarkable. No fluid levels. Mastoid air cells: Visualized mastoid air cells are well aerated. Soft tissues: Unremarkable. Other findings: The Total DLP (mGy-cm): 860.2; No acute hemorrhage is identified. CT/CT head wo con* [id number] IMPRESSION: 1. Brain metastasis with slight midline shift not significantly changed from 12/25/2019. 2. No acute finding. Discharge Plan Discharge Patient Disposition: Home, Self-Care Clinical Impression: New onset seizure Condition: Stable Prescriptions: New Keppra 500 mg tablet 500 mg PO BID 14 Days Qty: 28 RF: 0 No Action fluticasone propion-salmeterol [Advair Diskus] 250-50 mcg/dose Blister With Device 1 inh INHALATION BID RF: 0 metoprolol succinate 50 mg Tablet Extended Release 24 Hr 50 mg PO DAILY RF: 0 hydrocodone-acetaminophen 5-325 mg Tablet 1 - 2 tab PO Q6H PRN (Reason: Pain, Moderate) RF: 0 allopurinol 100 mg Tablet 100 mg PO BID RF: 0 pramipexole 0.25 mg Tablet 0.25 mg PO DAILY RF: 0 gabapentin 300 mg Capsule 300 mg PO QID RF: 0 oxybutynin chloride 5 mg Tablet 5 mg PO BID RF: 0 Tradjenta 5 mg Tablet 5 mg PO DAILY RF: 0 Eliquis 5 mg Tablet 5 mg PO BID RF: 0 Hold Instructions: Resume on 11/16/19. Doctor's Order lisinopril 20 mg tablet 20 mg PO DAILY RF: 0 ondansetron 8 mg tablet,disintegrating 8 mg PO TID PRN (Reason: NAUSEA/VOMITING) RF: 0 cetirizine [Zyrtec] 10 mg Tablet 10 mg PO DAILY RF: 0 Protonix [address] for susp in packet 40 mg PO DAILY Qty: 30 RF: 0 ciprofloxacin HCl 500 mg tablet 500 mg PO BID Qty: 10 RF: 0 morphine 30 mg Tablet,Oral Only,Extnd Release 30 mg PO Q12H RF: 0 Discharge Orders: Discharge Order (Routine); Ordered 01/21/20 Ordered By: Erin Jackson Referrals: Pamela Lorenzana PA [Primary Care Provider] - Discharge Diet: Advance as tolerated Discharge Activity: Resume usual activity Patient Instructions: New-Onset Seizure in Adults (ED) Coding Level of Care Code 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
[2020-01-20] MEDS: LORazepam 1 mg Tablet PO (23:00)
[2020-01-20 23:21] LABS: Basophils % 0.1 %; Eosinophils % 0.4 %; Hemoglobin 14.3 g/dL (11.7-16.6); Lymphocytes # 0.8 10^3/uL (0.8-4.8); Lymphocytes % 11.7 %; Mean Corpuscular HGB Conc 32.5 g/dL (30.0-36.0); Mean Corpuscular Volume 92.4 fL (80-94); Mean Platelet Volume 10.1 fL (7.4-10.4); Monocytes # 0.4 10^3/uL (0.2-0.9); Monocytes % 5.3 %; Neutrophils # 5.68 10^3/uL (1.8-7.7); Neutrophils % 81.4 %; Nucleated Red Blood Cells % 0 %; Platelet Count 132 10^3/cmm (130-400); Red Blood Count 4.76 10^6/uL (4.1-5.3)
[2020-01-20 23:26] VITALS: BP 140/97; PULSE 72; RESP 18; O2SAT 99
[2020-01-20 23:51] LABS: INR 1.12 (0.8-1.2)
[2020-01-20 23:55] LABS: Alanine Aminotransferase 40 U/L (0-41); Albumin Level 3.5 g/dL (3.5-5.2); Alkaline Phosphatase 48 IU/L (40-130); Anion Gap 13.7 (5-19); Aspartate Amino Transferase 17 U/L (0-40); Blood Urea Nitrogen 35 mg/dL (6-20); Calcium 8.7 mg/dL (8.5-10.5); Carbon Dioxide 26 mmol/L (22-29); Chloride 101 mmol/L (98-107); Globulin 2.5 g/dL (1.3-4.6); Glomerular Filtration Rate 102.7 mL/min (90-130); Glucose 127 mg/dL (65-115); Osmolality Calculated 281 mOsm/kg (285-295); Potassium 4.7 mmol/L (3.5-5.1); Sodium 136 mmol/L (136-145); Total Bilirubin 0.3 mg/dL (0.15-1.2)
[2020-01-21] VITALS: BP 142/98; PULSE 79; RESP 17; O2SAT 96
== END 2020-01-21 00:25 | disposition home or self-care (01) ==
PROVIDERS: Emergency Provider Emergency Medicine; PCP Physician Assistant
DX: G40.89 Other seizures (principal); Z79.01 Long term (current) use of anticoagulants; J44.9 Chronic obstructive pulmonary disease, unspecified; I10 Essential (primary) hypertension; Z85.118 Personal history of other malignant neoplasm of bronchus and lung; E11.9 Type 2 diabetes mellitus without complications; Z92.21 Personal history of antineoplastic chemotherapy; F17.210 Nicotine dependence, cigarettes, uncomplicated
CPT/HCPCS: 12345; 36415; 70450; 80053; 85025; 85610; 99283

== ENCOUNTER 2020-01-31 11:00 | Outpatient (RCR) | payer MEDICARE, MEDICAID, SELFPAY ==
[2020-01-28 10:02] LABS: Basophils % 0.3 %; Hematocrit 43.1 % (42.0-52.0); Hemoglobin 13.4 g/dL (11.7-16.6); Lymphocytes # 0.9 10^3/uL (0.8-4.8); Lymphocytes % 28.1 %; Mean Corpuscular HGB Conc 31.1 g/dL (30.0-36.0); Mean Corpuscular Hemoglobin 29.7 pg (28.0-34.0); Mean Corpuscular Volume 95.6 fL (80-94); Mean Platelet Volume 9.4 fL (7.4-10.4); Monocytes # 0.2 10^3/uL (0.2-0.9); Monocytes % 7.6 %; Neutrophils # 1.86 10^3/uL (1.8-7.7); Neutrophils % 61.3 %; Nucleated Red Blood Cells % 0 %; Platelet Count 99 10^3/cmm (130-400); Red Blood Count 4.51 10^6/uL (4.1-5.3); Red Cell Distribution Width 14.9 % (12.1-15.1)
[2020-01-28] MEDS: alteplase 1 mg/mL SDV 2 mL 2 MG IV (10:07)
[2020-01-28 10:12] LABS: Alanine Aminotransferase 33 U/L (0-41); Albumin Level 3.3 g/dL (3.5-5.2); Alkaline Phosphatase 61 IU/L (40-130); Aspartate Amino Transferase 19 U/L (0-40); Blood Urea Nitrogen 17 mg/dL (6-20); Calcium 8.4 mg/dL (8.5-10.5); Carbon Dioxide 28 mmol/L (22-29); Chloride 103 mmol/L (98-107); Globulin 3.1 g/dL (1.3-4.6); Glomerular Filtration Rate 102.7 mL/min (90-130); Glucose 122 mg/dL (65-115); Osmolality Calculated 284 mOsm/kg (285-295); Sodium 138 mmol/L (136-145); Total Bilirubin 0.3 mg/dL (0.15-1.2); Total Protein 6.4 g/dL (6.6-8.7)
--- NOTE | 2020-01-28 16:39 | ONC FU_ITS ---
Dr. Plummer follow up note Patient: Eric Mckeon < Unit #: [id number]: 1970 Dicatated By: Nupur Plummer M.D.Date of Visit:Jan 28, 2020 Onc Med Follow-up/Prog Note History of Present Illness: Mr. Mckeon is a 49-years -old gentleman who developed a left neck mass. He was seen by Dr. Ben FOX and underwent needle core biopsy of left neck mass on 10/16/2017. 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 He underwent a CT of chest on 10/23/2017 which revealed a large right paratracheal mass measuring 8.3???7.7 cm. It involves the superior vena cava with near occlusion. It also causes encasement of the right main pulmonary artery with moderate narrowing with moderate stenosis. It also encases the right proximal main stem bronchus and bronchus intermedius. Mr Mckeon subsequently underwent CT PET scan on 10/28/2017 which showed hypermetabolic left neck mass 4.9 x 3.7 cm with SUV of 12.9. Right paratracheal mass with SUV of 15. At the level of pelvis a 6.1 x 4.5 cm soft tissue mass was reported in the right external iliac territory which has SUV of 14.4. There was an FDG positive muscular implant anterior to right femoral neck measuring 1.[address] scan done on 12/07/2017 showed right lower lobe and right middle lobe pulmonary embolism and was started on apixaban and for the study showed right lower extremity clot Mr Mckeon was seen by radiation oncology and started on radiation to his chest on urgent basis because of risk of impending SVC syndrome. He began his first cycle of chemotherapy with Carboplatin/etoposide on 11/06/2017. His last cycle of chemotherapy was on 02/06/2018. Mr. Mckeon did have follow-up PET CT on 02/03/2018. The left-sided cervical mass seen on the exam from 10/28/2017 is now subcentimeter in size and within minimal FDG activity. Similarly, the right hilar/paratracheal mass demonstrates activity minimally greater than that of the mediastinal background and measures 2.3 x 4.1 cm. The right external iliac mass now measures 1.5 cm without significant FDG activity. The muscle implant anterior to the right femoral neck currently has SUV of 6.6 down from 14.1 indicating a positive response to chemotherapy. His cycle 6 chemotherapy, was on 04/02/2018. Patient has seen Dr. Cotton radiation oncology, regarding persistent activity in muscle implant anterior to the right femoral neck, as per patient he was informed that there is a risk of radiation-induced damage to his femoral neck/ right hip and suggested to continue with chemotherapy and repeat CT PET scan as planned. Underwent CT-guided biopsy of right iliopsoas muscle implant anterior to right femoral neck on 06/04/[address] [facility] radiology department in [place] and final pathology report came back fibrohistiocytic proliferation, no evidence of carcinoma Sleep apnea on CPAP machine Underwent fluoroscopy Port-A-Cath on 08/06/2018 showed patent Port-A-Cath He was supposed to get CT PET scan but insurance refused coverage so CT scan of chest abdomen pelvis and neck was done on 08/17/2018. It reported recurrent mass in the left neck centered at level of hyoid bone. Mass extends over a length of 4 x 2.2 x 3.4 cm. The mass abuts and displaces the fat planes along the sternocleidomastoid muscle. Mass also abuts the left jugular vein. Mass in a similar location on study of 09/18/2017. CT PET scan done on 04/21/2018 was negative. No additional masses noted. CT scan of chest showed continued decrease righ media l upper lobe mass; Unchanged right upper lobe linear and patchy nodular opacity; CT abdomen pelvis showed no definite metastatic disease in abdomen pelvis; Left mid kidney indeterminant wedge-shaped low-attenuation focus Mr Mckeon underwent biopsy of left neck mass at [facility] on 09/12/2018, final pathology report came back high-grade neuroendocrine carcinoma, predominantly small cell feature and positive focally week for TTF-1, it was concluded, given history of SVC syndrome and radiological studies diagnosis was revised to metastatic small cell lung cancer. And rechallenge with carboplatin/etoposide was recommended along with tecentriq (atezolizumab), Which he was started on 09/26/2018. Follow-up CT PET scan done after 4 doses of carboplatin/etoposide/ tecentriq , on 12/29/2018 showed persistent left supraclavicular mass measuring 3.7 x 2.7 with SUV of 8.2 compared to 4 prior to by 3.[address] scan of neck done on 08/17/2018 at [facility]. And also showed persistent but stable muscle implant anterior to right femur, with SUV 14.0 and it was biopsied earlier and showed no evidence of metastatic disease Patient was evaluated by Dr. Gorman in March 2019 and as per his evaluation patient still responding to the treatment and left neck mass is smaller than before and . Last chemotherapy was done on 02/03/2019. The muscle implant was also seen with SUV of 14, biopsy of specimen was consistent with recurrent high-grade tumor and he was offered a clinical trial [facility] neuroendocrine oncology clinic at [facility]. Patient did well and clinical trial but eventually developed progressive thrombocytopenia and at his followup visit on May 07, [address] Gorman, his follow-up scan showed disease progression. At that time he was taken off clinical trial as left neck mass continued to grow. CT scan of neck done at the May 2019 followup visit, showed progressive left neck mass site 6.1 x 7.6 cm compared to 4.4 x 6.4 on 02/21/2019 with central hypoattenuation in mass is intimately associated with the left internal jugular vein and now appears to encase it and right pulmonary nodularity, cavitary lesion, right hilar mass seen. With this impression it was decided a few with palliative therapy which include radiation therapy to the left neck mass and because of persistent thrombocytopenia immunotherapy with ipilimumab and nivolumab was recommended and in case thrombocytopenia resolved topotecan based regimen can be considered Tolerated radiation therapy to left neck reasonably well and he concluded radiation therapy on 06/19/2019 o a total dose of 4,500 cGy. recommended that he pursue ipilimumab and nivolumab. 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 difficile which came back positive and he was started on antibiotics overall condition improved was discharge home in a stable condition with a tapering dose of steroids, patient return to [facility] with hypotension and severe diarrhea and again responded very well to high-dose steroids underwent colonoscopy evaluation.which showed extensive inflammation. Follow-up CT PET scan done on 10/12/2019 showed the left cervical mass now measured 3.0 x 1.8 cm with SUV of 4.2, significant improvement from prior study. The implant anterior to right femur has improved, now with SUV of 6 down from [address] PET scan done on 12/29/2018. Started on maintenance therapy with Temodar 100 mg/m??? daily for 5 days every 28 days prescription was given on 10/16/2019 As per patient, he took first dose of Temodar on 11/01/2019 and he did develop bright blood per rectum and went to [facility] and was admitted to hospital treated conservatively, GI was consulted patient underwent colonoscopy evaluation on 11/07/2019 which showed no abnormality and previously seen colitis has completely resolved.patient did not complete his 5 days/28 days course of Temodar e.g. took only 1 dose.because of GI bleeding, his Eliquis was also put on hold Then patient restarted his remaining temodar on November 19, 2019 and completed first cycle on November 22, 2019 Completed second cycle on December 21, 2019 was complaining of forgetfulness, episode of passing out twice. No focal weakness, no seizure-like activity patient has episode of off and on hiccups. No blurred vision or double vision, no fever or chills, no nuchal rigidity. CT scan of the head was done on December 25, 2019 showed mixed cystic and solid 1 cm metastasis in the right temporal lobe with a mural nodule. There is a 4.4 cm rim-enhancing centrally cystic metastasis in the right frontal lobe. Approximately 0.7 cm enhancing nodule in the right frontal lobe which shows mild pre-contrast hypodensity consistent with small amount of hemorrhage. Approximately 4 mm [id number] midline shift., Case was discussed with Dr. Flores, radiologist this morning as there was a concern whether is a metastatic disease or infectious, and his impression was findings most consistent with metastatic disease as his previous scan done in August showed very small 1.3 cm cystic lesion which was not that obvious but now progressed., Temodar was put on hold after second cycle which he completed on December 29, 2019 and he was referred to radiation oncology for evaluation for newly diagnosed brain mets which was started on December 30, 2019 and he completed on January 13, 2020, tolerated well with resolution of his symptoms On January 16, 2020 he underwent venous Doppler study of left leg for swelling and it shows no evidence of DVT Came for follow-up, denies any specific complaint except generalized weakness and fatigue as per patient's also having some discomfort in the right chest otherwise no hemoptysis or hematemesis, no blurred vision or double vision, no focal weakness, no diarrhea or constipation, no shortness of breath or dysphagia, no neck mass, no new bony pains. Patient did finish radiation therapy to his brain on January 13, 2020 . Medications: Advair Diskus 2 puff(s) (of 250-50 mcg/dose) Aerosol Powder, Breath Activated Inhalation b.i.d., Ativan 0.5 - 1 Tablet (of 1 mg) Oral t.i.d. PRN, Cetirizine HCl 1 Tablet (of 10 mg) Tablet Oral b.i.d., Diclofenac Sodium 1 Tablet (of 75 mg) Tablet, enteric coated Oral b.i.d., Eliquis 1 Tablet (of 5 mg) Oral b.i.d., Gabapentin 1 Capsule (of 300 mg) Capsule Oral four times a day, Hydrocodone-Acetaminophen 1 - 2 Tablet (of 5-325 mg) Oral q 6 hours, Lisinopril 1 Tablet (of 20 mg) Oral daily, Oxybutynin Chloride 1 Tablet (of 5 mg) Tablet Oral b.i.d., Pramipexole Dihydrochloride 1 (0.25 mg) Tablet Oral at bedtime Allergies: Penicillins Review of Systems: Constitutional - Appetite is poor, energy is poor, weight is stable at present, ENMT - Positive for sinus congestion/drainage. No mouth sores. No sore throat or difficulty swallowing, Hematologic/Lymphatic - Pt has large bruise on inside of left arm, Respiratory - Occasional cough, Cardiovascular - No anginal chest pain, palpitations. He has no leg swelling, Gastrointestinal - No nausea, vomiting, diarrhea, GI bleeding. Flucuates between constipation and diarrhea. No heartburn or early satiety, Genitourinary (M) - No hematuria, dysuria, increased frequency, urgency, hesitancy or incontinence, Musculoskeletal - No joint pain, swelling or redness. No decreased range of motion. Pt is using a cane today, Integumentary - No skin ulcers or open wounds, Neurologic - Positive for dizziness, falls, passing out , forgetfulness and an increase in tremors, Psychiatric - Patient denies anxiety or depression. Pt has been falling asleep frequently. Pt also reports significant mood changes. Vital Signs: Performed on Jan 28, 2020 10:25 Height - 72.00 in Weight - 289.6 lbs (HIGH) BSA - 2.49 sq.m BMI - 39.28 (HIGH) Temperature - 99.2 F (HIGH) Pulse - 88 /min Respiration - 26 /min BP - 142/92 mm(hg) (HIGH) O2 Sat - 97 % Pain - 0 Performance Status: 2 - Ambulatory/capable of all self-care, unable to perform any work activities. Up and about more than 50% of waking hours. (ECOG) Physical Examination: ENMT - No mouth sores, no thrush, no, Respiratory - Lungs are clear, Cardiovascular - Regular rate and rhythm of heart, Abdomen - Soft, bowel sounds present, Extremities - 1+ edema bilaterally. Lab/Imaging: Test performed on Dec 25, 2019 14:45 Sodium 141 mmol/L Potassium 3.8 mmol/L Chloride 106 mmol/L CO2 24 mmol/L Anion Gap 14.8 BUN 15 mg/dL Creatinine 0.8 mg/dL Cr Clearance (Est) 202.37 mL/min eGFR 102.7 mL/min Glucose 116 mg/dL Calcium 9.4 mg/dL Protein, Total 7.5 g/dL Albumin 4.1 g/dL Globulin 3.4 g/dL Bilirubin, Total 0.4 mg/dL ALT (SGPT) 20 U/L AST (SGOT) 24 U/L Alkaline Phosphatase 65 IU/L WBC 5.5 10 3/uL RBC 4.51 10 6/uL HGB 13.8 g/dL HCT 43.5 % MCV 96.5 fL MCH 30.6 pg MCHC 31.7 g/dL RDW 14.2 % Platelet Count 186 10 3/cmm MPV 9.6 fL Neutrophils 2.6 10 3/uL Lymphocytes 2.3 10 3/uL Monocytes 0.3 10 3/uL Eosinophils 0.2 10 3/uL Basophils 0.1 10 3/uL Neutrophil % 47.5 % Lymphocyte % 41.2 % Monocyte % 6.0 % Eosinophil % 4.2 % Basophils % 0.9 % NRBC % 0 % Impression: Recurrent small cell lung cancer per left neck mass biopsy on 09/12/2018, which showed high-grade neuroendocrine carcinoma, predominantly small cell feature and positive focally for TTF-1, it was concluded, given history of SVC syndrome and radiological studies diagnosis was revised to metastatic small cell lung cancer Metastatic High-grade neuroendocrine carcinoma per needle core biopsy of left neck mass done on 10/16/2017 Pathology also showed sheets and cords of large malignant cells with neuroendocrine features, numerous mitotic figures are seen as well as area of tumor necrosis. immuno histochemistry positive for CAM 5.2, CD 56 , synaptophysin, TTF-[address] scan of chest done on 10/23/2017 showed 7.7 x 2.3 cm right paratracheal mass with a near occlusion of SVC, and encasement of right proximal pulmonary artery with moderate stenosis, and encasement of right proximal main stem bronchus and bronchus intermedius CT PET scan done on 10/28/2017 showed hypermetabolic left neck mass measuring 4.9 x 3.7 cm with SUV of 12.9 and right paratracheal mass measures 6.8 x 7.8 cm with SUV of 15 and at the level of pelvis a 6.1 x 4.5 cm soft tissue mass in the right external iliac territory has SUV of 14.4 and and FDG positive muscular implant anterior to right femoral neck measuring about 1.2 cm in size On radiation therapy to right paratracheal mass and chemotherapy with carboplatin and etoposide was added on 11/06/2017. He received radiation therapy to right pelvic mass Right leg DVT diagnosed on 12/07/2017 on Eliquis. Mr. Mckeon was admitted on 01/20/2018 with an initial concerns for sepsis but was found to have UTI. He was discharged on antibiotics andhis fever, rigors and tachycardia resolved. CT PET scan done on 02/03/2018 showed left sided cervical mass seen on exam from 10/28/2017 is now subcentimeter in size and within normal limit FDG activity early. Right hilar/paratracheal mass demonstrates activity minimally greater than that of mediastinal background and molecular 2.3 x 4.1 cm. Right external iliac mass now measured 1.5 cm without significant FDG activity. The muscle implant anterior to the right femoral neck currently has SUV of 6.6, down from 14.1, indicating a positive response to therapy. Repeat CT PET scan done after 6th dose of chemo on 04/21/2018 showed previously described left sided cervical mass was not identifiable on the current study. Right hilar/paratracheal mass is improved in size to 3 cm with a minimum FDG activity. Right external iliac lymph node was unchanged in size but without significant FDG activity Muscle implant anterior to right femoral neck had an SUV of 12 compared to 6.6 previously, consistent with progression of disease at that location. On 06/04/2018, he underwent CT-guided biopsy of this lesion at [facility] radiology department in [place] and final pathology report came back fibrohistiocytic proliferation, no evidence of carcinoma CT scan of neck chest abdomen pelvis done on 08/17/2018 showed recurrent mass in the left neck centered at level of hyoid bone. Mass extends over a length of 4 x 2.2 x 3.4 cm and abuts and displaces fat planes along the sternocleidomastoid muscle. Mass also abuts left jugular vein. No additional mass seen. Mass in a similar location on the study of 09/18/2017. CT PET scan done on 04/21/[address] scan of chest showed continued decrease right medial upper lobe mass. Unchanged right upper lobe linear and patchy nodular opacity. New right lower lobe superior segment focal irregular opacity nonspecific follow-up CT scan recommended in [address] abdomen showed no definite metastatic disease in abdomen pelvis. Left mid kidney indeterminant wedge-shaped low-attenuation focus nonspecific. Mr Mckeon underwent biopsy of left neck mass at [facility] on 09/12/2018, final pathology report came back high-grade neuroendocrine carcinoma, predominantly small cell feature and positive focally week for TTF-1, it was concluded, given history of SVC syndrome and radiological studies diagnosis was revised to metastatic small cell lung cancer. Re-challenging with carboplatin and etoposide was recommended along with tecentriq (atezolizumab). So planning was to start him on carboplatin/etoposide and tecentriq 1200 mg IV day 1 q3 weeks ???[address] PET scan if complete remission, may consider maintenance therapy with Tecentriq alone.Which was started on 09/26/2018 Follow-up CT PET scan done after 4 doses of carboplatin/etoposide/ tecentriq , on 12/29/2018 showed persistent left supraclavicular mass measuring 3.7 x 2.7 with SUV of 8.2 compared to 4 prior to by 3.[address] scan of neck done on 08/17/2018 at [facility]. It also showed persistent but stable muscle implant anterior to right femur, with SUV 14.0 and it was biopsied earlier and showed no evidence of metastatic disease Patient was evaluated by Dr. Gorman in March 2019 and as per his evaluation, Mr Mckeon was still responding to the treatment and left neck mass is smaller than before. Last chemotherapy was done on 02/03/2019. The muscle implant was also seen with SUV of 14 biopsy of specimen was consistent with recurrent high-grade tumor and he was offered a clinical trial at neuroendocrine oncology clinic at [facility]. Patient did well in the clinical trial but eventually developed progressive thrombocytopenia and follow-up scan showed disease progressio at hiis followup visit on May 07, 2019 At that time he was taken off clinical trial as left neck mass continued to grow. CT scan of neck done showed progressive left neck mass site 6.1 x 7.6 cm compared to 4.4 x 6.4 on 02/21/2019 with central hypoattenuation in mass and it was intimately associated with the left internal jugular vein and now appears to encase it. Right pulmonary nodularity, cavitary lesion, right hilar mass seen. With this impression, it was decided to pursue palliative therapy which include radiation therapy to the left neck mass and because of persistent thrombocytopenia- immunotherapy with ipilimumab and nivolumab was recommended and in case thrombocytopenia resolved- topotecan based regimen can be considered. Tolerated radiation therapy to left neck reasonably well and concluded radiation therapy on 06/19/2019 to a total dose of [address] Plummer recommended that he pursue ipilimumab and nivolumab. He began his first cycle on 07/10/2019. He has tolerated it well thus far. Plan: Discussed with patient regarding his labs white blood count 3 hemoglobin 13.4 hematocrit 43.1 platelets 99,000 ANC 1.86 CMP within normal limits except glucose 122 Clinically, patient is doing well, has tolerated whole brain radiation therapy for newly diagnosed brain mets which she completed on January 13, 2020, patient was also started on Keppra for seizure-like activity. And his follow-up labs shows mild leukopenia/thrombocytopenia with a normal hemoglobin etiology unclear could be due to Keppra, will monitor and at this point because of right chest pain/discomfort, will also consider CT scan of chest abdomen pelvis and neck to assess disease status and if there is no disease progression or new lesion, will restart maintenance therapy with Temodar otherwise consider palliative therapy with FOLFOX or FOLFIRI regimen. Patient will return to clinic after CT scan with CBC and CMP Signed By: Nupur Plummer M.D. <<Signature on File>>
--- NOTE | 2020-01-29 12:00 | CT_ITS ---
WS: [id number] CT CHEST, ABDOMEN, AND PELVIS TECHNIQUE: Contrast-enhanced CT of the chest, abdomen, and pelvis with coronal and sagittal reformatt ed images. CLINICAL INFORMATION: NEUROENDOCRINE TUMOR COMPARISON: CT abdomen pelvis October 31, 2019 and PET/CT October 12, 2019. CT chest abdomen pelvis September 01, 2019, 2 12,019 DLP: 2990.[address] scans at [facility] use at least one of these dose optimization techniques: automat ed exposure control; mA and/or kV adjustment per patient size (includes targeted exams where dose is matched to clinical indication); or iterative reconstruction. CT CHEST: Again seen is the right upper lobe and right hilar treated carcinoma. This is not significantly goldberg ed in appearance since September 01, 2019 and prior PET/CT October 12, 2019. Parenchymal fibrosis with trac tion bronchiectasis in right upper lobe is unchanged. Small bullae in the right upper lobe is unchang ed. Additional subpleural nodular thickening with parenchymal fibrosis in the right lung apex is unch anged. No evidence of disease progression compared to previous. No new or progressed mediastinal or hilar lymphadenopathy. Tiny hazy ground glass opacity in the supe r segment left lower lobe along the fissure likely inflammatory. No other new or suspicious pulmonary opacities. CT ABDOMEN AND PELVIS: Liver is normal in appearance. Mild diffuse fatty infiltration. Normal portal vein and splenic vein. Normal gallbladder. Small esophageal hiatal hernia. Normal spleen. Pancreas appears normal. Adrenal glands demonstrate small bilateral nodules unchanged in appearance since October 31, 2019. Larg est adrenal nodule in the left measuring 14 mm. Normal renal parenchymal enhancement. No hydronephros is. Normal caliber abdominal aorta. No adenopathy in the upper abdomen. No periaortic or retroperiton eal lymphadenopathy. Prostate calcification. No pelvic or inguinal lymphadenopathy. Normal sigmoid co lolis. Lumbar spine appears normal. CT/CT chest abd pel w con* IMPRESSION: 1. No evidence of progressed metastatic disease in the chest abdomen or pelvis . 2. Stable treated right upper lobe and perihilar carcinoma with traction bronc hiectasis in the right upper lobe. This is unchanged in appearance since the pr ior examinations. No evidence of disease progression. 3. Stable bilateral adrenal nodules left greater than right. Largest on the le ft measures 14 mm. This is unchanged. 4. No adenopathy in the abdomen or pelvis. 5. No other significant interval changes.
[2020-01-29] MEDS: iohexol 300 mg/mL 50 mL Btl PO (12:20)
[2020-01-29] MEDS: iohexol 300 mg/mL 100 mL Btl IV (13:35)
--- NOTE | 2020-01-31 09:36 | CT_ITS ---
WS: [id number] CT NECK WITH CONTRAST HISTORY: NEUROENDOCRINE TUMOR TECHNIQUE: Contiguous 5 mm axial images are performed through the neck with intravenous contrast. Sag ittal and coronal reformats are also submitted. All CT scans at [facility] use at least o ne of these dose optimization techniques: automated exposure control; mA and/or kV adjustment per pat ient size (includes targeted exams where dose is matched to clinical indication); or iterative recons truction. CONTRAST: CONTRAST: Omnipaque 300; 95 mL IV. DLP: 3408.13 mGycm COMPARISON: 08/17/2018, PET/CT 12/29/2018 and 10/12/2019. CT chest 01/29/2020 Nasopharynx, oropharynx, hypopharynx and larynx are unremarkable. No soft tissue masses or abnormal e nhancement. Torus tubarius and fossa of Rosenmuller and parapharyngeal fat are normal. Necrotic soft tissue mass in the LEFT neck between the sternocleidomastoid muscle in the distal commo n carotid artery extends over length of 4.7 cm x 2.8 x 2.1 cm. Moderate decrease in size since the pr ior CT of 08/17/2018. Obliteration of the fat plane between the carotid artery and the sternocleidomas toid muscle. No new masses or lymph nodes. There is a LEFT subclavian Port-A-Cath with tip ending in the brachiocephalic junction. Coarse calcification in the LEFT thyroid is stable. No osseous abnormalities. Imaging through the skull base demonstrates an known RIGHT cerebral low-attenuation mass measuring 3. 9 x 3.3 cm. Minimal midline shift. Visualized paranasal sinuses and mastoid air cells are normal. Area of bronchiectasis and spiculation in the medial RIGHT upper lobe measures 3.7 x 3.3 cm. Correspo nds to an area of prior treated neoplasm. No interval progression. CT/CT neck w con* [id number] IMPRESSION: 1. 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 Mass now me asures 4.7 x 2.8 x 2.1 cm. 2. 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 3. Bronchiectasis and fibrotic changes medial RIGHT upper lobe are stable. 4. No new neck masses. No new adenopathy.
[2020-01-31] MEDS: iohexol 300 mg/mL 100 mL Btl IV (10:07)
== END 2020-01-31 23:59 | disposition home or self-care (01) ==
LOC: ONCMED 11:00
PROVIDERS: PCP Physician Assistant; Visit Provider Internal Medicine Hematology & Oncology
DX: C34.11 Malignant neoplasm of upper lobe, right bronchus or lung (principal); C79.31 Secondary malignant neoplasm of brain; T82.594A Other mechanical complication of infusion catheter, initial encounter; Y80.1 Therapeutic (nonsurgical) and rehabilitative physical medicine devices associated with adverse incidents; G47.33 Obstructive sleep apnea (adult) (pediatric); D69.6 Thrombocytopenia, unspecified; Z79.899 Other long term (current) drug therapy; Z79.891 Long term (current) use of opiate analgesic; Z79.01 Long term (current) use of anticoagulants; Z86.711 Personal history of pulmonary embolism; Z92.3 Personal history of irradiation; Z92.21 Personal history of antineoplastic chemotherapy
CPT/HCPCS: 36415; 36593; 70491; 71260; 74177; 80053; 85025; 96374; 99214; J2997; Q9967

== ENCOUNTER 2020-02-28 05:36 | Outpatient (RCR) | payer MEDICARE, MEDICAID, SELFPAY ==
[2020-02-03 08:46] LABS: Basophils % 0.3 %; Eosinophils % 1.3 %; Hematocrit 40.5 % (42.0-52.0); Lymphocytes # 1.1 10^3/uL (0.8-4.8); Mean Corpuscular HGB Conc 32.1 g/dL (30.0-36.0); Mean Corpuscular Hemoglobin 30.6 pg (28.0-34.0); Mean Corpuscular Volume 95.3 fL (80-94); Monocytes # 0.3 10^3/uL (0.2-0.9); Monocytes % 10.4 %; Neutrophils # 1.65 10^3/uL (1.8-7.7); Neutrophils % 52.1 %; Nucleated Red Blood Cells % 0 %; Platelet Count 119 10^3/cmm (130-400); Red Blood Count 4.25 10^6/uL (4.1-5.3); Red Cell Distribution Width 14.8 % (12.1-15.1); White Blood Count 3.2 10^3/uL (4.0-10.0)
[2020-02-03 08:51] LABS: Alanine Aminotransferase 21 U/L (0-41); Albumin Level 3.5 g/dL (3.5-5.2); Alkaline Phosphatase 72 IU/L (40-130); Anion Gap 11.7 (5-19); Aspartate Amino Transferase 15 U/L (0-40); Blood Urea Nitrogen 12 mg/dL (6-20); Calcium 8.9 mg/dL (8.5-10.5); Carbon Dioxide 28 mmol/L (22-29); Chloride 102 mmol/L (98-107); Globulin 3.1 g/dL (1.3-4.6); Glomerular Filtration Rate 102.7 mL/min (90-130); Glucose 129 mg/dL (65-115); Osmolality Calculated 284 mOsm/kg (285-295); Potassium 3.7 mmol/L (3.5-5.1); Sodium 138 mmol/L (136-145); Total Bilirubin 0.3 mg/dL (0.15-1.2); Total Protein 6.6 g/dL (6.6-8.7)
--- NOTE | 2020-02-03 15:21 | ONC FU_ITS ---
Dr. Plummer follow up note Patient: Eric Mckeon Unit #: [id number]: 1970 Dicatated By: Nupur Plummer M.D.Date of Visit:Feb 03, 2020 Onc Med Follow-up/Prog Note History of Present Illness: Mr. Mckeon is a 49-years -old gentleman who developed a left neck mass. He was seen by Dr. Ben FOX and underwent needle core biopsy of left neck mass on 10/16/2017. 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 He underwent a CT of chest on 10/23/2017 which revealed a large right paratracheal mass measuring 8.3???7.7 cm. It involves the superior vena cava with near occlusion. It also causes encasement of the right main pulmonary artery with moderate narrowing with moderate stenosis. It also encases the right proximal main stem bronchus and bronchus intermedius. Mr Mckeon subsequently underwent CT PET scan on 10/28/2017 which showed hypermetabolic left neck mass 4.9 x 3.7 cm with SUV of 12.9. Right paratracheal mass with SUV of 15. At the level of pelvis a 6.1 x 4.5 cm soft tissue mass was reported in the right external iliac territory which has SUV of 14.4. There was an FDG positive muscular implant anterior to right femoral neck measuring 1.[address] scan done on 12/07/2017 showed right lower lobe and right middle lobe pulmonary embolism and was started on apixaban and for the study showed right lower extremity clot Mr Mckeon was seen by radiation oncology and started on radiation to his chest on urgent basis because of risk of impending SVC syndrome. He began his first cycle of chemotherapy with Carboplatin/etoposide on 11/06/2017. His last cycle of chemotherapy was on 02/06/2018. Mr. Mckeon did have follow-up PET CT on 02/03/2018. The left-sided cervical mass seen on the exam from 10/28/2017 is now subcentimeter in size and within minimal FDG activity. Similarly, the right hilar/paratracheal mass demonstrates activity minimally greater than that of the mediastinal background and measures 2.3 x 4.1 cm. The right external iliac mass now measures 1.5 cm without significant FDG activity. The muscle implant anterior to the right femoral neck currently has SUV of 6.6 down from 14.1 indicating a positive response to chemotherapy. His cycle 6 chemotherapy, was on 04/02/2018. Patient has seen Dr. Cotton radiation oncology, regarding persistent activity in muscle implant anterior to the right femoral neck, as per patient he was informed that there is a risk of radiation-induced damage to his femoral neck/ right hip and suggested to continue with chemotherapy and repeat CT PET scan as planned. Underwent CT-guided biopsy of right iliopsoas muscle implant anterior to right femoral neck on 06/04/2018 at [facility] radiology department in [place] and final pathology report came back fibrohistiocytic proliferation, no evidence of carcinoma Sleep apnea on CPAP machine Underwent fluoroscopy Port-A-Cath on 08/06/2018 showed patent Port-A-Cath He was supposed to get CT PET scan but insurance refused coverage so CT scan of chest abdomen pelvis and neck was done on 08/17/2018. It reported recurrent mass in the left neck centered at level of hyoid bone. Mass extends over a length of 4 x 2.2 x 3.4 cm. The mass abuts and displaces the fat planes along the sternocleidomastoid muscle. Mass also abuts the left jugular vein. Mass in a similar location on study of 09/18/2017. CT PET scan done on 04/21/2018 was negative. No additional masses noted. CT scan of chest showed continued decrease righ media l upper lobe mass; Unchanged right upper lobe linear and patchy nodular opacity; CT abdomen pelvis showed no definite metastatic disease in abdomen pelvis; Left mid kidney indeterminant wedge-shaped low-attenuation focus Mr Mckeon underwent biopsy of left neck mass at [facility] on 09/12/2018, final pathology report came back high-grade neuroendocrine carcinoma, predominantly small cell feature and positive focally week for TTF-1, it was concluded, given history of SVC syndrome and radiological studies diagnosis was revised to metastatic small cell lung cancer. And rechallenge with carboplatin/etoposide was recommended along with tecentriq (atezolizumab), Which he was started on 09/26/2018. Follow-up CT PET scan done after 4 doses of carboplatin/etoposide/ tecentriq , on 12/29/2018 showed persistent left supraclavicular mass measuring 3.7 x 2.7 with SUV of 8.2 compared to 4 prior to by 3.[address] scan of neck done on 08/17/2018 at [facility]. And also showed persistent but stable muscle implant anterior to right femur, with SUV 14.0 and it was biopsied earlier and showed no evidence of metastatic disease Patient was evaluated by Dr. Gorman in March 2019 and as per his evaluation patient still responding to the treatment and left neck mass is smaller than before and . Last chemotherapy was done on 02/03/2019. The muscle implant was also seen with SUV of 14, biopsy of specimen was consistent with recurrent high-grade tumor and he was offered a clinical trial [facility] neuroendocrine oncology clinic at [facility]. Patient did well and clinical trial but eventually developed progressive thrombocytopenia and at his followup visit on May 07, [address] Gorman, his follow-up scan showed disease progression. At that time he was taken off clinical trial as left neck mass continued to grow. CT scan of neck done at the May 2019 followup visit, showed progressive left neck mass site 6.1 x 7.6 cm compared to 4.4 x 6.4 on 02/21/2019 with central hypoattenuation in mass is intimately associated with the left internal jugular vein and now appears to encase it and right pulmonary nodularity, cavitary lesion, right hilar mass seen. With this impression it was decided a few with palliative therapy which include radiation therapy to the left neck mass and because of persistent thrombocytopenia immunotherapy with ipilimumab and nivolumab was recommended and in case thrombocytopenia resolved topotecan based regimen can be considered Tolerated radiation therapy to left neck reasonably well and he concluded radiation therapy on 06/19/2019 o a total dose of 4,500 cGy. recommended that he pursue ipilimumab and nivolumab. 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 difficile which came back positive and he was started on antibiotics overall condition improved was discharge home in a stable condition with a tapering dose of steroids, patient return to [facility] with hypotension and severe diarrhea and again responded very well to high-dose steroids underwent colonoscopy evaluation.which showed extensive inflammation. Follow-up CT PET scan done on 10/12/2019 showed the left cervical mass now measured 3.0 x 1.8 cm with SUV of 4.2, significant improvement from prior study. The implant anterior to right femur has improved, now with SUV of 6 down from [address] PET scan done on 12/29/2018. Started on maintenance therapy with Temodar 100 mg/m??? daily for 5 days every 28 days prescription was given on 10/16/2019 As per patient, he took first dose of Temodar on 11/01/2019 and he did develop bright blood per rectum and went to [facility] and was admitted to hospital treated conservatively, GI was consulted patient underwent colonoscopy evaluation on 11/07/2019 which showed no abnormality and previously seen colitis has completely resolved.patient did not complete his 5 days/28 days course of Temodar e.g. took only 1 dose.because of GI bleeding, his Eliquis was also put on hold Then patient restarted his remaining temodar on November 19, 2019 and completed first cycle on November 22, 2019 Completed second cycle on December 21, 2019 was complaining of forgetfulness, episode of passing out twice. No focal weakness, no seizure-like activity patient has episode of off and on hiccups. No blurred vision or double vision, no fever or chills, no nuchal rigidity. CT scan of the head was done on December 25, 2019 showed mixed cystic and solid 1 cm metastasis in the right temporal lobe with a mural nodule. There is a 4.4 cm rim-enhancing centrally cystic metastasis in the right frontal lobe. Approximately 0.7 cm enhancing nodule in the right frontal lobe which shows mild pre-contrast hypodensity consistent with small amount of hemorrhage. Approximately 4 mm [id number] midline shift., Case was discussed with Dr. Flores, radiologist this morning as there was a concern whether is a metastatic disease or infectious, and his impression was findings most consistent with metastatic disease as his previous scan done in August showed very small 1.3 cm cystic lesion which was not that obvious but now progressed., Temodar was put on hold after second cycle which he completed on December 29, 2019 and he was referred to radiation oncology for evaluation for newly diagnosed brain mets which was started on December 30, 2019 and he completed on January 13, 2020, tolerated well with resolution of his symptoms On January 16, 2020 he underwent venous Doppler study of left leg for swelling and it shows no evidence of DVT Follow-up CT scan of chest abdomen pelvis done on January 29, 2020 showed no evidence of progressed metastatic disease in the chest abdomen pelvis. Stable treated right upper lobe and perihilar carcinoma with traction bronchiectasis in the right upper lobe. This is unchanged in appearance since prior examinations no evidence of disease progression. Stable bilateral adrenal nodules left greater than right. Unchanged no adenopathy in the abdomen and pelvis. Follow-up CT scan of neck done on January 31, 2020 showed moderate improvement in left neck neoplasm since August 17, 2018 now measuring 4.7 x 2.8 x 2.1 cm. Right cerebral low-attenuation mass. The mass measured 2.9 x 3.3 cm, is a known metastatic site. Came for follow-up, denies any specific complaints, no fever chills, no nausea or vomiting, no diarrhea or constipation occasionally headaches otherwise no blurred vision double vision, no more seizure-like activities, tolerating Keppra well. Patient has completed 2 cycles of maintenance therapy with Temodar prior to diagnosis of brain mets for which he underwent radiation therapy which he completed on January 13, 2020, patient is waiting for follow-up CT PET scan, which his insurance had denied so CT scan of neck chest abdomen pelvis before he consider maintenance therapy with Temodar.And also inquiring about his driving status patient's said he has no more seizures, while on Keppra and wants to know when he can resume his driving. . Medications: Advair Diskus 2 puff(s) (of 250-50 mcg/dose) Aerosol Powder, Breath Activated Inhalation b.i.d., Ativan 0.5 - 1 Tablet (of 1 mg) Oral t.i.d. PRN, Cetirizine HCl 1 Tablet (of 10 mg) Tablet Oral b.i.d., Diclofenac Sodium 1 Tablet (of 75 mg) Tablet, enteric coated Oral b.i.d., Eliquis 1 Tablet (of 5 mg) Oral b.i.d., Gabapentin 1 Capsule (of 300 mg) Capsule Oral four times a day, Hydrocodone-Acetaminophen 1 - 2 Tablet (of 5-325 mg) Oral q 6 hours, Lisinopril 1 Tablet (of 20 mg) Oral daily, Oxybutynin Chloride 1 Tablet (of 5 mg) Tablet Oral b.i.d., Pramipexole Dihydrochloride 1 (0.25 mg) Tablet Oral at bedtime Allergies: Penicillins Review of Systems: Constitutional - Appetite is poor, energy is poor, weight is stable at present, ENMT - Positive for sinus congestion/drainage. No mouth sores. No sore throat or difficulty swallowing, Hematologic/Lymphatic - Pt has large bruise on inside of left arm, Respiratory - Occasional cough, Cardiovascular - No anginal chest pain, palpitations. He has no leg swelling, Gastrointestinal - No nausea, vomiting, diarrhea, GI bleeding. Flucuates between constipation and diarrhea. No heartburn or early satiety, Genitourinary (M) - No hematuria, dysuria, increased frequency, urgency, hesitancy or incontinence, Musculoskeletal - No joint pain, swelling or redness. No decreased range of motion. Pt is using a cane today, Integumentary - No skin ulcers or open wounds, Neurologic - Positive for dizziness, falls, passing out , forgetfulness and an increase in tremors, Psychiatric - Patient denies anxiety or depression. Pt has been falling asleep frequently. Pt also reports significant mood changes. Vital Signs: Performed on Feb 03, 2020 10:06 Height - 72.00 in Weight - 290.0 lbs (HIGH) BSA - 2.49 sq.m BMI - 39.33 (HIGH) Temperature - 98.5 F Pulse - 90 /min Respiration - 24 /min BP - 128/84 mm(hg) O2 Sat - 97 % Pain - 8 Performance Status: 1 - No physically strenuous activity, but ambulatory and able to carry out light or sedentary work (e.g. office work, light house work). (ECOG) Physical Examination: ENMT - No mouth sores, no thrush, no jaundice, Respiratory - Lungs are clear, Cardiovascular - Regular rate and rhythm of heart, Abdomen - Soft, bowel sounds present, nontender, Extremities - 1+ edema bilateral. Lab/Imaging: Test performed on Feb 03, 2020 08:20 Sodium 138 mmol/L Potassium 3.7 mmol/L Chloride 102 mmol/L CO2 28 mmol/L Anion Gap 11.7 BUN 12 mg/dL Creatinine 0.8 mg/dL Cr Clearance (Est) 207.82 mL/min eGFR 102.7 mL/min Glucose 129 mg/dL Calcium 8.9 mg/dL Protein, Total 6.6 g/dL Albumin 3.5 g/dL Globulin 3.1 g/dL Bilirubin, Total 0.3 mg/dL ALT (SGPT) 21 U/L AST (SGOT) 15 U/L Alkaline Phosphatase 72 IU/L WBC 3.2 10 3/uL RBC 4.25 10 6/uL HGB 13.0 g/dL HCT 40.5 % MCV 95.3 fL MCH 30.6 pg MCHC 32.1 g/dL RDW 14.8 % Platelet Count 119 10 3/cmm MPV 9.0 fL Neutrophils 1.65 10 3/uL Lymphocytes 1.1 10 3/uL Monocytes 0.3 10 3/uL Eosinophils 0.0 10 3/uL Basophils 0.0 10 3/uL Neutrophil % 52.1 % Lymphocyte % 35.0 % Monocyte % 10.4 % Eosinophil % 1.3 % Basophils % 0.3 % NRBC % 0 % Impression: Recurrent small cell lung cancer per left neck mass biopsy on 09/12/2018, which showed high-grade neuroendocrine carcinoma, predominantly small cell feature and positive focally for TTF-1, it was concluded, given history of SVC syndrome and radiological studies diagnosis was revised to metastatic small cell lung cancer Metastatic High-grade neuroendocrine carcinoma per needle core biopsy of left neck mass done on 10/16/2017 Pathology also showed sheets and cords of large malignant cells with neuroendocrine features, numerous mitotic figures are seen as well as area of tumor necrosis. immuno histochemistry positive for CAM 5.2, CD 56 , synaptophysin, TTF-[address] scan of chest done on 10/23/2017 showed 7.7 x 2.3 cm right paratracheal mass with a near occlusion of SVC, and encasement of right proximal pulmonary artery with moderate stenosis, and encasement of right proximal main stem bronchus and bronchus intermedius CT PET scan done on 10/28/2017 showed hypermetabolic left neck mass measuring 4.9 x 3.7 cm with SUV of 12.9 and right paratracheal mass measures 6.8 x 7.8 cm with SUV of 15 and at the level of pelvis a 6.1 x 4.5 cm soft tissue mass in the right external iliac territory has SUV of 14.4 and and FDG positive muscular implant anterior to right femoral neck measuring about 1.2 cm in size On radiation therapy to right paratracheal mass and chemotherapy with carboplatin and etoposide was added on 11/06/2017. He received radiation therapy to right pelvic mass Right leg DVT diagnosed on 12/07/2017 on Eliquis. Mr. Mckeon was admitted on 01/20/2018 with an initial concerns for sepsis but was found to have UTI. He was discharged on antibiotics andhis fever, rigors and tachycardia resolved. CT PET scan done on 02/03/2018 showed left sided cervical mass seen on exam from 10/28/2017 is now subcentimeter in size and within normal limit FDG activity early. Right hilar/paratracheal mass demonstrates activity minimally greater than that of mediastinal background and molecular 2.3 x 4.1 cm. Right external iliac mass now measured 1.5 cm without significant FDG activity. The muscle implant anterior to the right femoral neck currently has SUV of 6.6, down from 14.1, indicating a positive response to therapy. Repeat CT PET scan done after 6th dose of chemo on 04/21/2018 showed previously described left sided cervical mass was not identifiable on the current study. Right hilar/paratracheal mass is improved in size to 3 cm with a minimum FDG activity. Right external iliac lymph node was unchanged in size but without significant FDG activity Muscle implant anterior to right femoral neck had an SUV of 12 compared to 6.6 previously, consistent with progression of disease at that location. On 06/04/2018, he underwent CT-guided biopsy of this lesion at [facility] radiology department in [place] and final pathology report came back fibrohistiocytic proliferation, no evidence of carcinoma CT scan of neck chest abdomen pelvis done on 08/17/2018 showed recurrent mass in the left neck centered at level of hyoid bone. Mass extends over a length of 4 x 2.2 x 3.4 cm and abuts and displaces fat planes along the sternocleidomastoid muscle. Mass also abuts left jugular vein. No additional mass seen. Mass in a similar location on the study of 09/18/2017. CT PET scan done on 04/21/[address] scan of chest showed continued decrease right medial upper lobe mass. Unchanged right upper lobe linear and patchy nodular opacity. New right lower lobe superior segment focal irregular opacity nonspecific follow-up CT scan recommended in [address] abdomen showed no definite metastatic disease in abdomen pelvis. Left mid kidney indeterminant wedge-shaped low-attenuation focus nonspecific. Mr Mckeon underwent biopsy of left neck mass at [facility] on 09/12/2018, final pathology report came back high-grade neuroendocrine carcinoma, predominantly small cell feature and positive focally week for TTF-1, it was concluded, given history of SVC syndrome and radiological studies diagnosis was revised to metastatic small cell lung cancer. Re-challenging with carboplatin and etoposide was recommended along with tecentriq (atezolizumab). So planning was to start him on carboplatin/etoposide and tecentriq 1200 mg IV day 1 q3 weeks ???[address] PET scan if complete remission, may consider maintenance therapy with Tecentriq alone.Which was started on 09/26/2018 Follow-up CT PET scan done after 4 doses of carboplatin/etoposide/ tecentriq , on 12/29/2018 showed persistent left supraclavicular mass measuring 3.7 x 2.7 with SUV of 8.2 compared to 4 prior to by 3.[address] scan of neck done on 08/17/2018 at [facility]. It also showed persistent but stable muscle implant anterior to right femur, with SUV 14.0 and it was biopsied earlier and showed no evidence of metastatic disease Patient was evaluated by Dr. Gorman in March 2019 and as per his evaluation, Mr Mckeon was still responding to the treatment and left neck mass is smaller than before. Last chemotherapy was done on 02/03/2019. The muscle implant was also seen with SUV of 14 biopsy of specimen was consistent with recurrent high-grade tumor and he was offered a clinical trial at neuroendocrine oncology clinic at [facility]. Patient did well in the clinical trial but eventually developed progressive thrombocytopenia and follow-up scan showed disease progressio at [facility] followup visit on May 07, 2019 At that time he was taken off clinical trial as left neck mass continued to grow. CT scan of neck done showed progressive left neck mass site 6.1 x 7.6 cm compared to 4.4 x 6.4 on 02/21/2019 with central hypoattenuation in mass and it was intimately associated with the left internal jugular vein and now appears to encase it. Right pulmonary nodularity, cavitary lesion, right hilar mass seen. With this impression, it was decided to pursue palliative therapy which include radiation therapy to the left neck mass and because of persistent thrombocytopenia- immunotherapy with ipilimumab and nivolumab was recommended and in case thrombocytopenia resolved- topotecan based regimen can be considered. Tolerated radiation therapy to left neck reasonably well and concluded radiation therapy on 06/19/2019 to a total dose of 4500 cGy. recommended that he pursue ipilimumab and nivolumab. He began his first cycle on 07/10/2019. 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 difficile so he was treated with antibiotics too. His follow-up CT PET scan done on October 12, 2019 showed left cervical mass was 3 x 1.8 cm with SUV 4.2, significant improvement. Because of possibility of immunotherapy related colitis, immunotherapy was discontinued and he was started on maintenance therapy with Temodar 100 mg/m??? daily for 5 days every 28 days on October 16, 2019 patient took 2 cycles subsequently diagnosed with a brain mets and maintenance therapy with Temodar was put on hold, patient was referred to radiation oncology and completed radiation therapy to his brain on January 13, 2020 Follow-up CT scan of chest abdomen pelvis and neck done on January 29, 2020 showed no evidence of disease progression stable left neck mass. Plan: Discussed with patient regarding his labs white blood count 3.2 hemoglobin 13 crit 40.5 platelets 119,000 CMP within normal limits and follow-up CT scan of neck chest abdomen pelvis finding which showed no evidence of disease progression persistent but stable left neck mass. Clinically, patient is doing reasonably well, no new signs symptom suggestive of disease progression follow-up CT scan of neck chest abdomen pelvis shows stable left neck mass but no significant activity in the chest abdomen pelvis., Considering his disease's behavior and clinical course, he was encouraged to continue maintenance therapy with Temodar but patient wants to think about it and will discuss with his family before we make up his mind. Patient has tolerated 2 cycles of maintenance therapy with Temodar earlier until he developed seizure-like activity and was confirmed with brain mets. Patient has third course of Temodar at home so patient will discuss with his family and in case he decided to proceed with maintenance therapy and then will start him on Temodar 100 mg/m??? daily for 5 days every 28 days otherwise, at patient's request we will observe him knowing the risk involved. As far as mild leukopenia and thrombocytopenia is concerned, follow-up labs shows improvement, will continue to monitor Patient will return to clinic in 1 month with CBC CMP. As far as driving status is concerned patient was informed because of history of brain mets treated with radiation therapy and seizure-like activity now on Keppra, he may not be able to drive in the near future but patient wants to discuss with neurology, so we will refer him to neurology for evaluation and further discussion. Signed By: Nupur Plummer M.D. <<Signature on File>>
--- NOTE | 2020-02-12 16:30 | ONCRAD EPV_ITS ---
Radiation Oncology Established Patient Visit Patient: Mike Reyes [id number] : 1970 Age: 49 Sex: Male Dictated by: Dr. Kiko Chan Date of Service: 02/12/2020 Referring Physician(s) : Nupur Plummer M.D. 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 ID: RT Lung [id number], Energy: 6X, Dose/Fx (cGy): 250, #Fx: / 20, Dose Correction (cGy): 0, Total Dose (cGy): 1,000, Start Date: 10/27/2017, End Date: 11/01/2017, Elapsed Days: 5 Treatment Site: [id number], Ref. ID: RT Lung [id number], Energy: 6X, Dose/Fx (cGy): 200, #Fx: / 20, Dose Correction (cGy): 0, Total Dose (cGy): 2,400, Start Date: 11/02/2017, End Date: 11/20/2017, Elapsed Days: 18 Treatment Site: [id number], Ref. ID: RT Lung [id number], Energy: 6X, Dose/Fx (cGy): 200, #Fx: 8 / 8, Dose Correction (cGy): 0, Total Dose (cGy): 1,600, Start Date: 11/23/2017, End Date: 12/05/2017, Elapsed Days: 12 Treatment Site: GROIN GTV37.5, Ref. ID: RT GROIN [id number], Energy: 15X, Dose/Fx (cGy): 250, #Fx: 15 / 15, Dose Correction (cGy): 0, Total Dose (cGy): 3,750, Start Date: 12/04/2017, End Date: 12/27/2017, Elapsed Days: 23 Treatment Site: Neck 45Gy, Ref. ID: [id number], Energy: 6X, Dose/Fx (cGy): 250, #Fx: 18 / 18, Dose Correction (cGy): 0, Total Dose (cGy): 4,500, Start Date: 05/23/2019, End Date: 06/19/2019, Elapsed Days: 27 Treatment Site: WholeBrain, Ref. ID: [id number], Energy: 15X/6X, Dose/Fx (cGy): 300, #Fx: , Dose Correction (cGy): 0, total Dose (cGy): 3,000, start Date: 12/30/2019, end Date: 01/13/2020, Elapsed Days: 14 Current History: The patient is here for follow up approximately one month after completing whole brain radiation therapy. His Dopplers of his lower extremities showed no evidence of DVT, he tolerated his steroid taper, and he has had no new seizures after being put on Keppra. He complains of a reduced appetite. Current Medications: Acetaminophen, advair Diskus, ativan, cetirizine HCl, dexamethasone, dexamethasone Sodium Phosphate, diclofenac Sodium, diphenhydrAMINE HCl, eliquis, gabapentin, hydrocodone-Acetaminophen, hYDROcodone-Acetaminophen, levETIRAcetam, lisinopril, medrol, morphine Sulfate ER, mouthwash Compounding Base, nivolumab, omeprazole, ondansetron, oxybutynin Chloride, pepcid, pramipexole Dihydrochloride, predniSONE, silvadene, yervoy, zithromax Z-Luis. Allergies: Penicillins. Current Complaints / Review of Systems: Constitutional - Complains of a poor appetite Reports snacking throughout the day, no eating full meals.. Complains of moderate fatigue. Denies fever, lethargy, night sweats, rigors / chills and change in weight. Eyes - Denies blurred vision. ENMT - Complains of severe altered taste and that has resulted in a loss of appetite FOr about 3 months, no taste.. Denies dysphagia, ear pain, epistaxis, problems with hearing, mouth dryness, oral bleeding, sputum production, stomatitis and tinnitus. Neck - Denies neck masses, neck pain, decreased range of motion and swelling of the neck. Integumentary - Denies bruising and rash. Cardiovascular - Denies arrhythmias, chest pain, dyspnea, edema, orthopnea and palpitations. Respiratory - Complains of a mild cough which is productive Mucous is cream-brown, smokes less than a pack per day.. Denies dyspnea, hemoptysis, hiccoughs, pleuritic chest pain and wheezing. Gastrointestinal - Complains of moderate nausea that began within the last few weeks which is relieved by antiemetics. Denies abdominal pain, change in bowel habits, constipation, diarrhea, heartburn / dyspepsia, hematochezia, hemorrhoids, melena / GI bleeding, pain / cramping and vomiting. Genitourinary (M) - Denies dysuria, frequency, hematuria, incontinence, nocturia, urgency and urine color change. Musculoskeletal - Denies bone pain, joint pain, muscle weakness and decreased range of motion. Neurologic - Complains of abnormal gait Unsteady at times, wobbles, using quad cane., insomnia Sleeping patterns are off, he is sleeping but not mostly at night time, drowsiness during the day. Sleeps about 2-3 hours at a time. and seizure Denies any recent seizures, last reported about 3 weeks ago.. Denies disorientation, dizziness, headaches, motor weakness, sensory problems, paralysis and stroke. Endocrine - Denies diabetes, hot flashes and thyroid disease. Hematologic/Lymphatic - Denies easy bruising and tender or enlarged lymph nodes.. Vital Signs: Performed on 02/12/2020 3:09 PM BP - 131/ 91 mm(hg)(/high). Physical Exam: General: Alert and oriented x 3. No acute distress. HEENT: Normocephalic, atraumatic. Extraocular Movements Intact: Pupils Equal, Round, Reactive to Light and Accommodation: Sclerae anicteric. Oral cavity is clear without lesions, masses or ulcers. NECK: Supple without supraclavicular or jugular lymphadenopathy. LUNGS: Clear to auscultation bilaterally without rales, rhonchi or wheeze. HEART: Regular rate and rhythm, normal S1 and S2 without murmur, gallop or rub. MUSCULOSKELETAL: No tenderness or percussion pain over the axial skeleton, scapulae or pelvis. EXTREMITIES: No peripheral edema is identified NEUROLOGIC: Cranial nerves II ???XII are grossly intact. Performance Status: Lab: None pending. Test performed on 02/03/2020 8:20 AM WBC - 3.2 10 3/ul (low), HCT - 40.5 % (low), MCV - 95.3 fl (high), Platelet Count - 119 10 3/cmm (low), Neutrophils - 1.65 10 3/ul (low), Cr Clearance (Est) - 207.82 ml/min (high) and Glucose - 129 mg/dl (high). 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 Impression: The patient is a 49 year old male with recurrent small cell lung carcinoma who recently completed whole brain radiation therapy (30 Gy / 10 fx ??? completed 01/13/2020). The patient tolerated his dexamethasone taper (completed two weeks ago), he is stable on Keppra and he has no new neurological symptoms. Furthermore, his most recent CT of the chest and neck (01/2020) showed stable/slightly improved findings. He remains on systemic therapy (Temodar) under the management of Dr Plummer. Plan: -) MRI brain at the end of January, and follow up with Dr Plummer on ~March 05. If no intracranial progression, I recommend repeat MRI of the brain Q3-4 months for intracranial surveillance. If there is intracranial progression, return to Radiation Oncology for subsequent treatment evaluation. If the patient is unable to tolerate an MRI of the brain, then a CT of the brain will suffice. -) Patient will follow with neurology to have a discussion about driving with known brain metastasis and seizures (now stable on Keppra). Signed by: 02/12/2020 4:28:15 PM <<Signature on File>> Time spent with patient: CPT Code: CPT Code:
--- NOTE | 2020-02-24 09:15 | MR_ITS ---
WS: [id number] MRI HEAD WITH CONTRAST TECHNIQUE: Sagittal T1, T2 axial, T2 axial FLAIR, axial susceptibility weighted imaging, axial diffus ion weighted images, and coronal T2 images were obtained. Pre and post-T1 axial and post T1 coronal i mages. ADC and FSPGR images. CLINICAL INFORMATION: BRAIN METS;EVAL TREATMENT RESPONSE COMPARISON: No MRI comparisons. CT 01/20/2020 and 12/25/2019 FINDINGS: Peripheral enhancing T2 hyperintense right frontal lesion with fluid/fluid level not significantly ch anged since the prior examinations. Today this measures approximately 4.2 x 3.6 x 3.3 CM. Stable mass effect on the right lateral ventricle with resultant left to right midline shift measuring 4 to 5 mm . No hydrocephalus. Mild surrounding edema. No increasing edema or mass effect. Stable enhancing right frontal lesion measuring 6.8 mm and enhancing anterior temporal tip lesion kameron suring 5 mm. Only trace edema in these locations. No other visualized enhancing lesions. Normal optic chiasm and pituitary infundibulum. Normal dural v enous sinuses. Left maxillary retention cyst. MR/MR head wo/w con [id number] IMPRESSION: 1. No evidence of increasing edema or mass effect. No hydrocephalus. 2. Stable dominant right posterior frontal lesion with fluid/fluid level measu ring 4.2 x 3.6 x 3.3 cm with surrounding peripheral enhancement and enhancing m ural nodule. Only a small amount of surrounding edema. 3. Stable mass effect on the right lateral ventricle with right to left midlin e shift measuring 4 to 5 mm. 4. Stable small enhancing lesions in the right frontal lobe and right anterior temporal lobe tip. Trace edema in these locations. 5. No new enhancing lesions.
== END 2020-03-02 23:59 | disposition home or self-care (01) ==
LOC: ONCMED 05:36
PROVIDERS: Internal Medicine Hematology & Oncology; PCP Physician Assistant; Visit Provider Radiology Radiation Oncology
DX: C34.11 Malignant neoplasm of upper lobe, right bronchus or lung (principal); C79.31 Secondary malignant neoplasm of brain; J43.9 Emphysema, unspecified; I10 Essential (primary) hypertension; E11.9 Type 2 diabetes mellitus without complications
CPT/HCPCS: 36415; 70553; 80053; 85025; 99204; 99214; A9579

== ENCOUNTER 2020-02-29 12:45 | Observation (INO) | payer MEDICARE, MEDICAID, SELFPAY ==
[2020-02-29] VITALS (7 sets, daily range): BP systolic 134–170; BP diastolic 88–114; PULSE 75–92; RESP 16–22; TEMP 36.2–36.8; O2SAT 95–100; BMI 36.1
--- NOTE | 2020-02-29 13:05 | W.ED.GIBLEED ---
HPI - GI Bleed General: Chief complaint: GI Bleed Stated complaint: blood in stool Time Seen by Provider: 02/29/20 13:05 History of Present Illness: HPI Narrative: 9-year-old male presents to the emergency room with complaint of bright red blood per rectum. He said to hematochezic stools in the last 12 hours. He is passing large amounts of clots and completely discolored the toilet water. 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 Since then he has had multiple treatments through oncology he has developed metastasis to the brain he had an MRI within the last week showing a brain mass with some midline shift has had radiation to that and that has evidently been stable. He has had some seizures and he is seen Dr. Garcia recently adjusted some medication initially started grand mal type seizures now he has more absence seizure's. Noted today in interviewing the patient he does have some personality changes from when noted seen him previously. He denies any lightheadedness dizziness or weakness that is new some of those things have been pre-existing with his brain tumor. Review of the chart showed a CT abdomen chest and pelvis did not show any abdominal metastasis on 01/29/2020 complaint: gross hematochezia Onset (ago): hour(s) (12) Pain Consistency: intermittent Severity: moderate Relieving factors: none Exacerbating factors: none Context: other (lung CA) Associated symptoms: Reports malaise, nausea, poor appetite and weakness; Denies abdominal pain, chills, easy bruising, epistaxis, fever(s), headache(s), other bleeding, rash, syncope or vomiting Treatments Prior to Arrival: none Review of Systems Const: Reports: malaise; Denies: fever(s) or chills ENMT: Denies: epistaxis Card: Denies: syncope Resp: Denies: dyspnea, productive cough or non-productive cough GI: Reports: nausea; Denies: abdominal pain or vomiting : Denies: flank pain, dysuria, urinary frequency or urinary urgency Skin/Breast: Denies: rash or pruritus Neuro: Denies: headache(s) Romeo/Lymph: Denies: easy bruising PFS ED PFSH: Medical History COPD (chronic obstructive pulmonary disease) History of pulmonary embolism Hypertension Metastatic cancer Sleep apnea Small cell lung cancer Type 2 diabetes mellitus Surgical History History of lung biopsy History of umbilical hernia repair Port-A-Cath in place Status post chemotherapy Status post colonoscopy (11/07/19) Family History Father Cancer Social History Smoking and tobacco status: current every day smoker cigarettes Packs smoked per day: 1 Alcohol intake: never Household members: spouse Marital status: Current occupational status: disabled Physical Exam Const: COMMON NORMALS: average body habitus, patient oriented x3 and alert GENERAL APPEARANCE: cooperative, comfortable, well kempt and well developed NUTRITIONAL APPEARANCE: obese ORIENTATION/CONSCIOUSNESS: Yes awake, Yes oriented to person and Yes oriented to place HENMT: COMMON NORMALS: normocephalic and atraumatic HEAD & SCALP: normocephalic and atraumatic Eye: COMMON NORMALS: Equal, round and reactive pupils present, EOMs intact bilaterally, conjunctivae normal and no scleral icterus CONJUNCTIVA: Yes conjunctivae normal PUPIL: Yes Equal, round and reactive pupils present Resp: COMMON NORMALS: normal respiratory effort, No retractions, No use of accessory muscles and clear to auscultation bilaterally AUSCULTATION: clear to auscultation bilaterally Cardio: COMMON NORMALS: regular rate and regular rhythm RATE: regular rate RHYTHM: regular rhythm HEART SOUNDS: no murmurs GI: COMMON NORMALS: Normal to inspection, nondistended, normoactive bowel sounds present, Soft to palpation and No hepatosplenomegaly present PALPATION: Yes Soft to palpation and Yes No hepatosplenomegaly present : COMMON NORMALS: Yes no CVA tenderness BLADDER/KIDNEY EXAM: Yes no CVA tenderness Back/Pelvis: COMMON NORMALS: no CVA tenderness LUMBAR SPINE/LOWER BACK: Yes normal to inspection Extremity: COMMON NORMALS: no clubbing, cyanosis or edema, no calf tenderness and no pedal edema Neuro: COMMON NORMALS: patient oriented x3 SENSORIUM/ORIENTATION: Yes alert, Yes oriented to person and Yes oriented to place Psych: APPEARANCE: Yes well kempt Skin: COMMON NORMALS: no rashes or lesions noted and turgor normal GENERAL SKIN EXAM: no rashes or lesions noted and turgor normal Course Vital Signs: Vital signs: Vital Signs Temperature 98.5 F 03/01/20 12:30 Pulse Rate 91 03/01/20 12:30 Respiratory Rate 20 H 03/01/20 12:30 Blood Pressure 133/91 03/01/20 12:30 Pulse Oximetry 97 03/01/20 12:30 MDM - GI Bleed MDM Narrative: Medical decision making narrative: Discussed Dr. Zavala the patient. He has had a problem in the past and has developed significant anemia. He has not had any further bleeding since he arrived here we will go ahead and put him on observation he also needs IV fluid support and got rest as well as IV Protonix discussed with patient and his they both agree will make arrangements for observation Dr. Zavala to be attending Lab Data: Labs: Lab Results 02/29/20 02/29/20 02/29/20 Range/Units 13:32 13:32 13:32 WBC 4.7 (4.0-10.0) 10^3/ uL RBC 4.41 (4.1-5.3) 10^6/u L Hgb 13.1 (11.7-16.6) g/dL Hct 40.4 L (42.0-52.0) % MCV 91.6 (80-94) fL MCH 29.7 (28.0-34.0) pg MCHC 32.4 (30.0-36.0) g/dL RDW 16.2 H (12.1-15.1) % Plt Count 181 (130-400) 10^3/c mm MPV 9.5 (7.4-10.4) fL Neut % (Auto) 54.2 % Lymph % (Auto) 31.4 % [place] % (Auto) 7.6 % Eos % (Auto) 5.5 % Baso % (Auto) 1.1 % Neut # (Auto) 2.55 (1.8-7.7) 10^3/u L Lymph # (Auto) 1.5 (0.8-4.8) 10^3/u L [place] # (Auto) 0.4 (0.2-0.9) 10^3/u L Eos # (Auto) 0.3 (0.0-0.8) 10^3/u L Baso # (Auto) 0.1 (0.0-0.1) 10^3/u L Nucleated RBC % (a uto) 0 % Nucleated RBCs # 0.0 /100WBC PT 17.60 H (12.1-14.9) SECO NDS INR 1.39 H (0.8-1.2) APTT 45.0 H (23.9-36.7) SECO NDS Sodium 140 (136-145) mmol/L Potassium 4.2 (3.5-5.1) mmol/L Chloride 103 (98-107) mmol/L Carbon Dioxide 26 (22-29) mmol/L Anion Gap 15.2 (5-19) BUN 14 (6-20) mg/dL Creatinine 0.8 (0.7-1.2) mg/dL GFR Calculation 102.7 (90-130) mL/min Glucose 103 (65-115) mg/dL Calculated Osmolal ity 286 (285-295) mOsm/k g Calcium 9.1 (8.5-10.5) mg/dL Total Bilirubin 0.7 (0.15-1.2) mg/dL AST 16 (0-40) U/L ALT 13 (0-41) U/L Alkaline Phosphata se 64 (40-130) IU/L Total Protein 7.6 (6.6-8.7) g/dL Albumin 4.1 (3.5-5.2) g/dL Globulin 3.5 (1.3-4.6) g/dL Discharge Plan Discharge Admit Provider: Rocky Zavala Condition: Stable Discharge Orders: Discharge Order (Routine); Ordered 03/01/20 Ordered By: Rocky Zavala Discharge Diet: Advance as tolerated Discharge Activity: Increase activity as tolerated Discharge Date/Time: 02/29/20 16:10 Coding Level of Care Code ED Foreign Language Instructor for Chg Fwd Exam Comprehensive
[2020-02-29 13:45] LABS: Basophils # 0.1 10^3/uL (0.0-0.1); Basophils % 1.1 %; Eosinophils # 0.3 10^3/uL (0.0-0.8); Eosinophils % 5.5 %; Hematocrit 40.4 % (42.0-52.0); Hemoglobin 13.1 g/dL (11.7-16.6); Lymphocytes # 1.5 10^3/uL (0.8-4.8); Lymphocytes % 31.4 %; Mean Corpuscular HGB Conc 32.4 g/dL (30.0-36.0); Mean Corpuscular Hemoglobin 29.7 pg (28.0-34.0); Mean Corpuscular Volume 91.6 fL (80-94); Mean Platelet Volume 9.5 fL (7.4-10.4); Monocytes # 0.4 10^3/uL (0.2-0.9); Monocytes % 7.6 %; Neutrophils # 2.55 10^3/uL (1.8-7.7); Neutrophils % 54.2 %; Nucleated Red Blood Cells % 0 %; Platelet Count 181 10^3/cmm (130-400); Red Blood Count 4.41 10^6/uL (4.1-5.3); Red Cell Distribution Width 16.2 % (12.1-15.1); White Blood Count 4.7 10^3/uL (4.0-10.0)
[2020-02-29 14:00] LABS: INR 1.39 (0.8-1.2)
[2020-02-29 14:09] LABS: Alanine Aminotransferase 13 U/L (0-41); Albumin Level 4.1 g/dL (3.5-5.2); Alkaline Phosphatase 64 IU/L (40-130); Anion Gap 15.2 (5-19); Aspartate Amino Transferase 16 U/L (0-40); Blood Urea Nitrogen 14 mg/dL (6-20); Calcium 9.1 mg/dL (8.5-10.5); Carbon Dioxide 26 mmol/L (22-29); Chloride 103 mmol/L (98-107); Globulin 3.5 g/dL (1.3-4.6); Glomerular Filtration Rate 102.7 mL/min (90-130); Glucose 103 mg/dL (65-115); Osmolality Calculated 286 mOsm/kg (285-295); Potassium 4.2 mmol/L (3.5-5.1); Sodium 140 mmol/L (136-145); Total Bilirubin 0.7 mg/dL (0.15-1.2); Total Protein 7.6 g/dL (6.6-8.7)
--- NOTE | 2020-02-29 15:16 | PM.HP ---
Providers/Chief Complaint Primary Care Provider: Pamela Lorenzana Chief Complaint: blood in stool History of Present Illness Eric Mckeon is a 49 year old male presents emergency department with episode of hematochezia yesterday evening and this morning. reports that patient had formed brown stool with blood around it but no gross hematochezia. Reports that he had similar episodes off and on ever since he was diagnosed with metastatic cancer and received immunotherapy. Patient has neuroendocrine cancer initially found in his neck on biopsy. The origin was found to be lung. He has metastasis to the brain with some midline shift leading to radiation. He has been having episodes of seizure related to brain metastasis. His Keppra was increased to 750 mg twice daily because recently he started having staring episodes. During my evaluation patient reports that he is not happy but understands importance of overnight monitoring. He was able to answer all questions appropriately on review of systems. Patient denies any previous history of diabetes, heart disease or stroke. He does use cane for ambulation. He continues to smoke approximately pack a day or maybe less. Colonoscopy on 11/07/2019 showed normal colon. Review of Systems Const: Denies: fever(s) or chills Eyes: Denies: change in vision ENMT: Denies: throat pain or change in hearing Card: Denies: chest pain, edema or lightheadedness Resp: Denies: dyspnea or productive cough GI: Reports: hematochezia; Denies: abdominal pain, nausea, vomiting, dysphagia, diarrhea, constipation or melena : Denies: difficulty urinating or dysuria Musc: Denies: joint pain or joint swelling Skin/Breast: Denies: rash or erythema Neuro: Denies: headache(s) or weakness in extremities Psych: Reports: depression and memory loss; Denies: suicidal ideation Endo: Denies: excessive sweating Romeo/Lymph: Reports: easy bleeding; Denies: tender lymph nodes All/Imm: Denies: throat swelling Medications/Allergies Home Medications Medication Instructions Recorded Confirmed Last Taken Type Eliquis 5 mg PO BID 08/29/19 02/29/20 02/29/20 History fluticasone propion-salmeterol 1 inh INHALATION BID 08/29/19 02/29/20 02/29/20 History [Advair Diskus] hydrocodone-acetaminophen 1 - 2 tab PO Q6H PRN 08/29/19 02/29/20 02/29/20 09:00 History oxybutynin chloride 5 mg PO BID 08/29/19 02/29/20 02/29/20 History pramipexole 0.25 mg PO DAILY 08/29/19 02/29/20 02/28/20 History morphine 30 mg PO Q12H 09/08/19 02/29/20 02/29/20 09:00 History cetirizine [Zyrtec] 10 mg PO BID 10/31/19 02/29/20 02/29/20 History lisinopril 20 mg PO DAILY 10/31/19 02/29/20 02/29/20 History ondansetron 8 mg PO TID PRN 10/31/19 02/29/20 11/06/19 History citalopram 20 mg tablet 20 mg PO DAILY #30 tab 02/24/20 02/29/20 02/29/20 Rx diclofenac sodium 75 mg 75 mg PO BID 02/24/20 02/29/20 02/29/20 History tablet,delayed release gabapentin 300 mg capsule 300 mg PO BID cap 02/24/20 02/29/20 02/29/20 09:00 History levetiracetam 750 mg tablet 750 mg PO BID #60 tab 02/24/20 02/29/20 02/29/20 Rx omeprazole 40 mg capsule,delayed 40 mg PO DAILY 02/24/20 02/29/20 02/29/20 History release dexamethasone See Rx Instructions .ROUTE .COMPLEX 02/29/20 02/29/20 Unknown History Allergies Allergy/AdvReac Type Severity Reaction Status Date / Time Penicillins Allergy ALGY-Hives Verified 02/29/20 14:27 PFSH Acute PFSH: Medical History COPD (chronic obstructive pulmonary disease) History of pulmonary embolism Hypertension Metastatic cancer Sleep apnea Small cell lung cancer Type 2 diabetes mellitus Surgical History History of lung biopsy History of umbilical hernia repair Port-A-Cath in place Status post chemotherapy Status post colonoscopy (11/07/19) Family History Father Cancer Social History Smoking and tobacco status: current every day smoker cigarettes Packs smoked per day: 1 Alcohol intake: never Substance/Drug Use: never Household members: spouse Marital status: Current occupational status: disabled Vitals/I&O/Wt Last Vital Signs Temp 97.9 F 02/29/20 12:57 Pulse 91 02/29/20 12:57 Resp 16 02/29/20 12:57 BP 137/98 02/29/20 12:57 Pulse Ox 95 02/29/20 12:57 Weight last 48 hrs Weight 131.088 kg Physical Exam Const: COMMON NORMALS: no acute distress, patient oriented x3 and alert HENMT: COMMON NORMALS: normocephalic and atraumatic HEAD & SCALP: normocephalic and atraumatic Eye: COMMON NORMALS: EOMs intact bilaterally, conjunctivae normal and no scleral icterus CONJUNCTIVA: Yes conjunctivae normal Neck/C-Spine: COMMON NORMALS: no lymphadenopathy and no meningeal signs Lymph: LYMPHATIC: no lymphadenopathy noted Chest: COMMONS NORMALS: normal palpation of entire chest wall Resp: COMMON NORMALS: No use of accessory muscles and clear to auscultation bilaterally AUSCULTATION: clear to auscultation bilaterally Cardio: COMMON NORMALS: regular rate, regular rhythm and No murmurs present (Cardio) RATE: regular rate RHYTHM: regular rhythm OTHER: No lower extremity edema GI: COMMON NORMALS: Soft to palpation and non-tender PALPATION: Yes Soft to palpation RECTAL EXAM: Yes deferred : COMMON NORMALS: Yes no CVA tenderness BLADDER/KIDNEY EXAM: Yes no CVA tenderness Back/Pelvis: COMMON NORMALS: no CVA tenderness and thoracic and lumbar spine normal to inspection Extremity: COMMON NORMALS: normal to inspection and capillary refill normal OTHER: Right lower extremity post skin graft related to flesh eating infection. Neuro: COMMON NORMALS: patient oriented x3 and no focal motor deficits SENSORIUM/ORIENTATION: Yes alert MENINGEAL SIGNS: Yes no meningeal signs Psych: COMMON NORMALS: mental status grossly normal, Normal thought process present and cooperative THOUGHT PROCESS: Normal thought process present Skin: COMMON NORMALS: no rashes or lesions noted GENERAL SKIN EXAM: no rashes or lesions noted Data : 02/29/20 13:32 02/29/20 13:32 A&P Assessment and plan (1) GI bleeding: Status: Acute Qualifiers: GI bleed type/associated pathology: unspecified gastrointestinal hemorrhage type Qualified Code(s): K92.2 - Gastrointestinal hemorrhage, unspecified (2) Neuroendocrine carcinoma metastatic to multiple sites: Status: Acute (3) Partial epilepsy secondarily generalized: Status: Acute (4) Depression: Status: Acute (5) Coagulopathy: Second to Eliquis Status: Acute Additional A&P Information Plan: We will monitor patient overnight and if hemoglobin remains stable and no more episodes of bleeding we will likely be able to dismiss patient home. He does show evidence of mild coagulopathy therefore we will go ahead and give him 5 mg oral vitamin K. He has been on Eliquis for last 2 years but his INR 1 month ago was 1.12. I will continue Eliquis as patient is at high risk for developing clots. He has been seen by oncology service and Eliquis was continued although he is at risk for intracranial bleed Patient is at high risk for upper GI bleed as well in view of anticoagulation therefore will discontinue NSAIDs and increase omeprazole to twice daily. Attestations Medical Necessity Statement*: Patient with metastatic cancer and episode of hematochezia requires observation for monitoring and treatment. I expect patient will require less than two midnights. 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
[2020-02-29] MEDS: sodium chloride 0.9% 1,000 ML 999 ML IV (15:32)
[2020-02-29] MEDS: phytonadione (ADULT) 10 mg/mL Ampule 1 mL 5 MG PO (16:59)
[2020-02-29] MEDS: levETIRAcetam 500 mg Tablet 750 MG PO (17:00)
[2020-02-29] MEDS: cetirizine 10 mg Tablet PO (17:00)
[2020-02-29] MEDS: gabapentin 300 mg Capsule PO (17:01)
[2020-02-29] MEDS: apixaban 5 mg Tablet PO (17:01)
[2020-02-29] MEDS: morphine ER (12 HR) 30 mg tablet PO (17:01)
[2020-02-29] MEDS: oxybutynin 5 mg Tablet PO (17:01)
[2020-02-29] MEDS: pantoprazole DR 40 mg Tablet PO (17:01)
[2020-02-29] MEDS: lactated ringers 1,000 ML 75 ML IV (22:15)
[2020-02-29] MEDS: hyDRALAzine 20 mg/mL INJ 1 mL 10 MG IVP (22:16)
[2020-03-01] VITALS: BP 159/91; PULSE 73; RESP 20; TEMP 36.6; O2SAT 96
[2020-03-01 04:00] VITALS: BP 146/94; PULSE 75; RESP 22; TEMP 36.9; O2SAT 97
[2020-03-01] MEDS: morphine ER (12 HR) 30 mg tablet PO (06:27)
[2020-03-01] MEDS: HYDROcodone-acetaminophen 5-325 mg Tablet 1 TAB PO (06:28)
[2020-03-01 07:11] LABS: Basophils # 0.1 10^3/uL (0.0-0.1); Eosinophils # 0.3 10^3/uL (0.0-0.8); Eosinophils % 5.2 %; Hematocrit 43.9 % (42.0-52.0); Hemoglobin 13.3 g/dL (11.7-16.6); Lymphocytes # 1.2 10^3/uL (0.8-4.8); Lymphocytes % 24.4 %; Mean Corpuscular HGB Conc 30.3 g/dL (30.0-36.0); Mean Corpuscular Hemoglobin 30.8 pg (28.0-34.0); Mean Corpuscular Volume 101.6 fL (80-94); Mean Platelet Volume 10.3 fL (7.4-10.4); Monocytes # 0.3 10^3/uL (0.2-0.9); Monocytes % 6.6 %; Neutrophils # 3.13 10^3/uL (1.8-7.7); Neutrophils % 62.6 %; Nucleated Red Blood Cells % 0 %; Platelet Count 156 10^3/cmm (130-400); Red Blood Count 4.32 10^6/uL (4.1-5.3); Red Cell Distribution Width 16.1 % (12.1-15.1)
[2020-03-01 07:21] LABS: Partial Thromboplastin Time 36.3 SECONDS (23.9-36.7)
[2020-03-01 07:36] LABS: Alanine Aminotransferase 12 U/L (0-41); Albumin Level 3.7 g/dL (3.5-5.2); Alkaline Phosphatase 59 IU/L (40-130); Anion Gap 15.8 (5-19); Aspartate Amino Transferase 16 U/L (0-40); Blood Urea Nitrogen 10 mg/dL (6-20); Calcium 8.8 mg/dL (8.5-10.5); Carbon Dioxide 20 mmol/L (22-29); Chloride 103 mmol/L (98-107); Creatinine Clr Calc Pharmacy 186.2163; Globulin 3.7 g/dL (1.3-4.6); Glomerular Filtration Rate 119.9 mL/min (90-130); Glucose 98 mg/dL (65-115); Osmolality Calculated 276 mOsm/kg (285-295); Potassium 3.8 mmol/L (3.5-5.1); Sodium 135 mmol/L (136-145); Total Bilirubin 0.7 mg/dL (0.15-1.2); Total Protein 7.4 g/dL (6.6-8.7)
--- NOTE | 2020-03-01 07:49 | PC.NURSE ---
Patient sitting on side of bed, frustrated and states, I just want to leave. Patient refused vitals this morning but agreed to this nurse completing assessment. Call light in reach, teaching completed on plan of care, verbalized understanding.
--- NOTE | 2020-03-01 08:32 | PC.NURSE ---
patient refused to let staff check vital signs
[2020-03-01 09:39] VITALS: PULSE 77; RESP 18; O2SAT 96
[2020-03-01] MEDS: levETIRAcetam 500 mg Tablet 750 MG PO (10:11)
[2020-03-01] MEDS: lisinopril 20 mg Tablet PO (10:11)
[2020-03-01] MEDS: gabapentin 300 mg Capsule PO (10:11)
[2020-03-01] MEDS: pantoprazole DR 40 mg Tablet PO (10:11)
[2020-03-01] MEDS: cetirizine 10 mg Tablet PO (10:11)
[2020-03-01] MEDS: pramipexole 0.25 mg Tablet PO (10:12)
[2020-03-01] MEDS: apixaban 5 mg Tablet PO (10:12)
[2020-03-01] MEDS: citalopram 20 mg Tablet PO (10:12)
[2020-03-01] MEDS: oxybutynin 5 mg Tablet PO (10:12)
[2020-03-01] MEDS: lactated ringers 1,000 ML 75 ML IV (11:06)
[2020-03-01 11:24] VITALS: BP 133/91; PULSE 91; RESP 20
--- NOTE | 2020-03-01 11:42 | P.DS_ITS ---
Discharge Providers Date of Admission: 02/29/20 14:34 Date of Discharge: March 01, 2020 Attending Provider at Admission: Rocky Zavala MD Attending Provider at Discharge: Rocky Zavala MD Primary Care Provider: Pamela Lorenzana Diagnoses at Discharge Discharge Diagnosis (1) GI bleeding: Status: Acute Qualifiers: GI bleed type/associated pathology: unspecified gastrointestinal hemorrhage type Qualified Code(s): K92.2 - Gastrointestinal hemorrhage, unspecified (2) Neuroendocrine carcinoma metastatic to multiple sites: Status: Acute (3) Partial epilepsy secondarily generalized: Status: Acute (4) Depression: Status: Acute (5) Coagulopathy: Status: Acute Reason for Visit Reason for Visit: blood in stool Hospital Course Discharge Summary: Patient with metastatic neuroendocrine cancer presented with minimal GI bleed but no abdominal pain. He was placed on observation and reports that he had no more episodes of bleeding. His hemoglobin stable. This morning patient reports feeling much better. He wants to go home. He denies any shortness of breath, chest pain or abdominal pain. He is passing gas well. He continues to have hiccups which felt to be related to immunotherapy. Will prescribe several tablets of Thorazine. Patient was told to use only when absolutely necessary given potential underlying side effects. Once immunother apy finished patient's hiccups should be resolved. He recently had colonoscopy therefore no further evaluation will be scheduled. I will discontinue NSAID and increase omeprazole to twice daily considering that patient is anticoagulated. His PT PTT was slightly elevated and patient was given 5 mg oral vitamin K. Eliquis is continued Physical Exam Const: COMMON NORMALS: no acute distress and patient oriented x3 Resp: COMMON NORMALS: normal respiratory effort and clear to auscultation bilaterally AUSCULTATION: clear to auscultation bilaterally Cardio: COMMON NORMALS: regular rate, regular rhythm and S2 normal heart sound present RATE: regular rate RHYTHM: regular rhythm HEART SOUNDS: S2 normal heart sound present OTHER: No lower extremity edema GI: COMMON NORMALS: Normal to inspection, nondistended, normoactive bowel sounds present, Soft to palpation and non-tender PALPATION: Yes Soft to palpation Neuro: COMMON NORMALS: patient oriented x3 and no focal motor deficits Discharge Data Data Completed and Pending: Pending at discharge Category Date Time Status Levetiracetam Kep pra AM LABS Lab 03/01/20 06:44 Received Labs from last 24 hours 03/01/20 03/01/20 03/01/20 06:44 06:44 06:44 WBC RBC Hgb Hct MCV MCH MCHC RDW Plt Count MPV Neut % (Auto) Lymph % (Auto) [place] % (Auto) Eos % (Auto) Baso % (Auto) Neut # (Auto) Lymph # (Auto) [place] # (Auto) Eos # (Auto) Baso # (Auto) Nucleated RBC % (a uto) Nucleated RBCs # PT 15.60 H INR 1.20 APTT 36.3 Sodium 135 L Potassium 3.8 Chloride 103 Carbon Dioxide 20 L Anion Gap 15.8 BUN 10 Creatinine 0.7 GFR Calculation 119.9 Glucose 98 Calculated Osmolal ity 276 L Calcium 8.8 Total Bilirubin 0.7 AST 16 ALT 12 Alkaline Phosphata se 59 Total Protein 7.4 Albumin 3.7 Globulin 3.7 Levetiracetam Pending 03/01/20 02/29/20 02/29/20 06:44 13:32 13:32 WBC 5.0 RBC 4.32 Hgb 13.3 Hct 43.9 MCV 101.6 H D MCH 30.8 MCHC 30.3 D RDW 16.1 H Plt Count 156 MPV 10.3 Neut % (Auto) 62.6 Lymph % (Auto) 24.4 [place] % (Auto) 6.6 Eos % (Auto) 5.2 Baso % (Auto) 1.0 Neut # (Auto) 3.13 Lymph # (Auto) 1.2 [place] # (Auto) 0.3 Eos # (Auto) 0.3 Baso # (Auto) 0.1 Nucleated RBC % (a uto) 0 Nucleated RBCs # 0.0 PT 17.60 H INR 1.39 H APTT 45.0 H Sodium 140 Potassium 4.2 Chloride 103 Carbon Dioxide 26 Anion Gap 15.2 BUN 14 Creatinine 0.8 GFR Calculation 102.7 Glucose 103 Calculated Osmolal ity 286 Calcium 9.1 Total Bilirubin 0.7 AST 16 ALT 13 Alkaline Phosphata se 64 Total Protein 7.6 Albumin 4.1 Globulin 3.5 Levetiracetam 02/29/20 13:32 WBC 4.7 RBC 4.41 Hgb 13.1 Hct 40.4 L MCV 91.6 MCH 29.7 MCHC 32.4 RDW 16.2 H Plt Count 181 MPV 9.5 Neut % (Auto) 54.2 Lymph % (Auto) 31.4 [place] % (Auto) 7.6 Eos % (Auto) 5.5 Baso % (Auto) 1.1 Neut # (Auto) 2.55 Lymph # (Auto) 1.5 [place] # (Auto) 0.4 Eos # (Auto) 0.3 Baso # (Auto) 0.1 Nucleated RBC % (a uto) 0 Nucleated RBCs # 0.0 PT INR APTT Sodium Potassium Chloride Carbon Dioxide Anion Gap BUN Creatinine GFR Calculation Glucose Calculated Osmolal ity Calcium Total Bilirubin AST ALT Alkaline Phosphata se Total Protein Albumin Globulin Levetiracetam Vitals: Last Vital Signs Temp 98.5 F 03/01/20 04:00 Pulse 91 03/01/20 11:24 Resp 20 H 03/01/20 11:24 BP 133/91 03/01/20 11:24 Pulse Ox 96 03/01/20 09:39 Discharge Plan Discharge Patient Disposition: Home Condition: Stable Prescriptions: New chlorpromazine 25 mg tablet 25 mg PO BID PRN (Reason: hiccups) Qty: 10 RF: 0 Continued citalopram 20 mg tablet 20 mg PO DAILY Qty: 30 RF: 2 levetiracetam [Keppra] 750 mg tablet 750 mg PO BID Qty: 60 RF: 2 fluticasone propion-salmeterol [Advair Diskus] 250-50 mcg/dose Blister With Device 1 inh INHALATION BID RF: 0 hydrocodone-acetaminophen 5-325 mg Tablet 1 - 2 tab PO Q6H PRN (Reason: Pain, Moderate) RF: 0 pramipexole 0.25 mg Tablet 0.25 mg PO DAILY RF: 0 oxybutynin chloride 5 mg Tablet 5 mg PO BID RF: 0 Eliquis 5 mg Tablet 5 mg PO BID RF: 0 Hold Instructions: Resume on 11/16/19. Doctor's Order gabapentin 300 mg capsule 300 mg PO BID RF: 0 lisinopril 20 mg tablet 20 mg PO DAILY RF: 0 ondansetron 8 mg tablet,disintegrating 8 mg PO TID PRN (Reason: NAUSEA/VOMITING) RF: 0 cetirizine [Zyrtec] 10 mg Tablet 10 mg PO BID RF: 0 morphine 30 mg Tablet,Oral Only,Extnd Release 30 mg PO Q12H RF: 0 dexamethasone 4 mg tablet See Rx Instructions .ROUTE .COMPLEX RF: 0 Changed omeprazole 40 mg capsule,delayed release(DR/EC) 40 mg PO BID Qty: 0 RF: 0 Discontinued diclofenac sodium 75 mg tablet,delayed release (DR/EC) 75 mg PO BID RF: 0 Discharge Orders: Discharge Order (Routine); Ordered 03/01/20 Ordered By: Rocky Zavala Referrals: Pamela Lorenzana PA [Primary Care Provider] - 4-7 days Discharge Diet: Advance as tolerated Discharge Activity: Increase activity as tolerated Patient Instructions: Chlorpromazine (By mouth), Gastrointestinal Bleeding (DC), Depression (DC), Epilepsy (DC) Activity Restrictions/Additional Instructions: Please call your doctor or present to emergency department if your condition worsens or you develop diarrhea, lightheadedness, fatigue or see blood in your stool or black stool. Please limit chlorpromazine as much as possible due to potential side effect as we have discussed and only take when your hiccups are severe. Once your immunotherapy treatment finished your hiccups should improve. Possible NSAID induced gastritis/esophagitis could also play a role in hiccups and GI bleed therefore diclofenac is discontinued and omeprazole increased to twice daily for now. Please discuss with your doctor if some medication adjustments need to be made. Please follow-up with oncology doctors as previously scheduled. 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
--- NOTE | 2020-03-01 12:06 | PC.NURSE ---
discharge instructions provided, denies further questions or concerns.
[2020-03-01 12:30] VITALS: BP 133/91; PULSE 91; RESP 20; TEMP 36.9; O2SAT 97
[2020-03-05 11:47] LABS: Levetiracetam Keppra 16.5 mcg/mL
== END 2020-03-01 12:32 | disposition home or self-care (01) ==
LOC: ER 13:05 → MEDSURG 15:49
PROVIDERS: Family Medicine; Physician Assistant; Admitting Provider Internal Medicine; PCP Physician Assistant; Visit Provider Internal Medicine
DX: K92.2 Gastrointestinal hemorrhage, unspecified (principal); F32.9 Major depressive disorder, single episode, unspecified; D68.9 Coagulation defect, unspecified; G40.409 Other generalized epilepsy and epileptic syndromes, not intractable, without status epilepticus; J44.9 Chronic obstructive pulmonary disease, unspecified; I10 Essential (primary) hypertension; E11.9 Type 2 diabetes mellitus without complications; F17.210 Nicotine dependence, cigarettes, uncomplicated; Z79.01 Long term (current) use of anticoagulants; Z79.51 Long term (current) use of inhaled steroids; Z85.118 Personal history of other malignant neoplasm of bronchus and lung; Z85.841 Personal history of malignant neoplasm of brain; Z85.89 Personal history of malignant neoplasm of other organs and systems; Z92.3 Personal history of irradiation; Z92.21 Personal history of antineoplastic chemotherapy; Z88.0 Allergy status to penicillin
CPT/HCPCS: 12345; 36415; 80053; 80177; 85025; 85610; 85730; 94640; 96360; 96361; 99282; 99285; G0378; J0360; J3430; J7030

== ENCOUNTER 2020-03-05 05:53 | Outpatient (RCR) | payer MEDICARE, MEDICAID, SELFPAY ==
[2020-03-05 12:38] LABS: Basophils # 0.1 10^3/uL (0.0-0.1); Eosinophils # 0.3 10^3/uL (0.0-0.8); Eosinophils % 6.4 %; Hematocrit 41.4 % (42.0-52.0); Hemoglobin 13.4 g/dL (11.7-16.6); Lymphocytes # 1.2 10^3/uL (0.8-4.8); Lymphocytes % 24.5 %; Mean Corpuscular HGB Conc 32.4 g/dL (30.0-36.0); Mean Corpuscular Hemoglobin 30.8 pg (28.0-34.0); Mean Corpuscular Volume 95.2 fL (80-94); Mean Platelet Volume 9.8 fL (7.4-10.4); Monocytes # 0.4 10^3/uL (0.2-0.9); Monocytes % 7.4 %; Neutrophils % 60.5 %; Nucleated Red Blood Cells % 0 %; Platelet Count 183 10^3/cmm (130-400); Red Blood Count 4.35 10^6/uL (4.1-5.3); Red Cell Distribution Width 16.3 % (12.1-15.1)
[2020-03-05 13:00] LABS: Alanine Aminotransferase 16 U/L (0-41); Albumin Level 4.1 g/dL (3.5-5.2); Alkaline Phosphatase 66 IU/L (40-130); Anion Gap 16.7 (5-19); Aspartate Amino Transferase 19 U/L (0-40); Blood Urea Nitrogen 10 mg/dL (6-20); Calcium 9.1 mg/dL (8.5-10.5); Carbon Dioxide 26 mmol/L (22-29); Chloride 99 mmol/L (98-107); Globulin 3.8 g/dL (1.3-4.6); Glomerular Filtration Rate 119.9 mL/min (90-130); Glucose 92 mg/dL (65-115); Osmolality Calculated 282 mOsm/kg (285-295); Potassium 3.7 mmol/L (3.5-5.1); Sodium 138 mmol/L (136-145); Total Bilirubin 0.9 mg/dL (0.15-1.2); Total Protein 7.9 g/dL (6.6-8.7)
--- NOTE | 2020-03-05 14:06 | ONC FU_ITS ---
Dr. Plummer follow up note Patient: Eric Mckeon Unit #: [id number]: 1970 Dicatated By: Nupur Plummer M.D.Date of Visit:Mar 05, 2020 Onc Med Follow-up/Prog Note History of Present Illness: Mr. Mckeon is a 49-years -old gentleman who developed a left neck mass. He was seen by Dr. Ben FOX and underwent needle core biopsy of left neck mass on 10/16/2017. 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 He underwent a CT of chest on 10/23/2017 which revealed a large right paratracheal mass measuring 8.3???7.7 cm. It involves the superior vena cava with near occlusion. It also causes encasement of the right main pulmonary artery with moderate narrowing with moderate stenosis. It also encases the right proximal main stem bronchus and bronchus intermedius. Mr Mckeon subsequently underwent CT PET scan on 10/28/2017 which showed hypermetabolic left neck mass 4.9 x 3.7 cm with SUV of 12.9. Right paratracheal mass with SUV of 15. At the level of pelvis a 6.1 x 4.5 cm soft tissue mass was reported in the right external iliac territory which has SUV of 14.4. There was an FDG positive muscular implant anterior to right femoral neck measuring 1.[address] scan done on 12/07/2017 showed right lower lobe and right middle lobe pulmonary embolism and was started on apixaban and for the study showed right lower extremity clot Mr Mckeon was seen by radiation oncology and started on radiation to his chest on urgent basis because of risk of impending SVC syndrome. He began his first cycle of chemotherapy with Carboplatin/etoposide on 11/06/2017. His last cycle of chemotherapy was on 02/06/2018. Mr. Mckeon did have follow-up PET CT on 02/03/2018. The left-sided cervical mass seen on the exam from 10/28/2017 is now subcentimeter in size and within minimal FDG activity. Similarly, the right hilar/paratracheal mass demonstrates activity minimally greater than that of the mediastinal background and measures 2.3 x 4.1 cm. The right external iliac mass now measures 1.5 cm without significant FDG activity. The muscle implant anterior to the right femoral neck currently has SUV of 6.6 down from 14.1 indicating a positive response to chemotherapy. His cycle 6 chemotherapy, was on 04/02/2018. Patient has seen Dr. Cotton radiation oncology, regarding persistent activity in muscle implant anterior to the right femoral neck, as per patient he was informed that there is a risk of radiation-induced damage to his femoral neck/ right hip and suggested to continue with chemotherapy and repeat CT PET scan as planned. Underwent CT-guided biopsy of right iliopsoas muscle implant anterior to right femoral neck on 06/04/2018 at [facility] radiology department in [place] and final pathology report came back fibrohistiocytic proliferation, no evidence of carcinoma Sleep apnea on CPAP machine Underwent fluoroscopy Port-A-Cath on 08/06/2018 showed patent Port-A-Cath He was supposed to get CT PET scan but insurance refused coverage so CT scan of chest abdomen pelvis and neck was done on 08/17/2018. It reported recurrent mass in the left neck centered at level of hyoid bone. Mass extends over a length of 4 x 2.2 x 3.4 cm. The mass abuts and displaces the fat planes along the sternocleidomastoid muscle. Mass also abuts the left jugular vein. Mass in a similar location on study of 09/18/2017. CT PET scan done on 04/21/2018 was negative. No additional masses noted. CT scan of chest showed continued decrease righ media l upper lobe mass; Unchanged right upper lobe linear and patchy nodular opacity; CT abdomen pelvis showed no definite metastatic disease in abdomen pelvis; Left mid kidney indeterminant wedge-shaped low-attenuation focus Mr Mckeon underwent biopsy of left neck mass at [facility] on 09/12/2018, final pathology report came back high-grade neuroendocrine carcinoma, predominantly small cell feature and positive focally week for TTF-1, it was concluded, given history of SVC syndrome and radiological studies diagnosis was revised to metastatic small cell lung cancer. And rechallenge with carboplatin/etoposide was recommended along with tecentriq (atezolizumab), Which he was started on 09/26/2018. Follow-up CT PET scan done after 4 doses of carboplatin/etoposide/ tecentriq , on 12/29/2018 showed persistent left supraclavicular mass measuring 3.7 x 2.7 with SUV of 8.2 compared to 4 prior to by 3.[address] scan of neck done on 08/17/[address] [facility]. And also showed persistent but stable muscle implant anterior to right femur, with SUV 14.0 and it was biopsied earlier and showed no evidence of metastatic disease Patient was evaluated by Dr. Gorman in March 2019 and as per his evaluation patient still responding to the treatment and left neck mass is smaller than before and . Last chemotherapy was done on 02/03/2019. The muscle implant was also seen with SUV of 14, biopsy of specimen was consistent with recurrent high-grade tumor and he was offered a clinical trial [facility] neuroendocrine oncology clinic at [facility]. Patient did well and clinical trial but eventually developed progressive thrombocytopenia and at his followup visit on May 07, [address] Gorman, his follow-up scan showed disease progression. At that time he was taken off clinical trial as left neck mass continued to grow. CT scan of neck done at the May 2019 followup visit, showed progressive left neck mass site 6.1 x 7.6 cm compared to 4.4 x 6.4 on 02/21/2019 with central hypoattenuation in mass is intimately associated with the left internal jugular vein and now appears to encase it and right pulmonary nodularity, cavitary lesion, right hilar mass seen. With this impression it was decided a few with palliative therapy which include radiation therapy to the left neck mass and because of persistent thrombocytopenia immunotherapy with ipilimumab and nivolumab was recommended and in case thrombocytopenia resolved topotecan based regimen can be considered Tolerated radiation therapy to left neck reasonably well and he concluded radiation therapy on 06/19/2019 o a total dose of 4,500 cGy. recommended that he pursue ipilimumab and nivolumab. 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 difficile which came back positive and he was started on antibiotics overall condition improved was discharge home in a stable condition with a tapering dose of steroids, patient return to [facility] with hypotension and severe diarrhea and again responded very well to high-dose steroids underwent colonoscopy evaluation.which showed extensive inflammation. Follow-up CT PET scan done on 10/12/2019 showed the left cervical mass now measured 3.0 x 1.8 cm with SUV of 4.2, significant improvement from prior study. The implant anterior to right femur has improved, now with SUV of 6 down from [address] PET scan done on 12/29/2018. Started on maintenance therapy with Temodar 100 mg/m??? daily for 5 days every 28 days prescription was given on 10/16/2019 As per patient, he took first dose of Temodar on 11/01/2019 and he did develop bright blood per rectum and went to [facility] and was admitted to hospital treated conservatively, GI was consulted patient underwent colonoscopy evaluation on 11/07/2019 which showed no abnormality and previously seen colitis has completely resolved.patient did not complete his 5 days/28 days course of Temodar e.g. took only 1 dose.because of GI bleeding, his Eliquis was also put on hold Then patient restarted his remaining temodar on November 19, 2019 and completed first cycle on November 22, 2019 Completed second cycle on December 21, 2019 was complaining of forgetfulness, episode of passing out twice. No focal weakness, no seizure-like activity patient has episode of off and on hiccups. No blurred vision or double vision, no fever or chills, no nuchal rigidity. CT scan of the head was done on December 25, 2019 showed mixed cystic and solid 1 cm metastasis in the right temporal lobe with a mural nodule. There is a 4.4 cm rim-enhancing centrally cystic metastasis in the right frontal lobe. Approximately 0.7 cm enhancing nodule in the right frontal lobe which shows mild pre-contrast hypodensity consistent with small amount of hemorrhage. Approximately 4 mm [id number] midline shift., Case was discussed with Dr. Flores, radiologist this morning as there was a concern whether is a metastatic disease or infectious, and his impression was findings most consistent with metastatic disease as his previous scan done in August showed very small 1.3 cm cystic lesion which was not that obvious but now progressed., Temodar was put on hold after second cycle which he completed on December 29, 2019 and he was referred to radiation oncology for evaluation for newly diagnosed brain mets which was started on December 30, 2019 and he completed on January 13, 2020, tolerated well with resolution of his symptoms On January 16, 2020 he underwent venous Doppler study of left leg for swelling and it shows no evidence of DVT Follow-up CT scan of chest abdomen pelvis done on January 29, 2020 showed no evidence of progressed metastatic disease in the chest abdomen pelvis. Stable treated right upper lobe and perihilar carcinoma with traction bronchiectasis in the right upper lobe. This is unchanged in appearance since prior examinations no evidence of disease progression. Stable bilateral adrenal nodules left greater than right. Unchanged no adenopathy in the abdomen and pelvis. Follow-up CT scan of neck done on January 31, 2020 showed moderate improvement in left neck neoplasm since August 17, 2018 now measuring 4.7 x 2.8 x 2.1 cm. Right cerebral low-attenuation mass. The mass measured 2.9 x 3.3 cm, is a known metastatic site. Patient was recently admitted to hospital with episode of GI bleeding and dehydration on February 29, 2020 and was treated with IV fluid hydration and hemoglobin was monitored, there was no significant drop in his hemoglobin and there was also concern about seizures like activity as patient recently underwent MRI scan of the head done on February 24, 2020 which showed no evidence of increased edema or mass-effect or hydrocephalus but stable dominant right posterior frontal lesion with fluid measuring 4.2 x 3.6 x 3.3 cm with surrounding peripheral enhancement Stable mass effect on the right lateral ventricle with right to left midline shift. Stable small enhancing lesions in the right frontal lobe and right anterior temporal lobe tip trace edema in these location. No new enhancing lesions seen. As per his antiseizure medication was increased and now Dr. Garcia is making adjustments. Came for follow-up, complaining of generalized weakness and fatigue but no nausea or vomiting no diarrhea constipation, no more melena or hematochezia, no hemoptysis or hematemesis, no jaundice, no headaches, no seizure. Patient completed last cycle of Temodar on February 08, 2020 . Medications: Advair Diskus 2 puff(s) (of 250-50 mcg/dose) Aerosol Powder, Breath Activated Inhalation b.i.d., Ativan 0.5 - 1 Tablet (of 1 mg) Oral t.i.d. PRN, CeleXA 1 Tablet (of 10 mg) Oral daily, Cetirizine HCl 1 Tablet (of 10 mg) Tablet Oral b.i.d., chlorproMAZINE HCl 1 Tablet (of 25 mg) Oral b.i.d. PRN, Diclofenac Sodium 1 Tablet (of 75 mg) Tablet, enteric coated Oral b.i.d., Eliquis 1 Tablet (of 5 mg) Oral b.i.d., Gabapentin 1 Capsule (of 300 mg) Capsule Oral four times a day, Hydrocodone-Acetaminophen 1 - 2 Tablet (of 5-325 mg) Oral q 6 hours, Keppra 1 Tablet (of 750 mg) Oral b.i.d., Lisinopril 1 Tablet (of 20 mg) Oral daily, Oxybutynin Chloride 1 Tablet (of 5 mg) Tablet Oral b.i.d., Pramipexole Dihydrochloride 1 (0.25 mg) Tablet Oral at bedtime Allergies: Penicillins Review of Systems: Constitutional - Appetite is poor, energy is poor, weight has slightly decreased, ENMT - Positive for sinus congestion/drainage. No mouth sores. No sore throat or difficulty swallowing, Hematologic/Lymphatic - Denies easy bruising and tender or enlarged lymph nodes, Respiratory - Occasional cough, Cardiovascular - No anginal chest pain, palpitations. He has no leg swelling, Gastrointestinal - Pt was recently in ER with GI bleeding. Flucuates between constipation and diarrhea. No heartburn or early satiety, Genitourinary (M) - No hematuria, dysuria, increased frequency, urgency, hesitancy or incontinence, Musculoskeletal - No joint pain, swelling or redness. No decreased range of motion. Pt is using a cane today, Integumentary - No skin ulcers or open wounds, Neurologic - Positive for dizziness, falls, passing out , forgetfulness and an increase in tremors, Psychiatric - Patient denies anxiety or depression. Pt has been falling asleep frequently. Pt also reports significant mood changes. Vital Signs: Performed on Mar 05, 2020 13:20 Height - 72.00 in Weight - 274.2 lbs (LOW) BSA - 2.44 sq.m BMI - 37.19 (HIGH) Temperature - 98.9 F (HIGH) Pulse - 103 /min (HIGH) Respiration - 24 /min BP - 119/84 mm(hg) O2 Sat - 96 % Pain - 3 Performance Status: 2 - Ambulatory/capable of all self-care, unable to perform any work activities. Up and about more than 50% of waking hours. (ECOG) Physical Examination: ENMT - Dry oral mucosa but no thrush, Respiratory - Lungs are clear, Cardiovascular - Regular rate and rhythm of heart, Abdomen - Soft, bowel sounds present, Extremities - No edema or rash. Lab/Imaging: Test performed on Feb 03, 2020 08:20 Sodium 138 mmol/L Potassium 3.7 mmol/L Chloride 102 mmol/L CO2 28 mmol/L Anion Gap 11.7 BUN 12 mg/dL Creatinine 0.8 mg/dL Cr Clearance (Est) 207.82 mL/min eGFR 102.7 mL/min Glucose 129 mg/dL Calcium 8.9 mg/dL Protein, Total 6.6 g/dL Albumin 3.5 g/dL Globulin 3.1 g/dL Bilirubin, Total 0.3 mg/dL ALT (SGPT) 21 U/L AST (SGOT) 15 U/L Alkaline Phosphatase 72 IU/L WBC 3.2 10 3/uL RBC 4.25 10 6/uL HGB 13.0 g/dL HCT 40.5 % MCV 95.3 fL MCH 30.6 pg MCHC 32.1 g/dL RDW 14.8 % Platelet Count 119 10 3/cmm MPV 9.0 fL Neutrophils 1.65 10 3/uL Lymphocytes 1.1 10 3/uL Monocytes 0.3 10 3/uL Eosinophils 0.0 10 3/uL Basophils 0.0 10 3/uL Neutrophil % 52.1 % Lymphocyte % 35.0 % Monocyte % 10.4 % Eosinophil % 1.3 % Basophils % 0.3 % NRBC % 0 % Impression: Recurrent small cell lung cancer per left neck mass biopsy on 09/12/2018, which showed high-grade neuroendocrine carcinoma, predominantly small cell feature and positive focally for TTF-1, it was concluded, given history of SVC syndrome and radiological studies diagnosis was revised to metastatic small cell lung cancer Metastatic High-grade neuroendocrine carcinoma per needle core biopsy of left neck mass done on 10/16/2017 Pathology also showed sheets and cords of large malignant cells with neuroendocrine features, numerous mitotic figures are seen as well as area of tumor necrosis. immuno histochemistry positive for CAM 5.2, CD 56 , synaptophysin, TTF-[address] scan of chest done on 10/23/2017 showed 7.7 x 2.3 cm right paratracheal mass with a near occlusion of SVC, and encasement of right proximal pulmonary artery with moderate stenosis, and encasement of right proximal main stem bronchus and bronchus intermedius CT PET scan done on 10/28/2017 showed hypermetabolic left neck mass measuring 4.9 x 3.7 cm with SUV of 12.9 and right paratracheal mass measures 6.8 x 7.8 cm with SUV of 15 and at the level of pelvis a 6.1 x 4.5 cm soft tissue mass in the right external iliac territory has SUV of 14.4 and and FDG positive muscular implant anterior to right femoral neck measuring about 1.2 cm in size On radiation therapy to right paratracheal mass and chemotherapy with carboplatin and etoposide was added on 11/06/2017. He received radiation therapy to right pelvic mass Right leg DVT diagnosed on 12/07/2017 on Eliquis. Mr. Mckeon was admitted on 01/20/2018 with an initial concerns for sepsis but was found to have UTI. He was discharged on antibiotics andhis fever, rigors and tachycardia resolved. CT PET scan done on 02/03/2018 showed left sided cervical mass seen on exam from 10/28/2017 is now subcentimeter in size and within normal limit FDG activity early. Right hilar/paratracheal mass demonstrates activity minimally greater than that of mediastinal background and molecular 2.3 x 4.1 cm. Right external iliac mass now measured 1.5 cm without significant FDG activity. The muscle implant anterior to the right femoral neck currently has SUV of 6.6, down from 14.1, indicating a positive response to therapy. Repeat CT PET scan done after 6th dose of chemo on 04/21/2018 showed previously described left sided cervical mass was not identifiable on the current study. Right hilar/paratracheal mass is improved in size to 3 cm with a minimum FDG activity. Right external iliac lymph node was unchanged in size but without significant FDG activity Muscle implant anterior to right femoral neck had an SUV of 12 compared to 6.6 previously, consistent with progression of disease at that location. On 06/04/2018, he underwent CT-guided biopsy of this lesion at [facility] radiology department in [place] and final pathology report came back fibrohistiocytic proliferation, no evidence of carcinoma CT scan of neck chest abdomen pelvis done on 08/17/2018 showed recurrent mass in the left neck centered at level of hyoid bone. Mass extends over a length of 4 x 2.2 x 3.4 cm and abuts and displaces fat planes along the sternocleidomastoid muscle. Mass also abuts left jugular vein. No additional mass seen. Mass in a similar location on the study of 09/18/2017. CT PET scan done on 04/21/[address] scan of chest showed continued decrease right medial upper lobe mass. Unchanged right upper lobe linear and patchy nodular opacity. New right lower lobe superior segment focal irregular opacity nonspecific follow-up CT scan recommended in [address] abdomen showed no definite metastatic disease in abdomen pelvis. Left mid kidney indeterminant wedge-shaped low-attenuation focus nonspecific. Mr Mckeon underwent biopsy of left neck mass at [facility] on 09/12/2018, final pathology report came back high-grade neuroendocrine carcinoma, predominantly small cell feature and positive focally week for TTF-1, it was concluded, given history of SVC syndrome and radiological studies diagnosis was revised to metastatic small cell lung cancer. Re-challenging with carboplatin and etoposide was recommended along with tecentriq (atezolizumab). So planning was to start him on carboplatin/etoposide and tecentriq 1200 mg IV day 1 q3 weeks ???[address] PET scan if complete remission, may consider maintenance therapy with Tecentriq alone.Which was started on 09/26/2018 Follow-up CT PET scan done after 4 doses of carboplatin/etoposide/ tecentriq , on 12/29/2018 showed persistent left supraclavicular mass measuring 3.7 x 2.7 with SUV of 8.2 compared to 4 prior to by 3.[address] scan of neck done on 08/17/[address] [facility]. It also showed persistent but stable muscle implant anterior to right femur, with SUV 14.0 and it was biopsied earlier and showed no evidence of metastatic disease Patient was evaluated by Dr. Gorman in March 2019 and as per his evaluation, Mr Mckeon was still responding to the treatment and left neck mass is smaller than before. Last chemotherapy was done on 02/03/2019. The muscle implant was also seen with SUV of 14 biopsy of specimen was consistent with recurrent high-grade tumor and he was offered a clinical trial at neuroendocrine oncology clinic at [facility]. Patient did well in the clinical trial but eventually developed progressive thrombocytopenia and follow-up scan showed disease progressio at hiis followup visit on May 07, 2019 At that time he was taken off clinical trial as left neck mass continued to grow. CT scan of neck done showed progressive left neck mass site 6.1 x 7.6 cm compared to 4.4 x 6.4 on 02/21/2019 with central hypoattenuation in mass and it was intimately associated with the left internal jugular vein and now appears to encase it. Right pulmonary nodularity, cavitary lesion, right hilar mass seen. With this impression, it was decided to pursue palliative therapy which include radiation therapy to the left neck mass and because of persistent thrombocytopenia- immunotherapy with ipilimumab and nivolumab was recommended and in case thrombocytopenia resolved- topotecan based regimen can be considered. Tolerated radiation therapy to left neck reasonably well and concluded radiation therapy on 06/19/2019 to a total dose of 4500 cGy. recommended that he pursue ipilimumab and nivolumab. He began his first cycle on 07/10/2019. 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 difficile so he was treated with antibiotics too. His follow-up CT PET scan done on October 12, 2019 showed left cervical mass was 3 x 1.8 cm with SUV 4.2, significant improvement. Because of possibility of immunotherapy related colitis, immunotherapy was discontinued and he was started on maintenance therapy with Temodar 100 mg/m??? daily for 5 days every 28 days on October 16, 2019 patient took 2 cycles subsequently diagnosed with a brain mets and maintenance therapy with Temodar was put on hold, patient was referred to radiation oncology and completed radiation therapy to his brain on January 13, 2020 Follow-up CT scan of chest abdomen pelvis and neck done on January 29, 2020 showed no evidence of disease progression stable left neck mass. Plan: Discussed with patient regarding his labs white blood count 5 hemoglobin 13.4 hematocrit 41.4 platelets 183,000 CMP within normal limits Clinically, patient is not in acute distress, but appears dehydrated due to poor oral intake. We will give him normal saline 250 cc and advised him to maintain good hydration. Considering his comorbid condition including complication from multiple persistent( but stable brain lesions but no evidence of new lesions) seizure-like activity now his antiseizure medication being adjusted and his overall performance status is deteriorating due to poor oral intake as per it could be due to his side effect of medicines and adjustment disorder/depression and discussed with regarding role of hospice care, agreed for hospice but patient is somewhat undecided wants to get some more information, said she will discuss with him and family and let us know about their decision regarding hospice. And is also considering penitentiary placement, as it is getting hard for her to take care of him at home. Return to clinic in 3 weeks with CBC CMP in the meantime we will continue supportive care and the patient decided not to pursue hospice care we will continue with maintenance dose of Temodar 5 days every month and hydrate him on as-needed basis. Signed By: Nupur Plummer M.D. <<Signature on File>>
[2020-03-05] MEDS: sodium chloride 0.9% 250 ML IV (14:09)
== END 2020-04-01 23:59 | disposition home or self-care (01) ==
LOC: ONCMED 05:53
PROVIDERS: PCP Physician Assistant; Visit Provider Internal Medicine Hematology & Oncology
DX: C7A.1 Malignant poorly differentiated neuroendocrine tumors (principal); C7B.8 Other secondary neuroendocrine tumors; D70.1 Agranulocytosis secondary to cancer chemotherapy; T45.1X5A Adverse effect of antineoplastic and immunosuppressive drugs, initial encounter; E86.0 Dehydration; F43.21 Adjustment disorder with depressed mood
CPT/HCPCS: 36415; 80053; 85025; 96523; 99214; J7050